=== PATIENT | male | born 1930 | race Caucasian/White ===

== ENCOUNTER 2016-11-29 08:59 | Inpatient (IN) | payer OTHER, MEDICARE ==
[2016-11-29] VITALS (7 sets, daily range): BP systolic 113–155; BP diastolic 66–84; PULSE 96–135; TEMP 36.4–36.6; O2SAT 95–97; Ht 172.7 cm; Wt 61.1 kg
[~2016-11-29] VITALS: Ht 172.7 cm; Wt 61.1 kg
[~2016-11-29 08:59] MED LIST: ASPI81TA28 PO; ATOR-54 PO; FLVHFA110 INH; IPRA1AER2 INH; IPRASOL4 INH; LEVO-459 PO; PRD20 PO; RANI300C PO
[2016-11-29] MEDS ORDERED: SODIUM CHLORIDE 0.9% 1000ML 1,000 ML IV STA (09:20)
[2016-11-29] MEDS ORDERED: ALBUTEROL 0.083% NEBU SOLN 3 ML VIAL INH STA ×2 (09:20→09:49)
[2016-11-29 09:25] LABS: BASO % 0.1 %; BASO ABS # 0.02 K/uL (0-0.2); COMPLETE YES; HEMATOCRIT 36.9 % (42-52); IG% 0.3 %; LYMPH % 9.2 %; LYMPH ABS # 1.33 K/uL (1.2-3.4); MEAN CELL VOLUME 97.6 fL (80-100); MEAN CORPUSCULAR HEMOGLOBIN 31.2 pg (25-34); MEAN PLATELET VOLUME 9.6 fL (7.4-10.4); MONO % 6.6 %; NEUT % 82.8 %; PLATELET COUNT 264 K/uL (130-400); RED BLOOD COUNT 3.78 M/uL (4.7-6.1); WHITE BLOOD COUNT 14.41 K/uL (4.8-10.8)
[2016-11-29 09:36] LABS: PROTHROMBIN TIME (PATIENT) 10.7 SECONDS (9.0-12.0)
[2016-11-29] MEDS ORDERED: PRED10TA PO (09:47)
--- NOTE | 2016-11-29 09:47 | DIAGNOSTIC IMAGING REPORT ---
CHEST ONE VIEW PORTABLE CLINICAL HISTORY: EVALUATE RESPIRATORY DISTRESS. DYSPNEA dyspnea COMPARISON STUDY: 05/25/2014 FINDINGS: Emphysematous change. Chronic interstitial and fibrotic change left base. No well-defined acute infiltrate. Slight chronic blunting left lateral costophrenic angle. IMPRESSION: Chronic interstitial change left base. Emphysematous change. No acute process. Electronically signed by: Juno Mariscal M.D. 11/29/2016 9:45 AM Dictated Date/Time: 11/29/2016 9:41 AM
[2016-11-29 09:58] LABS: ALB/GLOB RATIO 0.8 (0.9-2); CALCIUM 8.8 mg/dl (8.5-10.1); CREATININE 0.7 mg/dl (0.60-1.40); POTASSIUM 4.1 mmol/L (3.5-5.1)
[2016-11-29] MEDS ORDERED: METHYLPREDNISOLONE IV 125 MG in SYRINGE 0 ML IV SCH (10:00)
[2016-11-29] MEDS ORDERED: OPTIRAY 320 IV PRN (10:30)
[2016-11-29] MEDS ORDERED: METHYLPREDNISOLONE 125 MG VIAL IV ONE (10:30)
[2016-11-29] MEDS ORDERED: ASPIRIN 324 MG CHEW PO STA (10:53)
[2016-11-29] MEDS ORDERED: ASPIRIN 81 MG CHEW PO STA (10:58)
[2016-11-29] MEDS ORDERED: LEVAQUIN 500MG / 100ML D5W IV ONE (11:00)
[2016-11-29] MEDS ORDERED: ONDANSETRON INJ 2 MG/ML 2 ML VIAL IV PRN (11:30)
[2016-11-29] MEDS ORDERED: ACETAMINOPHEN 325 MG TAB PO PRN (11:30)
[2016-11-29] MEDS ORDERED: NITROGLYCERIN 0.4 MG SL PER TAB CHARGE SL PRN (11:30)
[2016-11-29] MEDS ORDERED: LORAZEPAM 0.5 MG TAB PO PRN (11:45)
[2016-11-29] MEDS ORDERED: AZITHROMYCIN 250 MG TAB PO ONE (11:45)
[2016-11-29 11:57] LABS: VEN BLD GAS O2 SATURATION 67.4 %; VEN BLOOD GAS BASE EXCESS 3.3 mmol/L
[2016-11-29] MEDS ORDERED: LEVOFLOXACIN / D5W 750 MG in PREMIXED IN D5W 150 ML IV ONE (12:00)
--- NOTE | 2016-11-29 12:06 | DIAGNOSTIC IMAGING REPORT ---
CT ANGIOGRAPHY OF THE CHEST, PULMONARY EMBOLUS PROTOCOL CLINICAL HISTORY: Cough, left-sided chest pain. COMPARISON STUDY: Chest CT January 29, 2009 TECHNIQUE: Following IV administration of 94 mL of Optiray-320, helical axial images of the chest were obtained utilizing the pulmonary embolus protocol. Maximal intensity projections and sagittal and coronal reformats were viewed on an independent 3D workstation. IV contrast was administered without complication. CT DOSE: 511.80 mGy.cm FINDINGS: No pulmonary emboli are identified. The size of the heart is normal. There is extensive coronary artery calcification. There is no pericardial effusion. No enlarged thoracic lymph nodes are present. There is a small left pleural effusion. There is no pneumothorax. Severe emphysema is noted. Extensive secretions within the trachea and mainstem bronchi are noted as well as secretions throughout numerous bilateral lower lobe segmental bronchi with bronchial wall thickening. Moderate left lower lobe consolidation to suggest pneumonia. There is mild right lower lobe consolidation. There are a few irregular subpleural opacities within the lingula which measure up to 1.4 cm. Bony thorax is unremarkable. An endovascular stent graft is partially imaged within the abdominal aorta. A right renal cyst is incidentally noted. IMPRESSION: 1. No pulmonary emboli identified. 2. Bilateral lower lobe consolidation, left greater than right. This is highly suggestive of pneumonia, potentially on the basis of aspiration. A few irregular subpleural lingular opacities are also likely infectious. A follow-up chest CT in 3 months to ensure resolution is recommended. 3. Stents of secretions throughout the airways. 4. Severe emphysema. 5. Small left pleural effusion. Electronically signed by: Leno Pat M.D. 11/29/2016 12:04 PM Dictated Date/Time: 11/29/2016 11:53 AM
--- NOTE | 2016-11-29 12:18 | DIAGNOSTIC IMAGING REPORT ---
BILATERAL LOWER EXTREMITY VENOUS DOPPLER CLINICAL HISTORY: Tachycardia and shortness of breath. COMPARISON STUDY: No previous studies for comparison. TECHNIQUE: Sonography of the deep venous system of the bilateral lower extremities was performed. Compression and augmentation were evaluated. FINDINGS: The bilateral common femoral, superficial femoral and popliteal veins were compressible. Augmentation was normal. Flow was shown within the deep calf vessels. IMPRESSION: No evidence of deep venous thrombus within the bilateral lower extremities. Electronically signed by: Leno Pat M.D. 11/29/2016 12:16 PM Dictated Date/Time: 11/29/2016 12:15 PM
--- NOTE | 2016-11-29 12:29 | History and Physical ---
History & Physical Date & Time of Service: Nov 29, 2016 at 11:41 Chief Complaint: Cough, Lf Sided Chest Pain Primary Care Physician: Juno Wiggins M.D. 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 Pt reports that 2 days ago he developed SOB that is aggravated with exertion. Sxs are assoc with wheezing, wet cough and a few hours of L sided pleuritic chest pain that has since resolved. He has been using his nebulizer and inhalers with mild temporary relief however last night he was up all night with worsening sxs which prompted him to seek further evaluation. Pt has a history of severe COPD on 10mg Prednisone daily and 3L continuous O2. Pt currently lives home alone with 5 children in the area. Pt denies fever/chills, diaphoresis, abd pain, N/V, bowel or bladder issues, LE edema, calf pain, lightheadedness/dizziness. In the ED, pt was is tachy and dyspneic. He is afebrile with leukocytosis>14k. CXR no acute change. CT chest + bibasilar consolidation. No evidence of PE. Initial troponin is negative and EKG shows sinus tachy with no acute ischemic change. Pt received Solu-Medrol and nebs in the ED. He will be admitted for further evaluation and treatment. Past Medical/Surgical History Medical Problems: (1) AAA (abdominal aortic aneurysm) Permanent Comment: s/p endovascular repair Status: Chronic (2) BPH (benign prostatic hypertrophy) Status: Chronic (3) Chronic obstructive pulmonary disease Permanent Comment: on chronic O2 and steroids Status: Chronic (4) Dyslipidemia Status: Chronic (5) GERD (gastroesophageal reflux disease) Status: Chronic Surgical Problems: (1) Status post aortic aneurysm repair Status: Chronic Family History No significant family history Social History Smoking Status: Former Smoker (45 pack years; quit 2001) Alcohol Use: none Drug Use: none Marital Status: Housing status: lives alone Occupational Status: unemployed Immunizations History of Influenza Vaccine: Yes Influenza Vaccine Date: Apr 29, 2014 History of Tetanus Vaccine?: Yes History of Pneumococcal: Yes Pneumococcal Date: Jun 03, 2004 History of Hepatitis B Vaccine: No Multi-Drug Resistant Organisms History of MDRO: No Allergies Coded Allergies: Sulfa Drugs (Verified Allergy, Intermediate, RASH, NAUSEA, VOMITING, ) Home Medications Scheduled Aspirin (Aspirin EC Low Dose), 81 MG PO DAILY Finasteride (Proscar), 5 MG PO HS Ipratropium-Albuterol (Combivent Respimat), 1 PUFFS INH QID Multivitamin (Multivitamin), 1 TAB PO DAILY Omeprazole (Prilosec), 20 MG PO DAILY Oxygen (Oxygen), 3 LITER NA CONTINOUS Prednisone Tab (Prednisone), 10 MG PO DAILY Roflumilast (Daliresp), 500 MCG PO DAILY Sertraline (Zoloft), 50 MG PO DAILY Scheduled PRN Dextromethorphan-Guaifenesin (Mucinex Dm), 1 TAB PO Q12 PRN for congestion Lorazepam (Lorazepam), 0.5 MG PO BID PRN for Anxiety Miscellaneous Medications Fluticasone Furoate-Vilanterol (Breo Ellipta) Review of Systems Constitutional: + fatigue, No chills, No fever, No sweats, No weakness Eyes: No worsening of vision ENT: No hearing loss Respiratory: + cough, + dyspnea at rest, + dyspnea on exertion, + shortness of breath, + wheezing, No hemoptysis, No sputum Cardiovascular: + chest pain (pleurtic chest pain: resolved), No claudication, No edema Abdomen: No constipation, No diarrhea, No nausea, No pain, No vomiting Musculoskeletal: No calf pain, No swelling Genitourinary - Male: No dysuria Neurologic: No weakness Psychiatric: No depression symptoms Endocrine: + fatigue Hematologic / Lymphatic: No abnormal bleeding/bruising Integumentary: No new/changing skin lesions Physical Exam Vital Signs Date Time Temp Pulse Resp B/P Pulse Ox O2 Delivery O2 Flow Rate FiO2 11/29/16 11:07 119 30 119/68 94 Nasal Cannula 3.0 11/29/16 10:19 127 25 115/65 94 Nasal Cannula 6.0 11/29/16 09:40 97 Nasal Cannula 6.0 11/29/16 09:33 124 27 117/44 97 Nebulizer 6.0 11/29/16 09:33 121 11/29/16 09:06 93 Nasal Cannula 4.0 11/29/16 09:05 36.8 129 33 127/78 91 Nasal Cannula 3.0 11/29/16 09:05 91 Nasal Cannula 3.0 General Appearance: WD/WN, no apparent distress, + pertinent finding (Pt is sitting up in bed with children at bedside ) Head: normocephalic, atraumatic Eyes: normal inspection ENT: hearing grossly normal Neck: supple Respiratory/Chest: chest non-tender, no respiratory distress, no accessory muscle use, + pertinent finding (decreased air movement bilat; no wheezing noted ) Cardiovascular: no edema, no murmur, + tachycardia Abdomen/GI: normal bowel sounds, non tender, soft Back: normal inspection Extremities/Musculoskelatal: normal inspection, no calf tenderness, no pedal edema Neurologic/Psych: alert, normal mood/affect, oriented x 3 Skin: normal color, warm/dry Diagnostics Laboratory Results Results Past 24 Hours Test 11/29/16 09:11 11/29/16 10:50 Range/Units White Blood Count 14.41 4.8-10.8 K/uL Red Blood Count 3.78 4.7-6.1 M/uL Hemoglobin 11.8 14.0-18.0 g/dL Hematocrit 36.9 42-52 % Mean Corpuscular Volume 97.6 80-100 fL Mean Corpuscular Hemoglobin 31.2 25-34 pg Mean Corpuscular Hemoglobin Concent 32.0 32-36 g/dl Platelet Count 264 130-400 K/uL Mean Platelet Volume 9.6 7.4-10.4 fL Neutrophils (%) (Auto) 82.8 % Lymphocytes (%) (Auto) 9.2 % Monocytes (%) (Auto) 6.6 % Eosinophils (%) (Auto) 1.0 % Basophils (%) (Auto) 0.1 % Neutrophils # (Auto) 11.91 1.4-6.5 K/uL Lymphocytes # (Auto) 1.33 1.2-3.4 K/uL Monocytes # (Auto) 0.95 0.11-0.59 K/uL Eosinophils # (Auto) 0.15 0-0.5 K/uL Basophils # (Auto) 0.02 0-0.2 K/uL RDW Standard Deviation 53.2 36.4-46.3 fL RDW Coefficient of Variation 14.9 11.5-14.5 % Immature Granulocyte % (Auto) 0.3 % Immature Granulocyte # (Auto) 0.05 0.00-0.02 K/uL Prothrombin Time 10.7 9.0-12.0 SECONDS Prothromb Time International Ratio 1.0 0.9-1.1 Activated Partial Thromboplast Time 26.0 21.0-31.0 SECONDS Partial Thromboplastin Ratio 1.0 Sodium Level 141 136-145 mmol/L Potassium Level 4.1 3.5-5.1 mmol/L Chloride Level 98 98-107 mmol/L Carbon Dioxide Level 39 21-32 mmol/L Anion Gap 4.0 3-11 mmol/L Blood Urea Nitrogen 13 7-18 mg/dl Creatinine 0.70 0.60-1.40 mg/dl Est Creatinine Clear Calc Drug Dose 70.8 ml/min Estimated GFR () 100.4 Estimated GFR (Non- 86.7 BUN/Creatinine Ratio 18.0 10-20 Random Glucose 113 70-99 mg/dl Calcium Level 8.8 8.5-10.1 mg/dl Total Bilirubin 0.5 0.2-1 mg/dl Aspartate Amino Transf (AST/SGOT) 22 15-37 U/L Alanine Aminotransferase (ALT/SGPT) 17 12-78 U/L Alkaline Phosphatase 74 45-117 U/L Troponin I 0.038 0-0.045 ng/ml Pro-B-Type Natriuretic Peptide 802 0-1800 pg/ml Total Protein 7.1 6.4-8.2 gm/dl Albumin 3.1 3.4-5.0 gm/dl Globulin 4.0 2.5-4.0 gm/dl Albumin/Globulin Ratio 0.8 0.9-2 Chemistry Specimen Hemolysis Diagnostic Radiology CXR IMPRESSION: Chronic interstitial change left base. Emphysematous change. No acute process. CT CHEST IMPRESSION: 1. No pulmonary emboli identified. 2. Bilateral lower lobe consolidation, left greater than right. This is highly suggestive of pneumonia, potentially on the basis of aspiration. A few irregular subpleural lingular opacities are also likely infectious. A follow-up chest CT in 3 months to ensure resolution is recommended. 3. Stents of secretions throughout the airways. 4. Severe emphysema. 5. Small left pleural effusion. EKG EKG: sinus tachy at 123 bpm with occ PACs and RBBB; when compared to EKG from PACs are new and RBBB replaced incomplete RBBB Impression Assessment and Plan ACUTE COPD EXACERBATION/PNEUMONIA R/O PE pt presented with worsening SOB assoc with wheezing, cough and pleuritic chest pain which has since resolved; h/o severe COPD on chronic prednisone and O2 -admit to telemetry -pt is tachycardic and tachypneic with leukocytosis>14K; ABG is pending -CT chest + bibasilar consolidation (L>R); no evidence of PE -Trop negative and EKG no ischemic changes -increase steroids -start Levaquin/Zosyn and Xopenex nebs -continue O2 supplementation -monitor AAA -s/p repair in 2008 BPH -cont Proscar GERD -cont PPI DYSLIPIDEMIA -diet-controlled DVT PROPHYLAXIS -subq Lovenox CODE STATUS -DNR per discussion with patient upon admission DISPO Pt seen in collaboration with Dr. Hutchinson. Please see his addendum for further details. Thanks! -of note: Pt will be followed by Dr. 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 Y/N: Yes Risk Level: Moderate Note ATTENDING ADDENDUM Record reviewed. Patient interviewed and examined. Care coordinated with Lucille Rodríguez PA-C. Please refer to her documentation for patient's history. Briefly, 85 YO male with steroid and O2-dependent COPD. Presented to ED with 2 days of worsening cough and dyspnea, associated with left pleuritic chest pain. EXAM: General- elderly gentleman, tachypneic VS- as noted HEENT- anicteric Neck- + JVD Lungs- diffuse wheezing, prolonged expiration, scattered rhonchi, using accessory muscles Heart- distant heart sounds, RRR, tachy Abdomen- + BS, soft, nontender Extremities- trace pretibial edema, no calf tenderness Neuro- alert DATA: WBC 14,410. UA- + leuk esterase, 10-30 WBC's, > 30 RBC's. Other lab studies as noted. CXR- emphysematous changes, apparent chronic changes left base. CT chest- neg for PE, + for bibasilar infiltrates L > R consistent with pneumonia Venous duplex legs neg. EKG performed at 09:[address] at 120 / minute, RBBB, left anterior fascicular block, [id number]'s. . ASSESSMENT AND PLAN: Pneumonia, outpatient acquired but at risk for Pseudomonas. Exacerbation of COPD. Check sputum gram stain, C&S. Treat pneumonia with IV levofloxacin and piperacillin / tazobactam. Treat bronchospasm with nebs and IV methylprednisolone with transition to prednisone when better. Possible UTI- check C&S. Hematuria- may be due to UTI; will not pursue aggressive workup given patient's advanced age and significant comorbidities. Please refer to CURTIS Rodríguez's documentation for discussion of other issues. Jose Alfredo Hutchinson MD .
--- NOTE | 2016-11-29 13:33 | EMERGENCY ROOM VISIT NOTE ---
History Report prepared by Anupama: Flaquita Rodriguez Under the Supervision of: Dr. Bimal Savage D.O. First contact with patient: 09:01 Chief Complaint: CARDIAC ASSESSMENT Stated Complaint: COUGH, LF SIDED CHEST PAIN History of Present Illness The patient is a 85 year old male who presents to the Emergency Room with complaints of persistent left sided chest pain starting last night. He was brought to the ED by EMS. Last night, he began to cough and have chest pain. He experienced these symptoms all throughout the night. The pain worsens when he breathes deeply. He wears 3 L of oxygen at home regularly. He denies any recent falls. He has a history of aneurysm, COPD and irregular heartbeat. He denies any history of blood clots. He is not on any blood thinners. He lives alone. He has received his pneumonia and flu shot. Patient denies any nausea vomiting diarrhea, no headaches or change in vision. Source of History: patient Onset: last night Position: chest (left) Timing: other (persistent) Modifying Factors (Worsening): breathing (deeply) Associated Symptoms: + cough Review of Systems See HPI for pertinent positives & negatives. A total of 10 systems reviewed and were otherwise negative. Past Medical & Surgical Medical Problems: (1) AAA (abdominal aortic aneurysm) (2) BPH (benign prostatic hypertrophy) (3) Chronic obstructive pulmonary disease (4) Dyslipidemia (5) GERD (gastroesophageal reflux disease) Surgical Problems: (1) Status post aortic aneurysm repair Family History No significant family history Non contributory secondary to age. Social History Smoking Status: Former Smoker Alcohol Use: none Drug Use: none Marital Status: Housing Status: lives alone Occupation Status: retired Current/Historical Medications Scheduled Aspirin (Aspirin EC Low Dose), 81 MG PO DAILY Finasteride (Proscar), 5 MG PO HS Ipratropium-Albuterol (Combivent Respimat), 1 PUFFS INH QID Multivitamin (Multivitamin), 1 TAB PO DAILY Omeprazole (Prilosec), 20 MG PO DAILY Oxygen (Oxygen), 3 LITER NA CONTINOUS Prednisone Tab (Prednisone), 10 MG PO DAILY Roflumilast (Daliresp), 500 MCG PO DAILY Sertraline (Zoloft), 50 MG PO DAILY Scheduled PRN Dextromethorphan-Guaifenesin (Mucinex Dm), 1 TAB PO Q12 PRN for congestion Lorazepam (Lorazepam), 0.5 MG PO BID PRN for Anxiety Miscellaneous Medications Fluticasone Furoate-Vilanterol (Breo Ellipta) Allergies Coded Allergies: Sulfa Drugs (Verified Allergy, Intermediate, RASH, NAUSEA, VOMITING, ) Physical Exam Vital Signs Date Time Temp Pulse Resp B/P Pulse Ox O2 Delivery O2 Flow Rate FiO2 11/29/16 12:47 110 28 115/64 90 Nasal Cannula 3.0 11/29/16 11:07 119 30 119/68 94 Nasal Cannula 3.0 11/29/16 10:19 127 25 115/65 94 Nasal Cannula 6.0 11/29/16 09:40 97 Nasal Cannula 6.0 11/29/16 09:33 124 27 117/44 97 Nebulizer 6.0 11/29/16 09:33 121 11/29/16 09:06 93 Nasal Cannula 4.0 11/29/16 09:05 36.8 129 33 127/78 91 Nasal Cannula 3.0 11/29/16 09:05 91 Nasal Cannula 3.0 Physical Exam GENERAL: Sitting up in bed, ill appearing, on nasal cannula, in moderate distress EYE EXAM: normal conjunctiva OROPHARYNX: no exudate, no erythema, lips, buccal mucosa, and tongue normal and mucous membranes are moist NECK: supple, no nuchal rigidity, no adenopathy, non-tender, no JVD LUNGS: Rhonchi bilaterally with referred upper airway noises. HEART: no murmurs, S1 normal and S2 normal ABDOMEN: abdomen soft, non-tender, normo-active bowel sounds, no masses, no rebound or guarding. BACK: Back is symmetrical on inspection and there is no deformity, no midline tenderness, no CVA tenderness. SKIN: no rashes and no bruising UPPER EXTREMITIES: upper extremities are grossly normal. LOWER EXTREMITIES: No pitting edema. Calves equal bilaterally. NEURO EXAM: Normal sensorium, cranial nerves II-XII grossly intact, normal speech, no gross weakness of arms, no gross weakness of legs. Medical Decision & Procedures ER Provider Diagnostic Interpretation: Xray results as stated below per the radiologist's and my interpretation. Radiology results as stated below per my review and the radiologist's interpretation: CHEST ONE VIEW PORTABLE CLINICAL HISTORY: EVALUATE RESPIRATORY DISTRESS. DYSPNEA dyspnea COMPARISON STUDY: 05/25/2014 FINDINGS: Emphysematous change. Chronic interstitial and fibrotic change left base. No well-defined acute infiltrate. Slight chronic blunting left lateral costophrenic angle. IMPRESSION: Chronic interstitial change left base. Emphysematous change. No acute process. Electronically signed by: Juno Mariscal M.D. 11/29/2016 9:45 AM Dictated Date/Time: 11/29/2016 9:[address] ANGIOGRAPHY OF THE CHEST, PULMONARY EMBOLUS PROTOCOL CLINICAL HISTORY: Cough, left-sided chest pain. COMPARISON STUDY: Chest CT January 29, 2009 TECHNIQUE: Following IV administration of 94 mL of Optiray-320, helical axial images of the chest were obtained utilizing the pulmonary embolus protocol. Maximal intensity projections and sagittal and coronal reformats were viewed on an independent 3D workstation. IV contrast was administered without complication. CT DOSE: 511.80 mGy.cm FINDINGS: No pulmonary emboli are identified. The size of the heart is normal. There is extensive coronary artery calcification. There is no pericardial effusion. No enlarged thoracic lymph nodes are present. There is a small left pleural effusion. There is no pneumothorax. Severe emphysema is noted. Extensive secretions within the trachea and mainstem bronchi are noted as well as secretions throughout numerous bilateral lower lobe segmental bronchi with bronchial wall thickening. Moderate left lower lobe consolidation to suggest pneumonia. There is mild right lower lobe consolidation. There are a few irregular subpleural opacities within the lingula which measure up to 1.4 cm. Bony thorax is unremarkable. An endovascular stent graft is partially imaged within the abdominal aorta. A right renal cyst is incidentally noted. IMPRESSION: 1. No pulmonary emboli identified. 2. Bilateral lower lobe consolidation, left greater than right. This is highly suggestive of pneumonia, potentially on the basis of aspiration. A few irregular subpleural lingular opacities are also likely infectious. A follow-up chest CT in 3 months to ensure resolution is recommended. 3. Stents of secretions throughout the airways. 4. Severe emphysema. 5. Small left pleural effusion. Electronically signed by: Leno Pat M.D. 11/29/2016 12:04 PM Dictated Date/Time: 11/29/2016 11:53 AM BILATERAL LOWER EXTREMITY VENOUS DOPPLER CLINICAL HISTORY: Tachycardia and shortness of breath. COMPARISON STUDY: No previous studies for comparison. TECHNIQUE: Sonography of the deep venous system of the bilateral lower extremities was performed. Compression and augmentation were evaluated. FINDINGS: The bilateral common femoral, superficial femoral and popliteal veins were compressible. Augmentation was normal. Flow was shown within the deep calf vessels. IMPRESSION: No evidence of deep venous thrombus within the bilateral lower extremities. Electronically signed by: Leno Pat M.D. 11/29/2016 12:16 PM Dictated Date/Time: 11/29/2016 12:15 PM Laboratory Results 11/29/16 09:11 Red Blood Count 3.78, Mean Corpuscular Volume 97.6, Mean Corpuscular Hemoglobin 31.2, Mean Corpuscular Hemoglobin Concent 32.0, Mean Platelet Volume 9.6, Neutrophils (%) (Auto) 82.8, Lymphocytes (%) (Auto) 9.2, Monocytes (%) (Auto) 6.6, Eosinophils (%) (Auto) 1.0, Basophils (%) (Auto) 0.1, Neutrophils # (Auto) 11.91, Lymphocytes # (Auto) 1.33, Monocytes # (Auto) 0.95, Eosinophils # (Auto) 0.15, Basophils # (Auto) 0.02 11/29/16 09:11 Test 11/29/16 09:11 11/29/16 11:45 White Blood Count 14.41 K/uL (4.8-10.8) Red Blood Count 3.78 M/uL (4.7-6.1) Hemoglobin 11.8 g/dL (14.0-18.0) Hematocrit 36.9 % (42-52) Mean Corpuscular Volume 97.6 fL (80-100) Mean Corpuscular Hemoglobin 31.2 pg (25-34) Mean Corpuscular Hemoglobin Concent 32.0 g/dl (32-36) Platelet Count 264 K/uL (130-400) Mean Platelet Volume 9.6 fL (7.4-10.4) Neutrophils (%) (Auto) 82.8 % Lymphocytes (%) (Auto) 9.2 % Monocytes (%) (Auto) 6.6 % Eosinophils (%) (Auto) 1.0 % Basophils (%) (Auto) 0.1 % Neutrophils # (Auto) 11.91 K/uL (1.4-6.5) Lymphocytes # (Auto) 1.33 K/uL (1.2-3.4) Monocytes # (Auto) 0.95 K/uL (0.11-0.59) Eosinophils # (Auto) 0.15 K/uL (0-0.5) Basophils # (Auto) 0.02 K/uL (0-0.2) RDW Standard Deviation 53.2 fL (36.4-46.3) RDW Coefficient of Variation 14.9 % (11.5-14.5) Immature Granulocyte % (Auto) 0.3 % Immature Granulocyte # (Auto) 0.05 K/uL (0.00-0.02) Prothrombin Time 10.7 SECONDS (9.0-12.0) Prothromb Time International Ratio 1.0 (0.9-1.1) Activated Partial Thromboplast Time 26.0 SECONDS (21.0-31.0) Partial Thromboplastin Ratio 1.0 Anion Gap 4.0 mmol/L (3-11) Est Creatinine Clear Calc Drug Dose 70.8 ml/min Estimated GFR () 100.4 Estimated GFR (Non- 86.7 BUN/Creatinine Ratio 18.0 (10-20) Calcium Level 8.8 mg/dl (8.5-10.1) Total Bilirubin 0.5 mg/dl (0.2-1) Aspartate Amino Transf (AST/SGOT) 22 U/L (15-37) Alanine Aminotransferase (ALT/SGPT) 17 U/L (12-78) Alkaline Phosphatase 74 U/L (45-117) Troponin I 0.038 ng/ml (0-0.045) Pro-B-Type Natriuretic Peptide 802 pg/ml (0-1800) Total Protein 7.1 gm/dl (6.4-8.2) Albumin 3.1 gm/dl (3.4-5.0) Globulin 4.0 gm/dl (2.5-4.0) Albumin/Globulin Ratio 0.8 (0.9-2) Chemistry Specimen Hemolysis Venous Blood pH 7.23 (7.36-7.41) Venous Blood Partial Pressure CO2 80 mmHg (38.0-50.0) Venous Blood Partial Pressure O2 39 mmHg Venous Blood HCO3 33 mmol/L Venous Blood Oxygen Saturation 67.4 % Venous Blood Base Excess 3.3 mmol/L Laboratory results per my review. Medications Administered Medications (Trade) Dose Ordered Sig/Shabbir Route Start Time Stop Time Status Last Admin Dose Admin Sodium Chloride (Nss 1000ml) 1,000 ml @ 999 mls/hr Q1H1M STAT IV 11/29/16 09:20 11/29/16 10:20 DC 11/29/16 09:30 999 MLS/HR Albuterol Sulfate (Ventolin 0.083% 2.5MG/3ML Neb) 2.5 mg NOW STAT INH 11/29/16 09:20 11/29/16 09:21 DC 11/29/16 09:29 2.5 MG Albuterol Sulfate (Ventolin 0.083% 2.5MG/3ML Neb) 5 mg NOW STAT INH 11/29/16 09:49 11/29/16 09:50 DC 11/29/16 10:19 5 MG Methylprednisolone Sodium Succinate (Solu-Medrol IV) 125 mg NOW ONCE IV 11/29/16 10:30 11/29/16 10:31 DC 11/29/16 11:03 125 MG Levofloxacin (Levaquin / D5W) 500 mg NOW ONCE IV 11/29/16 11:00 11/29/16 11:01 DC 11/29/16 11:03 500 MG Aspirin (Aspirin Chew) 324 mg NOW STAT PO 11/29/16 10:58 11/29/16 10:59 DC 11/29/16 11:10 324 MG ECG Indication: chest pain Rate (beats per minute): 123 Rhythm: sinus tachycardia Findings: RBBB, ST depression, left axis deviation Comparison ECG Date: 25-May-2014 Change: ST depression is new. ED Course ED COURSE: Vital signs were reviewed and showed tachycardia and hypoxia. The patients medical record was reviewed The above diagnostic studies were performed and reviewed. ED treatments and interventions as stated above. 0905: The patient was evaluated in room B7. A complete history and physical examination was performed. 0920: Albuterol Sulfate 2.5 mg INH, NSS 1000 ml @ 999 mls/hr IV. 0935: I reevaluated the patient. He is resting comfortably. 0949: Albuterol Sulfate 5 mg INH. 1005: I reevaluated the patient. He is sitting on the edge of the bed. He is doing well. 1030: Solu-Medrol IV 125 mg IV. 1035: The patient is going to [facility] now. 1049: I discussed the patients case with Lucille Rodríguez PA-C [facility]ist service. She will evaluate the patient for further management. 1053: Aspirin 324 mg PO. 1058: Aspirin 324 mg PO. 1100: Levofloxacin 500 mg IV. 1110: Upon reevaluation, the patient is resting comfortably.I discussed my findings with the patient and he understands and agrees with the treatment plan. Based on the patients age, coexisting illnesses, exam and lab findings the decision to treat as an inpatient was made. The patient remained stable while under my care. The patient will be evaluated for further management. Medical Decision Differential diagnoses includes but is not limited to acute coronary syndrome, myocardial infarction, pericarditis, pulmonary embolus, aortic dissection, pneumonia, pneumothorax, musculoskeletal, shingles, esophageal. Patient is an 85-year-old male who presents the ER for shortness of breath. On exam he is hypoxic, tachycardic and ill-appearing. He is placed on 5 L nasal cannula which is increased from his baseline of 3 L nasal cannula. Labs show a leukocytosis of 14,000. BMP along with LFTs, bilirubin and troponin were negative. BNP was negative. INR was unremarkable. VBG shows a pH is 7.23. CT was elevated. Chest x-ray was nondiagnostic. CT PE was initially ordered and patient was brought back to the room as he noted he has an allergy to contrast which is vomiting. He notes that if he gets prepped he has no difficulty. I ordered duplexes of the lower extremities. He was given steroids and albuterol for his shortness of breath. He is covered with Levaquin. He notes the symptoms occurred overnight and eventually patient was taken for CT PE following admission. Showed a bilateral pneumonia. Patient family were updated patient was admitted to the hospital with bilateral pneumonia. Consults Time Called: 1048 Consulting Physician: Lucille Rodríguez PA-C [facility]ist service Returned Call: [phone] I reviewed the patient's case with her. She will evaluate the patient for further management. Impression Primary Impression: Pneumonia Additional Impression: Hypoxia Scribe Attestation The scribe's documentation has been prepared under my direction and personally reviewed by me in its entirety. I confirm that the note above accurately reflects all work, treatment, procedures, and medical decision making performed by me. Departure Information Dispostion Being Evaluated By Hospitalist Referrals Juno Wiggins M.D. (PCP) Patient Instructions My [facility] Problem Qualifiers Primary Impression: Pneumonia Pneumonia type: due to unspecified organism Laterality: bilateral Lung location: lower lobe of lung Qualified Codes: J18.9 - Pneumonia, unspecified organism
[2016-11-29] MEDS ORDERED: LEVALBUTEROL/IPRATROPIUM NEB INH SCH (15:00)
[2016-11-29] MEDS ORDERED: PIPERACILL/TAZOBAC CONSULT ACTIVE PRN (15:15)
[2016-11-29] MEDS ORDERED: PIPERACILL/TAZOBAC IV 3.375 GM in DEXTROSE 5% 100ML 100 ML IV ONE (15:30)
[2016-11-29] MEDS: IPRATROPIUM BROMIDE NEB SOLN 0.02% 2.5 ML VIAL INH SCH (19:06)
[2016-11-29] MEDS: LEVALBUTEROL 1.25MG/0.5ML NEB INH SCH (19:06)
[2016-11-29] MEDS: ENOXAPARIN 40 MG/0.4 ML SYR SC SCH (20:25)
[2016-11-29] MEDS: FINASTERIDE 5 MG TAB PO SCH (20:25)
[2016-11-29] MEDS: METHYLPREDNISOLONE IV 20 MG in SYRINGE 0 ML IV SCH (20:25)
[2016-11-29 20:56] LABS: URINE APPEARANCE CLEAR (CLEAR); URINE BILIRUBIN NEG (NEG); URINE COLOR YELLOW; URINE EPITHELIAL CELL AUTO 0-5 /lpf (0-5); URINE NITRITE POS (NEG); URINE SPECIFIC GRAVITY 1.033 (1.000-1.030); UROBILINOGEN NEG (NEG)
[2016-11-29 20:59] LABS: MANUAL MICROSCOPIC REQUIRED? NO; REVIEW REQ? NO
[2016-11-29] MEDS: PIPERACILL/TAZOBAC IV 3.375 GM in DEXTROSE 5% 100ML IV SCH (21:49)
[2016-11-30] VITALS (10 sets, daily range): BP systolic 103–136; BP diastolic 57–75; PULSE 88–117; TEMP 36.3–36.9; O2SAT 92–98
[2016-11-30] MEDS: IPRATROPIUM BROMIDE NEB SOLN 0.02% 2.5 ML VIAL INH SCH ×2 (02:11→06:53)
[2016-11-30] MEDS: LEVALBUTEROL 1.25MG/0.5ML NEB INH SCH ×2 (02:11→06:53)
[2016-11-30] MEDS: PIPERACILL/TAZOBAC IV 3.375 GM in DEXTROSE 5% 100ML IV SCH ×2 (05:53→13:21)
--- NOTE | 2016-11-30 06:20 | Clinical Documentation Query ---
BRIGIDO Lombardo : CLINICAL DOCUMENTATION QUERY Patient is an 85 year old male admitted for COPD exacerbation in the setting of possible Pseudomonas pneumonia. H&P notes the utilization of 3 L/min of continuous supplemental oxygen via nasal cannula. As appropriate, consider documentation as suggested below as this allows for capture of this important clinical diagnosis and associated severity of illness and risk of mortality. Thank you. In your clinical opinion is this patient being managed for: ( ) Chronic hypoxic respiratory failure ( ) Other explanation of clinical findings (Please Explain) ( ) Unable to determine (Please Define) ( ) Need to Discuss ( ) Not Agree The medical record reflects the following clinical findings, treatment, and risk factors. Clinical Indicators: As above Treatment: Ongoing oxygen supplementation Risk Factors: COPD Please clarify and document your clinical opinion in the progress notes and discharge summary. Terms such as "probable", "suspected", "likely", "questionable", "possible", or "still to be ruled out" are acceptable. IF IN AGREEMENT, YOU MUST DOCUMENT ABOVE DIAGNOSTIC STATEMENT IN DAILY PROGRESS NOTES AND DISCHARGE SUMMARY. This document is not part of the patient's record. Thank You, Kiet Knight, RN [phone]
[2016-11-30 07:37] LABS: MEAN CELL VOLUME 97.3 fL (80-100); MEAN CORPUSCULAR HEMOGLOBIN 30.5 pg (25-34); MEAN CORPUSCULAR HGB CONC 31.4 g/dl (32-36); PLATELET COUNT 223 K/uL (130-400); WHITE BLOOD COUNT 12.94 K/uL (4.8-10.8)
[2016-11-30 08:08] LABS: BUN/CREATININE RATIO 19.4 (10-20); CALCIUM 8.5 mg/dl (8.5-10.1); CREATININE 0.77 mg/dl (0.60-1.40); POTASSIUM 4.3 mmol/L (3.5-5.1)
[2016-11-30] MEDS: PANTOprazole SOD 40 MG TAB PO SCH (08:13)
[2016-11-30] MEDS: ROFLUMILAST 500 MCG TAB PO SCH (08:13)
[2016-11-30] MEDS: MULTIVITAMIN TAB PO SCH (08:13)
[2016-11-30] MEDS: ASPIRIN 81 MG ECTAB PO SCH (08:13)
[2016-11-30] MEDS: SERTRALINE HCL 50 MG TAB PO SCH (08:14)
[2016-11-30] MEDS: METHYLPREDNISOLONE IV 20 MG in SYRINGE 0 ML IV SCH (08:14)
[2016-11-30] MEDS ORDERED: AZITHROMYCIN 250 MG TAB PO SCH (09:00)
[2016-11-30] MEDS: LEVOFLOXACIN / D5W 500 MG in PREMIXED IN D5W 100 ML IV SCH (12:01)
[2016-11-30] MEDS ORDERED: LEVALBUTEROL/IPRATROPIUM NEB INH PRN (13:45)
[2016-11-30] MEDS ORDERED: IPRATROPIUM BROMIDE/ALBUTEROL respimat INH INH PRN (13:45)
[2016-11-30] MEDS ORDERED: IPRATROPIUM BROMIDE NEB SOLN 0.02% 2.5 ML VIAL INH PRN (14:15)
[2016-11-30] MEDS ORDERED: LEVALBUTEROL 0.63MG/3 ML NEB INH PRN (14:15)
[2016-11-30] MEDS: METHYLPREDNISOLONE IV 40 MG in SYRINGE 0 ML IV SCH ×2 (14:47→21:12)
[2016-11-30] MEDS ORDERED: LEVALBUTEROL 0.63MG/3 ML NEB INH SCH (15:00)
--- NOTE | 2016-11-30 15:43 | Progress Note ---
Internal Med Progress Note Date of Service: Nov 30, 2016. Provider Documentation: SUBJECTIVE: says sob is same having cough with sputum afebrile has mild chest discomfort talking in full sentences OBJECTIVE: Vital Signs-as noted below Exam: General-alert and awake and oriented ENT-normal hearing Neck-no neck masses Lungs-b/l diminished breath sounds, no wheezing or crackles Heart-s1 and s2 heard regular rate and rhythm no murmurs Abdomen-soft bowel sounds present non tender no distension Extremities- no erythema Neuro-alert and awake moves extremities Lab data as noted below. ASSESSMENT & PLAN: ACUTE COPD EXACERBATION/PNEUMONIA R/O PE 85M with hx of copd presents with worsenig sob, cough with sputum and pleuritic chest pain CT chest NO PE but shows bilateral lower lobe consolidation favoring pneumonia. 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 -monitor AAA s/p repair in 2008 BPH On Proscar GERD On PPI DYSLIPIDEMIA diet-controlled DVT PROPHYLAXIS Lovenox CODE STATUS -DNR per hand P. Disposition 'To be determined Vital Signs: Date Time Temp Pulse Resp B/P Pulse Ox O2 Delivery O2 Flow Rate FiO2 11/30/16 14:35 103 16 92 Nasal Cannula 3.0 11/30/16 12:00 36.9 117 20 136/75 94 Nasal Cannula 4.0 11/30/16 12:00 Nasal Cannula 3.0 11/30/16 08:00 Nasal Cannula 3.0 11/30/16 07:15 36.4 99 20 113/66 95 Nasal Cannula 2.0 11/30/16 06:55 88 16 98 Nasal Cannula 3.0 11/30/16 04:00 Nasal Cannula 3.0 11/30/16 03:47 36.5 92 18 108/57 95 Nasal Cannula 3.0 11/30/16 02:11 98 16 97 Nasal Cannula 3.0 11/30/16 00:00 Nasal Cannula 3.0 11/29/16 23:55 36.6 96 20 113/67 95 Nasal Cannula 3.0 11/29/16 20:00 Nasal Cannula 3.0 11/29/16 19:53 36.4 100 20 115/69 96 Nasal Cannula 3.0 11/29/16 19:06 97 20 95 Nasal Cannula 3.0 11/29/16 16:04 97 Nasal Cannula 3.0 Lab Results: Results Past 24 Hours Test 11/30/16 07:20 Range/Units White Blood Count 12.94 4.8-10.8 K/uL Red Blood Count 3.70 4.7-6.1 M/uL Hemoglobin 11.3 14.0-18.0 g/dL Hematocrit 36.0 42-52 % Mean Corpuscular Volume 97.3 80-100 fL Mean Corpuscular Hemoglobin 30.5 25-34 pg Mean Corpuscular Hemoglobin Concent 31.4 32-36 g/dl RDW Standard Deviation 52.5 36.4-46.3 fL RDW Coefficient of Variation 14.8 11.5-14.5 % Platelet Count 223 130-400 K/uL Mean Platelet Volume 9.0 7.4-10.4 fL Sodium Level 140 136-145 mmol/L Potassium Level 4.3 3.5-5.1 mmol/L Chloride Level 99 98-107 mmol/L Carbon Dioxide Level 40 21-32 mmol/L Anion Gap 1.0 3-11 mmol/L Blood Urea Nitrogen 15 7-18 mg/dl Creatinine 0.77 0.60-1.40 mg/dl Est Creatinine Clear Calc Drug Dose 64.3 ml/min Estimated GFR () 96.6 Estimated GFR (Non- 83.3 BUN/Creatinine Ratio 19.4 10-20 Random Glucose 118 70-99 mg/dl Calcium Level 8.5 8.5-10.1 mg/dl Microbiology Results 11/30/16 Gram Stain - Final, Resulted 11/30/16 Sputum Culture, Resulted Pending 11/30/16 Urine Culture, Received Pending
[2016-11-30] MEDS ORDERED: CEFEPIME CONSULT ACTIVE PRN ×2 (16:00)
[2016-11-30] MEDS: CEFEPIME IV 2000 MG in DEXTROSE 5% 100ML IV SCH (16:46)
[2016-11-30] MEDS: FINASTERIDE 5 MG TAB PO SCH (21:12)
[2016-11-30] MEDS: ENOXAPARIN 40 MG/0.4 ML SYR SC SCH (21:12)
[2016-12-01 04:00] VITALS: BP 119/62; PULSE 98; TEMP 36.5; O2SAT 98
[2016-12-01] MEDS: CEFEPIME IV 2000 MG in DEXTROSE 5% 100ML IV SCH ×2 (06:04→18:02)
[2016-12-01 07:51] VITALS: BP 110/64; PULSE 95; TEMP 36.8; O2SAT 99
[2016-12-01 08:41] LABS: COMPLETE YES; EOS % 0.1 %; HEMATOCRIT 37.3 % (42-52); IG% 0.3 %; LYMPH % 6.6 %; LYMPH ABS # 0.84 K/uL (1.2-3.4); MEAN CELL VOLUME 98.2 fL (80-100); MEAN CORPUSCULAR HEMOGLOBIN 30.8 pg (25-34); MEAN CORPUSCULAR HGB CONC 31.4 g/dl (32-36); MEAN PLATELET VOLUME 9.2 fL (7.4-10.4); MONO % 5.3 %; NEUT % 87.7 %; PLATELET COUNT 275 K/uL (130-400); WHITE BLOOD COUNT 12.72 K/uL (4.8-10.8)
[2016-12-01] MEDS: METHYLPREDNISOLONE IV 40 MG in SYRINGE 0 ML IV SCH ×3 (09:09→20:43)
[2016-12-01] MEDS: MULTIVITAMIN TAB PO SCH (09:09)
[2016-12-01] MEDS: SERTRALINE HCL 50 MG TAB PO SCH (09:09)
[2016-12-01] MEDS: PANTOprazole SOD 40 MG TAB PO SCH (09:09)
[2016-12-01] MEDS: ROFLUMILAST 500 MCG TAB PO SCH (09:09)
[2016-12-01] MEDS: ASPIRIN 81 MG ECTAB PO SCH (09:09)
[2016-12-01 10:29] LABS: BUN/CREATININE RATIO 27.8 (10-20); CALCIUM 8.9 mg/dl (8.5-10.1); CREATININE 0.69 mg/dl (0.60-1.40); MAGNESIUM 2.3 mg/dl (1.8-2.4); POTASSIUM 4.4 mmol/L (3.5-5.1)
[2016-12-01 11:19] VITALS: BP 114/63; PULSE 114; TEMP 36.7; O2SAT 97
[2016-12-01] MEDS: LEVOFLOXACIN / D5W 500 MG in PREMIXED IN D5W 100 ML IV SCH (11:31)
[2016-12-01 16:10] VITALS: BP 109/66; PULSE 80; TEMP 36.5; O2SAT 94
--- NOTE | 2016-12-01 18:32 | Progress Note ---
Internal Med Progress Note Date of Service: Dec 01, 2016. Provider Documentation: SUBJECTIVE: says sob is still same still having cough with sputum afebrile denies chest discomfort talking in full sentences and seems comfortable OBJECTIVE: Vital Signs-as noted below Exam: General-alert and awake and oriented ENT-normal hearing Neck-no neck masses Lungs-b/l diminished breath sounds, no wheezing or crackles Heart-s1 and s2 heard regular rate and rhythm no murmurs Abdomen-soft bowel sounds present non tender no distension Extremities- no erythema Neuro-alert and awake moves extremities Lab data as noted below. ASSESSMENT & PLAN: ACUTE COPD EXACERBATION/PNEUMONIA R/O PE 85M with hx of copd presents with worsening sob, cough with sputum and pleuritic chest pain CT chest NO PE but shows bilateral lower lobe consolidation favoring pneumonia. 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 An episode of pause on tele mostly could be form cough spells? will monitor AAA s/p repair in 2008 BPH On Proscar GERD On PPI DYSLIPIDEMIA diet-controlled DVT PROPHYLAXIS Lovenox CODE STATUS -DNR per hand P. Disposition pt/ot 'To be determined Vital Signs: Date Time Temp Pulse Resp B/P Pulse Ox O2 Delivery O2 Flow Rate FiO2 12/01/16 16:10 36.5 80 16 109/66 94 Nasal Cannula 4.0 12/01/16 16:00 Nasal Cannula 4.0 12/01/16 12:00 Nasal Cannula 4.0 12/01/16 11:19 36.7 114 20 114/63 97 Nasal Cannula 5.0 12/01/16 07:51 36.8 95 18 110/64 99 Nasal Cannula 4.0 12/01/16 07:45 Nasal Cannula 4.0 12/01/16 04:00 36.5 98 20 119/62 98 5.0 12/01/16 04:00 Nasal Cannula 3.0 12/01/16 00:01 Nasal Cannula 3.0 11/30/16 23:22 36.3 107 18 111/68 95 Nasal Cannula 5.0 11/30/16 22:20 36.8 114 18 96 3.0 11/30/16 20:00 Nasal Cannula 3.0 11/30/16 19:46 36.8 114 18 103/62 96 Nasal Cannula 4.0 Lab Results: Results Past 24 Hours Test 12/01/16 08:15 Range/Units White Blood Count 12.72 4.8-10.8 K/uL Red Blood Count 3.80 4.7-6.1 M/uL Hemoglobin 11.7 14.0-18.0 g/dL Hematocrit 37.3 42-52 % Mean Corpuscular Volume 98.2 80-100 fL Mean Corpuscular Hemoglobin 30.8 25-34 pg Mean Corpuscular Hemoglobin Concent 31.4 32-36 g/dl Platelet Count 275 130-400 K/uL Mean Platelet Volume 9.2 7.4-10.4 fL Neutrophils (%) (Auto) 87.7 % Lymphocytes (%) (Auto) 6.6 % Monocytes (%) (Auto) 5.3 % Eosinophils (%) (Auto) 0.1 % Basophils (%) (Auto) 0.0 % Neutrophils # (Auto) 11.15 1.4-6.5 K/uL Lymphocytes # (Auto) 0.84 1.2-3.4 K/uL Monocytes # (Auto) 0.68 0.11-0.59 K/uL Eosinophils # (Auto) 0.01 0-0.5 K/uL Basophils # (Auto) 0.00 0-0.2 K/uL RDW Standard Deviation 53.7 36.4-46.3 fL RDW Coefficient of Variation 14.9 11.5-14.5 % Immature Granulocyte % (Auto) 0.3 % Immature Granulocyte # (Auto) 0.04 0.00-0.02 K/uL Sodium Level 143 136-145 mmol/L Potassium Level 4.4 3.5-5.1 mmol/L Chloride Level 100 98-107 mmol/L Carbon Dioxide Level 43 21-32 mmol/L Anion Gap 0.0 3-11 mmol/L Blood Urea Nitrogen 19 7-18 mg/dl Creatinine 0.69 0.60-1.40 mg/dl Est Creatinine Clear Calc Drug Dose 71.2 ml/min Estimated GFR () 101.0 Estimated GFR (Non- 87.2 BUN/Creatinine Ratio 27.8 10-20 Random Glucose 116 70-99 mg/dl Calcium Level 8.9 8.5-10.1 mg/dl Magnesium Level 2.3 1.8-2.4 mg/dl
[2016-12-01] MEDS: FINASTERIDE 5 MG TAB PO SCH (20:43)
[2016-12-01] MEDS: ENOXAPARIN 40 MG/0.4 ML SYR SC SCH (20:43)
[2016-12-01 20:48] VITALS: BP 121/68; PULSE 118; TEMP 36.6; O2SAT 96
[2016-12-01 23:48] VITALS: BP 134/71; PULSE 114; TEMP 36.5; O2SAT 96
[2016-12-02] VITALS (8 sets, daily range): BP systolic 100–130; BP diastolic 61–80; PULSE 94–120; TEMP 36.4–37.1; O2SAT 91–100
[2016-12-02] MEDS: CEFEPIME IV 2000 MG in DEXTROSE 5% 100ML IV SCH ×2 (05:59→17:31)
[2016-12-02 06:02] LABS: HEMATOCRIT 36.4 % (42-52); MEAN CELL VOLUME 98.1 fL (80-100); MEAN CORPUSCULAR HEMOGLOBIN 30.7 pg (25-34); MEAN CORPUSCULAR HGB CONC 31.3 g/dl (32-36); MEAN PLATELET VOLUME 9.3 fL (7.4-10.4); PLATELET COUNT 261 K/uL (130-400); RED BLOOD COUNT 3.71 M/uL (4.7-6.1)
[2016-12-02 06:36] LABS: CREATININE 0.73 mg/dl (0.60-1.40)
[2016-12-02] MEDS: SERTRALINE HCL 50 MG TAB PO SCH (07:36)
[2016-12-02] MEDS: MULTIVITAMIN TAB PO SCH (07:36)
[2016-12-02] MEDS: METHYLPREDNISOLONE IV 40 MG in SYRINGE 0 ML IV SCH ×3 (07:36→20:51)
[2016-12-02] MEDS: ASPIRIN 81 MG ECTAB PO SCH (07:36)
[2016-12-02] MEDS: ROFLUMILAST 500 MCG TAB PO SCH (07:36)
[2016-12-02] MEDS: PANTOprazole SOD 40 MG TAB PO SCH (07:36)
[2016-12-02] MEDS: LEVOFLOXACIN / D5W 500 MG in PREMIXED IN D5W 100 ML IV SCH (11:16)
--- NOTE | 2016-12-02 13:06 | Pharmacy Progress Note ---
Automatic IV to PO Conversion Date of Service: Dec 02, 2016. [facility] has identified patient as an appropriate candidate for automatic intravenous to oral conversion. Eligible medication: Levaquin 500 mg IV every 24 hours. Day # 4 of IV therapy. Subjective The patient is a 85 year old male admitted on Nov 29, 2016 at 11:26 for Copd Exacerbation/pneumonia. Objective Vital Signs: Vital Signs Past 12 Hours Date Time Temp Pulse Resp B/P Pulse Ox O2 Delivery O2 Flow Rate FiO2 12/02/16 11:56 36.5 115 16 100/61 93 2.0 12/02/16 09:21 99 Nasal Cannula 3.0 12/02/16 07:16 36.4 94 16 107/66 99 3.0 12/02/16 04:52 36.5 95 18 117/76 100 3.0 12/02/16 04:00 Nasal Cannula 3.0 White Blood Count: Test 12/02/16 05:25 White Blood Count 9.80 K/uL (4.8-10.8) Height (Feet): 5 Height (Inches): 8 Weight (Kilograms): 61.200 Type of Diet: Regular Assessment & Plan The Infectious Disease Society and the [place] [employer] recommend conversion to oral therapy once a patient is determined to be clinically stable and are able to tolerate oral medications. Patient identified as appropriate candidate for IV to PO conversion of Levaquin based on the following criteria: * Afebrile for greater than or equal to 12 hours * Receiving oral/enteral medications and/or tolerating oral/enteral diet for greater than 24 hours * Improvement in clinical condition evidenced by .. WBC count improved and now normal, resolution of signs/symptoms of illness * Hemodynamically stable Automatic conversion to: Levaquin 500 mg PO every 24 hours
--- NOTE | 2016-12-02 16:46 | Progress Note ---
Internal Med Progress Note Date of Service: Dec 02, 2016. Provider Documentation: SUBJECTIVE: sitting omn the chair comfortably says feeling much better ambulated fine cough and sob improving eating ok OBJECTIVE: Vital Signs-as noted below Exam: General-alert and awake and oriented ENT-normal hearing Neck-no neck masses Lungs-b/l diminished breath sounds, no wheezing or crackles Heart-s1 and s2 heard regular rate and rhythm no murmurs Abdomen-soft bowel sounds present non tender no distension Extremities- no erythema Neuro-alert and awake moves extremities Lab data as noted below. ASSESSMENT & PLAN: ACUTE COPD EXACERBATION/PNEUMONIA R/O PE 85M with hx of copd presents with worsening sob, cough with sputum and pleuritic chest pain CT chest NO PE but shows bilateral lower lobe consolidation favoring pneumonia. 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 will monitor AAA s/p repair in 2008 BPH On Proscar GERD On PPI DYSLIPIDEMIA diet-controlled DVT PROPHYLAXIS Lovenox CODE STATUS -DNR per hand P. Disposition pt/ot possible d/c in 1-2 days Vital Signs: Date Time Temp Pulse Resp B/P Pulse Ox O2 Delivery O2 Flow Rate FiO2 12/02/16 15:45 36.9 120 20 114/64 91 Nasal Cannula 3.5 12/02/16 12:00 99 Nasal Cannula 3.0 12/02/16 11:56 36.5 115 16 100/61 93 2.0 12/02/16 09:21 99 Nasal Cannula 3.0 12/02/16 07:16 36.4 94 16 107/66 99 3.0 12/02/16 04:52 36.5 95 18 117/76 100 3.0 12/02/16 04:00 Nasal Cannula 3.0 12/02/16 00:01 Nasal Cannula 3.0 12/01/16 23:48 36.5 114 18 134/71 96 Nasal Cannula 3.0 12/01/16 20:48 36.6 118 18 121/68 96 Room Air 12/01/16 20:30 Nasal Cannula 4.0 Lab Results: Results Past 24 Hours Test 12/02/16 05:25 Range/Units White Blood Count 9.80 4.8-10.8 K/uL Red Blood Count 3.71 4.7-6.1 M/uL Hemoglobin 11.4 14.0-18.0 g/dL Hematocrit 36.4 42-52 % Mean Corpuscular Volume 98.1 80-100 fL Mean Corpuscular Hemoglobin 30.7 25-34 pg Mean Corpuscular Hemoglobin Concent 31.3 32-36 g/dl RDW Standard Deviation 52.6 36.4-46.3 fL RDW Coefficient of Variation 14.7 11.5-14.5 % Platelet Count 261 130-400 K/uL Mean Platelet Volume 9.3 7.4-10.4 fL Creatinine 0.73 0.60-1.40 mg/dl Est Creatinine Clear Calc Drug Dose 65.2 ml/min Estimated GFR () 98.7 Estimated GFR (Non- 85.2
[2016-12-02] MEDS: ENOXAPARIN 40 MG/0.4 ML SYR SC SCH (20:51)
[2016-12-02] MEDS: FINASTERIDE 5 MG TAB PO SCH (20:51)
[2016-12-03 04:35] VITALS: BP 138/84; PULSE 91; TEMP 36.4; O2SAT 98
[2016-12-03] MEDS: CEFEPIME IV 2000 MG in DEXTROSE 5% 100ML IV SCH (05:25)
[2016-12-03 08:00] VITALS: O2SAT 98
[2016-12-03] MEDS: ASPIRIN 81 MG ECTAB PO SCH (08:08)
[2016-12-03] MEDS: METHYLPREDNISOLONE IV 40 MG in SYRINGE 0 ML IV SCH ×2 (08:08→15:24)
[2016-12-03] MEDS: MULTIVITAMIN TAB PO SCH (08:09)
[2016-12-03] MEDS: PANTOprazole SOD 40 MG TAB PO SCH (08:09)
[2016-12-03] MEDS: ROFLUMILAST 500 MCG TAB PO SCH (08:09)
[2016-12-03] MEDS: SERTRALINE HCL 50 MG TAB PO SCH (08:09)
[2016-12-03] MEDS ORDERED: LEVOFLOXACIN 500 MG TAB PO SCH (11:00)
[2016-12-03 12:00] VITALS: O2SAT 96
[2016-12-03 12:08] VITALS: BP 122/64; PULSE 108; TEMP 36.5; O2SAT 91
[2016-12-03] MEDS ORDERED: LEVOFLOXACIN 500 MG TAB PO STA (14:42)
[2016-12-03] MEDS ORDERED: LEVO-459 PO (14:42)
[2016-12-03] MEDS ORDERED: PRED10TA PO (14:42)
--- NOTE | 2016-12-03 14:45 | Discharge Instructions ---
Discharge Instructions Date of Service Dec 03, 2016. Admission Reason for Admission: Copd Exacerbation Discharge Discharge Diagnosis / Problem: COPD EX, PNEUMONIA Discharge Goals Goal(s): Decrease discomfort, Improve function Activity Recommendations Activity Limitations: resume your previous activity . Instructions / Follow-Up Instructions / Follow-Up FOLLOWUP WITH FAMILY DOCTOR Juno Carranza ON November AT 11AM.. NEW MEDICATION: TAPERING PREDNISONE TO HOME DOSE LEVAQUIN 500MG DAILY X 5DAYS PROBIOTIC LACTINEX WHILE ON LEVAQUIN Current Hospital Diet Patient's current hospital diet: Regular Diet Discharge Diet Recommended Diet: AHA Diet (Heart Healthy) Pending Studies Studies pending at discharge: no Medical Emergencies . Who to Call and When: Medical Emergencies: If at any time you feel your situation is an emergency, please call 911 immediately. . Non-Emergent Contact Non-Emergency issues call your: Primary Care Provider . . "Provider Documentation" section prepared by Solo Bergman. VTE Core Measure Inpt VTE Proph given/why not?: Enoxaparin (Lovenox)SQ
[2016-12-03] MEDS ORDERED: LCTX PO (14:46)
[2016-12-03 15:07] VITALS: BP 122/64; PULSE 108; TEMP 36.5; O2SAT 91
[2016-12-03 15:10] VITALS: BP 120/67; PULSE 99; TEMP 36.6; O2SAT 99
--- NOTE | 2016-12-03 17:12 | Progress Note ---
Internal Med Progress Note Date of Service: Dec 03, 2016. Provider Documentation: SUBJECTIVE: sitting on the chair comfortably sob and cough improved afebrile want to go home OBJECTIVE: Vital Signs-as noted below Exam: General-alert and awake and oriented ENT-normal hearing Neck-no neck masses Lungs-b/l diminished breath sounds, no wheezing or crackles Heart-s1 and s2 heard regular rate and rhythm no murmurs Abdomen-soft bowel sounds present non tender no distension Extremities- no erythema Neuro-alert and awake moves extremities Lab data as noted below. ASSESSMENT & PLAN: ACUTE COPD EXACERBATION/PNEUMONIA R/O PE 85M with hx of copd presents with worsening sob, cough with sputum and pleuritic chest pain CT chest NO PE but shows bilateral lower lobe consolidation favoring pneumonia. 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 will monitor AAA s/p repair in 2008 BPH On Proscar GERD On PPI DYSLIPIDEMIA diet-controlled Discharged home Vital Signs: Date Time Temp Pulse Resp B/P Pulse Ox O2 Delivery O2 Flow Rate FiO2 12/03/16 15:10 36.6 99 20 120/67 99 12/03/16 15:07 36.5 108 20 91 Nasal Cannula 12/03/16 12:08 36.5 108 20 122/64 91 2.0 12/03/16 12:00 96 Nasal Cannula 3.0 12/03/16 08:00 98 Nasal Cannula 3.0 12/03/16 04:35 36.4 91 20 138/84 98 Nasal Cannula 3.0 12/03/16 04:18 Nasal Cannula 3.0 12/03/16 00:45 Nasal Cannula 3.0 12/02/16 23:57 36.5 103 18 130/80 98 Nasal Cannula 3.0 12/02/16 20:20 Nasal Cannula 3.0 12/02/16 19:43 37.1 111 20 108/67 96 Nasal Cannula 3.0
--- NOTE | 2016-12-03 18:18 | Discharge Summary ---
Discharge Summary Date of Service Dec 03, 2016. Discharge Summary Admission Date: Nov 29, 2016 at 11:26 Discharge Date: Dec 03, 2016 Discharge Disposition: Home with services Principal Diagnosis: COPD EX PNEUMONIA Secondary Diagnoses/Problems: (1) AAA (abdominal aortic aneurysm) Permanent Comment: s/p endovascular repair Status: Chronic (2) BPH (benign prostatic hypertrophy) Status: Chronic (3) Chronic obstructive pulmonary disease Permanent Comment: on chronic O2 and steroids Status: Chronic (4) Dyslipidemia Status: Chronic (5) GERD (gastroesophageal reflux disease) Status: Chronic Procedures: CTA CHEST: 1. No pulmonary emboli identified. 2. Bilateral lower lobe consolidation, left greater than right. This is highly suggestive of pneumonia, potentially on the basis of aspiration. A few irregular subpleural lingular opacities are also likely infectious. A follow-up chest CT in 3 months to ensure resolution is recommended. 3. Stents of secretions throughout the airways. 4. Severe emphysema. 5. Small left pleural effusion. VENOUS DOPPLER: No evidence of deep venous thrombus within the bilateral lower extremities. Medication Reconciliation New Medications: Lactobacillus Acidophilus (Lactinex) Tab 2 TAB PO BID for 7 Days, TAB Levofloxacin (Levaquin) 500 Mg Tab 500 MG PO DAILY for 5 Days Prednisone Tab (Prednisone) 10 Mg Tab 10 MG PO UD, #30 TAB PREDNSIONE 40MG PO DAILY X 2 DAYS THEN PREDNSIONE 30MG PO DAILY X 2 DAYS THEN PREDNSIONE 20MG PO DAILY X 2 DAYS THEN PREDNSIONE 10MG PO DAILY HOME DOSE Continued Medications: Aspirin (Aspirin EC Low Dose) 81 Mg Ectab 81 MG PO DAILY Dextromethorphan-Guaifenesin (Mucinex Dm) 1 Tab Tab 1 TAB PO Q12 PRN for congestion for 10 Days, #20 TAB Finasteride (Proscar) 5 Mg Tab 5 MG PO HS Fluticasone Furoate-Vilanterol (Breo Ellipta) 1 Inh Inh Ipratropium-Albuterol (Combivent Respimat) 1 Aer Aer 1 PUFFS INH QID Lorazepam (Lorazepam) 0.5 Mg Tab 0.5 MG PO BID PRN for Anxiety Multivitamin (Multivitamin) Tab 1 TAB PO DAILY Omeprazole (Prilosec) 20 Mg Cap 20 MG PO DAILY Oxygen (Oxygen) Gas 3 LITER NA CONTINOUS Prednisone Tab (Prednisone) 10 Mg Tab 10 MG PO DAILY, TAB Roflumilast (Daliresp) 500 Mcg Tab 500 MCG PO DAILY Sertraline (Zoloft) 50 Mg Tab 50 MG PO DAILY, TAB Admission Information HPI (per Admitting provider): This is an 85 y/o male with PMHx of severe COPD on chronic O2 and steroids,AAA s /p repair, GERD and other problems as outlined below who presents to the ED c/o worsening SOB x 2 days. Pt reports that 2 days ago he developed SOB that is aggravated with exertion. Sxs are assoc with wheezing, wet cough and a few hours of L sided pleuritic chest pain that has since resolved. He has been using his nebulizer and inhalers with mild temporary relief however last night he was up all night with worsening sxs which prompted him to seek further evaluation. Pt has a history of severe COPD on 10mg Prednisone daily and 3L continuous O2. Pt currently lives home alone with 5 children in the area. Pt denies fever/chills, diaphoresis, abd pain, N/V, bowel or bladder issues, LE edema, calf pain, lightheadedness/dizziness. In the ED, pt was is tachy and dyspneic. He is afebrile with leukocytosis>14k. CXR no acute change. CT chest + bibasilar consolidation. No evidence of PE. Initial troponin is negative and EKG shows sinus tachy with no acute ischemic change. Pt received Solu-Medrol and nebs in the ED. He will be admitted for further evaluation and treatment. Physical Exam (per Admitting): General Appearance: WD/WN, no apparent distress, + pertinent finding (Pt is sitting up in bed with children at bedside ) Head: normocephalic, atraumatic Eyes: normal inspection ENT: hearing grossly normal Neck: supple Respiratory/Chest: chest non-tender, no respiratory distress, no accessory muscle use, + pertinent finding (decreased air movement bilat; no wheezing noted ) Cardiovascular: no edema, no murmur, + tachycardia Abdomen/GI: normal bowel sounds, non tender, soft Back: normal inspection Extremities/Musculoskelatal: normal inspection, no calf tenderness, no pedal edema Neurologic/Psych: alert, normal mood/affect, oriented x 3 Skin: normal color, warm/dry Hospital Course ACUTE COPD EXACERBATION/PNEUMONIA R/O PE 85M with hx of copd presents with worsening sob, cough with sputum and pleuritic chest pain CT chest NO PE but shows bilateral lower lobe consolidation favoring pneumonia. 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 will monitor AAA s/p repair in 2008 BPH On Proscar GERD On PPI DYSLIPIDEMIA diet-controlled Discharged home Total time spent on discharge = 35MINUTES This includes examination of the patient, discharge planning, medication reconciliation, and communication with other providers. Discharge Instructions Discharge Instructions Date of Service Dec 03, 2016. Admission Reason for Admission: Copd Exacerbation Discharge Discharge Diagnosis / Problem: COPD EX, PNEUMONIA Discharge Goals Goal(s): Decrease discomfort, Improve function Activity Recommendations Activity Limitations: resume your previous activity . Instructions / Follow-Up Instructions / Follow-Up FOLLOWUP WITH FAMILY DOCTOR Juno Carranza ON November AT 11AM.. NEW MEDICATION: TAPERING PREDNISONE TO HOME DOSE LEVAQUIN 500MG DAILY X 5DAYS PROBIOTIC LACTINEX WHILE ON LEVAQUIN Current Hospital Diet Patient's current hospital diet: Regular Diet Discharge Diet Recommended Diet: AHA Diet (Heart Healthy) Pending Studies Studies pending at discharge: no Medical Emergencies . Who to Call and When: Medical Emergencies: If at any time you feel your situation is an emergency, please call 911 immediately. . Non-Emergent Contact Non-Emergency issues call your: Primary Care Provider . . "Provider Documentation" section prepared by Solo Bergman. VTE Core Measure Inpt VTE Proph given/why not?: Enoxaparin (Lovenox)SQ
[2017-01-10] MEDS ORDERED: ATV5X PO (09:45)
[2017-01-10] MEDS ORDERED: OMEP20CA9 PO (09:47)
[2017-01-10] MEDS ORDERED: IPRA1AER2 INH (09:56)
[2017-01-10] MEDS ORDERED: SERT50TA PO (09:56)
[2017-01-10] MEDS ORDERED: FLUT1INH INH (09:56)
[2017-01-10] MEDS ORDERED: PRED10TA PO ×2 (11:39→15:44)
[2017-01-10] MEDS ORDERED: ASPEC81 PO (11:39)
[2017-01-10] MEDS ORDERED: DEXT30TA7 PO (11:39)
[2017-01-17] MEDS ORDERED: PRED10TA PO (13:08)
[2017-01-17] MEDS ORDERED: TPRSR25 PO (13:08)
[2017-01-17] MEDS ORDERED: LSN25 PO (13:08)
[2017-01-17] MEDS ORDERED: LNX125 PO (13:08)
[2017-01-17] MEDS ORDERED: LSX20 PO (13:17)
[2017-04-21] MEDS ORDERED: PLMIH INH (10:13)
[2017-04-21] MEDS ORDERED: TPRSR25 PO (10:13)
[2017-04-21] MEDS ORDERED: DXY100 PO (10:13)
[2017-04-21] MEDS ORDERED: FLVHFA220 INH (10:13)
[2017-04-21] MEDS ORDERED: ATV5X PO (10:13)
[2017-04-21] MEDS ORDERED: PRED10TA PO (10:13)
[2017-04-21] MEDS ORDERED: LSX20 PO (10:13)
[2017-04-21] MEDS ORDERED: SERT-234 PO (10:13)
== END 2016-12-03 16:02 | disposition home health service (06) | DRG 190 ==
LOC: ENRESERVTM → ENRESERVDT → EDBD 08:59 → C.EDB 09:00 → C.2T 11:26 → C.MED 11-30 22:40
PROVIDERS: ADMIT Hospitalist; ATTEND Internal Medicine
DX: J44.1 Chronic obstructive pulmonary disease with (acute) exacerbation (principal); J69.0 Pneumonitis due to inhalation of food and vomit; Z66 Do not resuscitate; J44.0 Chronic obstructive pulmonary disease with (acute) lower respiratory infection; Z79.52 Long term (current) use of systemic steroids; K21.9 Gastro-esophageal reflux disease without esophagitis; E78.5 Hyperlipidemia, unspecified; N40.0 Benign prostatic hyperplasia without lower urinary tract symptoms; R31.9 Hematuria, unspecified; Z88.2 Allergy status to sulfonamides; Z79.82 Long term (current) use of aspirin; Z99.81 Dependence on supplemental oxygen

== ENCOUNTER 2017-01-10 13:55 | Inpatient (IN) | payer OTHER, MEDICARE ==
[~2017-01-10] VITALS: Ht 172.7 cm; Wt 57.4 kg
[2017-01-10] VITALS (7 sets, daily range): BP systolic 101–135; BP diastolic 57–86; PULSE 116–133; TEMP 36.4–36.7; O2SAT 93–99; Ht 172.7 cm; Wt 57.4 kg
[~2017-01-10 13:55] MED LIST changes: +ASPEC81 PO; -ASPI81TA28 PO; -ATOR-54 PO; +ATV5X PO; +DEXT30TA7 PO; +FLUT1INH INH; -FLVHFA110 INH; -IPRASOL4 INH; +OMEP20CA9 PO; -PRD20 PO; +PRED10TA PO; -RANI300C PO; +SERT50TA PO
[2017-01-10] MEDS ORDERED: SODIUM CHLORIDE 0.9% 500ML 500 ML IV STA (14:02)
--- NOTE | 2017-01-10 14:13 | EMERGENCY ROOM VISIT NOTE ---
History Report prepared by Anupama: Charley Beard Under the Supervision of: Dr. Flynn Vazquez D.O. First contact with patient: 13:58 Stated Complaint: SHORTNESS OF BREATH History of Present Illness The patient is a 86 year old male who presents to the Emergency Room with complaints of worsening shortness of breath beginning earlier today. The patient states that he is having trouble breathing. He also has a cough and brings up sputum. He denies blood in the sputum. The patient notes swelling to the top of his left foot. He was given Duoneb and Solu-Medrol en route. Per the patient's daughter, the patient had pneumonia one month ago and finished the antibiotics yesterday. He was this short of breath at that time also. Patient was not put on a ventilator. He does not take blood thinners. The patient is on 3.5 L of oxygen at home. Source of History: patient Onset: earlier today Position: other (global) Quality: other (shortness of breath) Timing: worsening Associated Symptoms: + cough Note: The patient is experiencing trouble breathing and sputum. Review of Systems See HPI for pertinent positives & negatives. A total of 10 systems reviewed and were otherwise negative. Past Medical & Surgical Medical Problems: (1) AAA (abdominal aortic aneurysm) (2) BPH (benign prostatic hypertrophy) (3) Chronic obstructive pulmonary disease (4) Dyslipidemia (5) GERD (gastroesophageal reflux disease) Surgical Problems: (1) Status post aortic aneurysm repair Family History No significant family history Social History Smoking Status: Former Smoker Alcohol Use: none Drug Use: none Marital Status: Housing Status: lives alone Occupation Status: retired Current/Historical Medications Scheduled Aspirin (Aspirin EC Low Dose), 81 MG PO DAILY Finasteride (Proscar), 5 MG PO HS Fluticasone Furoate-Vilanterol (Breo Ellipta), 1 INHA INH DAILY Ipratropium-Albuterol (Combivent Respimat), 1 PUFF INH QID Lactobacillus Acidophilus (Lactinex), 1 TAB PO DAILY Multivitamin (Multivitamin), 1 TAB PO DAILY Omeprazole (Prilosec), 20 MG PO DAILY Oxygen (Oxygen), 3 LITER NA CONTINOUS Prednisone Tab (Prednisone), 10 MG PO DAILY Roflumilast (Daliresp), 500 MCG PO DAILY Sertraline (Zoloft), 50 MG PO DAILY Scheduled PRN Dextromethorphan-Guaifenesin (Mucinex Dm), 1 TAB PO Q12 PRN for congestion Doxycycline Hyclate (Doxycycline Hyclate), 100 MG PO BID PRN for COPD Rescue Kit Ipratropium [place] (Atrovent 0.02% Soln), 2.5 ML INH Q6-8HRS PRN for SOB/ Wheezing Ipratropium-Albuterol (Duoneb), 1 TREATMENT INH QID PRN for SOB/Wheezing Lorazepam (Lorazepam), 0.5 MG PO BID PRN for Anxiety Prednisone Tab (Prednisone), 10 MG PO UD PRN for COPD Rescue Kit Allergies Coded Allergies: Sulfa Drugs (Verified Allergy, Intermediate, RASH, NAUSEA, VOMITING, ) Physical Exam Vital Signs Date Time Temp Pulse Resp B/P Pulse Ox O2 Delivery O2 Flow Rate FiO2 01/10/17 17:30 128 22 99/56 95 Nasal Cannula 3.5 01/10/17 17:03 132 22 98/65 94 Nasal Cannula 3.5 01/10/17 16:55 Nasal Cannula 3.5 01/10/17 16:19 127 105/68 98 Nasal Cannula 3.5 01/10/17 15:49 128 22 106/69 100 BiPAP 01/10/17 15:07 112 120/75 100 BiPAP 01/10/17 14:56 121 99 40 01/10/17 14:22 120 01/10/17 14:17 119 20 98 Nasal Cannula 3.5 01/10/17 14:10 94 Nasal Cannula 3.0 01/10/17 14:06 94 Nasal Cannula 3.0 01/10/17 14:06 94 Nasal Cannula 3.0 01/10/17 14:03 36.6 133 36 105/86 94 Nasal Cannula 3.0 Physical Exam GENERAL: Patient is awake, alert, and in no acute distress. Patient is somewhat anxious. EYES: The conjunctivae are clear. The pupils are round and reactive. EARS, NOSE, MOUTH AND THROAT: The nose is without any evidence of any deformity. Mucous membranes are moist tongue is midline NECK: The neck is nontender and supple. RESPIRATORY: Diminished and near absent in majority of lung [place], significant tachypnea and conversational dyspnea. CARDIOVASCULAR: Tachycardic rate and irregular rhythm noted there no murmurs rubs or gallops normal S1 normal S2 GASTROINTESTINAL: The abdomen is soft. Bowel sounds are present in all quadrants. Abdomen is nontender MUSCULOSKELETAL/EXTREMITIES: There is no evidence of gross deformity full range of motion is noted in the hips and shoulders SKIN: There is no obvious evidence of any rash. There are no petechiae, pallor or cyanosis noted. NEUROLOGIC: Patient is awake alert and oriented x3 Medical Decision & Procedures ER Provider Diagnostic Interpretation: X-ray results as stated below per interpretation by me and the radiologist. CHEST ONE VIEW PORTABLE CLINICAL HISTORY: EVALUATE RESPIRATORY DISTRESS. DYSPNEA dyspnea COMPARISON STUDY: 11/29/2016 FINDINGS: Interval development of congestive failure superimposed upon emphysematous change. Small bilateral pleural effusions. Heart is moderately enlarged. Pulmonary vasculature is prominent. IMPRESSION: Congestive failure superimposed upon chronic emphysematous change. Electronically signed by: Juno Mariscal M.D. 01/10/2017 2:49 PM Dictated Date/Time: 01/10/2017 2:48 PM Laboratory Results 01/10/17 14:30 Red Blood Count 4.11, Mean Corpuscular Volume 98.8, Mean Corpuscular Hemoglobin 29.7, Mean Corpuscular Hemoglobin Concent 30.0, Mean Platelet Volume 9.5, Neutrophils (%) (Auto) 87.3, Lymphocytes (%) (Auto) 7.0, Monocytes (%) (Auto) 5.1, Eosinophils (%) (Auto) 0.3, Basophils (%) (Auto) 0.1, Neutrophils # (Auto) 7.62, Lymphocytes # (Auto) 0.61, Monocytes # (Auto) 0.45, Eosinophils # (Auto) 0.03, Basophils # (Auto) 0.01 01/10/17 14:30 Test 01/10/17 14:30 01/10/17 17:15 White Blood Count 8.74 K/uL (4.8-10.8) Red Blood Count 4.11 M/uL (4.7-6.1) Hemoglobin 12.2 g/dL (14.0-18.0) Hematocrit 40.6 % (42-52) Mean Corpuscular Volume 98.8 fL (80-100) Mean Corpuscular Hemoglobin 29.7 pg (25-34) Mean Corpuscular Hemoglobin Concent 30.0 g/dl (32-36) Platelet Count 248 K/uL (130-400) Mean Platelet Volume 9.5 fL (7.4-10.4) Neutrophils (%) (Auto) 87.3 % Lymphocytes (%) (Auto) 7.0 % Monocytes (%) (Auto) 5.1 % Eosinophils (%) (Auto) 0.3 % Basophils (%) (Auto) 0.1 % Neutrophils # (Auto) 7.62 K/uL (1.4-6.5) Lymphocytes # (Auto) 0.61 K/uL (1.2-3.4) Monocytes # (Auto) 0.45 K/uL (0.11-0.59) Eosinophils # (Auto) 0.03 K/uL (0-0.5) Basophils # (Auto) 0.01 K/uL (0-0.2) RDW Standard Deviation 53.5 fL (36.4-46.3) RDW Coefficient of Variation 14.9 % (11.5-14.5) Immature Granulocyte % (Auto) 0.2 % Immature Granulocyte # (Auto) 0.02 K/uL (0.00-0.02) Prothrombin Time 10.8 SECONDS (9.0-12.0) Prothromb Time International Ratio 1.0 (0.9-1.1) Activated Partial Thromboplast Time 33.2 SECONDS (21.0-31.0) Partial Thromboplastin Ratio 1.3 Venous Blood pH 7.34 (7.36-7.41) Venous Blood Partial Pressure CO2 72 mmHg (38.0-50.0) Venous Blood Partial Pressure O2 52 mmHg Venous Blood HCO3 37 mmol/L Venous Blood Oxygen Saturation 82.9 % Venous Blood Base Excess 9.2 mmol/L Anion Gap 2.0 mmol/L (3-11) Est Creatinine Clear Calc Drug Dose 64.5 ml/min Estimated GFR () 98.0 Estimated GFR (Non- 84.6 BUN/Creatinine Ratio 20.0 (10-20) Calcium Level 8.7 mg/dl (8.5-10.1) Total Bilirubin 0.3 mg/dl (0.2-1) Aspartate Amino Transf (AST/SGOT) 18 U/L (15-37) Alanine Aminotransferase (ALT/SGPT) 18 U/L (12-78) Alkaline Phosphatase 76 U/L (45-117) Troponin I 0.110 ng/ml (0-0.045) Pro-B-Type Natriuretic Peptide 5206 pg/ml (0-1800) Total Protein 6.7 gm/dl (6.4-8.2) Albumin 3.0 gm/dl (3.4-5.0) Globulin 3.7 gm/dl (2.5-4.0) Albumin/Globulin Ratio 0.8 (0.9-2) Laboratory results per my review. Medications Administered Medications (Trade) Dose Ordered Sig/Shabbir Route Start Time Stop Time Status Last Admin Dose Admin Albuterol/ Ipratropium 12 ml 12 ml ONE ONCE INH 01/10/17 14:15 01/10/17 14:16 DC 01/10/17 14:17 12 ML Sodium Chloride 500 ml @ 999 mls/hr Q31M STAT IV 01/10/17 14:02 01/10/17 14:32 DC 01/10/17 14:27 999 MLS/HR Sodium Chloride (Nss 1000ml) 1,000 ml @ 999 mls/hr Q1H1M STAT IV 01/10/17 14:45 01/10/17 15:33 DC 01/10/17 15:00 999 MLS/HR Levofloxacin (Levaquin / D5W) 750 mg NOW STAT IV 01/10/17 14:45 01/10/17 14:47 DC 01/10/17 15:21 750 MG Midazolam HCl (Versed Inj) 2 mg STK-MED ONCE .ROUTE 01/10/17 14:52 01/10/17 14:53 DC 01/10/17 14:59 2 MG ECG Indication: SOB/dyspnea Rate (beats per minute): 140 Rhythm: atrial fibrillation Findings: RBBB, ST depression (diffuse), other (LVH noted by voltage criteria) Comparison ECG Date: changes new from November 29, 2016 ED Course 1359: The patient was evaluated in room B12. A complete history and physical examination were performed. 1402: Sodium Chloride 500 ml @ 999 mls/hr IV. 1415: Duoneb 12 ml INH. 1445: Versed Inj 2 mg IV, Levaquin/ D5W 750 mg IV, Sodium Chloride 1,000 ml @ 999 mls/hr IV. 1447: I checked on the patient and he does not want any breathing treatments. 1532: The patient is doing much better. 1553: I discussed the patient's case with EMIR Hernandez. The patient will be evaluated for further management. 1600: Upon reevaluation, the patient is hemodynamically stable. I discussed results and treatment plan with him. He verbalizes agreement and understanding. I spoke with EMIR Hernandez. The patient will be evaluated for further management and care. Medical Decision Differential diagnosis: Etiologies such as infections, reactive airway disease, pneumonia, pneumothorax , COPD, CHF, cardiac ischemia, pulmonary embolism, musculoskeletal, gastrointestinal, as well as others were entertained. Nursing notes reviewed. Additional history is obtained from the patient's family member. The patient is an 86-year-old male who has a long history of COPD who presented to the emergency department for shortness of breath. The patient's history and physical exam appeared to be consistent with COPD. The patient was treated with initially IV fluids Solu-Medrol and bronchodilators. His condition slowly improved. He started to refuse to take the nebulizer treatment because he felt it made him anxious. The patient initial EKG appeared to be consistent with either rapid atrial fibrillation or MAT. When he started to improve a repeat EKG was obtained which revealed sinus tachycardia with diffuse ST segment abnormalities. The patient's chest x-ray and BMP could be consistent with CHF. For this reason further IV fluids were held. I discussed the patient's laboratory and radiographic studies with him and his family members. I also discussed his case with the on-call [facility] hospitalist group. They've agreed to evaluate the patient in emergency apartment for further management and disposition. The patient continued to improve while in the emergency department. He was placed on BiPAP and given Versed to facilitate the BiPAP. This modality appeared to help the patient significantly. Consults Time Called: 1550 Consulting Physician: EMIR Hernandez Returned Call: 1553 I discussed the patient's case with EMIR Hernandez. The patient will be evaluated for further management. Impression Primary Impression: Respiratory failure Additional Impressions: COPD exacerbation Bronchitis Elevated troponin Abnormal ECG Critical Care I have personally spent greater than 45 minutes of critical care time in the direct management of this patient. This includes bedside care, interpretation of diagnostic studies, and testing, discussion with consultants, patient, and family members, and other required patient management activities. This 45 minutes is in excess of all separately billable procedures. Scribe Attestation The scribe's documentation has been prepared under my direction and personally reviewed by me in its entirety. I confirm that the note above accurately reflects all work, treatment, procedures, and medical decision making performed by me. Departure Information Dispostion Being Evaluated By Hospitalist Referrals Juno Wiggins M.D. (PCP) Problem Qualifiers Primary Impression: Respiratory failure Chronicity: acute Respiratory failure complication: hypercapnia Qualified Codes: J96.02 - Acute respiratory failure with hypercapnia
[2017-01-10] MEDS ORDERED: ALBUT/IPRATROP 3MG/0.5MG NEB 3 ML VIAL INH ONE (14:15)
[2017-01-10 14:39] LABS: VEN BLD GAS O2 SATURATION 82.9 %; VEN BLOOD GAS BASE EXCESS 9.2 mmol/L
[2017-01-10 14:42] LABS: BASO % 0.1 %; BASO ABS # 0.01 K/uL (0-0.2); COMPLETE YES; EOS % 0.3 %; HEMATOCRIT 40.6 % (42-52); IG% 0.2 %; LYMPH ABS # 0.61 K/uL (1.2-3.4); MEAN CELL VOLUME 98.8 fL (80-100); MEAN CORPUSCULAR HEMOGLOBIN 29.7 pg (25-34); MEAN PLATELET VOLUME 9.5 fL (7.4-10.4); MONO % 5.1 %; NEUT % 87.3 %; PLATELET COUNT 248 K/uL (130-400); RED BLOOD COUNT 4.11 M/uL (4.7-6.1); WHITE BLOOD COUNT 8.74 K/uL (4.8-10.8)
[2017-01-10 14:45] LABS: PARTIAL THROMBOPLASTIN RATIO 1.3; PROTHROMBIN TIME (PATIENT) 10.8 SECONDS (9.0-12.0)
[2017-01-10] MEDS ORDERED: LEVAQUIN 750MG / 150ML D5W IV STA (14:45)
[2017-01-10] MEDS ORDERED: MIDAZOLAM HCL 5 MG/ML 1 ML VIAL IV STA (14:45)
[2017-01-10] MEDS ORDERED: SODIUM CHLORIDE 0.9% 1000ML 1,000 ML IV STA (14:45)
--- NOTE | 2017-01-10 14:51 | DIAGNOSTIC IMAGING REPORT ---
CHEST ONE VIEW PORTABLE CLINICAL HISTORY: EVALUATE RESPIRATORY DISTRESS. DYSPNEA dyspnea COMPARISON STUDY: 11/29/2016 FINDINGS: Interval development of congestive failure superimposed upon emphysematous change. Small bilateral pleural effusions. Heart is moderately enlarged. Pulmonary vasculature is prominent. IMPRESSION: Congestive failure superimposed upon chronic emphysematous change. Electronically signed by: Juno Mariscal M.D. 01/10/2017 2:49 PM Dictated Date/Time: 01/10/2017 2:48 PM
[2017-01-10] MEDS ORDERED: MIDAZOLAM HCL 1 MG/ML 2ML VIAL ONE (14:52)
[2017-01-10 14:53] LABS: CALCIUM 8.7 mg/dl (8.5-10.1); POTASSIUM 4.6 mmol/L (3.5-5.1)
[2017-01-10 15:13] LABS: ALB/GLOB RATIO 0.8 (0.9-2); CREATININE 0.73 mg/dl (0.60-1.40)
[2017-01-10] MEDS ORDERED: PRED10TA PO (15:44)
[2017-01-10] MEDS ORDERED: DOXY1TAB6 PO (15:44)
[2017-01-10] MEDS ORDERED: FLVHFA220 INH (15:44)
[2017-01-10] MEDS ORDERED: LCTX PO (15:44)
[2017-01-10] MEDS ORDERED: IPRASOL4 INH (15:49)
[2017-01-10] MEDS ORDERED: ATRINSX INH (15:49)
[2017-01-10] MEDS ORDERED: ENOXAPARIN 30 MG/0.3 ML SYR SC SCH (16:30)
[2017-01-10] MEDS ORDERED: LORAZEPAM 0.5 MG TAB PO PRN (17:00)
[2017-01-10] MEDS ORDERED: FUROSEMIDE INJ 20 MG in SYRINGE 0 ML IV ONE (17:00)
[2017-01-10] MEDS ORDERED: HEPARIN IV LOW DOSE NO BOLUS SCH (17:25)
[2017-01-10] MEDS ORDERED: LEVALBUTEROL 1.25MG/0.5ML NEB INH PRN (17:28)
[2017-01-10 17:36] LABS: ARTERIAL BLD GAS O2 SATURATION 94.9 % (90-95); ARTERIAL BLOOD GAS BASE EXCESS 5.2 mEq/L (-9-1.8); ARTERIAL BLOOD GAS HCO3 33 mmol/L (19-24); ARTERIAL BLOOD GAS PO2 85 mm/Hg (80-95); ARTERIAL BLOOD GAS pH 7.29 (7.35-7.45)
[2017-01-10 17:40] LABS: ALLEN TEST POS (POS); O2 ADMINISTRATION 4L
[2017-01-10] MEDS ORDERED: FUROSEMIDE 40 MG/4 ML VIAL ONE (17:56)
[2017-01-10] MEDS ORDERED: IPRATROPIUM BROMIDE HFA INHALER INH SCH (18:00)
[2017-01-10] MEDS ORDERED: FUROSEMIDE INJ 40 MG in SYRINGE 0 ML IV ONE (18:00)
[2017-01-10] MEDS ORDERED: FINA5TAB PO (18:02)
[2017-01-10] MEDS ORDERED: MULT-506 PO (18:02)
--- NOTE | 2017-01-10 18:30 | History and Physical ---
History & Physical Date & Time of Service: January 10, 2017 ~ 16:15 Chief Complaint: Shortness Of Breath Primary Care Physician: Juno Wiggins M.D. History of Present Illness 86 year old male who presents to the ER with shortness of breath. Patient was recently admitted to [facility] 11/29 - 12/03 for pneumonia and COPD exacerbation. Patient was discharged on Levaquin and steroid taper with instructions to resume his chronic Prednisone dosing. Patient reports he initial felt well after his discharge however started to feel not well about two weeks ago. He started his home COPD rescue kit of tapering prednisone and Doxycycline which he completed yesterday. He has continued to feel poorly. He reports a moist cough which is occasionally productive for clear sputum. He denies fever and chills. No chest pain or palpitations. He has noticed increased swelling around his ankles for the past 2 weeks. He denies abdominal pain, nausea, vomiting, or diarrhea. He denies lightheadedness, dizziness, diaphoresis, or syncopal events. He denies urinary symptoms. In the ER, patient's CXR is showing CHF, proBNP is elevated, he was tachycardic in the 130s-140s (afib vs MAT). He was placed on BiPap for respiratory distress, no hypoxia noted. Patient received neb and solumedrol en route to the ED. In the ER, he was given IVF, IV Levaquin , neb, and Versed. Past Medical/Surgical History Medical Problems: (1) AAA (abdominal aortic aneurysm) Permanent Comment: s/p endovascular repair; with persistent type II endoleak Status: Chronic (2) BPH (benign prostatic hypertrophy) Status: Chronic (3) Chronic obstructive pulmonary disease Permanent Comment: on chronic O2 and steroids Status: Chronic (4) Dyslipidemia Status: Chronic (5) GERD (gastroesophageal reflux disease) Status: Chronic Surgical Problems: (1) Status post aortic aneurysm repair Status: Chronic Family History non contributory due to patient's advanced age Social History Smoking Status: Former Smoker Alcohol Use: none Housing status: lives alone Immunizations History of Influenza Vaccine: Yes Influenza Vaccine Date: Jul 19, 2016 History of Tetanus Vaccine?: Yes Tetanus Immunization Date: Mar 16, 2015 History of Pneumococcal: Yes Pneumococcal Date: Jul 19, 2016 Multi-Drug Resistant Organisms History of MDRO: No Allergies Coded Allergies: Sulfa Drugs (Verified Allergy, Intermediate, RASH, NAUSEA, VOMITING, ) Home Medications Scheduled Aspirin (Aspirin EC Low Dose), 81 MG PO DAILY Finasteride (Proscar), 5 MG PO HS Fluticasone Furoate-Vilanterol (Breo Ellipta), 1 INHA INH DAILY Ipratropium-Albuterol (Combivent Respimat), 1 PUFF INH QID Lactobacillus Acidophilus (Lactinex), 1 TAB PO DAILY Multivitamin (Multivitamin), 1 TAB PO DAILY Omeprazole (Prilosec), 20 MG PO DAILY Oxygen (Oxygen), 3 LITER NA CONTINOUS Prednisone Tab (Prednisone), 10 MG PO DAILY Roflumilast (Daliresp), 500 MCG PO DAILY Sertraline (Zoloft), 50 MG PO DAILY Scheduled PRN Dextromethorphan-Guaifenesin (Mucinex Dm), 1 TAB PO Q12 PRN for congestion Doxycycline Hyclate (Doxycycline Hyclate), 100 MG PO BID PRN for COPD Rescue Kit Ipratropium [place] (Atrovent 0.02% Soln), 2.5 ML INH Q6-8HRS PRN for SOB/ Wheezing Ipratropium-Albuterol (Duoneb), 1 TREATMENT INH QID PRN for SOB/Wheezing Lorazepam (Lorazepam), 0.5 MG PO BID PRN for Anxiety Prednisone Tab (Prednisone), 10 MG PO UD PRN for COPD Rescue Kit Review of Systems ROS per HPI, all other systems reviewed and negative Physical Exam Vital Signs Date Time Temp Pulse Resp B/P Pulse Ox O2 Delivery O2 Flow Rate FiO2 01/10/17 16:19 127 105/68 98 Nasal Cannula 3.5 01/10/17 15:49 128 22 106/69 100 BiPAP 01/10/17 15:07 112 120/75 100 BiPAP 01/10/17 14:56 121 99 40 01/10/17 14:22 120 01/10/17 14:17 119 20 98 Nasal Cannula 3.5 01/10/17 14:10 94 Nasal Cannula 3.0 01/10/17 14:06 94 Nasal Cannula 3.0 01/10/17 14:06 94 Nasal Cannula 3.0 01/10/17 14:03 36.6 133 36 105/86 94 Nasal Cannula 3.0 General Appearance: + mild distress Head: normocephalic Eyes: normal inspection ENT: hearing grossly normal Neck: supple, no JVD Respiratory/Chest: + respiratory distress (tachypnea, mild conversational dyspnea), + decreased breath sounds (poor air entry noted throughout all lung [place]), + accessory muscle use, + wheezing (faint, end expiratory), + pertinent finding (saturating well on 3L via NC) Cardiovascular: + tachycardia (regular rhythm), + pertinent finding (+2 pitting ankle edema, L > R ) Abdomen/GI: normal bowel sounds, non tender, soft Extremities/Musculoskelatal: normal inspection, no calf tenderness Neurologic/Psych: no motor/sensory deficits, alert, normal mood/affect, oriented x 3 Skin: normal color, warm/dry Diagnostics Laboratory Results Results Past 24 Hours Test 01/10/17 14:30 01/10/17 16:33 Range/Units White Blood Count 8.74 4.8-10.8 K/uL Red Blood Count 4.11 4.7-6.1 M/uL Hemoglobin 12.2 14.0-18.0 g/dL Hematocrit 40.6 42-52 % Mean Corpuscular Volume 98.8 80-100 fL Mean Corpuscular Hemoglobin 29.7 25-34 pg Mean Corpuscular Hemoglobin Concent 30.0 32-36 g/dl Platelet Count 248 130-400 K/uL Mean Platelet Volume 9.5 7.4-10.4 fL Neutrophils (%) (Auto) 87.3 % Lymphocytes (%) (Auto) 7.0 % Monocytes (%) (Auto) 5.1 % Eosinophils (%) (Auto) 0.3 % Basophils (%) (Auto) 0.1 % Neutrophils # (Auto) 7.62 1.4-6.5 K/uL Lymphocytes # (Auto) 0.61 1.2-3.4 K/uL Monocytes # (Auto) 0.45 0.11-0.59 K/uL Eosinophils # (Auto) 0.03 0-0.5 K/uL Basophils # (Auto) 0.01 0-0.2 K/uL RDW Standard Deviation 53.5 36.4-46.3 fL RDW Coefficient of Variation 14.9 11.5-14.5 % Immature Granulocyte % (Auto) 0.2 % Immature Granulocyte # (Auto) 0.02 0.00-0.02 K/uL Prothrombin Time 10.8 9.0-12.0 SECONDS Prothromb Time International Ratio 1.0 0.9-1.1 Activated Partial Thromboplast Time 33.2 21.0-31.0 SECONDS Partial Thromboplastin Ratio 1.3 Venous Blood pH 7.34 7.36-7.41 Venous Blood Partial Pressure CO2 72 38.0-50.0 mmHg Venous Blood Partial Pressure O2 52 mmHg Venous Blood HCO3 37 mmol/L Venous Blood Oxygen Saturation 82.9 % Venous Blood Base Excess 9.2 mmol/L Sodium Level 142 136-145 mmol/L Potassium Level 4.6 3.5-5.1 mmol/L Chloride Level 101 98-107 mmol/L Carbon Dioxide Level 39 21-32 mmol/L Anion Gap 2.0 3-11 mmol/L Blood Urea Nitrogen 15 7-18 mg/dl Creatinine 0.73 0.60-1.40 mg/dl Est Creatinine Clear Calc Drug Dose 64.5 ml/min Estimated GFR () 98.0 Estimated GFR (Non- 84.6 BUN/Creatinine Ratio 20.0 10-20 Random Glucose 147 70-99 mg/dl Calcium Level 8.7 8.5-10.1 mg/dl Total Bilirubin 0.3 0.2-1 mg/dl Aspartate Amino Transf (AST/SGOT) 18 15-37 U/L Alanine Aminotransferase (ALT/SGPT) 18 12-78 U/L Alkaline Phosphatase 76 45-117 U/L Troponin I 0.110 0-0.045 ng/ml Pro-B-Type Natriuretic Peptide 5206 0-1800 pg/ml Total Protein 6.7 6.4-8.2 gm/dl Albumin 3.0 3.4-5.0 gm/dl Globulin 3.7 2.5-4.0 gm/dl Albumin/Globulin Ratio 0.8 0.9-2 Microbiology Results 01/10/17 Blood Culture, Received Pending 01/10/17 Blood Culture, Received Pending Diagnostic Radiology CXR IMPRESSION: Congestive failure superimposed upon chronic emphysematous change. Impression Assessment and Plan ACUTE ON CHRONIC HYPOXIC, HYPERCAPNIC RESPIRATORY FAILURE MULTIFACTORIAL DUE TO ACUTE ON CHRONIC DIASTOLIC CHF, COPD EXACERBATION - admit to tele - patient presenting with increasing shortness of breath and cough x 2 weeks despite use of COPD rescue kit (prednisone and doxycycline) - in the ER, required BiPap for respiratory distress, no hypoxia noted; patient was taken off of BiPap during my exam however ABG resulted that is showing pH 7.27, CO2 71, therefore will reapply BiPap and recheck ABG in 4 hours - CXR showing CHF; elevated proBNP and lower extremity edema noted; last echo 2008 - EF 65%, grade I diastolic dysfunction - Lasix 40mg IV x 1; reassess volume status and CXR in AM - update echo - also noted to have very tight lung sounds and wheezing on exam - chronically on 3L O2 and prednisone 10mg daily - no clear infiltrate on CXR, afebrile, no leukocytosis; s/p Levaquin in ER, will continue with empirically (monitor daily EKG due to mildly prolonged QTC) - IV steroids - noted patient declines nebulizers so will use Xopenex (due to tachycardia) and Atrovent inhalers - flutter valve to help mobilize secretion ATRIAL FIBRILLATION VS MAT - patient presenting with HRs in the 140s - EKG showing atrial fibrillation vs MAT - HR improving as breathing status improves and appears to be in sinus tachycardia on tele during my exam - continue to monitor HR and if tachycardia persists, will consider rate controlling meds - Heparin considered however history of AAA repair with persistent type 2 endoleak - cardio consulted ELEVATED TROPONIN - likely demand ischemia from tachycardia / CHF - no reports of chest pain - continue to cycle cardiac enzymes - resting echo PROLONGED QTC - borderline at 479 - monitor daily EKG GERD - continue PPI DVT PROPHYLAXIS - SCDs due to hx of AAA with persistent endoleak CODE STATUS - Patient is a DNR as per my discussion with him and his daughter who is at the bedside. DISPO - In my clinical judgment this beneficiary meets acute admission criteria, established by [facility], that includes being hospitalized through two midnights. VTE Prophylaxis VTE Risk Assessment Done? Y/N: Yes Risk Level: Moderate Note ATTENDING ADDENDUM Record reviewed. Patient interviewed and examined. Care coordinated with EMIR Hernandez. Please refer to her documentation for patient's history. Briefly, 86 YO male with steroid + O2 dep COPD. Presented to ED with worsening cough and dyspnea. Very tachypneic upon arrival, required BiPAP. No fever. No chest pain. EXAM: General- elderly male who appears to be acutely and chronically ill, tachypneic VS- as noted Neck- + JVD Lungs- diffuse wheezing, using accessory muscles Heart- distant heart sounds, rhythm irregular and tachycardic, no gallop appreciated Abdomen- + BS, soft, nontender Extremities- 1+ pedal edema; trace pretibial edema; no calf tenderness Neuro- alert DATA: Hgb 12.2 WBC 8740 BNP 5206 Trop 0.110 Other lab studies as noted. CXR- cardiomegaly, emphysema, pulmonary edema EKG performed at 14:00 reviewed and demonstrated irregular tachycardia (AF vs MAT) at 140 / minute, RBB, left anterior fascicular block, lateral ST depression and T-wave inversion. . ASSESSMENT AND PLAN: ACUTE ON CHRONIC HYPOXIC AND HYPERCAPNIC RESP FAILURE Severe O2 and steroid dependent COPD. Now with worsening dyspnea associated with respiratory distress & tachypnea. Suspect CHF or, less likely, pneumonia. Titrate supplemental O2. BiPAP as necessary for ventilatory support. CHF BNP elevated. Chest x-ray shows pulmonary edema. IV furosemide x 1 today, then reassess status in a.m. Check echo. POSSIBLE PNEUMONIA Chest x-ray shows basilar infiltrates- pulmonary edema vs pneumonia. Afebrile. No leukocytosis. Uncertain whether or not pt has infectious process, but will Rx with antibiotics in light of his severe COPD. TACHYARRHYTHMIA AF vs MAT. Treat underlying pulmonary concerns. Consider beta norah or calcium channel norah if hemodynamics allow. Consult Cardiology. Please refer to SHERRI Manning's documentation for discussion of other issues. Jose Alfredo Hutchinson MD .
[2017-01-10] MEDS ORDERED: LORAZEPAM 2 MG/ML 1 ML VIAL ONE (18:38)
[2017-01-10] MEDS ORDERED: LORAZEPAM INJ 0.5 MG in SYRINGE 0.75 ML IV PRN (20:15)
[2017-01-10 20:16] LABS: URINE APPEARANCE CLEAR (CLEAR); URINE BILIRUBIN NEG (NEG); URINE COLOR YELLOW; URINE EPITHELIAL CELL AUTO 0-5 /lpf (0-5); URINE NITRITE NEG (NEG); URINE PH 5.5 (4.5-7.5); URINE SPECIFIC GRAVITY 1.009 (1.000-1.030); UROBILINOGEN NEG (NEG)
[2017-01-10 20:20] LABS: MANUAL MICROSCOPIC REQUIRED? NO; REVIEW REQ? NO
[2017-01-10] MEDS: LEValbuterol HFA 15GM INHALER INH SCH (21:13)
[2017-01-10] MEDS: FINASTERIDE 5 MG TAB PO SCH (21:15)
[2017-01-10] MEDS: GUAIFENESIN 600 MG TABCR PO SCH (21:15)
[2017-01-10] MEDS ORDERED: OXGN (21:28)
[2017-01-10] MEDS: METHYLPREDNISOLONE IV 20 MG in SYRINGE 0 ML IV SCH (21:56)
[2017-01-10] MEDS ORDERED: ROFL1TAB5 PO (23:50)
[2017-01-11] VITALS (11 sets, daily range): BP systolic 97–113; BP diastolic 59–70; PULSE 114–132; TEMP 36.2–36.6; O2SAT 90–98
[2017-01-11] MEDS: METHYLPREDNISOLONE IV 20 MG in SYRINGE 0 ML IV SCH ×3 (04:31→20:03)
[2017-01-11] MEDS: LEValbuterol HFA 15GM INHALER INH SCH ×5 (05:11→23:25)
[2017-01-11] MEDS: IPRATROPIUM BROMIDE HFA INHALER INH SCH ×5 (05:11→23:24)
[2017-01-11] MEDS: LORAZEPAM 2 MG/ML 1 ML VIAL IV PRN ×2 (06:07→16:22)
[2017-01-11] MEDS ORDERED: FUROSEMIDE INJ 40 MG in SYRINGE 0 ML IV SCH (07:30)
[2017-01-11 07:38] LABS: HEMATOCRIT 38.8 % (42-52); MEAN CELL VOLUME 97.7 fL (80-100); MEAN CORPUSCULAR HGB CONC 30.7 g/dl (32-36); MEAN PLATELET VOLUME 9.3 fL (7.4-10.4); PLATELET COUNT 254 K/uL (130-400); RED BLOOD COUNT 3.97 M/uL (4.7-6.1); WHITE BLOOD COUNT 11.99 K/uL (4.8-10.8)
[2017-01-11 07:48] LABS: ARTERIAL BLD GAS O2 SATURATION 92.7 % (90-95); ARTERIAL BLOOD GAS BASE EXCESS 9.9 mEq/L (-9-1.8); ARTERIAL BLOOD GAS HCO3 36 mmol/L (19-24); ARTERIAL BLOOD GAS PO2 88 mm/Hg (80-95); ARTERIAL BLOOD GAS pH 7.43 (7.35-7.45)
[2017-01-11 07:49] LABS: ALLEN TEST POS (POS); O2 ADMINISTRATION 4L
--- NOTE | 2017-01-11 07:50 | DIAGNOSTIC IMAGING REPORT ---
CHEST ONE VIEW PORTABLE CLINICAL HISTORY: CHF dyspnea COMPARISON STUDY: 01/10/2017 FINDINGS: Slight improvement in aeration left base. Findings of congestive heart failure is stable to slightly improved. Unchanging trace amount pleural fluid both lung bases. IMPRESSION: Stable to slightly improved components of congestive failure Electronically signed by: Juno Mariscal M.D. 01/11/2017 7:49 AM Dictated Date/Time: 01/11/2017 7:48 AM
[2017-01-11] MEDS: GUAIFENESIN 600 MG TABCR PO SCH ×2 (08:00→19:34)
[2017-01-11] MEDS: MULTIVITAMIN TAB PO SCH (08:00)
[2017-01-11] MEDS: PANTOprazole SOD 40 MG TAB PO SCH (08:00)
[2017-01-11] MEDS: SERTRALINE HCL 50 MG TAB PO SCH (08:00)
[2017-01-11] MEDS: LACTOBACILLUS ACIDOPHILUS (FLORANEX) TAB PO SCH (08:00)
[2017-01-11] MEDS: ROFLUMILAST 500 MCG TAB PO SCH (08:01)
[2017-01-11] MEDS: ASPIRIN 81 MG ECTAB PO SCH (08:01)
[2017-01-11 08:11] LABS: BUN/CREATININE RATIO 19.1 (10-20); CREATININE 0.77 mg/dl (0.60-1.40); POTASSIUM 4.3 mmol/L (3.5-5.1)
--- NOTE | 2017-01-11 08:43 | Progress Note ---
Subjective Date of Service: January 11, 2017. Subjective Pt evaluation today including: conversation w/ patient, physical exam, lab review, review of studies, review of inpatient medication list Saw/examined the patient in room 240-2 tells me his shortness of breath began worsening about a week ago; he tried to use prednisone rescue kit and doxycycline, but this did not help, so he came in to the ER He is laying in bed, in mild to moderate respiratory distress Has to stop and cannot speak in full sentences Using accessory muscles to breath - likely at baseline; currently on 4L of O2 via NC; tells me he cannot tolerate bipap Problem List Medical Problems: (1) Hypoxia Status: Acute (2) Pneumonia Status: Acute Review of Systems Constitutional: + weakness, No chills, No fever Respiratory: + cough, + dyspnea at rest, + dyspnea on exertion, + shortness of breath, + sputum, + wheezing, No hemoptysis Cardiac: No chest pain, No edema, No orthopnea, No palpitations Abdomen: No diarrhea, No nausea, No pain, No vomiting Medications Current Inpatient Medications Medications (Trade) Dose Ordered Sig/Shabbir Route Start Time Stop Time Status Last Admin Dose Admin Acetaminophen (Tylenol Tab) 650 mg Q4H PRN PO 01/10/17 16:30 02/09/17 16:29 Levalbuterol (Xopenex 1.25MG/ 0.5ML Neb) 1.25 mg Q6R PRN INH 01/10/17 17:28 02/09/17 17:27 Levalbuterol (Xopenex Hfa Inhaler) 2 puffs Q6 INH 01/10/17 18:00 02/09/17 17:59 01/11/17 05:11 2 PUFFS Aspirin (Ecotrin Tab) 81 mg DAILY PO 01/11/17 09:00 02/10/17 08:59 Finasteride (Proscar Tab) 5 mg HS PO 01/10/17 21:00 02/09/17 20:59 01/10/17 21:15 5 MG Lactobacillus Acidophilus (Floranex Tab) 1 tab DAILY PO 01/11/17 09:00 02/10/17 08:59 Multivitamins (Multivitamin Tab) 1 tab DAILY PO 01/11/17 09:00 02/10/17 08:59 Roflumilast (Daliresp Tab) 500 mcg DAILY PO 01/11/17 09:00 02/10/17 08:59 Sertraline HCl (Zoloft Tab) 50 mg DAILY PO 01/11/17 09:00 02/10/17 08:59 Miscellaneous Information (Order Awaiting Action) 1 ea QS N/A 01/11/17 00:00 02/10/17 00:00 Pantoprazole Sodium (Protonix Tab) 40 mg DAILY PO 01/11/17 09:00 02/10/17 08:59 Guaifenesin 600 mg 600 mg Q12 PO 01/10/17 21:00 02/09/17 20:59 01/10/17 21:15 600 MG Levofloxacin 500 mg/Prmx 100 ml @ 100 mls/hr Q24H IV 01/11/17 15:00 01/16/17 15:59 Methylprednisolone Sodium Succinate/ Syringe (Solu-Medrol IV/ Syringe) 0.32 ml @ 1.5 mls/min Q8H IV 01/10/17 20:30 02/09/17 20:29 01/11/17 04:31 1.5 MLS/MIN Lorazepam 0.5 mg 0.5 mg Q8H PRN IV 01/10/17 18:00 02/09/17 17:59 01/11/17 06:07 0.5 MG Lorazepam/Syringe (Ativan Inj/ Syringe) 1 ml @ 1 mls/min Q8H PRN IV 01/10/17 20:15 02/09/17 20:14 Ipratropium [place] 2 puffs 2 puffs Q6 INH 01/11/17 00:00 02/10/17 00:00 01/11/17 05:11 2 PUFFS Furosemide/Syringe (Lasix Inj/ Syringe) 4 ml @ 4 mls/min 0730 IV 01/11/17 07:30 01/11/17 08:00 Objective Vital Signs Date Time Temp Pulse Resp B/P Pulse Ox O2 Delivery O2 Flow Rate FiO2 01/11/17 04:04 36.4 114 25 97/63 92 Nasal Cannula 4.0 01/11/17 04:00 93 Nasal Cannula 4.0 01/10/17 23:59 93 Nasal Cannula 4.0 01/10/17 23:28 36.7 116 23 101/57 95 Nasal Cannula 4.0 01/10/17 20:00 93 Nasal Cannula 4.0 01/10/17 19:15 36.4 133 18 108/68 93 Nasal Cannula 4.0 01/10/17 17:30 128 22 99/56 95 Nasal Cannula 3.5 01/10/17 17:03 132 22 98/65 94 Nasal Cannula 3.5 01/10/17 16:55 36.5 132 26 135/86 Nasal Cannula 3.5 01/10/17 16:19 127 105/68 98 Nasal Cannula 3.5 01/10/17 15:49 128 22 106/69 100 BiPAP 01/10/17 15:07 112 120/75 100 BiPAP 01/10/17 14:56 121 99 40 01/10/17 14:22 120 01/10/17 14:17 119 20 98 Nasal Cannula 3.5 01/10/17 14:10 94 Nasal Cannula 3.0 01/10/17 14:06 94 Nasal Cannula 3.0 01/10/17 14:06 94 Nasal Cannula 3.0 01/10/17 14:03 36.6 133 36 105/86 94 Nasal Cannula 3.0 Physical Exam General Appearance: + moderate distress (moderate respiratory distress; incomplete sentences; accessory muscle use, laying in bed with 4L of O2 via NC) , + cachetic, + thin Respiratory/Chest: + respiratory distress, + decreased breath sounds, + accessory muscle use Cardiovascular: + tachycardia Extremities: normal inspection, no pedal edema Neurologic/Psychiatric: alert, normal mood/affect Laboratory Results Last 24 Hours Test 01/10/17 14:30 01/10/17 17:15 01/10/17 20:00 01/10/17 20:10 White Blood Count 8.74 K/uL Red Blood Count 4.11 M/uL Hemoglobin 12.2 g/dL Hematocrit 40.6 % Mean Corpuscular Volume 98.8 fL Mean Corpuscular Hemoglobin 29.7 pg Mean Corpuscular Hemoglobin Concent 30.0 g/dl Platelet Count 248 K/uL Mean Platelet Volume 9.5 fL Neutrophils (%) (Auto) 87.3 % Lymphocytes (%) (Auto) 7.0 % Monocytes (%) (Auto) 5.1 % Eosinophils (%) (Auto) 0.3 % Basophils (%) (Auto) 0.1 % Neutrophils # (Auto) 7.62 K/uL Lymphocytes # (Auto) 0.61 K/uL Monocytes # (Auto) 0.45 K/uL Eosinophils # (Auto) 0.03 K/uL Basophils # (Auto) 0.01 K/uL RDW Standard Deviation 53.5 fL RDW Coefficient of Variation 14.9 % Immature Granulocyte % (Auto) 0.2 % Immature Granulocyte # (Auto) 0.02 K/uL Prothrombin Time 10.8 SECONDS Prothromb Time International Ratio 1.0 Activated Partial Thromboplast Time 33.2 SECONDS Partial Thromboplastin Ratio 1.3 Venous Blood pH 7.34 Venous Blood Partial Pressure CO2 72 mmHg Venous Blood Partial Pressure O2 52 mmHg Venous Blood HCO3 37 mmol/L Venous Blood Oxygen Saturation 82.9 % Venous Blood Base Excess 9.2 mmol/L Sodium Level 142 mmol/L Potassium Level 4.6 mmol/L Chloride Level 101 mmol/L Carbon Dioxide Level 39 mmol/L Anion Gap 2.0 mmol/L Blood Urea Nitrogen 15 mg/dl Creatinine 0.73 mg/dl Est Creatinine Clear Calc Drug Dose 64.5 ml/min Estimated GFR () 98.0 Estimated GFR (Non- 84.6 BUN/Creatinine Ratio 20.0 Random Glucose 147 mg/dl Calcium Level 8.7 mg/dl Total Bilirubin 0.3 mg/dl Aspartate Amino Transf (AST/SGOT) 18 U/L Alanine Aminotransferase (ALT/SGPT) 18 U/L Alkaline Phosphatase 76 U/L Troponin I 0.110 ng/ml 0.124 ng/ml Pro-B-Type Natriuretic Peptide 5206 pg/ml Total Protein 6.7 gm/dl Albumin 3.0 gm/dl Globulin 3.7 gm/dl Albumin/Globulin Ratio 0.8 Procalcitonin < 0.05 ng/ml Arterial Blood pH 7.29 Arterial Blood Partial Pressure CO2 71 mmHg Arterial Blood Partial Pressure O2 85 mm/Hg Arterial Blood HCO3 33 mmol/L Arterial Blood Oxygen Saturation 94.9 % Arterial Blood Base Excess 5.2 mEq/L Arterial Blood Gas Delivery 4L [place] Test POS Urine Color YELLOW Urine Appearance CLEAR Urine pH 5.5 Urine Specific [place] 1.009 Urine Protein NEG Urine Glucose (UA) NEG Urine Ketones NEG Urine Occult Blood NEG Urine Nitrite NEG Urine Bilirubin NEG Urine Urobilinogen NEG Urine Leukocyte Esterase TRACE Urine WBC (Auto) 0 /hpf Urine RBC (Auto) 0-4 /hpf Urine Hyaline Casts (Auto) 1-5 /lpf Urine Epithelial Cells (Auto) 0-5 /lpf Urine Bacteria (Auto) NEG Creatine Kinase MB Ratio Creatine Kinase MB 6.1 ng/ml Test 01/11/17 01:39 01/11/17 07:03 01/11/17 07:40 Creatine Kinase MB 8.0 ng/ml Creatine Kinase MB Ratio Troponin I 0.159 ng/ml White Blood Count 11.99 K/uL Red Blood Count 3.97 M/uL Hemoglobin 11.9 g/dL Hematocrit 38.8 % Mean Corpuscular Volume 97.7 fL Mean Corpuscular Hemoglobin 30.0 pg Mean Corpuscular Hemoglobin Concent 30.7 g/dl RDW Standard Deviation 53.3 fL RDW Coefficient of Variation 15.0 % Platelet Count 254 K/uL Mean Platelet Volume 9.3 fL Arterial Blood pH 7.43 Arterial Blood Partial Pressure CO2 55 mmHg Arterial Blood Partial Pressure O2 88 mm/Hg Arterial Blood HCO3 36 mmol/L Arterial Blood Oxygen Saturation 92.7 % Arterial Blood Base Excess 9.9 mEq/L Arterial Blood Gas Delivery 4L [place] Test POS Assessment and Plan This is an 86 year old male with severe COPD and chronic respiratory failure on 3.5L, AAA s/p repair, PVD presents with worsening shortness of breath Acute on Chronic Hypercapnic, Hypoxic Respiratory Failure secondary to Acute COPD Exacerbation vs. CHF exacerbation CXR - Congestive failure superimposed upon chronic emphysematous change ABGs suggest respiratory acidosis, hypercapnia - likely a chronic change due to severe COPD Currently on solu-medrol 20mg q8 - uses 10mg prednisone chronically started on Levaquin, which we can continue for now for five total days, though pro-calcitonin is low not tolerating bipap; so he is off of that, back to 4L of O2 via NC - uses 3.5L at home chronically continue breathing treatments/nebulizers cont. Lcp can go back to his usual inhalers on discharge given extra doses of Lasix this morning - repeat CXR suggests improvement in failure repeat ABG pending echo pending Atrial Arrhythmia; possibly A. Fib initial EKG on presentation - HRs in the 140s, irregularly irregular, possibly A. Fib vs. MAT no anticoagulation due to bleed risk from previous AAA surgical repair HRs this morning down to the 120s Ativan TID for anxiety; low dose solu-medrol, will convert to PO as soon as possible to prevent steroid-induced tachycardia Xopenex to prevent b-agonist induced tachycardia will try to avoid b-blockade due to severe COPD; cardiology consulted for further input Elevated Troponin likely secondary to demand ischemia related to tachycardia no chest pain three sets of enzymes obtained; ~ 0.11-->0.12-->0.159 TTE pending Prolonged QTc some improvement with improved HRs GERD continue Protonix DVT ppx SCDs DNR
[2017-01-11 08:46] LABS: CALCIUM 8.5 mg/dl (8.5-10.1)
[2017-01-11] MEDS ORDERED: DIGOXIN IV 250 MCG in SYRINGE 9 ML IV ONE (09:30)
--- NOTE | 2017-01-11 09:31 | CARDIOLOGY CONSULTATION ---
DATE OF CONSULTATION: 01/11/2017 DATE OF CONSULTATION: 01/11/2017. CONSULTATION FOR: Elda francisco. REASON FOR CONSULTATION: Congestive heart failure. HISTORY OF PRESENT ILLNESS: This is an 86-year-old male patient with severe COPD, most likely due to previous tobacco use. The patient was admitted approximately a month ago with an exacerbation of COPD and pneumonia. He was treated with antibiotics, bronchodilators and steroid taper. He was eventually discharged home but represented with symptoms of shortness of breath. In the Emergency Department, he was tachycardic with heart rates of 130 beats per minute. This may have been atrial flutter or MAT. The patient's chest x-ray suggest increased vascular markings consistent with congestive heart failure. His pro-natriuretic peptide was 5000. He has been given IV diuretics overnight. He is still complaining of shortness of breath. His heart rates remained 120 beats per minute. This could be a sinus tachycardia versus a slower atrial flutter. He has no recurrent chest pain. He has no prior history of heart disease and denies myocardial infarction, congestive heart failure or cardiac arrhythmias. He does have a history of abdominal aortic aneurysm which was repaired with an endovascular sheath several years ago. ALLERGIES: SULFA MEDICATIONS. 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 As outlined above, he had abdominal aortic aneurysm repair with an endovascular sheath. He has been treated for dyslipidemia, GERD and benign prostatic hypertrophy. He has no prior history of kidney disease or strokes. No prior history of diabetes. SOCIAL HISTORY: He is a former smoker. He lives alone. FAMILY MEDICAL HISTORY: Noncontributory. REVIEW OF SYSTEMS: A 10-point review of systems is negative except for the history of chief complaint. PHYSICAL EXAMINATION: GENERAL: He is alert and oriented, no acute distress. HEAD, EYES, EARS, NOSE, AND THROAT: He is normocephalic. Pupils are equal and reactive to light. Extraocular muscles are intact bilaterally. NECK: The neck veins are not distended. Carotids have good upstrokes bilaterally without bruits. Thyroid is nonpalpable. VITAL SIGNS: Blood pressure is 100/60, respirations are 20-25, pulse is 120 beats per minute. RESPIRATORY: Breath sounds are equal bilaterally, but diminished. CARDIOVASCULAR: Heart has a regular rhythm. There are no cardiac rubs or murmurs. GASTROINTESTINAL: Abdomen is soft, nontender without organomegaly. EXTREMITIES: Free of edema, digit clubbing, or cyanosis. NEUROLOGIC: Grossly intact. SKIN: Warm to touch. LYMPH NODES: Negative to palpation. LABORATORY DATA: As per the history of chief complaint. IMPRESSIONS: 1. Acute exacerbation of chronic obstructive pulmonary disease. 2. Recent hospital admission for acute exacerbation of chronic obstructive pulmonary disease and pneumonia. 3. Tachycardia, which is most likely multifactorial and could be sinus versus multifocal atrial tachycardia versus atrial flutter. RECOMMENDATIONS: I will review the patient's echocardiogram when it is available. We will need to see how significant his pulmonary hypertension is and see if he has right heart failure as well as evaluation of his left ventricular ejection fraction. Diuretics have been held and I think that that is appropriate. He does not have a lot of blood pressure so controlling his heart rate may be difficult. I started him on digoxin today and hopefully that will be enough to keep his heart rate under control. I will have further recommendations following the above.
[2017-01-11] MEDS: BOOST VANILLA PO SCH ×4 (11:07→16:23)
[2017-01-11] MEDS: LEVOFLOXACIN / D5W 500 MG in PREMIXED IN D5W 100 ML IV SCH (14:36)
[2017-01-11] MEDS: DIGOXIN IV 250 MCG in SYRINGE 9 ML IV SCH (15:31)
[2017-01-11] MEDS: FINASTERIDE 5 MG TAB PO SCH (19:35)
[2017-01-12] VITALS (10 sets, daily range): BP systolic 82–111; BP diastolic 50–70; PULSE 62–121; TEMP 36.2–36.6; O2SAT 92–100
[2017-01-12] MEDS: METHYLPREDNISOLONE IV 20 MG in SYRINGE 0 ML IV SCH ×3 (04:44→20:20)
[2017-01-12] MEDS: IPRATROPIUM BROMIDE HFA INHALER INH SCH ×3 (05:56→18:28)
[2017-01-12] MEDS: LEValbuterol HFA 15GM INHALER INH SCH ×3 (05:56→18:29)
[2017-01-12] MEDS: BOOST VANILLA PO SCH ×6 (07:30→16:45)
[2017-01-12] MEDS: LORAZEPAM 2 MG/ML 1 ML VIAL IV PRN (08:12)
[2017-01-12] MEDS: SERTRALINE HCL 50 MG TAB PO SCH (08:12)
[2017-01-12] MEDS: LACTOBACILLUS ACIDOPHILUS (FLORANEX) TAB PO SCH (08:12)
[2017-01-12] MEDS: PANTOprazole SOD 40 MG TAB PO SCH (08:12)
[2017-01-12] MEDS: GUAIFENESIN 600 MG TABCR PO SCH ×2 (08:12→20:22)
[2017-01-12] MEDS: ASPIRIN 81 MG ECTAB PO SCH (08:12)
[2017-01-12] MEDS: MULTIVITAMIN TAB PO SCH (08:13)
[2017-01-12] MEDS: ROFLUMILAST 500 MCG TAB PO SCH (08:13)
--- NOTE | 2017-01-12 08:26 | ECHOCARDIOGRAM REPORT ---
*NOTICE TO RECEIVING LIBERTARIAN AGENCY This information is strictly Confidential and protected under [place] law. [place] law prohibits you from making any further disclosure of this information unless further disclosure is expressly permitted by the written consent of the person to whom it pertains or is authorized by law. A general authorization for the release of medical or other information is not sufficient for this purpose. Hospital accepts no responsibility if the information is made available to any other person, INCLUDING THE PATIENT. Interpretation Summary * Name: SHAHBAZ AUGUSTINE Study Date: 01/12/2017 07:00 AM BP: 97/63 mmHg * Patient Location: [facility] HR: 114 * : 1930 (M/d/yyyy) Gender: Male Height: 68 in * Age: 86 yrs Ethnicity: [place] Weight: 135 lb * Ordering Physician: Sarah Manning * Referring Physician: Self, Referred * Performed By: Marian Mcneil RDCS * * Reason For Study: CHF * BSA: 1.7 m2 * -- Conclusions -- * The left ventricle is moderately dilated. * Left ventricular systolic function is severely reduced. * Ejection Fraction = 20-25%. * The right ventricular cavity size is enlarged (proximal parasternal long axis right ventricular outflow tract dimension >3.3 cm). * The right ventricular systolic function is moderate to severely reduced. * The left atrial size is normal. * Right atrial size is normal. * There is mild to moderate mitral regurgitation. * There is trace tricuspid regurgitation. Procedure Details * A complete two-dimensional transthoracic echocardiogram was performed (2D, M-mode, Doppler and color flow Doppler). Left Ventricle * The left ventricle is moderately dilated. * There is no thrombus. * There is global thinning of the left ventricular [place]. * Ejection Fraction = 20-25%. * Left ventricular systolic function is severely reduced. Right Ventricle * The right ventricular cavity size is enlarged (proximal parasternal long axis right ventricular outflow tract dimension >3.3 cm). * The right ventricular systolic function is moderate to severely reduced. Atria * The left atrial size is normal. * Right atrial size is normal. * The interatrial septum is intact with no evidence for an atrial septal defect. Mitral Valve * The mitral valve is grossly normal. * There is mild to moderate mitral regurgitation. Tricuspid Valve * The tricuspid valve anatomy is normal. * There is trace tricuspid regurgitation. Aortic Valve * Aortic valve sclerosis moderate, without significant aortic valvular stenosis. * There is no significant aortic regurgitation. Pulmonic Valve * The pulmonic valve is not well visualized. Great Vessels * The aortic root and proximal ascending aorta are normal sized. Pericardium/Pleural * There is no pericardial effusion. MMode 2D Measurements and Calculations IVSd 0.80 cm LVIDd 5.3 cm LVIDs 4.8 cm LVPWd 0.81 cm IVS/LVPW 0.98 FS 10.9 % EDV(Teich) 138.1 ml ESV(Teich) 105.6 ml EF(Teich) 23.5 % EDV(cubed) 152.8 ml ESV(cubed) 108.1 ml EF(cubed) 29.3 % LV mass(C)d 153.7 grams LV mass(C)dI 88.9 grams/m\S\2 CO(Teich) 3.7 l/min CI(Teich) 2.2 l/min/m\S\2 SV(Teich) 32.5 ml SI(Teich) 18.8 ml/m\S\2 CO(cubed) 5.1 l/min CI(cubed) 3.0 l/min/m\S\2 SV(cubed) 44.8 ml SI(cubed) 25.9 ml/m\S\2 Ao root diam 3.1 cm Ao root area 7.7 cm\S\2 LA dimension 3.0 cm asc Aorta Diam 3.5 cm LA/Ao 0.97 LVOT diam 2.0 cm LVOT area 3.3 cm\S\2 LVAd ap4 36.0 cm\S\2 LVLd ap4 8.7 cm EDV(MOD-sp4) 121.0 ml LVAs ap4 30.6 cm\S\2 LVLs ap4 8.4 cm ESV(MOD-sp4) 90.0 ml EF(MOD-sp4) 25.6 % LVAd ap2 37.6 cm\S\2 LVLd ap2 9.5 cm EDV(MOD-sp2) 124.0 ml LVAs ap2 33.0 cm\S\2 LVLs ap2 9.1 cm ESV(MOD-sp2) 97.0 ml EF(MOD-sp2) 21.8 % CO(MOD-sp4) 3.6 l/min CI(MOD-sp4) 2.1 l/min/m\S\2 SV(MOD-sp4) 31.0 ml SI(MOD-sp4) 17.9 ml/m\S\2 CO(MOD-sp2) 3.1 l/min CI(MOD-sp2) 1.8 l/min/m\S\2 SV(MOD-sp2) 27.0 ml SI(MOD-sp2) 15.6 ml/m\S\2 Doppler Measurements and Calculations MV E max beny 149.9 cm/sec MV A max beny 56.1 cm/sec MV E/A 2.7 MV dec time 0.09 sec Ao V2 max 198.2 cm/sec Ao max PG 15.7 mmHg Ao max PG (full) 13.7 mmHg Ao V2 mean 146.5 cm/sec Ao mean PG 9.4 mmHg Ao V2 VTI 30.2 cm OLGA LIDIA(V,A) 1.2 cm\S\2 OLGA LIDIA(V,D) 1.2 cm\S\2 LV V1 max PG 2.0 mmHg LV V1 max 71.6 cm/sec MR max beny 502.2 cm/sec MR max PG 100.9 mmHg MR mean beny 359.4 cm/sec MR mean PG 60.3 mmHg MR VTI 150.9 cm SV(Ao) 231.2 ml SI(Ao) 133.7 ml/m\S\2 PA V2 max 64.5 cm/sec PA max PG 1.7 mmHg PA acc slope 262.8 cm/sec\S\2 PA acc time 0.12 sec TR max beny 269.3 cm/sec PA pr(Accel) 23.5 mmHg
--- NOTE | 2017-01-12 09:00 | CARDIOLOGY PROGRESS NOTE ---
DATE: 01/12/2017 DATE: 01/12/2017. FOLLOW-UP VISIT SUBJECTIVE: The patient is an 86-year-old male who a month ago was admitted with acute exacerbation of COPD and pneumonia. He went home and never really felt well. He remained short of breath and eventually returned to the hospital where he was admitted with heart failure. His echocardiogram would indicate a severe dilated cardiomyopathy with an estimated left ventricular ejection fraction of 20%. His main complaint today is continued shortness of breath. He has had no fever or chills. He denies chest pain. On the telemetry, he remains in a sinus tachycardia. OBJECTIVE: VITAL SIGNS: Blood pressure 110/70. Pulse is regular at 120 beats per minute. He is in a sinus tachycardia on the telemetry. He is afebrile. GENERAL: He is alert and oriented. HEAD, EYES, EARS, NOSE, AND THROAT: Normocephalic. Pupils are equal and reactive to light. Extraocular muscles are intact bilaterally. NECK: The neck veins are distended. Carotids have good upstrokes bilaterally without bruits. Thyroid is nonpalpable. RESPIRATORY: Breath sounds equal bilaterally and clear to auscultation. CARDIOVASCULAR: Heart has a regular rhythm. Normal S1, S2. No S3, S4. No cardiac rubs or murmurs. GASTROINTESTINAL: Abdomen is soft, nontender without organomegaly. EXTREMITIES: Free of edema, digit clubbing, or cyanosis. NEUROLOGIC: Grossly intact. SKIN: Warm to touch. LYMPH NODES: Negative to palpation. IMPRESSION: 1. [place] [employer] stage III-IV heart failure. 2. 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 3. Sinus tachycardia. 4. Chronic obstructive pulmonary disease. RECOMMENDATIONS: The patient will require the usual cocktail of heart failure medications including an YEMI/ARB, diuretic and eventually a heart failure proved beta norah. At this time, I am concerned about starting the patient on the beta norah because I think he needs his heart rate to maintain cardiac output. I will start with an YEMI inhibitor. He should also be continued on diuretics. Once we titrate the YEMI inhibitor, then we should try starting him on a low dose of metoprolol and at the same time we might want to consider discontinuing the digoxin.
[2017-01-12] MEDS: LISINOPRIL 5 MG TAB PO SCH (09:52)
[2017-01-12] MEDS: FUROSEMIDE 20 MG TAB PO SCH ×2 (09:52→17:00)
--- NOTE | 2017-01-12 10:04 | Progress Note ---
Subjective Date of Service: January 12, 2017. Subjective Pt evaluation today including: conversation w/ patient, physical exam, lab review, review of studies, review of inpatient medication list Saw/examined the patient in room 240-2 Continues to have shortness of breath; he is not eating because of his breathing issues Currently on 5L of O2 - he is not working hard to breath, but states he just feels more short of breath today Problem List Medical Problems: (1) Hypoxia Status: Acute (2) Pneumonia Status: Acute Review of Systems Constitutional: No chills, No fever Respiratory: + cough, + dyspnea at rest, + dyspnea on exertion, + shortness of breath, No sputum, No wheezing Cardiac: No chest pain, No edema, No palpitations Abdomen: No diarrhea, No nausea, No pain, No vomiting Heme: No abnormal bleeding/bruising Medications Current Inpatient Medications Medications (Trade) Dose Ordered Sig/Shabbir Route Start Time Stop Time Status Last Admin Dose Admin Acetaminophen (Tylenol Tab) 650 mg Q4H PRN PO 01/10/17 16:30 02/09/17 16:29 Levalbuterol (Xopenex 1.25MG/ 0.5ML Neb) 1.25 mg Q6R PRN INH 01/10/17 17:28 02/09/17 17:27 Levalbuterol (Xopenex Hfa Inhaler) 2 puffs Q6 INH 01/10/17 18:00 02/09/17 17:59 01/12/17 05:56 2 PUFFS Aspirin (Ecotrin Tab) 81 mg DAILY PO 01/11/17 09:00 02/10/17 08:59 01/12/17 08:12 81 MG Finasteride (Proscar Tab) 5 mg HS PO 01/10/17 21:00 02/09/17 20:59 01/11/17 19:35 5 MG Lactobacillus Acidophilus (Floranex Tab) 1 tab DAILY PO 01/11/17 09:00 02/10/17 08:59 01/12/17 08:12 1 TAB Multivitamins (Multivitamin Tab) 1 tab DAILY PO 01/11/17 09:00 02/10/17 08:59 01/12/17 08:13 1 TAB Roflumilast (Daliresp Tab) 500 mcg DAILY PO 01/11/17 09:00 02/10/17 08:59 01/12/17 08:13 500 MCG Sertraline HCl (Zoloft Tab) 50 mg DAILY PO 01/11/17 09:00 02/10/17 08:59 01/12/17 08:12 50 MG Miscellaneous Information (Order Awaiting Action) 1 ea QS N/A 01/11/17 00:00 02/10/17 00:00 Pantoprazole Sodium (Protonix Tab) 40 mg DAILY PO 01/11/17 09:00 02/10/17 08:59 01/12/17 08:12 40 MG Guaifenesin 600 mg 600 mg Q12 PO 01/10/17 21:00 02/09/17 20:59 01/12/17 08:12 600 MG Levofloxacin 500 mg/Prmx 100 ml @ 100 mls/hr Q24H IV 01/11/17 15:00 01/16/17 15:59 01/11/17 14:36 100 MLS/HR Methylprednisolone Sodium Succinate/ Syringe (Solu-Medrol IV/ Syringe) 0.32 ml @ 1.5 mls/min Q8H IV 01/10/17 20:30 02/09/17 20:29 01/12/17 04:44 1.5 MLS/MIN Lorazepam 0.5 mg 0.5 mg Q8H PRN IV 01/10/17 18:00 02/09/17 17:59 01/12/17 08:12 0.5 MG Lorazepam/Syringe (Ativan Inj/ Syringe) 1 ml @ 1 mls/min Q8H PRN IV 01/10/17 20:15 02/09/17 20:14 Ipratropium [place] (Atrovent Hfa Inhaler) 2 puffs Q6 INH 01/11/17 00:00 02/10/17 00:00 01/12/17 05:56 2 PUFFS Enteral Nutritional Formula 1 can 1 can TIDM PO 01/11/17 11:30 02/10/17 11:29 Digoxin/Syringe (Digoxin IV/ Syringe) 10 ml @ 2 mls/min DAILY@16 IV 01/11/17 16:00 02/10/17 15:59 01/11/17 15:31 2 MLS/MIN Lisinopril (Zestril Tab) 5 mg QAM PO 01/12/17 10:00 02/11/17 09:59 01/12/17 09:52 5 MG Furosemide (Lasix Tab) 20 mg BID17 PO 01/12/17 10:00 02/11/17 09:59 01/12/17 09:52 20 MG Objective Vital Signs Date Time Temp Pulse Resp B/P Pulse Ox O2 Delivery O2 Flow Rate FiO2 01/12/17 08:02 36.5 120 20 111/68 92 Nasal Cannula 5.0 01/12/17 08:00 94 Nasal Cannula 5.0 01/12/17 04:00 93 Nasal Cannula 5.0 40 01/12/17 03:19 36.6 121 22 110/70 92 Nasal Cannula 5.0 01/12/17 00:00 96 Nasal Cannula 5.0 40 01/11/17 23:07 36.6 117 20 107/59 96 Nasal Cannula 5.0 01/11/17 20:00 96 Nasal Cannula 5.0 40 01/11/17 19:20 36.4 120 22 106/70 96 Nasal Cannula 5.0 01/11/17 15:53 93 Nasal Cannula 4.0 01/11/17 15:37 36.4 132 26 113/69 93 Nasal Cannula 5.0 01/11/17 15:31 124 01/11/17 11:54 36.2 123 22 110/66 90 Nasal Cannula 3.0 01/11/17 11:51 93 Nasal Cannula 4.0 Physical Exam General Appearance: + mild distress (respiratory), + cachetic, + thin Respiratory/Chest: chest non-tender, lungs clear, normal breath sounds, no accessory muscle use, + respiratory distress (mild respiratory distress) Cardiovascular: no edema, no murmur, + tachycardia Abdomen: normal bowel sounds, non tender, soft Extremities: normal inspection, no pedal edema Neurologic/Psychiatric: no motor/sensory deficits, alert, normal mood/affect Assessment and Plan This is an 86 year old male with severe COPD and chronic respiratory failure on 3.5L, AAA s/p repair, PVD presents with worsening shortness of breath Acute on Chronic Hypercapnic, Hypoxic Respiratory Failure secondary to Acute COPD Exacerbation vs. CHF exacerbation 01/12 appreciate cardiology input echo performed and showing an LVEF of 20-25% with moderate-severe RV dysfunction as well started on Lisinopril and Lasix 20mg BID will likely need a b-norah added for now, will continue IV solu-medrol, switch to PO prednisone in AM continue Levaquin to total 5 days 01/11 CXR - Congestive failure superimposed upon chronic emphysematous change ABGs suggest respiratory acidosis, hypercapnia - likely a chronic change due to severe COPD Currently on solu-medrol 20mg q8 - uses 10mg prednisone chronically started on Levaquin, which we can continue for now for five total days, though pro-calcitonin is low not tolerating bipap; so he is off of that, back to 4L of O2 via NC - uses 3.5L at home chronically continue breathing treatments/nebulizers cont. Zelda can go back to his usual inhalers on discharge given extra doses of Lasix this morning - repeat CXR suggests improvement in failure repeat ABG pending echo pending Atrial Arrhythmia; possibly A. Fib 01/12 HRs are still in the 120s plan is to optimize his breathing status, COPD/CHF likely will need to start b-norah not a candidate for anticoagulation due to bleed risk 01/11 initial EKG on presentation - HRs in the 140s, irregularly irregular, possibly A. Fib vs. MAT no anticoagulation due to bleed risk from previous AAA surgical repair HRs this morning down to the 120s Ativan TID for anxiety; low dose solu-medrol, will convert to PO as soon as possible to prevent steroid-induced tachycardia Xopenex to prevent b-agonist induced tachycardia will try to avoid b-blockade due to severe COPD; cardiology consulted for further input Elevated Troponin likely secondary to demand ischemia related to tachycardia no chest pain three sets of enzymes obtained; ~ 0.11-->0.12-->0.159 Prolonged QTc some improvement with improved HRs GERD continue Protonix DVT ppx SCDs DNR
[2017-01-12] MEDS: LEVOFLOXACIN / D5W 500 MG in PREMIXED IN D5W 100 ML IV SCH (16:01)
[2017-01-12] MEDS: DIGOXIN IV 250 MCG in SYRINGE 9 ML IV SCH (16:01)
[2017-01-12] MEDS ORDERED: SODIUM CHLORIDE 0.9% 250ML 250 ML IV SCH (20:15)
[2017-01-12] MEDS: FINASTERIDE 5 MG TAB PO SCH (20:22)
[2017-01-12 21:25] LABS: BUN/CREATININE RATIO 31.5 (10-20); CREATININE 0.84 mg/dl (0.60-1.40); POTASSIUM 4.5 mmol/L (3.5-5.1)
[2017-01-12 21:54] LABS: CALCIUM 8.2 mg/dl (8.5-10.1)
[2017-01-13] VITALS (9 sets, daily range): BP systolic 77–123; BP diastolic 45–84; PULSE 86–131; TEMP 36.4–36.7; O2SAT 91–100
[2017-01-13] MEDS: LEValbuterol HFA 15GM INHALER INH SCH ×5 (00:30→22:56)
[2017-01-13] MEDS: IPRATROPIUM BROMIDE HFA INHALER INH SCH ×5 (00:30→22:55)
[2017-01-13] MEDS: METHYLPREDNISOLONE IV 20 MG in SYRINGE 0 ML IV SCH (04:30)
[2017-01-13 07:48] LABS: HEMATOCRIT 42.3 % (42-52); MEAN CELL VOLUME 98.6 fL (80-100); MEAN CORPUSCULAR HEMOGLOBIN 30.3 pg (25-34); MEAN CORPUSCULAR HGB CONC 30.7 g/dl (32-36); MEAN PLATELET VOLUME 9.7 fL (7.4-10.4); PLATELET COUNT 233 K/uL (130-400); RED BLOOD COUNT 4.29 M/uL (4.7-6.1); WHITE BLOOD COUNT 10.22 K/uL (4.8-10.8)
[2017-01-13] MEDS: PANTOprazole SOD 40 MG TAB PO SCH (08:13)
[2017-01-13] MEDS: FUROSEMIDE 20 MG TAB PO SCH ×2 (08:13→17:59)
[2017-01-13] MEDS: ROFLUMILAST 500 MCG TAB PO SCH (08:13)
[2017-01-13] MEDS: MULTIVITAMIN TAB PO SCH (08:13)
[2017-01-13] MEDS: LISINOPRIL 5 MG TAB PO SCH (08:13)
[2017-01-13] MEDS: SERTRALINE HCL 50 MG TAB PO SCH (08:14)
[2017-01-13] MEDS: LACTOBACILLUS ACIDOPHILUS (FLORANEX) TAB PO SCH (08:14)
[2017-01-13] MEDS: ASPIRIN 81 MG ECTAB PO SCH (08:14)
[2017-01-13] MEDS: GUAIFENESIN 600 MG TABCR PO SCH ×2 (08:14→20:28)
[2017-01-13] MEDS: FLUTICASONE FUROATE-VILANTEROL 30 PUFFS/INHALER INH INH SCH (08:14)
[2017-01-13] MEDS: BOOST VANILLA PO SCH ×6 (08:15→16:38)
[2017-01-13] MEDS ORDERED: NURSING VERBAL MED ORDER ONE ×2 (08:15→08:30)
[2017-01-13 08:22] LABS: BUN/CREATININE RATIO 38.8 (10-20); CREATININE 0.66 mg/dl (0.60-1.40); POTASSIUM 4.4 mmol/L (3.5-5.1)
--- NOTE | 2017-01-13 08:55 | PROGRESS NOTE ---
DATE: 01/13/2017 FOLLOWUP VISIT SUBJECTIVE: The patient is an 86-year-old who was admitted with acute exacerbation of COPD and pneumonia approximately a month ago. He then represented with shortness of breath and heart failure. His estimated left ventricular ejection fraction by echocardiography is 20%. He remains short of breath, but is doing clinically better. His heart rates are down. He was in a sinus tachycardia with heart rate of 120 beats per minute and now, he is in the 90s to low 100s. The problem has been low blood pressure, which limits the medications we can get him for heart failure. OBJECTIVE: GENERAL: He is alert and oriented, in no acute distress. VITAL SIGNS: Blood pressure is 95/60. Pulse is regular at 100 beats per minute. He is in a sinus mechanism. He is afebrile. HEENT: He is normocephalic. Pupils are equal and reactive to light. Extraocular muscles are intact bilaterally. NECK: The neck veins are not distended. Carotids have good upstrokes bilaterally. Thyroid is nonpalpable. RESPIRATORY: Breath sounds equal bilaterally and clear to auscultation. CARDIOVASCULAR: Heart has a regular rhythm. Normal S1 and S2. No S3 or S4. No cardiac rubs or murmurs. GASTROINTESTINAL: Abdomen is soft and nontender without organomegaly. EXTREMITIES: Free of edema, digit clubbing, or cyanosis. NEUROLOGIC: Grossly intact. SKIN: Warm to touch. LYMPH NODES: Negative to palpation. IMPRESSION: 1. [place] [employer] class 3 heart failure. 2. 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 3. Chronic obstructive lung disease. RECOMMENDATIONS: As outlined above, the patient tends to run a low blood pressure. So, it is difficult to add any additional medications. Yesterday, I added lisinopril. I believe he had clinical improvement as his heart rate has started to slow down. He continues to diurese and actually his creatinine has come down. At this point, I will not add a beta norah to his medical regimen as it could drop his blood pressure too far. I had a discussion with his son and grandson today. I indicated to them that he may not be able to return home to live independently without a lot of help. They are going to talk to other family members.
[2017-01-13 08:57] LABS: CALCIUM 8.5 mg/dl (8.5-10.1)
--- NOTE | 2017-01-13 09:33 | Progress Note ---
Subjective Date of Service: January 13, 2017. Subjective Pt evaluation today including: conversation w/ patient, conversation w/ family (son), physical exam, lab review, review of studies, conversation w/ strategy planning consultant , review of inpatient medication list Saw/examined the patient in room 240 He is short of breath this morning; states he's only eating a portion of his meals due to shortness of breath Refusing nebulizers - wants to go back to his Combivent inhaler Denies chest pain Currently seated in a chair with mild respiratory distress Problem List Medical Problems: (1) Hypoxia Status: Acute (2) Pneumonia Status: Acute Review of Systems Constitutional: No chills, No fever Respiratory: + dyspnea at rest, + dyspnea on exertion, + shortness of breath, No cough, No sputum Cardiac: No chest pain, No edema, No palpitations Abdomen: + constipation, No diarrhea, No nausea, No pain, No vomiting Medications Current Inpatient Medications Medications (Trade) Dose Ordered Sig/Shabbir Route Start Time Stop Time Status Last Admin Dose Admin Acetaminophen (Tylenol Tab) 650 mg Q4H PRN PO 01/10/17 16:30 02/09/17 16:29 Levalbuterol (Xopenex Hfa Inhaler) 2 puffs Q6 INH 01/10/17 18:00 02/09/17 17:59 01/13/17 06:08 2 PUFFS Aspirin (Ecotrin Tab) 81 mg DAILY PO 01/11/17 09:00 02/10/17 08:59 01/13/17 08:14 81 MG Finasteride (Proscar Tab) 5 mg HS PO 01/10/17 21:00 02/09/17 20:59 01/12/17 20:22 5 MG Lactobacillus Acidophilus (Floranex Tab) 1 tab DAILY PO 01/11/17 09:00 02/10/17 08:59 01/13/17 08:14 1 TAB Multivitamins (Multivitamin Tab) 1 tab DAILY PO 01/11/17 09:00 02/10/17 08:59 01/13/17 08:13 1 TAB Roflumilast (Daliresp Tab) 500 mcg DAILY PO 01/11/17 09:00 02/10/17 08:59 01/13/17 08:13 500 MCG Sertraline HCl (Zoloft Tab) 50 mg DAILY PO 01/11/17 09:00 02/10/17 08:59 01/13/17 08:14 50 MG Pantoprazole Sodium (Protonix Tab) 40 mg DAILY PO 01/11/17 09:00 02/10/17 08:59 01/13/17 08:13 40 MG Guaifenesin 600 mg 600 mg Q12 PO 01/10/17 21:00 02/09/17 20:59 01/13/17 08:14 600 MG Levofloxacin 500 mg/Prmx 100 ml @ 100 mls/hr Q24H IV 01/11/17 15:00 01/16/17 15:59 01/12/17 16:01 100 MLS/HR Methylprednisolone Sodium Succinate/ Syringe (Solu-Medrol IV/ Syringe) 0.32 ml @ 1.5 mls/min Q8H IV 01/10/17 20:30 02/09/17 20:29 01/13/17 04:30 1.5 MLS/MIN Lorazepam 0.5 mg 0.5 mg Q8H PRN IV 01/10/17 18:00 02/09/17 17:59 01/12/17 08:12 0.5 MG Lorazepam/Syringe (Ativan Inj/ Syringe) 1 ml @ 1 mls/min Q8H PRN IV 01/10/17 20:15 02/09/17 20:14 Ipratropium [place] (Atrovent Hfa Inhaler) 2 puffs Q6 INH 01/11/17 00:00 02/10/17 00:00 01/13/17 06:08 2 PUFFS Enteral Nutritional Formula 1 can 1 can TIDM PO 01/11/17 11:30 02/10/17 11:29 Digoxin/Syringe (Digoxin IV/ Syringe) 10 ml @ 2 mls/min DAILY@16 IV 01/11/17 16:00 02/10/17 15:59 01/12/17 16:01 2 MLS/MIN Lisinopril (Zestril Tab) 5 mg QAM PO 01/12/17 10:00 02/11/17 09:59 01/13/17 08:13 5 MG Furosemide (Lasix Tab) 20 mg BID17 PO 01/12/17 10:00 02/11/17 09:59 01/13/17 08:13 20 MG Fluticasone/ Vilanterol (Breo Ellipta 100-25 Mcg/Inh) 1 puffs DAILY INH 01/13/17 09:00 02/12/17 08:59 01/13/17 08:14 1 PUFFS Albuterol/ Ipratropium (Combivent Respimat Inh) 1 puffs QID INH 01/13/17 09:00 02/12/17 08:59 Levalbuterol (Xopenex 1.25MG/ 0.5ML Neb) 1.25 mg Q2H PRN INH 01/13/17 08:30 02/12/17 08:29 Objective Vital Signs Date Time Temp Pulse Resp B/P Pulse Ox O2 Delivery O2 Flow Rate FiO2 01/13/17 08:10 110 18 96 Nasal Cannula 3.5 01/13/17 07:38 36.7 86 18 93/57 94 01/13/17 04:12 36.4 103 18 108/69 100 Nasal Cannula 5.0 01/13/17 04:00 Nasal Cannula 5.0 01/12/17 23:59 Nasal Cannula 5.0 01/12/17 23:43 36.4 62 22 95/58 100 Nasal Cannula 5.0 01/12/17 21:35 36.4 107 18 99/65 100 Nasal Cannula 5.0 107 94/57 01/12/17 20:00 Nasal Cannula 5.0 01/12/17 19:26 36.3 113 20 87/56 97 Nasal Cannula 5.0 112 82/51 01/12/17 16:05 Nasal Cannula 5.0 01/12/17 16:01 109 01/12/17 15:26 36.4 116 26 90/50 97 Nasal Cannula 5.0 01/12/17 12:00 Nasal Cannula 5.0 01/12/17 11:40 36.2 117 20 99/64 92 Nasal Cannula 5.0 Physical Exam General Appearance: + mild distress Respiratory/Chest: + respiratory distress (mild respiratory distress), + decreased breath sounds (distant, decreased aeration), + accessory muscle use Cardiovascular: no murmur, + tachycardia, + irregularly irregular Extremities: normal inspection, no pedal edema Neurologic/Psychiatric: no motor/sensory deficits, alert, normal mood/affect Laboratory Results Last 24 Hours Test 01/12/17 20:59 01/13/17 07:00 Sodium Level 141 mmol/L 140 mmol/L Potassium Level 4.5 mmol/L 4.4 mmol/L Chloride Level 100 mmol/L 100 mmol/L Carbon Dioxide Level 38 mmol/L 37 mmol/L Anion Gap 3.0 mmol/L 3.0 mmol/L Blood Urea Nitrogen 27 mg/dl 26 mg/dl Creatinine 0.84 mg/dl 0.66 mg/dl Est Creatinine Clear Calc Drug Dose 55.5 ml/min 69.0 ml/min Estimated GFR () 92.5 102.2 Estimated GFR (Non- 79.8 88.2 BUN/Creatinine Ratio 31.5 38.8 Random Glucose 105 mg/dl 103 mg/dl Calcium Level 8.2 mg/dl 8.5 mg/dl White Blood Count 10.22 K/uL Red Blood Count 4.29 M/uL Hemoglobin 13.0 g/dL Hematocrit 42.3 % Mean Corpuscular Volume 98.6 fL Mean Corpuscular Hemoglobin 30.3 pg Mean Corpuscular Hemoglobin Concent 30.7 g/dl RDW Standard Deviation 56.4 fL RDW Coefficient of Variation 15.6 % Platelet Count 233 K/uL Mean Platelet Volume 9.7 fL Assessment and Plan This is an 86 year old male with severe COPD and chronic respiratory failure on 3.5L, AAA s/p repair, PVD presents with worsening shortness of breath Acute on Chronic Hypercapnic, Hypoxic Respiratory Failure secondary to Acute COPD Exacerbation vs. CHF exacerbation 01/13 significantly reduced LVEF ~ 20-25% will continue Lasix 20mg BID - allow SBP in the 90s continue Lisinopril 5mg no b-norah due to low BP - appreciate cardiology input For the COPD, will switch Solu-medrol to prednisone start back Combivent inhaler as he does not tolerate nebulizers or masks Would keep his supplemental O2 around 3.5-4L, which is his baseline consult discharge planning and palliative care consultations for discharge planning - not safe to return home without assistance 01/12 appreciate cardiology input echo performed and showing an LVEF of 20-25% with moderate-severe RV dysfunction as well started on Lisinopril and Lasix 20mg BID will likely need a b-norah added for now, will continue IV solu-medrol, switch to PO prednisone in AM continue Levaquin to total 5 days 01/11 CXR - Congestive failure superimposed upon chronic emphysematous change ABGs suggest respiratory acidosis, hypercapnia - likely a chronic change due to severe COPD Currently on solu-medrol 20mg q8 - uses 10mg prednisone chronically started on Levaquin, which we can continue for now for five total days, though pro-calcitonin is low not tolerating bipap; so he is off of that, back to 4L of O2 via NC - uses 3.5L at home chronically continue breathing treatments/nebulizers contJose Martin Ndiaye can go back to his usual inhalers on discharge given extra doses of Lasix this morning - repeat CXR suggests improvement in failure repeat ABG pending echo pending Atrial Arrhythmia; possibly A. Fib 01/13 HRs improving; unfortunately, will not tolerate b-norah no anticoagulation due to bleed risk optimize CHF and monitor 01/12 HRs are still in the 120s plan is to optimize his breathing status, COPD/CHF likely will need to start b-norah not a candidate for anticoagulation due to bleed risk 01/11 initial EKG on presentation - HRs in the 140s, irregularly irregular, possibly A. Fib vs. MAT no anticoagulation due to bleed risk from previous AAA surgical repair HRs this morning down to the 120s Ativan TID for anxiety; low dose solu-medrol, will convert to PO as soon as possible to prevent steroid-induced tachycardia Xopenex to prevent b-agonist induced tachycardia will try to avoid b-blockade due to severe COPD; cardiology consulted for further input Elevated Troponin likely secondary to demand ischemia related to tachycardia no chest pain three sets of enzymes obtained; ~ 0.11-->0.12-->0.159 Prolonged QTc some improvement with improved HRs GERD continue Protonix DVT ppx SCDs DNR
[2017-01-13] MEDS: IPRATROPIUM BROMIDE/ALBUTEROL respimat INH INH SCH ×4 (09:38→20:26)
[2017-01-13] MEDS: LEVOFLOXACIN 500 MG TAB PO SCH (15:17)
--- NOTE | 2017-01-13 16:27 | Palliative Care Consultation ---
Consultation Date of Consultation: January 13, 2017. Requesting Physician: Dr. Antunez Attending Physician: Dr. Antunez Reason for Consultation: Goals of care History of Present Illness This 86 year old male patient presented to the ED three days ago with c/o SOB. Recently in the hospital from 11/29-12/03 with pneumonia and COPD exacerbation, with a history of COPD and chronic steroid/oxygen, AAA, BPH, Dyslipidemia, and GERD. He was discharged to home with prednisone taper and levofloxacin. 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 Has a home COPD rescue kid of doxycycline and tapering prednisone, had no improvement and eventually came to hospital. He noted increased ankle edema. In ED, CXR showing CHF, was tachycardic with elevated proBNP. Was initially on bipap, is now back on nasal cannula. Receiving IV digoxin, prednisone PO, and remains on telemetry. Has been feeling better but still very SOB with any activity. He normally lives at home alone, but everyone is now concerned that patient may not be able to live alone. Palliative care consulted to discuss goals of care, possible home hospice. Had a long discussion with patient's daughter, Karlie, on the phone. She states that she, her four brothers, and the patient all know that the patient going home alone is not the best option at this point. She doesn't believe they can afford 24/7 care in the home. Goal is definitely for patient's comfort. She's concerned because the patient has not been getting OOB much and she doesn't know what patient's baseline is at this point. Therapy has not been seeing him here. See recommendations below. I attempted to see the patient several times this afternoon but was busy with other care each time. Will speak with him on Monday. Past Medical/Surgical History Medical History: as above Social History Smoking Status: Former Smoker History of Alcohol Use: No Housing Status: lives alone Allergies Coded Allergies: Sulfa Antibiotics (Verified Allergy, Unknown, RASH,NAUSEA,VOMITING, ) Medications Current Inpatient Medications Medications (Trade) Dose Ordered Sig/Shabbir Route Start Time Stop Time Status Last Admin Dose Admin Acetaminophen (Tylenol Tab) 650 mg Q4H PRN PO 01/10/17 16:30 02/09/17 16:29 Levalbuterol (Xopenex Hfa Inhaler) 2 puffs Q6 INH 01/10/17 18:00 02/09/17 17:59 01/13/17 12:34 2 PUFFS Aspirin (Ecotrin Tab) 81 mg DAILY PO 01/11/17 09:00 02/10/17 08:59 01/13/17 08:14 81 MG Finasteride (Proscar Tab) 5 mg HS PO 01/10/17 21:00 02/09/17 20:59 01/12/17 20:22 5 MG Lactobacillus Acidophilus (Floranex Tab) 1 tab DAILY PO 01/11/17 09:00 02/10/17 08:59 01/13/17 08:14 1 TAB Multivitamins (Multivitamin Tab) 1 tab DAILY PO 01/11/17 09:00 02/10/17 08:59 01/13/17 08:13 1 TAB Roflumilast (Daliresp Tab) 500 mcg DAILY PO 01/11/17 09:00 02/10/17 08:59 01/13/17 08:13 500 MCG Sertraline HCl (Zoloft Tab) 50 mg DAILY PO 01/11/17 09:00 02/10/17 08:59 01/13/17 08:14 50 MG Pantoprazole Sodium (Protonix Tab) 40 mg DAILY PO 01/11/17 09:00 02/10/17 08:59 01/13/17 08:13 40 MG Guaifenesin (Mucinex Contr Rel Tab) 600 mg Q12 PO 01/10/17 21:00 02/09/17 20:59 01/13/17 08:14 600 MG Lorazepam 0.5 mg 0.5 mg Q8H PRN IV 01/10/17 18:00 02/09/17 17:59 01/12/17 08:12 0.5 MG Lorazepam/Syringe (Ativan Inj/ Syringe) 1 ml @ 1 mls/min Q8H PRN IV 01/10/17 20:15 02/09/17 20:14 Ipratropium [place] (Atrovent Hfa Inhaler) 2 puffs Q6 INH 01/11/17 00:00 02/10/17 00:00 01/13/17 12:34 2 PUFFS Enteral Nutritional Formula 1 can 1 can TIDM PO 01/11/17 11:30 02/10/17 11:29 Digoxin/Syringe (Digoxin IV/ Syringe) 10 ml @ 2 mls/min DAILY@16 IV 01/11/17 16:00 02/10/17 15:59 01/12/17 16:01 2 MLS/MIN Lisinopril (Zestril Tab) 5 mg QAM PO 01/12/17 10:00 02/11/17 09:59 01/13/17 08:13 5 MG Furosemide (Lasix Tab) 20 mg BID17 PO 01/12/17 10:00 02/11/17 09:59 01/13/17 08:13 20 MG Fluticasone/ Vilanterol (Breo Ellipta 100-25 Mcg/Inh) 1 puffs DAILY INH 01/13/17 09:00 02/12/17 08:59 01/13/17 08:14 1 PUFFS Albuterol/ Ipratropium (Combivent Respimat Inh) 1 puffs QID INH 01/13/17 09:00 02/12/17 08:59 01/13/17 12:36 1 PUFFS Levalbuterol (Xopenex 1.25MG/ 0.5ML Neb) 1.25 mg Q2H PRN INH 01/13/17 08:30 02/12/17 08:29 Prednisone (PredniSONE TAB) 40 mg DAILY PO 01/14/17 09:00 02/13/17 08:59 Levofloxacin (Levaquin Tab) 500 mg DAILY@11 PO 01/13/17 14:00 01/14/17 23:59 Physical Exam Date Time Temp Pulse Resp B/P Pulse Ox O2 Delivery O2 Flow Rate FiO2 01/13/17 11:45 36.6 114 20 90/53 96 01/13/17 08:10 110 18 96 Nasal Cannula 3.5 01/13/17 07:38 36.7 86 18 93/57 94 01/13/17 04:12 36.4 103 18 108/69 100 Nasal Cannula 5.0 01/13/17 04:00 Nasal Cannula 5.0 01/12/17 23:59 Nasal Cannula 5.0 01/12/17 23:43 36.4 62 22 95/58 100 Nasal Cannula 5.0 01/12/17 21:35 36.4 107 18 99/65 100 Nasal Cannula 5.0 107 94/57 01/12/17 20:00 Nasal Cannula 5.0 01/12/17 19:26 36.3 113 20 87/56 97 Nasal Cannula 5.0 112 82/51 01/12/17 16:05 Nasal Cannula 5.0 01/12/17 16:01 109 01/12/17 15:26 36.4 116 26 90/50 97 Nasal Cannula 5.0 Laboratory Results Last 24 Hours Test 01/12/17 20:59 01/13/17 07:00 Sodium Level 141 mmol/L 140 mmol/L Potassium Level 4.5 mmol/L 4.4 mmol/L Chloride Level 100 mmol/L 100 mmol/L Carbon Dioxide Level 38 mmol/L 37 mmol/L Anion Gap 3.0 mmol/L 3.0 mmol/L Blood Urea Nitrogen 27 mg/dl 26 mg/dl Creatinine 0.84 mg/dl 0.66 mg/dl Est Creatinine Clear Calc Drug Dose 55.5 ml/min 69.0 ml/min Estimated GFR () 92.5 102.2 Estimated GFR (Non- 79.8 88.2 BUN/Creatinine Ratio 31.5 38.8 Random Glucose 105 mg/dl 103 mg/dl Calcium Level 8.2 mg/dl 8.5 mg/dl White Blood Count 10.22 K/uL Red Blood Count 4.29 M/uL Hemoglobin 13.0 g/dL Hematocrit 42.3 % Mean Corpuscular Volume 98.6 fL Mean Corpuscular Hemoglobin 30.3 pg Mean Corpuscular Hemoglobin Concent 30.7 g/dl RDW Standard Deviation 56.4 fL RDW Coefficient of Variation 15.6 % Platelet Count 233 K/uL Mean Platelet Volume 9.7 fL Assessment & Plan Problem list: SOB/BURROUGHS Respiratory failure CHF vs. COPD exacerbation Afib Goals of care (Z51.5) Palliative care recommendations: -DNR/DNI per previous discussion. -Goal is for patient to be at home and stay out of the hospital. Uncertain if this is possible without 24/7 care or his activity tolerance. Would order PT/OT for recommendations. -If 24/7 care is not possible at home, may need SNF placement. -May need Roxanol 5mg PO Q3h PRN pain or SOB for symptom management and would encourage him to take this with episodes of SOB. -If patient is here on Monday, I will meet with whole family. Thank you kindly for this consult. I will follow.
[2017-01-13] MEDS: DIGOXIN IV 250 MCG in SYRINGE 9 ML IV SCH (16:48)
[2017-01-13] MEDS: ACETAMINOPHEN 325 MG TAB PO PRN (20:25)
[2017-01-13] MEDS: FINASTERIDE 5 MG TAB PO SCH (20:30)
[2017-01-13] MEDS: LEVALBUTEROL 1.25MG/0.5ML NEB INH PRN (22:05)
[2017-01-13] MEDS: LORAZEPAM 2 MG/ML 1 ML VIAL IV PRN (23:02)
[2017-01-14] VITALS (8 sets, daily range): BP systolic 66–94; BP diastolic 35–60; PULSE 90–116; TEMP 36.5–37.1; O2SAT 89–97
[2017-01-14] MEDS: IPRATROPIUM BROMIDE HFA INHALER INH SCH ×4 (05:43→23:16)
[2017-01-14] MEDS: LEValbuterol HFA 15GM INHALER INH SCH ×4 (05:44→23:17)
[2017-01-14 06:10] LABS: HEMATOCRIT 38.5 % (42-52); MEAN CELL VOLUME 97.5 fL (80-100); MEAN CORPUSCULAR HEMOGLOBIN 29.9 pg (25-34); MEAN CORPUSCULAR HGB CONC 30.6 g/dl (32-36); MEAN PLATELET VOLUME 9.3 fL (7.4-10.4); PLATELET COUNT 199 K/uL (130-400); RED BLOOD COUNT 3.95 M/uL (4.7-6.1); WHITE BLOOD COUNT 9.44 K/uL (4.8-10.8)
[2017-01-14 06:45] LABS: BUN/CREATININE RATIO 40.2 (10-20); CALCIUM 8.1 mg/dl (8.5-10.1); CREATININE 0.82 mg/dl (0.60-1.40); MAGNESIUM 2.2 mg/dl (1.8-2.4)
[2017-01-14 06:57] LABS: THYROID STIMULATING HORMONE 0.145 uIu/ml (0.300-4.500)
[2017-01-14] MEDS: BOOST VANILLA PO SCH ×6 (07:30→16:45)
[2017-01-14] MEDS: PANTOprazole SOD 40 MG TAB PO SCH (07:54)
[2017-01-14] MEDS: FUROSEMIDE 20 MG TAB PO SCH ×2 (07:54→17:00)
[2017-01-14] MEDS: ROFLUMILAST 500 MCG TAB PO SCH (07:55)
[2017-01-14] MEDS: ASPIRIN 81 MG ECTAB PO SCH (07:55)
[2017-01-14] MEDS: MULTIVITAMIN TAB PO SCH (07:55)
[2017-01-14] MEDS: LISINOPRIL 5 MG TAB PO SCH (07:55)
[2017-01-14] MEDS: IPRATROPIUM BROMIDE/ALBUTEROL respimat INH INH SCH ×4 (07:56→19:57)
[2017-01-14] MEDS: LACTOBACILLUS ACIDOPHILUS (FLORANEX) TAB PO SCH (07:56)
[2017-01-14] MEDS: SERTRALINE HCL 50 MG TAB PO SCH (07:56)
[2017-01-14] MEDS: GUAIFENESIN 600 MG TABCR PO SCH ×2 (07:56→19:57)
[2017-01-14] MEDS: FLUTICASONE FUROATE-VILANTEROL 30 PUFFS/INHALER INH INH SCH (07:58)
--- NOTE | 2017-01-14 11:14 | Progress Note ---
Subjective Date of Service: January 14, 2017. Subjective Pt evaluation today including: conversation w/ patient, physical exam, lab review, review of studies, review of inpatient medication list Saw/examined the patient in room 240-2 He has depressed mood due to his breathing status not improving currently on 4L O2 via NC and he seems to be in only mild respiratory distress - improved from yesterday Son states he ate well this morning, though patient tells me that he can't eat due to his shortness of breath Problem List Medical Problems: (1) Hypoxia Status: Acute (2) Pneumonia Status: Acute Review of Systems Constitutional: No chills, No fever Respiratory: + cough, + dyspnea at rest, + dyspnea on exertion, + shortness of breath, No hemoptysis, No sputum, No wheezing Cardiac: No chest pain, No edema, No palpitations Abdomen: No GI bleeding, No constipation, No diarrhea, No nausea, No pain, No vomiting Medications Current Inpatient Medications Medications (Trade) Dose Ordered Sig/Shabbir Route Start Time Stop Time Status Last Admin Dose Admin Acetaminophen (Tylenol Tab) 650 mg Q4H PRN PO 01/10/17 16:30 02/09/17 16:29 01/13/17 20:25 650 MG Levalbuterol (Xopenex Hfa Inhaler) 2 puffs Q6 INH 01/10/17 18:00 02/09/17 17:59 01/14/17 05:44 2 PUFFS Aspirin (Ecotrin Tab) 81 mg DAILY PO 01/11/17 09:00 02/10/17 08:59 01/14/17 07:55 81 MG Finasteride (Proscar Tab) 5 mg HS PO 01/10/17 21:00 02/09/17 20:59 01/13/17 20:30 5 MG Lactobacillus Acidophilus (Floranex Tab) 1 tab DAILY PO 01/11/17 09:00 02/10/17 08:59 01/14/17 07:56 1 TAB Multivitamins (Multivitamin Tab) 1 tab DAILY PO 01/11/17 09:00 02/10/17 08:59 01/14/17 07:55 1 TAB Roflumilast (Daliresp Tab) 500 mcg DAILY PO 01/11/17 09:00 02/10/17 08:59 01/14/17 07:55 500 MCG Sertraline HCl (Zoloft Tab) 50 mg DAILY PO 01/11/17 09:00 02/10/17 08:59 01/14/17 07:56 50 MG Pantoprazole Sodium (Protonix Tab) 40 mg DAILY PO 01/11/17 09:00 02/10/17 08:59 01/14/17 07:54 40 MG Guaifenesin (Mucinex Contr Rel Tab) 600 mg Q12 PO 01/10/17 21:00 02/09/17 20:59 01/14/17 07:56 600 MG Lorazepam 0.5 mg 0.5 mg Q8H PRN IV 01/10/17 18:00 02/09/17 17:59 01/13/17 23:02 0.5 MG Lorazepam/Syringe (Ativan Inj/ Syringe) 1 ml @ 1 mls/min Q8H PRN IV 01/10/17 20:15 02/09/17 20:14 Ipratropium [place] (Atrovent Hfa Inhaler) 2 puffs Q6 INH 01/11/17 00:00 02/10/17 00:00 01/14/17 05:43 2 PUFFS Enteral Nutritional Formula 1 can 1 can TIDM PO 01/11/17 11:30 02/10/17 11:29 Digoxin/Syringe (Digoxin IV/ Syringe) 10 ml @ 2 mls/min DAILY@16 IV 01/11/17 16:00 02/10/17 15:59 01/13/17 16:48 2 MLS/MIN Lisinopril (Zestril Tab) 5 mg QAM PO 01/12/17 10:00 02/11/17 09:59 01/14/17 07:55 5 MG Furosemide (Lasix Tab) 20 mg BID17 PO 01/12/17 10:00 02/11/17 09:59 01/14/17 07:54 20 MG Fluticasone/ Vilanterol (Breo Ellipta 100-25 Mcg/Inh) 1 puffs DAILY INH 01/13/17 09:00 02/12/17 08:59 01/14/17 07:58 1 PUFFS Albuterol/ Ipratropium (Combivent Respimat Inh) 1 puffs QID INH 01/13/17 09:00 02/12/17 08:59 01/14/17 07:56 1 PUFFS Levalbuterol (Xopenex 1.25MG/ 0.5ML Neb) 1.25 mg Q2H PRN INH 01/13/17 08:30 02/12/17 08:29 01/13/17 22:05 1.25 MG Prednisone (PredniSONE TAB) 40 mg DAILY PO 01/14/17 09:00 02/13/17 08:59 01/14/17 07:54 40 MG Levofloxacin (Levaquin Tab) 500 mg DAILY@11 PO 01/13/17 14:00 01/14/17 23:59 01/13/17 15:17 500 MG Objective Vital Signs Date Time Temp Pulse Resp B/P Pulse Ox O2 Delivery O2 Flow Rate FiO2 01/14/17 07:50 Nasal Cannula 4.0 01/14/17 07:38 36.6 116 20 94/60 94 Nasal Cannula 4.0 01/14/17 04:35 36.5 114 18 91/54 91 Nasal Cannula 01/14/17 04:00 Nasal Cannula 3.5 01/13/17 23:59 Nasal Cannula 3.5 01/13/17 23:44 36.7 131 20 86/50 91 Nasal Cannula 3.5 01/13/17 22:05 117 20 95 Nasal Cannula 4.0 01/13/17 20:00 Nasal Cannula 3.5 01/13/17 19:41 36.6 117 20 93/52 94 Nasal Cannula 3.5 01/13/17 16:48 111 01/13/17 16:47 123/84 01/13/17 16:00 Nasal Cannula 3.5 01/13/17 15:44 36.5 111 22 83/46 93 Nasal Cannula 3.5 77/45 01/13/17 12:00 Nasal Cannula 3.5 01/13/17 11:45 36.6 114 20 90/53 96 Physical Exam General Appearance: no apparent distress Respiratory/Chest: no respiratory distress, no accessory muscle use, + decreased breath sounds Cardiovascular: no edema, no murmur, + tachycardia, + irregularly irregular Extremities: normal inspection, no pedal edema Neurologic/Psychiatric: no motor/sensory deficits, alert, oriented x 3, + depressed affect Laboratory Results Last 24 Hours Test 01/14/17 05:30 01/14/17 10:59 White Blood Count 9.44 K/uL Red Blood Count 3.95 M/uL Hemoglobin 11.8 g/dL Hematocrit 38.5 % Mean Corpuscular Volume 97.5 fL Mean Corpuscular Hemoglobin 29.9 pg Mean Corpuscular Hemoglobin Concent 30.6 g/dl RDW Standard Deviation 55.6 fL RDW Coefficient of Variation 15.3 % Platelet Count 199 K/uL Mean Platelet Volume 9.3 fL Sodium Level 141 mmol/L Potassium Level 4.0 mmol/L Chloride Level 100 mmol/L Carbon Dioxide Level 39 mmol/L Anion Gap 2.0 mmol/L Blood Urea Nitrogen 33 mg/dl Creatinine 0.82 mg/dl Est Creatinine Clear Calc Drug Dose 56.5 ml/min Estimated GFR () 93.5 Estimated GFR (Non- 80.6 BUN/Creatinine Ratio 40.2 Random Glucose 98 mg/dl Calcium Level 8.1 mg/dl Magnesium Level 2.2 mg/dl Thyroid Stimulating Hormone (TSH) 0.145 uIu/ml Assessment and Plan This is an 86 year old male with severe COPD and chronic respiratory failure on 3.5L, AAA s/p repair, PVD presents with worsening shortness of breath Acute on Chronic Hypercapnic, Hypoxic Respiratory Failure secondary to Acute COPD Exacerbation vs. CHF exacerbation 01/14 patient continues to feel short of breath, dyspnea with rest his LVEF is 20-25% his blood pressure is on the lower side and we had to hold Lasix in the evening on 01/13 will give one low dose this morning 20mg palliative care consult appreciated - they will see patient and family on Monday - possible SNF then home hospice 01/13 significantly reduced LVEF ~ 20-25% will continue Lasix 20mg BID - allow SBP in the 90s continue Lisinopril 5mg no b-norah due to low BP - appreciate cardiology input For the COPD, will switch Solu-medrol to prednisone start back Combivent inhaler as he does not tolerate nebulizers or masks Would keep his supplemental O2 around 3.5-4L, which is his baseline consult discharge planning and palliative care consultations for discharge planning - not safe to return home without assistance 01/12 appreciate cardiology input echo performed and showing an LVEF of 20-25% with moderate-severe RV dysfunction as well started on Lisinopril and Lasix 20mg BID will likely need a b-norah added for now, will continue IV solu-medrol, switch to PO prednisone in AM continue Levaquin to total 5 days 01/11 CXR - Congestive failure superimposed upon chronic emphysematous change ABGs suggest respiratory acidosis, hypercapnia - likely a chronic change due to severe COPD Currently on solu-medrol 20mg q8 - uses 10mg prednisone chronically started on Levaquin, which we can continue for now for five total days, though pro-calcitonin is low not tolerating bipap; so he is off of that, back to 4L of O2 via NC - uses 3.5L at home chronically continue breathing treatments/nebulizers cont. Zelda can go back to his usual inhalers on discharge given extra doses of Lasix this morning - repeat CXR suggests improvement in failure repeat ABG pending echo pending Atrial Arrhythmia; possibly A. Fib 01/14 unfortunately, will not tolerate b-norah TSH is low, will check Free T4, and possibly had methimazole 01/13 HRs improving; unfortunately, will not tolerate b-norah no anticoagulation due to bleed risk optimize CHF and monitor 01/12 HRs are still in the 120s plan is to optimize his breathing status, COPD/CHF likely will need to start b-norah not a candidate for anticoagulation due to bleed risk 01/11 initial EKG on presentation - HRs in the 140s, irregularly irregular, possibly A. Fib vs. MAT no anticoagulation due to bleed risk from previous AAA surgical repair HRs this morning down to the 120s Ativan TID for anxiety; low dose solu-medrol, will convert to PO as soon as possible to prevent steroid-induced tachycardia Xopenex to prevent b-agonist induced tachycardia will try to avoid b-blockade due to severe COPD; cardiology consulted for further input Elevated Troponin likely secondary to demand ischemia related to tachycardia no chest pain three sets of enzymes obtained; ~ 0.11-->0.12-->0.159 Prolonged QTc some improvement with improved HRs GERD continue Protonix DVT ppx SCDs DNR
[2017-01-14] MEDS: LEVOFLOXACIN 500 MG TAB PO SCH (11:26)
--- NOTE | 2017-01-14 11:55 | PROGRESS NOTE ---
DATE: 01/14/2017 The patient seen and examined. Chart, medications, telemetry reviewed. SUBJECTIVE: The patient "still feels breathless with minimal exertion." Notes no productive cough. Notes no tachypalpitations that he is aware of. OBJECTIVE: VITAL SIGNS: Heart rate is 100-116 in sinus tachycardia with rare atrial ectopy. Blood pressure is 94/60. NECK: Thin. There is minimal jugular venous distention at 30 degrees. LUNGS: Reveal coarse rales bibasilar. CARDIOVASCULAR: Regular but tachycardic. There is no S3 gallop. ABDOMEN: Soft. EXTREMITIES: Reveal no edema. IMPRESSION: An 86-year-old male with mixed respiratory failure in the setting of newly diagnosed cardiomyopathy. Telemetry reveals sinus tachycardia. The patient has had marginal improvement with no signs currently of overt heart failure manifesting as edema though chest feels diffuse rales. RECOMMENDATIONS: Continue current medications as prescribed. We will reduce lisinopril to 2.5 mg per day and trial institution of low-dose beta-norah in a.m. Will discontinue IV digoxin and switch to oral. Will continue to follow closely. Overall, prognosis is limited.
[2017-01-14] MEDS: DIGOXIN 0.125 MG TAB PO SCH (16:18)
[2017-01-14] MEDS: LEVALBUTEROL 1.25MG/0.5ML NEB INH PRN (16:29)
[2017-01-14] MEDS: ACETAMINOPHEN 325 MG TAB PO PRN (19:55)
[2017-01-14] MEDS: FINASTERIDE 5 MG TAB PO SCH (19:58)
[2017-01-15] VITALS (9 sets, daily range): BP systolic 80–94; BP diastolic 44–58; PULSE 97–114; TEMP 36.4–37; O2SAT 94–99
[2017-01-15] MEDS: IPRATROPIUM BROMIDE HFA INHALER INH SCH ×3 (05:33→17:37)
[2017-01-15] MEDS: LEValbuterol HFA 15GM INHALER INH SCH ×3 (05:34→17:38)
[2017-01-15 06:53] LABS: HEMATOCRIT 38.2 % (42-52); MEAN CELL VOLUME 97.7 fL (80-100); MEAN CORPUSCULAR HEMOGLOBIN 30.7 pg (25-34); MEAN CORPUSCULAR HGB CONC 31.4 g/dl (32-36); MEAN PLATELET VOLUME 9.3 fL (7.4-10.4); PLATELET COUNT 175 K/uL (130-400); RED BLOOD COUNT 3.91 M/uL (4.7-6.1); WHITE BLOOD COUNT 7.33 K/uL (4.8-10.8)
[2017-01-15 07:49] LABS: CALCIUM 8.3 mg/dl (8.5-10.1); CREATININE 0.88 mg/dl (0.60-1.40); MAGNESIUM 2.3 mg/dl (1.8-2.4); POTASSIUM 3.9 mmol/L (3.5-5.1)
[2017-01-15] MEDS: BOOST VANILLA PO SCH ×6 (07:55→16:45)
[2017-01-15] MEDS: ROFLUMILAST 500 MCG TAB PO SCH (07:57)
[2017-01-15] MEDS: MULTIVITAMIN TAB PO SCH (07:57)
[2017-01-15] MEDS: GUAIFENESIN 600 MG TABCR PO SCH ×2 (07:57→20:54)
[2017-01-15] MEDS: ASPIRIN 81 MG ECTAB PO SCH (07:57)
[2017-01-15] MEDS: LACTOBACILLUS ACIDOPHILUS (FLORANEX) TAB PO SCH (07:57)
[2017-01-15] MEDS: SERTRALINE HCL 50 MG TAB PO SCH (07:57)
[2017-01-15] MEDS: FUROSEMIDE 20 MG TAB PO SCH (07:58)
[2017-01-15] MEDS: PANTOprazole SOD 40 MG TAB PO SCH (07:58)
[2017-01-15] MEDS: LISINOPRIL 2.5 MG TAB PO SCH (07:58)
[2017-01-15] MEDS: FLUTICASONE FUROATE-VILANTEROL 30 PUFFS/INHALER INH INH SCH (08:00)
[2017-01-15] MEDS: IPRATROPIUM BROMIDE/ALBUTEROL respimat INH INH SCH ×4 (08:01→20:54)
[2017-01-15] MEDS ORDERED: METOPROLOL SUCC 25MG EXT REL TAB PO ONE (10:13)
[2017-01-15] MEDS ORDERED: POTASSIUM CHLORIDE 10 MEQ TABCR PO ONE (11:00)
--- NOTE | 2017-01-15 12:35 | PROGRESS NOTE ---
DATE: 01/15/2017 The patient seen and examined. Chart, medications, telemetry reviewed. SUBJECTIVE: The patient continues to have a sinus tachycardia, elevated heart rates 99-120. Respiratory status has been clinically stable per patient. He still has a loose productive cough. OBJECTIVE: VITAL SIGNS: Heart rate is 100, blood pressure is 94/57. NECK: Thin. There is no distinct jugular venous distention. LUNGS: Reveal coarse rhonchorous sounds on forced cough. CARDIOVASCULAR: Regular. There is no S3 gallop. ABDOMEN: Soft. EXTREMITIES: Free of edema. LABORATORY DATA: White cell count 7.3, hemoglobin is 12.0. Sodium is 142, potassium is 3.9, chloride is 99, bicarbonate is 42, BUN is 32, creatinine 0.88. IMPRESSION: The patient is an 86-year-old male admitted with mixed respiratory failure, component of congestive heart failure, systolic, acute with newly diagnosed cardiomyopathy superimposed on severe obstructive lung disease with pulmonary exacerbation. RECOMMENDATIONS: 1. Bath low dose beta norah at 12.5 mg Toprol daily, first dose this morning. 2. Examination reveals no overt heart failure currently and the lab work are suggesting a contraction alkalosis will reduce furosemide to 20 mg daily. Add oral potassium supplement today. May consider removing of Lopez catheter. MTDD
--- NOTE | 2017-01-15 12:50 | Progress Note ---
Subjective Date of Service: January 15, 2017. Subjective Pt evaluation today including: conversation w/ patient, physical exam, lab review, review of studies, review of inpatient medication list Saw/examined the patient in room 240-2 He states his breathing is slightly improved No chest pain, no edema, no palpitations HRs this AM in the 90s-100s No other issues to note Problem List Medical Problems: (1) Hypoxia Status: Acute (2) Pneumonia Status: Acute Review of Systems Constitutional: No weakness Respiratory: + cough, + dyspnea at rest, + dyspnea on exertion, + shortness of breath (improving), + wheezing Cardiac: No chest pain, No edema, No palpitations Abdomen: No diarrhea, No nausea, No pain, No vomiting Medications Current Inpatient Medications Medications (Trade) Dose Ordered Sig/Shabbir Route Start Time Stop Time Status Last Admin Dose Admin Acetaminophen (Tylenol Tab) 650 mg Q4H PRN PO 01/10/17 16:30 02/09/17 16:29 01/14/17 19:55 650 MG Levalbuterol (Xopenex Hfa Inhaler) 2 puffs Q6 INH 01/10/17 18:00 02/09/17 17:59 01/15/17 12:32 2 PUFFS Aspirin (Ecotrin Tab) 81 mg DAILY PO 01/11/17 09:00 02/10/17 08:59 01/15/17 07:57 81 MG Finasteride (Proscar Tab) 5 mg HS PO 01/10/17 21:00 02/09/17 20:59 01/14/17 19:58 5 MG Lactobacillus Acidophilus (Floranex Tab) 1 tab DAILY PO 01/11/17 09:00 02/10/17 08:59 01/15/17 07:57 1 TAB Multivitamins (Multivitamin Tab) 1 tab DAILY PO 01/11/17 09:00 02/10/17 08:59 01/15/17 07:57 1 TAB Roflumilast (Daliresp Tab) 500 mcg DAILY PO 01/11/17 09:00 02/10/17 08:59 01/15/17 07:57 500 MCG Sertraline HCl (Zoloft Tab) 50 mg DAILY PO 01/11/17 09:00 02/10/17 08:59 01/15/17 07:57 50 MG Pantoprazole Sodium (Protonix Tab) 40 mg DAILY PO 01/11/17 09:00 02/10/17 08:59 01/15/17 07:58 40 MG Guaifenesin (Mucinex Contr Rel Tab) 600 mg Q12 PO 01/10/17 21:00 02/09/17 20:59 01/15/17 07:57 600 MG Lorazepam 0.5 mg 0.5 mg Q8H PRN IV 01/10/17 18:00 02/09/17 17:59 01/13/17 23:02 0.5 MG Lorazepam/Syringe (Ativan Inj/ Syringe) 1 ml @ 1 mls/min Q8H PRN IV 01/10/17 20:15 02/09/17 20:14 Ipratropium [place] (Atrovent Hfa Inhaler) 2 puffs Q6 INH 01/11/17 00:00 02/10/17 00:00 01/15/17 12:31 2 PUFFS Enteral Nutritional Formula (Boost) 1 can TIDM PO 01/11/17 11:30 02/10/17 11:29 01/15/17 10:58 1 CAN Fluticasone/ Vilanterol (Breo Ellipta 100-25 Mcg/Inh) 1 puffs DAILY INH 01/13/17 09:00 02/12/17 08:59 01/15/17 08:00 1 PUFFS Albuterol/ Ipratropium (Combivent Respimat Inh) 1 puffs QID INH 01/13/17 09:00 02/12/17 08:59 01/15/17 12:32 1 PUFFS Levalbuterol (Xopenex 1.25MG/ 0.5ML Neb) 1.25 mg Q2H PRN INH 01/13/17 08:30 02/12/17 08:29 01/14/17 16:29 1.25 MG Prednisone (PredniSONE TAB) 40 mg DAILY PO 01/14/17 09:00 02/13/17 08:59 01/15/17 07:59 40 MG Lisinopril (Zestril Tab) 2.5 mg QAM PO 01/15/17 09:00 02/14/17 08:59 01/15/17 07:58 2.5 MG Digoxin (Lanoxin Tab) 0.125 mg DAILY@16 PO 01/14/17 16:00 02/13/17 15:59 01/14/17 16:18 0.125 MG Metoprolol Succinate (Toprol Xl Tab) 12.5 mg QAM PO 01/16/17 09:00 02/15/17 08:59 Furosemide (Lasix Tab) 20 mg DAILY PO 01/16/17 09:00 02/15/17 08:59 Objective Vital Signs Date Time Temp Pulse Resp B/P Pulse Ox O2 Delivery O2 Flow Rate FiO2 01/15/17 11:34 36.6 114 20 93/50 94 4.0 01/15/17 11:32 96 01/15/17 08:00 Nasal Cannula 4.0 01/15/17 07:52 36.8 99 20 94/57 99 4.0 01/15/17 04:00 36.4 99 18 80/52 98 Nasal Cannula 4.0 01/15/17 04:00 Nasal Cannula 4.0 01/14/17 23:59 Nasal Cannula 4.0 01/14/17 23:51 36.6 106 16 89/49 97 Nasal Cannula 4.0 01/14/17 20:00 Nasal Cannula 4.0 01/14/17 19:50 116 85/41 01/14/17 19:41 37.1 114 20 66/35 96 Nasal Cannula 3.5 01/14/17 16:29 90 20 89 Nasal Cannula 4.0 01/14/17 16:18 117 01/14/17 16:00 Nasal Cannula 4.0 01/14/17 15:43 36.9 115 22 87/53 92 Nasal Cannula 3.5 Physical Exam General Appearance: no apparent distress Respiratory/Chest: no respiratory distress, no accessory muscle use, + decreased breath sounds Cardiovascular: no edema, no murmur, + tachycardia, + irregularly irregular Abdomen: normal bowel sounds, non tender, soft Extremities: normal inspection, no pedal edema Neurologic/Psychiatric: no motor/sensory deficits, alert, normal mood/affect Laboratory Results Last 24 Hours Test 01/15/17 06:31 White Blood Count 7.33 K/uL Red Blood Count 3.91 M/uL Hemoglobin 12.0 g/dL Hematocrit 38.2 % Mean Corpuscular Volume 97.7 fL Mean Corpuscular Hemoglobin 30.7 pg Mean Corpuscular Hemoglobin Concent 31.4 g/dl RDW Standard Deviation 55.2 fL RDW Coefficient of Variation 15.4 % Platelet Count 175 K/uL Mean Platelet Volume 9.3 fL Sodium Level 142 mmol/L Potassium Level 3.9 mmol/L Chloride Level 99 mmol/L Carbon Dioxide Level 42 mmol/L Anion Gap 1.0 mmol/L Blood Urea Nitrogen 32 mg/dl Creatinine 0.88 mg/dl Est Creatinine Clear Calc Drug Dose 50.5 ml/min Estimated GFR () 90.8 Estimated GFR (Non- 78.3 BUN/Creatinine Ratio 36.0 Random Glucose 118 mg/dl Calcium Level 8.3 mg/dl Magnesium Level 2.3 mg/dl Assessment and Plan This is an 86 year old male with severe COPD and chronic respiratory failure on 3.5L, AAA s/p repair, PVD presents with worsening shortness of breath Acute on Chronic Hypercapnic, Hypoxic Respiratory Failure secondary to Acute COPD Exacerbation vs. CHF exacerbation 01/15 appreciate cardiology input b-norah initiated; will see how his blood pressure holds low dose PO Lasix, digoxin YEMI-I lowered 01/14 patient continues to feel short of breath, dyspnea with rest his LVEF is 20-25% his blood pressure is on the lower side and we had to hold Lasix in the evening on 01/13 will give one low dose this morning 20mg palliative care consult appreciated - they will see patient and family on Monday - possible SNF then home hospice 01/13 significantly reduced LVEF ~ 20-25% will continue Lasix 20mg BID - allow SBP in the 90s continue Lisinopril 5mg no b-norah due to low BP - appreciate cardiology input For the COPD, will switch Solu-medrol to prednisone start back Combivent inhaler as he does not tolerate nebulizers or masks Would keep his supplemental O2 around 3.5-4L, which is his baseline consult discharge planning and palliative care consultations for discharge planning - not safe to return home without assistance 01/12 appreciate cardiology input echo performed and showing an LVEF of 20-25% with moderate-severe RV dysfunction as well started on Lisinopril and Lasix 20mg BID will likely need a b-norah added for now, will continue IV solu-medrol, switch to PO prednisone in AM continue Levaquin to total 5 days 01/11 CXR - Congestive failure superimposed upon chronic emphysematous change ABGs suggest respiratory acidosis, hypercapnia - likely a chronic change due to severe COPD Currently on solu-medrol 20mg q8 - uses 10mg prednisone chronically started on Levaquin, which we can continue for now for five total days, though pro-calcitonin is low not tolerating bipap; so he is off of that, back to 4L of O2 via NC - uses 3.5L at home chronically continue breathing treatments/nebulizers cont. Keoiresliborio can go back to his usual inhalers on discharge given extra doses of Lasix this morning - repeat CXR suggests improvement in failure repeat ABG pending echo pending Atrial Arrhythmia; possibly A. Fib 01/15 TSH low, normal free T4 cont. dig, b-norah added, HRs improved 01/14 unfortunately, will not tolerate b-norah TSH is low, will check Free T4, and possibly add methimazole 01/13 HRs improving; unfortunately, will not tolerate b-norah no anticoagulation due to bleed risk optimize CHF and monitor 01/12 HRs are still in the 120s plan is to optimize his breathing status, COPD/CHF likely will need to start b-norah not a candidate for anticoagulation due to bleed risk 01/11 initial EKG on presentation - HRs in the 140s, irregularly irregular, possibly A. Fib vs. MAT no anticoagulation due to bleed risk from previous AAA surgical repair HRs this morning down to the 120s Ativan TID for anxiety; low dose solu-medrol, will convert to PO as soon as possible to prevent steroid-induced tachycardia Xopenex to prevent b-agonist induced tachycardia will try to avoid b-blockade due to severe COPD; cardiology consulted for further input Elevated Troponin likely secondary to demand ischemia related to tachycardia no chest pain three sets of enzymes obtained; ~ 0.11-->0.12-->0.159 Prolonged QTc some improvement with improved HRs GERD continue Protonix DVT ppx SCDs DNR
[2017-01-15] MEDS: DIGOXIN 0.125 MG TAB PO SCH (15:36)
[2017-01-15] MEDS: FINASTERIDE 5 MG TAB PO SCH (20:54)
[2017-01-16] VITALS (8 sets, daily range): BP systolic 60–96; BP diastolic 35–63; PULSE 92–111; TEMP 36.5–36.9; O2SAT 91–99
[2017-01-16] MEDS: IPRATROPIUM BROMIDE HFA INHALER INH SCH ×5 (00:07→23:31)
[2017-01-16] MEDS: LEValbuterol HFA 15GM INHALER INH SCH ×5 (00:09→23:31)
[2017-01-16 07:26] LABS: HEMATOCRIT 37.5 % (42-52); MEAN CELL VOLUME 97.4 fL (80-100); MEAN CORPUSCULAR HEMOGLOBIN 30.1 pg (25-34); MEAN CORPUSCULAR HGB CONC 30.9 g/dl (32-36); MEAN PLATELET VOLUME 9.1 fL (7.4-10.4); PLATELET COUNT 173 K/uL (130-400); RED BLOOD COUNT 3.85 M/uL (4.7-6.1); WHITE BLOOD COUNT 7.44 K/uL (4.8-10.8)
[2017-01-16 08:16] LABS: CREATININE 0.72 mg/dl (0.60-1.40)
[2017-01-16 08:32] LABS: CALCIUM 8.7 mg/dl (8.5-10.1)
[2017-01-16] MEDS: FLUTICASONE FUROATE-VILANTEROL 30 PUFFS/INHALER INH INH SCH (08:39)
[2017-01-16] MEDS: IPRATROPIUM BROMIDE/ALBUTEROL respimat INH INH SCH ×4 (08:39→21:17)
[2017-01-16] MEDS: LACTOBACILLUS ACIDOPHILUS (FLORANEX) TAB PO SCH (08:41)
[2017-01-16] MEDS: GUAIFENESIN 600 MG TABCR PO SCH ×2 (08:42→21:16)
[2017-01-16] MEDS: PANTOprazole SOD 40 MG TAB PO SCH (08:42)
[2017-01-16] MEDS: FUROSEMIDE 20 MG TAB PO SCH (08:43)
[2017-01-16] MEDS: METOPROLOL SUCC 25MG EXT REL TAB PO SCH (08:43)
[2017-01-16] MEDS: LISINOPRIL 2.5 MG TAB PO SCH (08:43)
[2017-01-16] MEDS: SERTRALINE HCL 50 MG TAB PO SCH (08:43)
[2017-01-16] MEDS: ROFLUMILAST 500 MCG TAB PO SCH (08:44)
[2017-01-16] MEDS: BOOST VANILLA PO SCH ×6 (08:45→16:09)
[2017-01-16] MEDS: ASPIRIN 81 MG ECTAB PO SCH (08:45)
[2017-01-16] MEDS: MULTIVITAMIN TAB PO SCH (08:45)
--- NOTE | 2017-01-16 08:45 | Progress Note ---
Subjective Date of Service: January 16, 2017. Subjective Pt evaluation today including: conversation w/ patient, physical exam, lab review, review of studies, review of inpatient medication list Saw/examined the patient in room 240-2 He feels well, breathing status back to baseline no chest pain/palpitations/edema Problem List Medical Problems: (1) Hypoxia Status: Acute (2) Pneumonia Status: Acute Review of Systems Constitutional: + weakness Respiratory: + cough, + shortness of breath (baseline), + wheezing, No dyspnea at rest, No dyspnea on exertion Cardiac: No chest pain, No edema, No palpitations Abdomen: No diarrhea, No nausea, No pain, No vomiting Medications Current Inpatient Medications Medications (Trade) Dose Ordered Sig/Shabbir Route Start Time Stop Time Status Last Admin Dose Admin Acetaminophen (Tylenol Tab) 650 mg Q4H PRN PO 01/10/17 16:30 02/09/17 16:29 01/14/17 19:55 650 MG Levalbuterol (Xopenex Hfa Inhaler) 2 puffs Q6 INH 01/10/17 18:00 02/09/17 17:59 01/16/17 05:51 2 PUFFS Aspirin (Ecotrin Tab) 81 mg DAILY PO 01/11/17 09:00 02/10/17 08:59 01/15/17 07:57 81 MG Finasteride (Proscar Tab) 5 mg HS PO 01/10/17 21:00 02/09/17 20:59 01/15/17 20:54 5 MG Lactobacillus Acidophilus (Floranex Tab) 1 tab DAILY PO 01/11/17 09:00 02/10/17 08:59 01/15/17 07:57 1 TAB Multivitamins (Multivitamin Tab) 1 tab DAILY PO 01/11/17 09:00 02/10/17 08:59 01/15/17 07:57 1 TAB Roflumilast (Daliresp Tab) 500 mcg DAILY PO 01/11/17 09:00 02/10/17 08:59 01/15/17 07:57 500 MCG Sertraline HCl (Zoloft Tab) 50 mg DAILY PO 01/11/17 09:00 02/10/17 08:59 01/15/17 07:57 50 MG Pantoprazole Sodium (Protonix Tab) 40 mg DAILY PO 01/11/17 09:00 02/10/17 08:59 01/15/17 07:58 40 MG Guaifenesin (Mucinex Contr Rel Tab) 600 mg Q12 PO 01/10/17 21:00 02/09/17 20:59 01/15/17 20:54 600 MG Lorazepam 0.5 mg 0.5 mg Q8H PRN IV 01/10/17 18:00 02/09/17 17:59 01/13/17 23:02 0.5 MG Lorazepam/Syringe (Ativan Inj/ Syringe) 1 ml @ 1 mls/min Q8H PRN IV 01/10/17 20:15 02/09/17 20:14 Ipratropium [place] (Atrovent Hfa Inhaler) 2 puffs Q6 INH 01/11/17 00:00 02/10/17 00:00 01/16/17 05:51 2 PUFFS Enteral Nutritional Formula (Boost) 1 can TIDM PO 01/11/17 11:30 02/10/17 11:29 01/15/17 10:58 1 CAN Fluticasone/ Vilanterol (Breo Ellipta 100-25 Mcg/Inh) 1 puffs DAILY INH 01/13/17 09:00 02/12/17 08:59 01/15/17 08:00 1 PUFFS Albuterol/ Ipratropium (Combivent Respimat Inh) 1 puffs QID INH 01/13/17 09:00 02/12/17 08:59 01/15/17 20:54 1 PUFFS Levalbuterol (Xopenex 1.25MG/ 0.5ML Neb) 1.25 mg Q2H PRN INH 01/13/17 08:30 02/12/17 08:29 01/14/17 16:29 1.25 MG Prednisone (PredniSONE TAB) 40 mg DAILY PO 01/14/17 09:00 02/13/17 08:59 01/15/17 07:59 40 MG Lisinopril (Zestril Tab) 2.5 mg QAM PO 01/15/17 09:00 02/14/17 08:59 01/15/17 07:58 2.5 MG Digoxin (Lanoxin Tab) 0.125 mg DAILY@16 PO 01/14/17 16:00 02/13/17 15:59 01/15/17 15:36 0.125 MG Metoprolol Succinate (Toprol Xl Tab) 12.5 mg QAM PO 01/16/17 09:00 02/15/17 08:59 Furosemide (Lasix Tab) 20 mg DAILY PO 01/16/17 09:00 02/15/17 08:59 Objective Vital Signs Date Time Temp Pulse Resp B/P Pulse Ox O2 Delivery O2 Flow Rate FiO2 01/16/17 08:09 36.6 97 19 94/57 97 Nasal Cannula 4.0 01/16/17 04:00 97 Nasal Cannula 4.0 01/16/17 03:58 36.9 92 19 96/61 99 Nasal Cannula 4.0 01/15/17 23:59 97 Nasal Cannula 4.0 01/15/17 23:57 36.7 97 18 94/58 97 Nasal Cannula 4.0 01/15/17 20:00 94 Nasal Cannula 4.0 01/15/17 19:52 37.0 104 20 89/44 95 Nasal Cannula 4.0 01/15/17 15:36 108 01/15/17 15:35 36.7 107 18 93/53 94 Nasal Cannula 4.0 01/15/17 15:30 Nasal Cannula 4.0 01/15/17 12:00 Nasal Cannula 4.0 01/15/17 11:34 36.6 114 20 93/50 94 4.0 01/15/17 11:32 96 Physical Exam General Appearance: no apparent distress Respiratory/Chest: no respiratory distress, no accessory muscle use, + decreased breath sounds Cardiovascular: no edema, no murmur, + tachycardia Abdomen: normal bowel sounds, non tender, soft Extremities: normal inspection, no pedal edema Laboratory Results Last 24 Hours Test 01/16/17 07:20 White Blood Count 7.44 K/uL Red Blood Count 3.85 M/uL Hemoglobin 11.6 g/dL Hematocrit 37.5 % Mean Corpuscular Volume 97.4 fL Mean Corpuscular Hemoglobin 30.1 pg Mean Corpuscular Hemoglobin Concent 30.9 g/dl RDW Standard Deviation 54.2 fL RDW Coefficient of Variation 15.2 % Platelet Count 173 K/uL Mean Platelet Volume 9.1 fL Sodium Level 140 mmol/L Potassium Level 4.0 mmol/L Chloride Level 98 mmol/L Carbon Dioxide Level 39 mmol/L Anion Gap 3.0 mmol/L Blood Urea Nitrogen 33 mg/dl Creatinine 0.72 mg/dl Est Creatinine Clear Calc Drug Dose 60.9 ml/min Estimated GFR () 98.6 Estimated GFR (Non- 85.1 BUN/Creatinine Ratio 46.0 Random Glucose 116 mg/dl Calcium Level 8.7 mg/dl Magnesium Level 2.0 mg/dl Assessment and Plan This is an 86 year old male with severe COPD and chronic respiratory failure on 3.5L, AAA s/p repair, PVD presents with worsening shortness of breath Acute on Chronic Hypercapnic, Hypoxic Respiratory Failure secondary to Acute COPD Exacerbation vs. CHF exacerbation 01/16 appreciate cardiology input; continue Toprol and low dose YEMI-I - blood pressure holding up continue prednisone and taper in AM will need SNF continue PT/OT discharge planning for 01/17 palliative care meeting with family on 01/17 01/15 appreciate cardiology input b-norah initiated; will see how his blood pressure holds low dose PO Lasix, digoxin YEMI-I lowered 01/14 patient continues to feel short of breath, dyspnea with rest his LVEF is 20-25% his blood pressure is on the lower side and we had to hold Lasix in the evening on 01/13 will give one low dose this morning 20mg palliative care consult appreciated - they will see patient and family on Monday - possible SNF then home hospice 01/13 significantly reduced LVEF ~ 20-25% will continue Lasix 20mg BID - allow SBP in the 90s continue Lisinopril 5mg no b-norah due to low BP - appreciate cardiology input For the COPD, will switch Solu-medrol to prednisone start back Combivent inhaler as he does not tolerate nebulizers or masks Would keep his supplemental O2 around 3.5-4L, which is his baseline consult discharge planning and palliative care consultations for discharge planning - not safe to return home without assistance 01/12 appreciate cardiology input echo performed and showing an LVEF of 20-25% with moderate-severe RV dysfunction as well started on Lisinopril and Lasix 20mg BID will likely need a b-norah added for now, will continue IV solu-medrol, switch to PO prednisone in AM continue Levaquin to total 5 days 01/11 CXR - Congestive failure superimposed upon chronic emphysematous change ABGs suggest respiratory acidosis, hypercapnia - likely a chronic change due to severe COPD Currently on solu-medrol 20mg q8 - uses 10mg prednisone chronically started on Levaquin, which we can continue for now for five total days, though pro-calcitonin is low not tolerating bipap; so he is off of that, back to 4L of O2 via [place] - uses 3.5L at home chronically continue breathing treatments/nebulizers cont. Keoiresp can go back to his usual inhalers on discharge given extra doses of Lasix this morning - repeat CXR suggests improvement in failure repeat ABG pending echo pending Atrial Arrhythmia; possibly A. Fib 01/15 TSH low, normal free T4 cont. dig, b-norah added, HRs improved 01/14 unfortunately, will not tolerate b-norah TSH is low, will check Free T4, and possibly add methimazole 01/13 HRs improving; unfortunately, will not tolerate b-norah no anticoagulation due to bleed risk optimize CHF and monitor 01/12 HRs are still in the 120s plan is to optimize his breathing status, COPD/CHF likely will need to start b-norah not a candidate for anticoagulation due to bleed risk 01/11 initial EKG on presentation - HRs in the 140s, irregularly irregular, possibly A. Fib vs. MAT no anticoagulation due to bleed risk from previous AAA surgical repair HRs this morning down to the 120s Ativan TID for anxiety; low dose solu-medrol, will convert to PO as soon as possible to prevent steroid-induced tachycardia Xopenex to prevent b-agonist induced tachycardia will try to avoid b-blockade due to severe COPD; cardiology consulted for further input Elevated Troponin likely secondary to demand ischemia related to tachycardia no chest pain three sets of enzymes obtained; ~ 0.11-->0.12-->0.159 Prolonged QTc some improvement with improved HRs GERD continue Protonix DVT ppx SCDs DNR
[2017-01-16] MEDS: LORAZEPAM 2 MG/ML 1 ML VIAL IV PRN (09:24)
--- NOTE | 2017-01-16 09:25 | PROGRESS NOTE ---
DATE: 01/16/2017 The patient seen and examined. Chart, medications, telemetry reviewed. SUBJECTIVE: The patient feels clinically better this morning, notes he is kind of able to clear some secretions. Notes less shortness of breath. Denies any chest pains, dizziness, lightheadedness, syncope or near syncope. OBJECTIVE: VITAL SIGNS: Heart rate is 92, blood pressure is 94/57. Telemetry reveals sinus tachycardia. NECK: There is no jugular venous distention at 30 degrees. LUNGS: Reveal coarse rhonchorous sounds at the bases but better air movement. CARDIOVASCULAR: Regular. There is no S3 gallop. ABDOMEN: Soft. EXTREMITIES: Free of edema. LABORATORY DATA: White cell count 7.4, hemoglobin is 11.6. Sodium is 140, potassium is 4.0, chloride is 98, bicarbonate is 39, BUN is 33, creatinine is 0.72. IMPRESSION: An 86-year-old male with mixed respiratory failure secondary to chronic obstructive lung disease and overriding congestive heart failure, newly diagnosed diffuse cardiomyopathy. The patient is now making clinical improvement. He is on appropriate therapies with low-dose beta norah, digoxin, low-dose lisinopril and diuretics. Exam does not suggest acute volume overload currently. Would continue current therapies and treat underlying pulmonary issues.
[2017-01-16] MEDS: LEVALBUTEROL 1.25MG/0.5ML NEB INH PRN ×2 (09:51→15:45)
[2017-01-16] MEDS: DIGOXIN 0.125 MG TAB PO SCH (16:08)
[2017-01-16] MEDS: FINASTERIDE 5 MG TAB PO SCH (21:16)
[2017-01-17 00:12] VITALS: BP 81/54; PULSE 98; TEMP 36.5; O2SAT 92
[2017-01-17 04:16] VITALS: BP 94/56; PULSE 94; TEMP 36.7; O2SAT 96
[2017-01-17] MEDS: IPRATROPIUM BROMIDE HFA INHALER INH SCH ×2 (06:10→11:29)
[2017-01-17] MEDS: LEValbuterol HFA 15GM INHALER INH SCH ×2 (06:11→11:29)
[2017-01-17 06:56] LABS: HEMATOCRIT 36.6 % (42-52); MEAN CELL VOLUME 97.6 fL (80-100); MEAN CORPUSCULAR HEMOGLOBIN 30.7 pg (25-34); MEAN CORPUSCULAR HGB CONC 31.4 g/dl (32-36); MEAN PLATELET VOLUME 9.2 fL (7.4-10.4); PLATELET COUNT 166 K/uL (130-400); RED BLOOD COUNT 3.75 M/uL (4.7-6.1); WHITE BLOOD COUNT 8.12 K/uL (4.8-10.8)
[2017-01-17] MEDS: BOOST VANILLA PO SCH ×4 (07:30→11:15)
[2017-01-17 07:41] LABS: CALCIUM 8.5 mg/dl (8.5-10.1); CREATININE 0.92 mg/dl (0.60-1.40); POTASSIUM 4.1 mmol/L (3.5-5.1)
[2017-01-17] MEDS: IPRATROPIUM BROMIDE/ALBUTEROL respimat INH INH SCH ×2 (08:08→11:28)
[2017-01-17] MEDS: SERTRALINE HCL 50 MG TAB PO SCH (08:16)
[2017-01-17] MEDS: METOPROLOL SUCC 25MG EXT REL TAB PO SCH (08:16)
[2017-01-17] MEDS: ASPIRIN 81 MG ECTAB PO SCH (08:17)
[2017-01-17] MEDS: LISINOPRIL 2.5 MG TAB PO SCH (08:17)
[2017-01-17] MEDS: MULTIVITAMIN TAB PO SCH (08:17)
[2017-01-17] MEDS: GUAIFENESIN 600 MG TABCR PO SCH (08:17)
[2017-01-17] MEDS: LACTOBACILLUS ACIDOPHILUS (FLORANEX) TAB PO SCH (08:17)
[2017-01-17] MEDS: ROFLUMILAST 500 MCG TAB PO SCH (08:17)
[2017-01-17] MEDS: FUROSEMIDE 20 MG TAB PO SCH (08:18)
[2017-01-17] MEDS: PANTOprazole SOD 40 MG TAB PO SCH (08:18)
[2017-01-17] MEDS: FLUTICASONE FUROATE-VILANTEROL 30 PUFFS/INHALER INH INH SCH (08:27)
--- NOTE | 2017-01-17 09:48 | Cardiology Follow-Up ---
Subjective General Date of Service: January 17, 2017. Chief Complaint: Newly diagnosed cardiomyopathy Pt evaluation today including: conversation w/ patient, physical exam, chart review, lab review, review of studies, review of inpatient medication list History of Present Illness Patient seen and examined. Feels better. "able to breath better." Denies chest pain. No palpitations. No lightheadedness, dizziness, near syncope, or syncope. Platelets trending downward, 248K-->166K Metoprolol held on 01/16 and 01/17 due to parameters; lisinopril administered Telemetry: Sinus tachycardia at 110 bpm. PVC's in singles. No sustained ventricular arrhythmias, bradyarrhythmias, or pauses. January 12, 2017 TTE Interpretation Summary ([facility], Dr. Burch): The left ventricle is moderately dilated. Left ventricular systolic function is severely reduced. Ejection Fraction = 20-25%. The right ventricular cavity size is enlarged ( proximal parasternal long axis right ventricular outflow tract dimension >3.3 cm ). The right ventricular systolic function is moderate to severely reduced. The left atrial size is normal. Right atrial size is normal. There is mild to moderate mitral regurgitation. There is trace tricuspid regurgitation. Allergies Coded Allergies: Sulfa Antibiotics (Verified Allergy, Unknown, RASH,NAUSEA,VOMITING, ) Social History Smoking Status: Former Smoker Hx Tobacco Use In Past Year?: No (quit smoking in 1999) Hx Alcohol Use - Type And Amou: No Hx Substance Use - Type And Am: No Problem List Medical Problems: (1) Hypoxia Status: Acute (2) Pneumonia Status: Acute Physical Exam Vital Signs Last Vital Signs Documentation Date Time Temp Pulse Resp B/P Pulse Ox O2 Delivery O2 Flow Rate FiO2 01/17/17 08:00 Nasal Cannula 5.0 01/17/17 04:16 36.7 94 16 94/56 96 01/12/17 04:00 40 Physical Exam Constitutional: Level of Distress: NAD Psychiatric: Mental Status: active & alert Orientation: to time, to place, to person Memory: recent memory normal, remote memory normal Head: normocephalic, atraumatic Neck: pertinent finding (Neck veins are flat) Lungs: Respiratory effort: dyspneic Auscultation: no rhonchi, deminished air movement, decreased breath sounds, rales/crackles on the left Cardiovascular: Heart Auscultation: tachycardia, pertinent finding (Soft apical systolic murmur) Peripheral Pulses: Dorsalis Pedis Pulse: decreased on the left, decreased on the right Extremities: no cyanosis, no edema, no clubbing Neurologic: Cranial Nerves: grossly intact Assessment and Plan Assessment and Plan 86-year-old male admitted with mixed respiratory failure secondary to chronic obstructive lung disease and new onset congestive heart failure, newly diagnosed diffuse cardiomyopathy with NYHA Class III CHF, LVEF 20-25%, right bundle branch block pattern. RECOMMENDATIONS/PLAN: Decrease Lisinopril dosing and change to PM, attempting to add/administer evidenced based beta-norah therapy, Toprol XL, as BP permits. Reduce furosemide dosing to every OTHER day Continue low dose digoxin CARDIOLOGY ATTENDING ADDENDUM: The patient was seen and personally examined. Agree with Juno Odell PA-C's findings and plans as documented above. Looking better since last week. Laboratory Results Last 24 Hours Test 01/17/17 06:35 White Blood Count 8.12 K/uL Red Blood Count 3.75 M/uL Hemoglobin 11.5 g/dL Hematocrit 36.6 % Mean Corpuscular Volume 97.6 fL Mean Corpuscular Hemoglobin 30.7 pg Mean Corpuscular Hemoglobin Concent 31.4 g/dl RDW Standard Deviation 54.1 fL RDW Coefficient of Variation 15.1 % Platelet Count 166 K/uL Mean Platelet Volume 9.2 fL Sodium Level 139 mmol/L Potassium Level 4.1 mmol/L Chloride Level 96 mmol/L Carbon Dioxide Level 42 mmol/L Anion Gap 1.0 mmol/L Blood Urea Nitrogen 39 mg/dl Creatinine 0.92 mg/dl Est Creatinine Clear Calc Drug Dose 47.7 ml/min Estimated GFR () 87.6 Estimated GFR (Non- 75.6 BUN/Creatinine Ratio 42.0 Random Glucose 94 mg/dl Calcium Level 8.5 mg/dl
[2017-01-17 12:09] VITALS: BP 128/69; PULSE 79; TEMP 37; O2SAT 96
[2017-01-17] MEDS ORDERED: TPRSR25 PO (13:08)
[2017-01-17] MEDS ORDERED: PRED10TA PO (13:08)
[2017-01-17] MEDS ORDERED: LNX125 PO (13:08)
[2017-01-17] MEDS ORDERED: LSN25 PO (13:08)
--- NOTE | 2017-01-17 13:11 | Progress Note ---
Subjective Date of Service: January 17, 2017. Subjective Pt evaluation today including: conversation w/ patient, physical exam, lab review, review of studies, review of inpatient medication list Saw/examined the patient in room 240 Doing well, seated in a chair, breathing status seems to be at baseline as per patient no chest pain or palpitations Problem List Medical Problems: (1) Hypoxia Status: Acute (2) Pneumonia Status: Acute Review of Systems Constitutional: No chills, No fever Respiratory: + dyspnea on exertion, + shortness of breath (baseline) Cardiac: No chest pain, No edema, No palpitations Abdomen: No diarrhea, No nausea, No pain, No vomiting Medications Current Inpatient Medications Medications (Trade) Dose Ordered Sig/Shabbir Route Start Time Stop Time Status Last Admin Dose Admin Acetaminophen (Tylenol Tab) 650 mg Q4H PRN PO 01/10/17 16:30 02/09/17 16:29 01/14/17 19:55 650 MG Levalbuterol (Xopenex Hfa Inhaler) 2 puffs Q6 INH 01/10/17 18:00 02/09/17 17:59 01/17/17 11:29 2 PUFFS Aspirin (Ecotrin Tab) 81 mg DAILY PO 01/11/17 09:00 02/10/17 08:59 01/17/17 08:17 81 MG Finasteride (Proscar Tab) 5 mg HS PO 01/10/17 21:00 02/09/17 20:59 01/16/17 21:16 5 MG Lactobacillus Acidophilus (Floranex Tab) 1 tab DAILY PO 01/11/17 09:00 02/10/17 08:59 01/17/17 08:17 1 TAB Multivitamins (Multivitamin Tab) 1 tab DAILY PO 01/11/17 09:00 02/10/17 08:59 01/17/17 08:17 1 TAB Roflumilast (Daliresp Tab) 500 mcg DAILY PO 01/11/17 09:00 02/10/17 08:59 01/17/17 08:17 500 MCG Sertraline HCl (Zoloft Tab) 50 mg DAILY PO 01/11/17 09:00 02/10/17 08:59 01/17/17 08:16 50 MG Pantoprazole Sodium (Protonix Tab) 40 mg DAILY PO 01/11/17 09:00 02/10/17 08:59 01/17/17 08:18 40 MG Guaifenesin (Mucinex Contr Rel Tab) 600 mg Q12 PO 01/10/17 21:00 02/09/17 20:59 01/17/17 08:17 600 MG Lorazepam 0.5 mg 0.5 mg Q8H PRN IV 01/10/17 18:00 02/09/17 17:59 01/16/17 09:24 0.5 MG Lorazepam/Syringe (Ativan Inj/ Syringe) 1 ml @ 1 mls/min Q8H PRN IV 01/10/17 20:15 02/09/17 20:14 Ipratropium [place] (Atrovent Hfa Inhaler) 2 puffs Q6 INH 01/11/17 00:00 02/10/17 00:00 01/17/17 11:29 2 PUFFS Enteral Nutritional Formula (Boost) 1 can TIDM PO 01/11/17 11:30 02/10/17 11:29 01/15/17 10:58 1 CAN Fluticasone/ Vilanterol (Breo Ellipta 100-25 Mcg/Inh) 1 puffs DAILY INH 01/13/17 09:00 02/12/17 08:59 01/17/17 08:27 1 PUFFS Albuterol/ Ipratropium (Combivent Respimat Inh) 1 puffs QID INH 01/13/17 09:00 02/12/17 08:59 01/17/17 11:28 1 PUFFS Levalbuterol (Xopenex 1.25MG/ 0.5ML Neb) 1.25 mg Q2H PRN INH 01/13/17 08:30 02/12/17 08:29 01/16/17 15:45 1.25 MG Prednisone (PredniSONE TAB) 40 mg DAILY PO 01/14/17 09:00 02/13/17 08:59 01/17/17 08:17 40 MG Digoxin (Lanoxin Tab) 0.125 mg DAILY@16 PO 01/14/17 16:00 02/13/17 15:59 01/16/17 16:08 0.125 MG Metoprolol Succinate (Toprol Xl Tab) 12.5 mg QAM PO 01/16/17 09:00 02/15/17 08:59 Lisinopril (Zestril Tab) 1.25 mg QPM PO 01/18/17 21:00 02/17/17 20:59 Furosemide (Lasix Tab) 20 mg Q2D PO 01/19/17 09:00 02/18/17 08:59 Objective Vital Signs Date Time Temp Pulse Resp B/P Pulse Ox O2 Delivery O2 Flow Rate FiO2 01/17/17 12:09 37.0 79 18 128/69 96 01/17/17 12:00 Nasal Cannula 5.0 01/17/17 08:00 Nasal Cannula 5.0 01/17/17 04:16 36.7 94 16 94/56 96 Nasal Cannula 4.0 01/17/17 04:00 Nasal Cannula 4.0 01/17/17 00:12 36.5 98 19 81/54 92 Nasal Cannula 4.0 01/16/17 23:59 Nasal Cannula 4.0 01/16/17 20:00 Nasal Cannula 4.0 01/16/17 19:16 36.5 106 22 60/35 98 Nasal Cannula 5.0 01/16/17 16:08 107 01/16/17 16:00 Nasal Cannula 4.0 01/16/17 15:45 96 12 95 Nasal Cannula 4.0 01/16/17 15:24 36.5 111 22 80/36 91 Nasal Cannula 5.0 Physical Exam General Appearance: no apparent distress Respiratory/Chest: no respiratory distress, no accessory muscle use, + decreased breath sounds Cardiovascular: no edema, no murmur, + tachycardia, + irregularly irregular Abdomen: normal bowel sounds, non tender, soft Extremities: non-tender, normal inspection, no pedal edema Neurologic/Psychiatric: no motor/sensory deficits, alert, normal mood/affect Laboratory Results Last 24 Hours Test 01/17/17 06:35 01/17/17 11:16 White Blood Count 8.12 K/uL Red Blood Count 3.75 M/uL Hemoglobin 11.5 g/dL Hematocrit 36.6 % Mean Corpuscular Volume 97.6 fL Mean Corpuscular Hemoglobin 30.7 pg Mean Corpuscular Hemoglobin Concent 31.4 g/dl RDW Standard Deviation 54.1 fL RDW Coefficient of Variation 15.1 % Platelet Count 166 K/uL Mean Platelet Volume 9.2 fL Sodium Level 139 mmol/L Potassium Level 4.1 mmol/L Chloride Level 96 mmol/L Carbon Dioxide Level 42 mmol/L Anion Gap 1.0 mmol/L Blood Urea Nitrogen 39 mg/dl Creatinine 0.92 mg/dl Est Creatinine Clear Calc Drug Dose 47.7 ml/min Estimated GFR () 87.6 Estimated GFR (Non- 75.6 BUN/Creatinine Ratio 42.0 Random Glucose 94 mg/dl Calcium Level 8.5 mg/dl Bedside Glucose 128 mg/dl Assessment and Plan This is an 86 year old male with severe COPD and chronic respiratory failure on 3.5L, AAA s/p repair, PVD presents with worsening shortness of breath Acute on Chronic Hypercapnic, Hypoxic Respiratory Failure secondary to Acute COPD Exacerbation vs. CHF exacerbation 01/17 tapering prednisone today appreciate cardiology input - low dose YEMI-I in the PM, low dose Toprol in the AM, cont. Digoxin Lasix every other day plan is for d/c to SNF and then transition to home hospice - as per palliative care 01/16 appreciate cardiology input; continue Toprol and low dose YEMI-I - blood pressure holding up continue prednisone and taper in AM will need SNF continue PT/OT discharge planning for 01/17 palliative care meeting with family on 01/17 01/15 appreciate cardiology input b-norah initiated; will see how his blood pressure holds low dose PO Lasix, digoxin YEMI-I lowered 01/14 patient continues to feel short of breath, dyspnea with rest his LVEF is 20-25% his blood pressure is on the lower side and we had to hold Lasix in the evening on 01/13 will give one low dose this morning 20mg palliative care consult appreciated - they will see patient and family on Monday - possible SNF then home hospice 01/13 significantly reduced LVEF ~ 20-25% will continue Lasix 20mg BID - allow SBP in the 90s continue Lisinopril 5mg no b-norah due to low BP - appreciate cardiology input For the COPD, will switch Solu-medrol to prednisone start back Combivent inhaler as he does not tolerate nebulizers or masks Would keep his supplemental O2 around 3.5-4L, which is his baseline consult discharge planning and palliative care consultations for discharge planning - not safe to return home without assistance 01/12 appreciate cardiology input echo performed and showing an LVEF of 20-25% with moderate-severe RV dysfunction as well started on Lisinopril and Lasix 20mg BID will likely need a b-norah added for now, will continue IV solu-medrol, switch to PO prednisone in AM continue Levaquin to total 5 days 01/11 CXR - Congestive failure superimposed upon chronic emphysematous change ABGs suggest respiratory acidosis, hypercapnia - likely a chronic change due to severe COPD Currently on solu-medrol 20mg q8 - uses 10mg prednisone chronically started on Levaquin, which we can continue for now for five total days, though pro-calcitonin is low not tolerating bipap; so he is off of that, back to 4L of O2 via NC - uses 3.5L at home chronically continue breathing treatments/nebulizers cont. Keoiresp can go back to his usual inhalers on discharge given extra doses of Lasix this morning - repeat CXR suggests improvement in failure repeat ABG pending echo pending Atrial Arrhythmia; possibly A. Fib 01/15 TSH low, normal free T4 cont. dig, b-norah added, HRs improved 01/14 unfortunately, will not tolerate b-norah TSH is low, will check Free T4, and possibly add methimazole 01/13 HRs improving; unfortunately, will not tolerate b-norah no anticoagulation due to bleed risk optimize CHF and monitor 01/12 HRs are still in the 120s plan is to optimize his breathing status, COPD/CHF likely will need to start b-norah not a candidate for anticoagulation due to bleed risk 01/11 initial EKG on presentation - HRs in the 140s, irregularly irregular, possibly A. Fib vs. MAT no anticoagulation due to bleed risk from previous AAA surgical repair HRs this morning down to the 120s Ativan TID for anxiety; low dose solu-medrol, will convert to PO as soon as possible to prevent steroid-induced tachycardia Xopenex to prevent b-agonist induced tachycardia will try to avoid b-blockade due to severe COPD; cardiology consulted for further input Elevated Troponin likely secondary to demand ischemia related to tachycardia no chest pain three sets of enzymes obtained; ~ 0.11-->0.12-->0.159 Prolonged QTc some improvement with improved HRs GERD continue Protonix DVT ppx SCDs DNR
[2017-01-17] MEDS ORDERED: LSX20 PO (13:17)
--- NOTE | 2017-01-17 13:21 | Discharge Instructions ---
Discharge Instructions Date of Service January 17, 2017. Admission Reason for Admission: Shortness Of Breath Discharge Discharge Diagnosis / Problem: Acute Respiratory Failure; COPD/CHF; A. fib with RVR Discharge Goals Goal(s): Decrease discomfort, Improve function, Diagnostic testing, Therapeutic intervention Activity Recommendations Activity Limitations: resume your previous activity . Instructions / Follow-Up Instructions / Follow-Up To follow-up with cardiology as an outpatient Medications adjusted including low dose Lisinopril in the PM; Toprol XL in the morning; digoxin added Lasix should be given every other day Prednisone taper, 30mg x 3 days, 20mg x 3 days, then 10mg daily Current Hospital Diet Patient's current hospital diet: AHA Diet (Heart Healthy), Low Sodium Diet (2gm Na) Discharge Diet Recommended Diet: AHA Diet (Heart Healthy), Low Sodium Diet (2gm Na) Pending Studies Studies pending at discharge: no Medical Emergencies . Who to Call and When: Medical Emergencies: If at any time you feel your situation is an emergency, please call 911 immediately. . Non-Emergent Contact Non-Emergency issues call your: Primary Care Provider, [employer] . . "Provider Documentation" section prepared by Meli Antunez. . VTE Core Measure Inpt VTE Proph given/why not?: SCD's
--- NOTE | 2017-01-17 13:26 | Discharge Summary ---
Discharge Summary Date of Service January 17, 2017. Discharge Summary Admission Date: January 10, 2017 at 16:33 Discharge Date: January 17, 2017 Discharge Disposition: detention facility Principal Diagnosis: Acute Respiratory Failure Acute COPD Exacerbation Acute on Chronic Systolic CHF; significantly reduced LVEF Medication Reconciliation New Medications: Prednisone Tab (Prednisone) 10 Mg Tab 10 MG PO DAILY for 20 Days, #20 TAB Digoxin (Digoxin) 0.125 Mg Tab 0.125 MG PO DAILY@16 for 30 Days, #30 TAB Furosemide (Furosemide) 20 Mg Tab 20 MG PO Q2D for 30 Days, #15 TAB Lisinopril (Lisinopril) 2.5 Mg Tab 1.25 MG PO QPM for 30 Days, #15 TAB Metoprolol Succinate (Metoprolol Succinate ER) 25 Mg Tabcr 12.5 MG PO QAM for 30 Days, #15 TABS Continued Medications: Aspirin (Aspirin EC Low Dose) 81 Mg Ectab 81 MG PO DAILY Dextromethorphan-Guaifenesin (Mucinex Dm) 1 Tab Tab 1 TAB PO Q12 PRN for congestion, TAB TAKE THIS MEDICATION WITH PLENTY OF WATER Doxycycline Hyclate (Doxycycline Hyclate) 100 Mg Tab 100 MG PO BID PRN for COPD Rescue Kit for 7 Days, #14 TAB TAKE MD DIRECTS Finasteride (Proscar) 5 Mg Tab 5 MG PO HS Fluticasone Furoate-Vilanterol (Breo Ellipta) 1 Inh Inh 1 INHA INH DAILY Ipratropium [place] (Atrovent 0.02% Soln) 2.5 Ml Nebu 2.5 ML INH Q6-8HRS PRN for SOB/Wheezing MAY MIX WITH ALBUTEROL Ipratropium-Albuterol (Combivent Respimat) 1 Aer Aer 1 PUFF INH QID Ipratropium-Albuterol (Duoneb) 3 Ml Nebu 1 TREATMENT INH QID PRN for SOB/Wheezing, INHA Lactobacillus Acidophilus (Lactinex) Tab 1 TAB PO DAILY Lorazepam (Lorazepam) 0.5 Mg Tab 0.5 MG PO BID PRN for Anxiety Multivitamin (Multivitamin) Tab 1 TAB PO DAILY Omeprazole (Prilosec) 20 Mg Cap 20 MG PO DAILY TAKE THIS MEDICATION ONCE DAILY ONE HOUR BEFORE FIRST MEAL OF THE DAY Oxygen (Oxygen) Gas 3 LITER NA CONTINOUS Prednisone Tab (Prednisone) 10 Mg Tab 10 MG PO DAILY, TAB Prednisone Tab (Prednisone) 10 Mg Tab 10 MG PO UD PRN for COPD Rescue Kit COPD RESCUE KIT-TAPER DOWN DOSING FOLLOWS: TAKE 5 TABLETS (50 MG) DAILY FOR 2 DAYS THEN, TAKE 4 TABLETS (40 MG) DAILY FOR 2 DAYS THEN, TAKE 3 TABLETS (30 MG) DAILY FOR 2 DAYS THEN, TAKE 2 TABLETS (20 MG) DAILY FOR 2 DAYS THEN, TAKE 1 TABLET (10 MG) DAILY FOR 2 DAYS. Roflumilast (Daliresp) 500 Mcg Tab 500 MCG PO DAILY Sertraline (Zoloft) 50 Mg Tab 50 MG PO DAILY, TAB Admission Information HPI (per Admitting provider): 86 year old male who presents to the ER with shortness of breath. Patient was recently admitted to [facility] 11/29 - 12/03 for pneumonia and COPD exacerbation. Patient was discharged on Levaquin and steroid taper with instructions to resume his chronic Prednisone dosing. Patient reports he initial felt well after his discharge however started to feel not well about two weeks ago. He started his home COPD rescue kit of tapering prednisone and Doxycycline which he completed yesterday. He has continued to feel poorly. He reports a moist cough which is occasionally productive for clear sputum. He denies fever and chills. No chest pain or palpitations. He has noticed increased swelling around his ankles for the past 2 weeks. He denies abdominal pain, nausea, vomiting, or diarrhea. He denies lightheadedness, dizziness, diaphoresis, or syncopal events. He denies urinary symptoms. In the ER, patient's CXR is showing CHF, proBNP is elevated, he was tachycardic in the 130s-140s (afib vs MAT). He was placed on BiPap for respiratory distress, no hypoxia noted. Patient received neb and solumedrol en route to the ED. In the ER, he was given IVF, IV Levaquin , neb, and Versed. Physical Exam (per Admitting): General Appearance: + mild distress Head: normocephalic Eyes: normal inspection ENT: hearing grossly normal Neck: supple, no JVD Respiratory/Chest: + respiratory distress (tachypnea, mild conversational dyspnea), + decreased breath sounds (poor air entry noted throughout all lung [place]), + accessory muscle use, + wheezing (faint, end expiratory), + pertinent finding (saturating well on 3L via NC) Cardiovascular: + tachycardia (regular rhythm), + pertinent finding (+2 pitting ankle edema, L > R ) Abdomen/GI: normal bowel sounds, non tender, soft Extremities/Musculoskelatal: normal inspection, no calf tenderness Neurologic/Psych: no motor/sensory deficits, alert, normal mood/affect, oriented x 3 Skin: normal color, warm/dry Hospital Course This is an 86 year old male with severe COPD and chronic respiratory failure on 3.5L, AAA s/p repair, PVD presents with worsening shortness of breath Acute on Chronic Hypercapnic, Hypoxic Respiratory Failure secondary to Acute COPD Exacerbation vs. CHF exacerbation 01/17 tapering prednisone today appreciate cardiology input - low dose YEMI-I in the PM, low dose Toprol in the AM, cont. Digoxin Lasix every other day plan is for d/c to SNF and then transition to home hospice - as per palliative care 01/16 appreciate cardiology input; continue Toprol and low dose YEMI-I - blood pressure holding up continue prednisone and taper in AM will need SNF continue PT/OT discharge planning for 01/17 palliative care meeting with family on 01/17 01/15 appreciate cardiology input b-norah initiated; will see how his blood pressure holds low dose PO Lasix, digoxin YEMI-I lowered 01/14 patient continues to feel short of breath, dyspnea with rest his LVEF is 20-25% his blood pressure is on the lower side and we had to hold Lasix in the evening on 01/13 will give one low dose this morning 20mg palliative care consult appreciated - they will see patient and family on Monday - possible SNF then home hospice 01/13 significantly reduced LVEF ~ 20-25% will continue Lasix 20mg BID - allow SBP in the 90s continue Lisinopril 5mg no b-norah due to low BP - appreciate cardiology input For the COPD, will switch Solu-medrol to prednisone start back Combivent inhaler as he does not tolerate nebulizers or masks Would keep his supplemental O2 around 3.5-4L, which is his baseline consult discharge planning and palliative care consultations for discharge planning - not safe to return home without assistance 01/12 appreciate cardiology input echo performed and showing an LVEF of 20-25% with moderate-severe RV dysfunction as well started on Lisinopril and Lasix 20mg BID will likely need a b-norah added for now, will continue IV solu-medrol, switch to PO prednisone in AM continue Levaquin to total 5 days 01/11 CXR - Congestive failure superimposed upon chronic emphysematous change ABGs suggest respiratory acidosis, hypercapnia - likely a chronic change due to severe COPD Currently on solu-medrol 20mg q8 - uses 10mg prednisone chronically started on Levaquin, which we can continue for now for five total days, though pro-calcitonin is low not tolerating bipap; so he is off of that, back to 4L of O2 via NC - uses 3.5L at home chronically continue breathing treatments/nebulizers cont. Keoiresliborio can go back to his usual inhalers on discharge given extra doses of Lasix this morning - repeat CXR suggests improvement in failure repeat ABG pending echo pending Atrial Arrhythmia; possibly A. Fib 01/15 TSH low, normal free T4 cont. dig, b-norah added, HRs improved 01/14 unfortunately, will not tolerate b-norah TSH is low, will check Free T4, and possibly add methimazole 01/13 HRs improving; unfortunately, will not tolerate b-norah no anticoagulation due to bleed risk optimize CHF and monitor 01/12 HRs are still in the 120s plan is to optimize his breathing status, COPD/CHF likely will need to start b-norah not a candidate for anticoagulation due to bleed risk 01/11 initial EKG on presentation - HRs in the 140s, irregularly irregular, possibly A. Fib vs. MAT no anticoagulation due to bleed risk from previous AAA surgical repair HRs this morning down to the 120s Ativan TID for anxiety; low dose solu-medrol, will convert to PO as soon as possible to prevent steroid-induced tachycardia Xopenex to prevent b-agonist induced tachycardia will try to avoid b-blockade due to severe COPD; cardiology consulted for further input Elevated Troponin likely secondary to demand ischemia related to tachycardia no chest pain three sets of enzymes obtained; ~ 0.11-->0.12-->0.159 Prolonged QTc some improvement with improved HRs GERD continue Protonix DVT ppx SCDs DNR Total time spent on discharge = 50 minutes This includes examination of the patient, discharge planning, medication reconciliation, and communication with other providers. Discharge Instructions To follow-up with cardiology as an outpatient Medications adjusted including low dose Lisinopril in the PM; Toprol XL in the morning; digoxin added Lasix should be given every other day Prednisone taper, 30mg x 3 days, 20mg x 3 days, then 10mg daily
--- NOTE | 2017-01-17 13:43 | Palliative Care Progress Note ---
Palliative Care Progress Note Date of Service January 17, 2017. Subjective Pt evaluation today including: conversation w/ patient, conversation w/ family , physical exam, chart review, conversation w/ jd edwards consultant, review of inpatient medication list Pain: 0/10 PO Intake: tolerating small amounts of food Voiding: siddiqi catheter in place -Patient is not SOB at rest, but still has profound dyspnea on exertion. Denies any pain. -All meds are now PO -Met with family and patient separately today to discuss goals of care. Patient was very realistic about his condition and stated he does not think he can go home to his apartment. His three children: Nirav, Ricardo, and Karlie, all essentially said the same thing. They believe the patient's condition is worsening and his disease is progressing. See plan below. Review of Systems Constitutional: + weakness ENT: No trouble swallowing Respiratory: + dyspnea on exertion, + shortness of breath, No cough Cardiac: + edema (improved), No chest pain Abdomen: No nausea, No pain, No vomiting Male : + problem reported (wants siddiqi catheter out) Psychiatric: No depression symptoms Objective Vital Signs Date Time Temp Pulse Resp B/P Pulse Ox O2 Delivery O2 Flow Rate FiO2 01/17/17 08:00 Nasal Cannula 5.0 01/17/17 04:16 36.7 94 16 94/56 96 Nasal Cannula 4.0 01/17/17 04:00 Nasal Cannula 4.0 01/17/17 00:12 36.5 98 19 81/54 92 Nasal Cannula 4.0 01/16/17 23:59 Nasal Cannula 4.0 01/16/17 20:00 Nasal Cannula 4.0 01/16/17 19:16 36.5 106 22 60/35 98 Nasal Cannula 5.0 01/16/17 16:08 107 01/16/17 16:00 Nasal Cannula 4.0 01/16/17 15:45 96 12 95 Nasal Cannula 4.0 01/16/17 15:24 36.5 111 22 80/36 91 Nasal Cannula 5.0 01/16/17 12:10 Nasal Cannula 4.0 01/16/17 12:02 36.7 110 19 95/63 97 Nasal Cannula 4.0 Physical Exam General Appearance: no apparent distress, + thin ENT: hearing grossly normal Neck: supple, no JVD Respiratory/Chest: no respiratory distress, no accessory muscle use, + decreased breath sounds, + rhonchi (coarse upper airways), + pertinent finding ( speaks in short sentences. mildly SOB) Cardiovascular: no edema, + irregularly irregular, + normal peripheral pulses Abdomen: normal bowel sounds, non tender, soft Neurologic/Psychiatric: alert, normal mood/affect, oriented x 3 Laboratory Results Last 24 Hours Test 01/17/17 06:35 White Blood Count 8.12 K/uL Red Blood Count 3.75 M/uL Hemoglobin 11.5 g/dL Hematocrit 36.6 % Mean Corpuscular Volume 97.6 fL Mean Corpuscular Hemoglobin 30.7 pg Mean Corpuscular Hemoglobin Concent 31.4 g/dl RDW Standard Deviation 54.1 fL RDW Coefficient of Variation 15.1 % Platelet Count 166 K/uL Mean Platelet Volume 9.2 fL Sodium Level 139 mmol/L Potassium Level 4.1 mmol/L Chloride Level 96 mmol/L Carbon Dioxide Level 42 mmol/L Anion Gap 1.0 mmol/L Blood Urea Nitrogen 39 mg/dl Creatinine 0.92 mg/dl Est Creatinine Clear Calc Drug Dose 47.7 ml/min Estimated GFR () 87.6 Estimated GFR (Non- 75.6 BUN/Creatinine Ratio 42.0 Random Glucose 94 mg/dl Calcium Level 8.5 mg/dl Assessment and Plan Problem list: SOB/BURROUGHS Respiratory failure CHF vs. COPD exacerbation. EF 20-25% Afib Goals of care (Z51.5) Palliative care recommendations: -DNR/DNI -Has living will and POLST form- neither of which were seen by myself, but did discuss them with patient and family. Patient does not want invasive or aggressive measures such as CPR, intubation, or a feeding tube. However, he is still okay with coming back to the hospital if indicated. -Patient's goal is to get back to his apartment, but also stated "I don't know if that's possible any more." Family is also aware that patient will likely not be able to live alone again. -Plan is for rehab at [facility], then determine whether or not he will need long-term placement. Likely will eventually transition to hospice, but they are not ready for that at this time. -Patient denies pain at this time. -Continue lasix for fluid management. Would discontinue Siddiqi catheter at this time. Thank you again for allowing me to participate in the care of this patient.
[2017-01-17 13:56] VITALS: BP 128/69; PULSE 79; TEMP 37; O2SAT 96
[2017-01-18] MEDS ORDERED: LISINOPRIL 2.5 MG TAB PO SCH (21:00)
[2017-01-19] MEDS ORDERED: FUROSEMIDE 20 MG TAB PO SCH (09:00)
== END 2017-01-17 16:13 | DRG 291 ==
LOC: ENRESERVDT → ENRESERVTM → EDBD 13:55 → C.EDB 13:56 → C.2T 16:33
PROVIDERS: ADMIT Hospitalist; ATTEND Family Medicine
DX: I50.33 Acute on chronic diastolic (congestive) heart failure (principal); J96.21 Acute and chronic respiratory failure with hypoxia; J96.22 Acute and chronic respiratory failure with hypercapnia; J44.1 Chronic obstructive pulmonary disease with (acute) exacerbation; I24.8 Other forms of acute ischemic heart disease; Z66 Do not resuscitate; Z51.5 Encounter for palliative care; K21.9 Gastro-esophageal reflux disease without esophagitis; I45.81 Long QT syndrome; Z87.891 Personal history of nicotine dependence; Z79.82 Long term (current) use of aspirin; I48.91 Unspecified atrial fibrillation; Z79.52 Long term (current) use of systemic steroids

== ENCOUNTER → 2017-01-25 | Outpatient (CLI) | payer OTHER, MEDICARE ==
[~2017-01-25] MED LIST changes: +ACET-1311 PO; +ATRINSX INH; +DOXY1TAB6 PO; +DXY100 PO; +FINA5TAB PO; +FLVHFA110 INH; +FLVHFA220 INH; +FURO20TA PO; +IPRASOL4 INH; +LCTX PO; -LEVO-459 PO; +LNX125 PO; +LORA-741 PO; +LSN25 PO; +LSX20 PO; +METO25TA56 PO; +MOMLX PO; +MORP20SO PO; +MULT-506 PO; +NEOM-25 TOP; +OXGN; +PLMIH INH; +ROFL1TAB5 PO; +SERT-234 PO; +TPRSR25 PO
[2017-01-25 12:50] LABS: BLOOD UREA NITROGEN 11 mg/dl (7-18); BUN/CREATININE RATIO 18.3 (10-20); CALCIUM 8.5 mg/dl (8.5-10.1); CARBON DIOXIDE 39 mmol/L (21-32); CHLORIDE 99 mmol/L (98-107); GLUCOSE 75 mg/dl (70-99); POTASSIUM 4.1 mmol/L (3.5-5.1); SODIUM 141 mmol/L (136-145)
== END ==
LOC: EDSTATUS 10:45 → C.LABCC 12:56
PROVIDERS: ATTEND Internal Medicine
DX: I50.9 Heart failure, unspecified (principal)

== ENCOUNTER 2017-04-11 18:38 | Inpatient (IN) | payer OTHER, MEDICARE ==
[~2017-04-11] VITALS: Ht 172.7 cm; Wt 56.3 kg
[~2017-04-11 18:38] MED LIST changes: -ACET-1311 PO; -DXY100 PO; -FLVHFA110 INH; -FLVHFA220 INH; -FURO20TA PO; -LORA-741 PO; -METO25TA56 PO; -MOMLX PO; -MORP20SO PO; -NEOM-25 TOP; -PLMIH INH; -SERT-234 PO
[2017-04-11] MEDS ORDERED: ALBUT/IPRATROP 3MG/0.5MG NEB 3 ML VIAL INH STA (19:10)
--- NOTE | 2017-04-11 19:12 | EMERGENCY ROOM VISIT NOTE ---
History Report prepared by Anupama: Zuleima Fowler Under the Supervision of: Gerson SalazarO. First contact with patient: 18:57 Chief Complaint: SHORTNESS OF BREATH Stated Complaint: CANT BREATHE Nursing Triage Summary: Pt states he may have pneumonia. Tightness in chest, denies cough, states "too tight" Hx COPD and CHF Bilateral feet swelling. O2 3.5L at all times History of Present Illness The patient is a 86 year old male who presents to the Emergency Room with complaints of worsening shortness of breath beginning 6 days ago. He states that he was placed on prednisone and Doxycycline 6 days again for his symptoms, but did not have a chest X-Ray done. The patient always has a rescue pack and uses it as needed. The patient reports that he has been using his breathing treatments at home more often and that he is on 4 L of oxygen. He complains that his chest is tight, but he is unable to cough up anything. The patient reports having swelling in his legs and feet. He also reports having a fever and runny nose. The patient has a history of pneumonia 5 times and congestive heart failure. Pt denies headache, change in vision, nausea, vomiting, diarrhea , pain with urination, and melena. Family states this is similar to prior episodes of pneumonia. They state he had a recent CT chest which showed a mass which the family and pt have decided not to have further evaluated. On review of EMR, pt previously evaluated by palliative care, on last admission was a dnr. Source of History: patient Onset: 6 days ago Position: other (global) Quality: other (shortness of breath ) Timing: worsening Associated Symptoms: + fevers, + chest pain (chest tightness), No nausea, No vomiting, No melena, No diarrhea, No urinary symptoms Review of Systems See HPI for pertinent positives & negatives. A total of 10 systems reviewed and were otherwise negative. Past Medical & Surgical Medical Problems: (1) AAA (abdominal aortic aneurysm) (2) BPH (benign prostatic hypertrophy) (3) CHF (congestive heart failure) (4) Chronic obstructive pulmonary disease (5) Dyslipidemia (6) GERD (gastroesophageal reflux disease) (7) Pneumonia (8) PVD (peripheral vascular disease) (9) SOB (shortness of breath) Surgical Problems: (1) Status post aortic aneurysm repair Family History No significant family history Social History Smoking Status: Former Smoker Alcohol Use: none Housing Status: lives alone Current/Historical Medications Scheduled Aspirin (Aspirin EC Low Dose), 81 MG PO DAILY Digoxin (Digoxin), 0.125 MG PO DAILY@16 Finasteride (Proscar), 5 MG PO HS Fluticasone Furoate-Vilanterol (Breo Ellipta), 1 INHA INH DAILY Furosemide (Furosemide), 20 MG PO Q2D Home O2 Therapy (Oxygen), 3.5 LITER NA CONTINOUS Ipratropium-Albuterol (Combivent Respimat), 1 PUFF INH QID Lisinopril (Lisinopril), 1.25 MG PO QPM Metoprolol Succinate (Metoprolol Succinate ER), 12.5 MG PO QAM Multivitamin (Multivitamin), 1 TAB PO DAILY Omeprazole (Prilosec), 20 MG PO DAILY Prednisone Tab (Prednisone), 10 MG PO DAILY Roflumilast (Daliresp), 500 MCG PO DAILY Sertraline (Zoloft), 50 MG PO DAILY Scheduled PRN Dextromethorphan-Guaifenesin (Mucinex Dm), 1 TAB PO Q12 PRN for congestion Doxycycline Hyclate (Doxycycline Hyclate), 100 MG PO BID PRN for COPD Rescue Kit Ipratropium Wister (Atrovent 0.02% Soln), 2.5 ML INH Q6-8HRS PRN for SOB/ Wheezing Ipratropium-Albuterol (Duoneb), 1 TREATMENT INH QID PRN for SOB/Wheezing Lorazepam (Lorazepam), 0.5 MG PO BID PRN for Anxiety Prednisone Tab (Prednisone), 10 MG PO UD PRN for COPD Rescue Kit Allergies Coded Allergies: Sulfa Antibiotics (Verified Allergy, Unknown, RASH,NAUSEA,VOMITING, ) Physical Exam Vital Signs Date Time Temp Pulse Resp B/P (MAP) Pulse Ox O2 Delivery O2 Flow Rate FiO2 04/11/17 20:35 123 32 104/67 97 Nasal Cannula 3.5 04/11/17 19:09 108 04/11/17 18:44 92 Nasal Cannula 3.5 04/11/17 18:44 36.7 110 22 85/51 92 Room Air Physical Exam GENERAL: alert, cachetic, ill-appearing, non-toxic EYE EXAM: normal conjunctiva, PERRL and EOM's grossly intact OROPHARYNX: no exudate, no erythema, lips, buccal mucosa, and tongue normal and mucous membranes are moist NECK: supple, no nuchal rigidity, no adenopathy, non-tender, on obvious JVD LUNGS: Increased breath sounds. No wheezes, rhonchi, or rales. Normal chest wall mechanics HEART: fast but regular, no murmurs, S1 normal and S2 normal ABDOMEN: abdomen soft, non-tender, normo-active bowel sounds, no masses, no rebound or guarding. BACK: Back is symmetrical on inspection and there is no deformity, no midline tenderness, no CVA tenderness. SKIN: no rashes and no bruising UPPER EXTREMITIES: upper extremities are grossly normal. LOWER EXTREMITIES: No pitting edema. Good pulses. NEURO EXAM: Normal sensorium, cranial nerves II-XII grossly intact, normal speech, no gross weakness of arms, no gross weakness of legs. Medical Decision & Procedures ER Provider Diagnostic Interpretation: Radiology results have been interpreted by the radiologist and reviewed by me. CHEST ONE VIEW PORTABLE CLINICAL HISTORY: Shortness of breath. COMPARISON STUDY: Chest radiograph January 11, 2017. FINDINGS: There is no pneumothorax. Small bilateral pleural effusions are noted. Moderate enlargement of the cardiac silhouette is present. There is severe emphysema. Lower lung prominent interstitial thickening is noted with mild airspace opacity. IMPRESSION: 1. Small bilateral pleural effusions. 2. Lower lung interstitial thickening with mild airspace opacity. The findings could reflect pulmonary edema or pneumonia. Radiographic follow-up is recommended. 3. Severe emphysema. Electronically signed by: Leno Pat M.D. 04/11/2017 8:43 PM Dictated Date/Time: 04/11/2017 8:[address] ANGIOGRAPHY OF THE CHEST, PULMONARY EMBOLUS PROTOCOL CLINICAL HISTORY: Shortness of breath. History of lung mass. COMPARISON STUDY: Chest CT November 29, 2016 and chest radiograph performed earlier today. TECHNIQUE: Following IV administration of 95 mL of Optiray-320, helical axial images of the chest were obtained utilizing the pulmonary embolus protocol. Maximal intensity projections and sagittal and coronal reformats were viewed on an independent 3D workstation. IV contrast was administered without complication. A dose lowering technique was utilized adhering to the principles of ALARA. CT DOSE: 437.23 mGy.cm FINDINGS: No pulmonary emboli are identified. Apparent filling defect within the nondependent aspect of the right lower lobe pulmonary artery suggests mixing artifact. Lower lobe segmental vessels are suboptimally assessed due to respiratory motion and suboptimal opacification. The heart is moderately enlarged. There is no pericardial effusion. Extensive coronary artery calcification is present. There is no evidence for thoracic aortic dissection on this examination. No enlarged lymph nodes are present. Small right and trace left pleural effusions are present. Severe emphysema is noted. Multifocal irregular right middle lobe and lingular airspace opacity has developed since exam of November 29, 2016. Note is made of a 2 cm irregular lingular opacity on image 161 of 371. There is mild bilateral lower lobe opacity which is improved since prior CT. There is no cavitation. Multifocal secretions are noted throughout the airways. Bony thorax is unremarkable. Endovascular stent graft within the abdominal aorta is partially imaged. There is no pneumothorax. IMPRESSION: 1. No pulmonary emboli identified although evaluation of the lower lower lobe segmental and subsegmental vessels is suboptimal due to mixing artifact and suboptimal opacification. 2. Severe emphysema. 3. Increase in right middle lobe and lingular irregular opacities which favor an infectious process such as multifocal pneumonia. However, a follow-up chest CT in 3 months to ensure resolution is recommended to exclude the possibility of a neoplasm. 4. Interval improvement of bilateral lower lobe opacities since prior CT. 5. Small right and trace left pleural effusions. Electronically signed by: Leno Pat M.D. 04/11/2017 9:51 PM Dictated Date/Time: 04/11/2017 9:38 PM Laboratory Results Test 04/11/17 19:45 Immature Granulocyte % (Auto) 0.3 % White Blood Count 7.60 K/uL (4.8-10.8) Red Blood Count 3.67 M/uL (4.7-6.1) Hemoglobin 11.5 g/dL (14.0-18.0) Hematocrit 35.8 % (42-52) Mean Corpuscular Volume 97.5 fL (80-100) Mean Corpuscular Hemoglobin 31.3 pg (25-34) Mean Corpuscular Hemoglobin Concent 32.1 g/dl (32-36) Platelet Count 229 K/uL (130-400) Mean Platelet Volume 8.9 fL (7.4-10.4) Neutrophils (%) (Auto) 75.0 % Lymphocytes (%) (Auto) 14.7 % Monocytes (%) (Auto) 8.6 % Eosinophils (%) (Auto) 1.3 % Basophils (%) (Auto) 0.1 % Neutrophils # (Auto) 5.70 K/uL (1.4-6.5) Lymphocytes # (Auto) 1.12 K/uL (1.2-3.4) Monocytes # (Auto) 0.65 K/uL (0.11-0.59) Eosinophils # (Auto) 0.10 K/uL (0-0.5) Basophils # (Auto) 0.01 K/uL (0-0.2) Immature Granulocyte # (Auto) 0.02 K/uL (0.00-0.02) Prothrombin Time 11.0 SECONDS (9.0-12.0) Prothromb Time International Ratio 1.0 (0.9-1.1) Lactic Acid Level 1.7 mmol/L (0.4-2.0) Pro-B-Type Natriuretic Peptide 7518 pg/ml (0-1800) Laboratory results per my review. Medications Administered Medications (Trade) Dose Ordered Sig/Shabbir Route Start Time Stop Time Status Last Admin Dose Admin Albuterol/ Ipratropium (Duoneb) 3 ml NOW STAT INH 04/11/17 19:10 04/11/17 19:12 DC 04/11/17 19:47 3 ML Lorazepam (Ativan Inj) 0.5 mg NOW STAT IV 04/11/17 20:11 04/11/17 20:14 DC 04/11/17 20:28 0.5 MG Magnesium Sulfate (Magnesium Sulfate) 1 gm NOW STAT IV 04/11/17 20:11 04/11/17 20:14 DC 04/11/17 20:29 1 GM Methylprednisolone Sodium Succinate (Solu-Medrol IV) 125 mg NOW STAT IV 04/11/17 20:11 04/11/17 20:14 DC 04/11/17 20:29 125 MG Furosemide (Lasix Inj) 20 mg NOW STAT IV 04/11/17 20:52 04/11/17 20:53 DC 04/11/17 21:51 20 MG ECG Indication: SOB/dyspnea Rate (beats per minute): 170 Rhythm: sinus tachycardia Findings: RBBB, no acute ischemic change, no ectopy ED Course 1905: The patient was evaluated in room A10. A complete history and physical exam was performed. 1909: Ordered Albuterol/Ipratropium 3 ml INH. 1938: Ordered Albuterol/Ipratropium 3 ml INH. 2004: Signed out to Dr. Solares due to change of shift. 2010: Ordered Methylprednisolone Sodium Succinate `15 mg IV, Magnesium Sulfate 1 gm IV, Lorazepam 0.5 mg IV. 2024: The rn case manager is able to get results from a CT done on March 13, 2017. Pertinent findings are a mass on the left upper lobe and prior resolution of pneumonia. 2051: Ordered Lasix Inj 20 mg IV. 2056: Upon reevaluation, the patient is resting . I discussed the findings and the treatment plan with the patient. He expresses agreement and understanding. I spoke with Dr. Coronel of the [facility]. He will be evaluated for further management. Medical Decision Differential diagnosis: Etiologies such as infections, reactive airway disease, pneumonia, pneumothorax , COPD, CHF, cardiac ischemia, pulmonary embolism, musculoskeletal, gastrointestinal, as well as others were entertained. Pt ill appearing here, offered bipap and he refused. Given neb without improvement. Steroids added. No leukocytosis or fever here, however pt failing outpt therapy. Ct pending given recent discovery of lung mass, unclear etiology, given hx would have to assume high probability of malignancy and thus increased risk of PE. Elevated trop, pt with risk factors for ACS, previously elevated troponins during episodes of COPD exacerbations and pneumonias, also possibly elevated from component of CHF - doubt ACS acutely. No acute EKG changes. Prior hx of elevated BNP, but not to this extent. Prior hx of poor EF and CHF. Concern mostly for infectious etiology, given complicated hx will defer choice of antibiotics to hospitalist. Cultures added. Medication Reconcilliation Current Medication List: was personally reviewed by me Blood Pressure Screening Patient's blood pressure: Normal blood pressure Consults Time Called: 1999 Consulting Physician: Dr. Coronel-[facility] [place] Returned Call: [phone] I reviewed the patient's case with Dr. Rodriguez. He will evaluate the patient for further management. CT chest pending. Impression Primary Impression: Chronic obstructive pulmonary disease Additional Impressions: Congestive heart failure Elevated troponin Lung mass Dyspnea Failure of outpatient treatment Scribe Attestation The scribe's documentation has been prepared under my direction and personally reviewed by me in its entirety. I confirm that the note above accurately reflects all work, treatment, procedures, and medical decision making performed by me. Departure Information Dispostion Being Evaluated By Hospitalist Referrals No Doctor, Assigned (PCP) Patient Instructions My [facility] Problem Qualifiers Primary Impression: Chronic obstructive pulmonary disease COPD type: COPD with acute exacerbation Qualified Codes: J44.1 - Chronic obstructive pulmonary disease with (acute) exacerbation Additional Impressions: Congestive heart failure Congestive heart failure type: combined Congestive heart failure chronicity: acute on chronic Qualified Codes: I50.43 - Acute on chronic combined systolic (congestive) and diastolic (congestive) heart failure Dyspnea Dyspnea type: shortness of breath Qualified Codes: R06.02 - Shortness of breath
[2017-04-11] MEDS ORDERED: ALBUT/IPRATROP 3MG/0.5MG NEB 3 ML VIAL ONE (19:39)
[2017-04-11 20:01] LABS: BASO % 0.1 %; BASO ABS # 0.01 K/uL (0-0.2); COMPLETE YES; EOS % 1.3 %; HEMATOCRIT 35.8 % (42-52); IG% 0.3 %; LYMPH % 14.7 %; LYMPH ABS # 1.12 K/uL (1.2-3.4); MEAN CELL VOLUME 97.5 fL (80-100); MEAN CORPUSCULAR HEMOGLOBIN 31.3 pg (25-34); MEAN CORPUSCULAR HGB CONC 32.1 g/dl (32-36); MEAN PLATELET VOLUME 8.9 fL (7.4-10.4); MONO % 8.6 %; PLATELET COUNT 229 K/uL (130-400); RED BLOOD COUNT 3.67 M/uL (4.7-6.1)
[2017-04-11] MEDS ORDERED: METHYLPREDNISOLONE 125 MG VIAL IV STA (20:11)
[2017-04-11] MEDS ORDERED: LORAZEPAM 2 MG/ML 1 ML VIAL IV STA (20:11)
[2017-04-11] MEDS ORDERED: MAGNESIUM SULFATE 1GM / D5W 1 GM BAG IV STA (20:11)
[2017-04-11 20:23] LABS: BUN/CREATININE RATIO 23.2 (10-20); CALCIUM 8.7 mg/dl (8.5-10.1); CREATININE 0.86 mg/dl (0.60-1.40); MAGNESIUM 2.1 mg/dl (1.8-2.4); POTASSIUM 4.2 mmol/L (3.5-5.1)
[2017-04-11 20:34] LABS: ALB/GLOB RATIO 0.9 (0.9-2)
--- NOTE | 2017-04-11 20:45 | DIAGNOSTIC IMAGING REPORT ---
CHEST ONE VIEW PORTABLE CLINICAL HISTORY: Shortness of breath. COMPARISON STUDY: Chest radiograph January 11, 2017. FINDINGS: There is no pneumothorax. Small bilateral pleural effusions are noted. Moderate enlargement of the cardiac silhouette is present. There is severe emphysema. Lower lung prominent interstitial thickening is noted with mild airspace opacity. IMPRESSION: 1. Small bilateral pleural effusions. 2. Lower lung interstitial thickening with mild airspace opacity. The findings could reflect pulmonary edema or pneumonia. Radiographic follow-up is recommended. 3. Severe emphysema. Electronically signed by: Leno Pat M.D. 04/11/2017 8:43 PM Dictated Date/Time: 04/11/2017 8:41 PM
[2017-04-11] MEDS ORDERED: FUROSEMIDE 40 MG/4 ML VIAL IV STA (20:52)
[2017-04-11] MEDS ORDERED: OPTIRAY 320 IV PRN (21:00)
[2017-04-11] MEDS ORDERED: ENOXAPARIN 60 MG/0.6 ML SYR SQ STA (21:24)
[2017-04-11] MEDS ORDERED: DEXTROSE 50% 50 ML SYR IV PRN (21:30)
[2017-04-11] MEDS ORDERED: GLUCOSE 10 TABS/TUBE PO PRN (21:30)
[2017-04-11] MEDS ORDERED: ONDANSETRON INJ 2 MG/ML 2 ML VIAL IV PRN (21:30)
[2017-04-11] MEDS ORDERED: GLUCOSE 40% GEL 15 GM TUBE PO PRN (21:30)
[2017-04-11] MEDS ORDERED: NITROGLYCERIN 0.4 MG SL PER TAB CHARGE SL PRN (21:30)
[2017-04-11] MEDS ORDERED: GLUCAGON FOR INJ 1 MG VIAL SQ PRN (21:30)
--- NOTE | 2017-04-11 21:40 | History and Physical ---
History & Physical Date & Time of Service: Apr 11, 2017 at 21:32 Chief Complaint: Cant Breathe Primary Care Physician: Juno Wiggins M.D. History of Present Illness Source: patient, family This is an 86 year old M with multiple hospital admissions for respiratory distress from COPD exacerbations vs pneumonia vs CHF. Patient lives at home by himself and is on oxygen. Has been on prednisone and doxycycline for respiratory symptoms for COPD. Presents to the ED for shortness of breath. Denies wheezing or chest pain. Does not report of having a a febrile temperature at home. Patient's vital signs in the ED significant for tachycardia to 120 as he has been receiving nebulizer treatments. Blood pressure measurements have recorded low blood pressure below 90/60. Patient denies lightheadedness. Has been breathing on nasal cannula and speaking in full sentences. He had declined BIPAP when offered in the the emergency room. As per patient and family, his code status is DNR. DNR was also active on last hospital admission in December 2016 Past Medical/Surgical History Medical Problems: (1) AAA (abdominal aortic aneurysm) Permanent Comment: s/p endovascular repair; with persistent type II endoleak Status: Chronic (2) BPH (benign prostatic hypertrophy) Status: Chronic (3) CHF (congestive heart failure) Permanent Comment: systolic Status: Chronic (4) Chronic obstructive pulmonary disease Permanent Comment: on chronic O2 and steroids Status: Chronic (5) Dyslipidemia Status: Chronic (6) GERD (gastroesophageal reflux disease) Status: Chronic (7) Pneumonia Status: Resolved (8) PVD (peripheral vascular disease) Status: Chronic Surgical Problems: (1) Status post aortic aneurysm repair Status: Chronic Family History FH: COPD (chronic obstructive pulmonary disease) FATHER Social History Smoking Status: Former Smoker Housing status: lives alone Immunizations History of Influenza Vaccine: Yes Influenza Vaccine Date: Jul 19, 2016 History of Tetanus Vaccine?: Yes Tetanus Immunization Date: Mar 16, 2015 History of Pneumococcal: Yes Pneumococcal Date: Jul 19, 2016 Multi-Drug Resistant Organisms History of MDRO: No Allergies Coded Allergies: Sulfa Antibiotics (Verified Allergy, Unknown, RASH,NAUSEA,VOMITING, ) Home Medications Scheduled Aspirin (Aspirin EC Low Dose), 81 MG PO DAILY Digoxin (Digoxin), 0.125 MG PO DAILY@16 Finasteride (Proscar), 5 MG PO HS Fluticasone Furoate-Vilanterol (Breo Ellipta), 1 INHA INH DAILY Furosemide (Furosemide), 20 MG PO Q2D Home O2 Therapy (Oxygen), 3.5 LITER NA CONTINOUS Ipratropium-Albuterol (Combivent Respimat), 1 PUFF INH QID Lisinopril (Lisinopril), 1.25 MG PO QPM Metoprolol Succinate (Metoprolol Succinate ER), 12.5 MG PO QAM Multivitamin (Multivitamin), 1 TAB PO DAILY Omeprazole (Prilosec), 20 MG PO DAILY Prednisone Tab (Prednisone), 10 MG PO DAILY Roflumilast (Daliresp), 500 MCG PO DAILY Sertraline (Zoloft), 50 MG PO DAILY Scheduled PRN Dextromethorphan-Guaifenesin (Mucinex Dm), 1 TAB PO Q12 PRN for congestion Doxycycline Hyclate (Doxycycline Hyclate), 100 MG PO BID PRN for COPD Rescue Kit Ipratropium [place] (Atrovent 0.02% Soln), 2.5 ML INH Q6-8HRS PRN for SOB/ Wheezing Ipratropium-Albuterol (Duoneb), 1 TREATMENT INH QID PRN for SOB/Wheezing Lorazepam (Lorazepam), 0.5 MG PO BID PRN for Anxiety Prednisone Tab (Prednisone), 10 MG PO UD PRN for COPD Rescue Kit Physical Exam Vital Signs Date Time Temp Pulse Resp B/P (MAP) Pulse Ox O2 Delivery O2 Flow Rate FiO2 04/11/17 20:35 123 32 104/67 97 Nasal Cannula 3.5 04/11/17 19:09 108 04/11/17 18:44 92 Nasal Cannula 3.5 04/11/17 18:44 36.7 110 22 85/51 92 Room Air General Appearance: no apparent distress Head: normocephalic, atraumatic Eyes: normal inspection, EOMI ENT: hearing grossly normal, pharynx normal Neck: no JVD Respiratory/Chest: normal breath sounds, no accessory muscle use Cardiovascular: no edema, no JVD, + tachycardia Abdomen/GI: non tender, soft Neurologic/Psych: alert, oriented x 3 Skin: normal color Diagnostics Laboratory Results Results Past 24 Hours Test 04/11/17 19:45 Range/Units White Blood Count 7.60 4.8-10.8 K/uL Red Blood Count 3.67 4.7-6.1 M/uL Hemoglobin 11.5 14.0-18.0 g/dL Hematocrit 35.8 42-52 % Mean Corpuscular Volume 97.5 80-100 fL Mean Corpuscular Hemoglobin 31.3 25-34 pg Mean Corpuscular Hemoglobin Concent 32.1 32-36 g/dl Platelet Count 229 130-400 K/uL Mean Platelet Volume 8.9 7.4-10.4 fL Neutrophils (%) (Auto) 75.0 % Lymphocytes (%) (Auto) 14.7 % Monocytes (%) (Auto) 8.6 % Eosinophils (%) (Auto) 1.3 % Basophils (%) (Auto) 0.1 % Neutrophils # (Auto) 5.70 1.4-6.5 K/uL Lymphocytes # (Auto) 1.12 1.2-3.4 K/uL Monocytes # (Auto) 0.65 0.11-0.59 K/uL Eosinophils # (Auto) 0.10 0-0.5 K/uL Basophils # (Auto) 0.01 0-0.2 K/uL RDW Standard Deviation 55.5 36.4-46.3 fL RDW Coefficient of Variation 15.6 11.5-14.5 % Immature Granulocyte % (Auto) 0.3 % Immature Granulocyte # (Auto) 0.02 0.00-0.02 K/uL Prothrombin Time 11.0 9.0-12.0 SECONDS Prothromb Time International Ratio 1.0 0.9-1.1 Sodium Level 140 136-145 mmol/L Potassium Level 4.2 3.5-5.1 mmol/L Chloride Level 101 98-107 mmol/L Carbon Dioxide Level 37 21-32 mmol/L Anion Gap 2.0 3-11 mmol/L Blood Urea Nitrogen 20 7-18 mg/dl Creatinine 0.86 0.60-1.40 mg/dl Est Creatinine Clear Calc Drug Dose 52.9 ml/min Estimated GFR () 91.6 Estimated GFR (Non- 79.1 BUN/Creatinine Ratio 23.2 10-20 Random Glucose 121 70-99 mg/dl Lactic Acid Level 1.7 0.4-2.0 mmol/L Calcium Level 8.7 8.5-10.1 mg/dl Magnesium Level 2.1 1.8-2.4 mg/dl Total Bilirubin 0.2 0.2-1 mg/dl Aspartate Amino Transf (AST/SGOT) 17 15-37 U/L Alanine Aminotransferase (ALT/SGPT) 19 12-78 U/L Alkaline Phosphatase 77 45-117 U/L Troponin I 0.209 0-0.045 ng/ml Pro-B-Type Natriuretic Peptide 7518 0-1800 pg/ml Total Protein 6.4 6.4-8.2 gm/dl Albumin 3.0 3.4-5.0 gm/dl Globulin 3.4 2.5-4.0 gm/dl Albumin/Globulin Ratio 0.9 0.9-2 Microbiology Results 04/11/17 Blood Culture, Ordered Pending 04/11/17 Blood Culture, Ordered Pending Diagnostic Radiology CHEST ONE VIEW PORTABLE CLINICAL HISTORY: Shortness of breath. COMPARISON STUDY: Chest radiograph January 11, 2017. FINDINGS: There is no pneumothorax. Small bilateral pleural effusions are noted. Moderate enlargement of the cardiac silhouette is present. There is severe emphysema. Lower lung prominent interstitial thickening is noted with mild airspace opacity. IMPRESSION: 1. Small bilateral pleural effusions. 2. Lower lung interstitial thickening with mild airspace opacity. The findings could reflect pulmonary edema or pneumonia. Radiographic follow-up is recommended. 3. Severe emphysema. EKG EKG sinus tachycardia 107 bpm Impression Assessment and Plan This is an 86 year old M with multiple hospital admissions for respiratory distress from COPD exacerbations vs pneumonia vs CHF. Presents for respiratory distress then with progressively increased heart rate and low blood pressure while receiving nebulizer treatments. Labs concerning for elevated troponins. ED physician has ordered CTA of the chest for rule out pulmonary embolism. Results pending. In the context of tachypnea, tachycardia and elevated troponins will order full dose anticoagulation with Lovenox to treat empirically for pulmonary embolism NSTEMI. Patient to be observed on telemetry monitoring. Patient also to be treated for COPD exacerbation with nebulizers and solumedrol and home dose medications of roflumilast. Blood cultures to be sent. Azithromycin to be started empirically if COPD exacerbation triggered by pneumonia. Continue home medications of Lasix for CHF. Will request BIPAP at bedside however patient has declined BIPAP in the ED Fingerstick glucose with insulin coverage while receiving solumedrol As per patient and family, his code status is DNR. Level of Care Telemetry Resuscitation Status DO NOT RESUSCITATE VTE Prophylaxis VTE Risk Assessment Done? Y/N: Yes Risk Level: Moderate Given or contraindicated: Enoxaparin (Lovenox)SQ, Other Anticoagulation
--- NOTE | 2017-04-11 21:52 | DIAGNOSTIC IMAGING REPORT ---
CT ANGIOGRAPHY OF THE CHEST, PULMONARY EMBOLUS PROTOCOL CLINICAL HISTORY: Shortness of breath. History of lung mass. COMPARISON STUDY: Chest CT November 29, 2016 and chest radiograph performed earlier today. TECHNIQUE: Following IV administration of 95 mL of Optiray-320, helical axial images of the chest were obtained utilizing the pulmonary embolus protocol. Maximal intensity projections and sagittal and coronal reformats were viewed on an independent 3D workstation. IV contrast was administered without complication. A dose lowering technique was utilized adhering to the principles of ALARA. CT DOSE: 437.23 mGy.cm FINDINGS: No pulmonary emboli are identified. Apparent filling defect within the nondependent aspect of the right lower lobe pulmonary artery suggests mixing artifact. Lower lobe segmental vessels are suboptimally assessed due to respiratory motion and suboptimal opacification. The heart is moderately enlarged. There is no pericardial effusion. Extensive coronary artery calcification is present. There is no evidence for thoracic aortic dissection on this examination. No enlarged lymph nodes are present. Small right and trace left pleural effusions are present. Severe emphysema is noted. Multifocal irregular right middle lobe and lingular airspace opacity has developed since exam of November 29, 2016. Note is made of a 2 cm irregular lingular opacity on image 161 of 371. There is mild bilateral lower lobe opacity which is improved since prior CT. There is no cavitation. Multifocal secretions are noted throughout the airways. Bony thorax is unremarkable. Endovascular stent graft within the abdominal aorta is partially imaged. There is no pneumothorax. IMPRESSION: 1. No pulmonary emboli identified although evaluation of the lower lower lobe segmental and subsegmental vessels is suboptimal due to mixing artifact and suboptimal opacification. 2. Severe emphysema. 3. Increase in right middle lobe and lingular irregular opacities which favor an infectious process such as multifocal pneumonia. However, a follow-up chest CT in 3 months to ensure resolution is recommended to exclude the possibility of a neoplasm. 4. Interval improvement of bilateral lower lobe opacities since prior CT. 5. Small right and trace left pleural effusions. Electronically signed by: Leno Pat M.D. 04/11/2017 9:51 PM Dictated Date/Time: 04/11/2017 9:38 PM
[2017-04-11 22:06] VITALS: BP 98/64; PULSE 116; TEMP 36.7; O2SAT 94; Ht 172.7 cm; Wt 56.3 kg
[2017-04-11] MEDS ORDERED: ASPIRIN 81 MG CHEW PO STA (22:11)
[2017-04-11] MEDS ORDERED: ATORVASTATIN 40 MG TAB PO STA (22:11)
[2017-04-11] MEDS ORDERED: AZITHROMYCIN IV 500 MG in DEXTROSE 5% 250ML 250 ML IV ONE (22:30)
[2017-04-11 22:31] VITALS: BP 113/70; PULSE 58; TEMP 36.7; O2SAT 94
[2017-04-12] VITALS (10 sets, daily range): BP systolic 67–115; BP diastolic 39–68; PULSE 63–111; TEMP 36.3–36.9; O2SAT 94–99
[2017-04-12] MEDS ORDERED: IV FLUIDS COMPLETED PRN (00:15)
[2017-04-12] MEDS: ALBUT/IPRATROP 3MG/0.5MG NEB 3 ML VIAL INH SCH ×3 (01:38→14:09)
[2017-04-12] MEDS ORDERED: IPRATROPIUM BROMIDE/ALBUTEROL respimat INH INH STA (02:09)
[2017-04-12 02:14] LABS: CKMB/CK RATIO 6.6 (0-3.0)
[2017-04-12] MEDS: METHYLPREDNISOLONE IV 125 MG in SYRINGE 0 ML IV SCH ×2 (03:58→12:25)
[2017-04-12] MEDS ORDERED: INSULIN ASPART 100 UNITS/ML 3 ML PEN SC SCH (06:30)
[2017-04-12 06:59] LABS: HEMATOCRIT 37.2 % (42-52); MEAN CELL VOLUME 97.9 fL (80-100); MEAN CORPUSCULAR HEMOGLOBIN 30.8 pg (25-34); MEAN CORPUSCULAR HGB CONC 31.5 g/dl (32-36); MEAN PLATELET VOLUME 9.3 fL (7.4-10.4); PLATELET COUNT 281 K/uL (130-400); WHITE BLOOD COUNT 8.45 K/uL (4.8-10.8)
[2017-04-12 07:29] LABS: BUN/CREATININE RATIO 23.1 (10-20); CALCIUM 8.8 mg/dl (8.5-10.1); CREATININE 0.87 mg/dl (0.60-1.40); MAGNESIUM 2.1 mg/dl (1.8-2.4); POTASSIUM 4.6 mmol/L (3.5-5.1)
[2017-04-12 07:39] LABS: ALB/GLOB RATIO 0.9 (0.9-2)
[2017-04-12] MEDS: PANTOprazole SOD 40 MG TAB PO SCH (08:12)
[2017-04-12] MEDS: SERTRALINE HCL 50 MG TAB PO SCH (08:12)
[2017-04-12] MEDS: ROFLUMILAST 500 MCG TAB PO SCH (08:12)
[2017-04-12] MEDS: METOPROLOL SUCC 25MG EXT REL TAB PO SCH (08:13)
[2017-04-12] MEDS: ASPIRIN 81 MG ECTAB PO SCH (08:13)
[2017-04-12] MEDS ORDERED: FUROSEMIDE 20 MG TAB PO SCH (09:00)
[2017-04-12] MEDS: AZITHROMYCIN IV 500 MG in DEXTROSE 5% 250ML 250 ML IV SCH (09:12)
[2017-04-12] MEDS: IPRATROPIUM BROMIDE/ALBUTEROL respimat INH INH SCH ×3 (13:14→21:34)
--- NOTE | 2017-04-12 14:47 | Pulmonary Consultation ---
History General Date of Service: Apr 12, 2017. Stated Complaint: SOB HPI The patient is a 86 year old male who presents to [facility] with complaints of SOB. The patient's primary care provider is Juno Wiggins M.D.. 86-year-old gentleman admitted for acute on chronic respiratory insufficiency: He's been experiencing increasing shortness of breath with decreasing mucus/ sputum production the last 2-3 days prior to admission. He notes a chronic cough which is clear but thick in nature which is notably changed to days prior to his admission. He denied: Fever, chills, hemoptysis, pleurisy or classic cardiac chest pain. He did note a history of weight loss but was unable to define the overall time this was occurring. EKG: Sinus tachycardia, RBBB, WBC: 8K PLT: 281K INR: 1.0 Troponin I: [id number] Pro-BNP: 7518 ALB: 3.0 (L) BUN: 20--20 Cr: 0.860.87 CO2: 3737 CXR: Hilar fullness, cephalization, parabronchial cuffing, bilateral costophrenic blunting left > right CT angiogram of the chest 04/11/2017 compared to 11/29/2016 No pulmonary emboli Severe emphysema Bilateral loculated pleural effusions Bilateral lower lobe bronchiectasis with interstitial changes left greater than right Inferior lateral lingual vini-leural nodule increased in size from 13mm to 25mm Increase infiltrative bronchiectatic changes in the lingula and right middle lobe Primary function studies -2016 Spirometry: Severe obstructive ventilatory disease Bronchodilator: No significant response Alarms: Signs of hyperinflation DLCO: Reduced Echocardiogram 01/09/2017 LV: EF=20-25% RV: Moderate to severely reduced Microbiology Bronchial washing 08/23/2007: Haemophilus influenza, Fungal species Urine 11/25/2010: Pseudomonas (pansensitive) Urine for trial 2017: Corynebacterium Expectorated sputum 01/14/2017: Within normal limits Medications #1 Prednisone 40 mg daily #2 Combivent one puff 4 times a day #3 Daliresp 500 g daily #4 Azithromycin 500 mg daily #5 DuoNeb 6 hours Historian: patient, EMS Review of Systems Constitutional: reports: weakness Eyes: reports: no symptoms ENT: reports: no symptoms Cardiovascular: reports: as stated in HPI Respiratory: reports: as stated in HPI Gastrointestinal: reports: no symptoms Genitourinary - Male: reports: no symptoms Integumentary: reports: no symptoms Neurologic: reports: no symptoms Psychiatric: reports: no symptoms Endocrine: no symptoms Hematologic / Lymphatic: no symptoms Allergic / Immunologic: no symptoms Past Medical History Past Medical History: #1 macular degeneration #2 COPD-oxygen and steroid-dependent #3 allergic rhinitis #4 history of tobacco abuse #5 GERD #6 Abdominal aortic aneurysm #7 benign prostatic hypertrophy #8 dyslipidemia Past Surgical History: #1 photocoagulation #2 bronchoscopy #3 aortic aneurysm repair Family History FH: COPD (chronic obstructive pulmonary disease) FATHER Alzheimers COPD Social History 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 Children: 5 Tobacco: 87-62-rnox-year history quit 2001 Hx Tobacco Use In Past Year?: No (quit smoking in approx 1999) Smoking Status: Former Smoker Housing status: lives alone Immunizations History of Influenza Vaccine: Yes Influenza Vaccine Date: Jul 19, 2016 History of Tetanus Vaccine?: Yes Tetanus Immunization Date: Mar 16, 2015 History of Pneumococcal: Yes Pneumococcal Date: Jul 19, 2016 History of MDRO History of MDRO: No Allergies Coded Allergies: Sulfa Antibiotics (Verified Allergy, Unknown, RASH,NAUSEA,VOMITING, ) Current Medications Reported Home Medications Medications Dose Route/Sig Max Daily Dose Days Date Category Dose Instructions Furosemide 20 Mg Tab 20 Mg PO Q2D 30 01/17/17 Rx Metoprolol Succinate ER (Metoprolol Succinate) 25 Mg Tabcr 12.5 Mg PO QAM 30 01/17/17 Rx Lisinopril 2.5 Mg Tab 1.25 Mg PO QPM 30 01/17/17 Rx Digoxin 0.125 Mg Tab 0.125 Mg PO DAILY@16 30 01/17/17 Rx Duoneb (Ipratropium-Albuterol) 3 Ml Nebu 1 Treatment INH QID PRN 01/10/17 Reported Atrovent 0.02% Soln (Ipratropium [place]) 2.5 Ml Nebu 2.5 Ml INH Q6-8HRS PRN 01/10/17 Reported MAY MIX WITH ALBUTEROL Doxycycline Hyclate 100 Mg Tab 100 Mg PO BID PRN 7 01/10/17 Reported TAKE MD HUGH Prednisone 10 Mg Tab 10 Mg PO UD PRN 01/10/17 Reported COPD RESCUE KIT-TAPER DOWN DOSING FOLLOWS: TAKE 5 TABLETS (50 MG) DAILY FOR 2 DAYS THEN, TAKE 4 TABLETS (40 MG) DAILY FOR 2 DAYS THEN, TAKE 3 TABLETS (30 MG) DAILY FOR 2 DAYS THEN, TAKE 2 TABLETS (20 MG) DAILY FOR 2 DAYS THEN, TAKE 1 TABLET (10 MG) DAILY FOR 2 DAYS. Mucinex Dm (Dextromethorphan-Guaifenesin) 1 Tab Tab 1 Tab PO Q12 PRN 11/29/16 Reported TAKE THIS MEDICATION WITH PLENTY OF WATER Aspirin EC Low Dose (Aspirin) 81 Mg Ectab 81 Mg PO DAILY 11/29/16 Reported Prednisone 10 Mg Tab 10 Mg PO DAILY 11/29/16 Reported Zoloft (Sertraline HCl) 50 Mg Tab 50 Mg PO DAILY 11/29/16 Reported Breo Ellipta (Fluticasone Furoate-Vilanterol) 1 Inh Inh 1 Inha INH DAILY 11/29/16 Reported Combivent Respimat (Ipratropium-Albuterol) 1 Aer Aer 1 Puff INH QID 11/29/16 Reported Prilosec (Omeprazole) 20 Mg Cap 20 Mg PO DAILY 11/29/16 Reported TAKE THIS MEDICATION ONCE DAILY ONE HOUR BEFORE FIRST MEAL OF THE DAY Lorazepam 0.5 Mg Tab 0.5 Mg PO BID PRN 11/29/16 Reported Oxygen Gas 3.5 Liter NA CONTINOUS 05/25/14 Reported Daliresp (Roflumilast) 500 Mcg Tab 500 Mcg PO DAILY 02/26/14 Reported Proscar (Finasteride) 5 Mg Tab 5 Mg PO HS 02/05/11 Reported Multivitamin (Multivitamins) Tab 1 Tab PO DAILY 02/05/11 Reported Physical Physical Exam Vital Signs: Date Time Temp Pulse Resp B/P (MAP) Pulse Ox O2 Delivery O2 Flow Rate FiO2 04/12/17 11:13 90/52 (65) 70/52 (58) 04/12/17 11:11 36.4 95 20 67/39 (48) 98 4.0 91/50 (64) 04/12/17 08:00 98 Nasal Cannula 4.0 04/12/17 07:19 36.4 102 18 103/64 (77) 97 04/12/17 04:07 36.9 63 18 115/54 (74) 97 Room Air 04/12/17 04:00 Nasal Cannula 3.5 04/12/17 00:00 98 Nasal Cannula 3.5 04/11/17 22:31 36.7 58 26 113/70 (84) 94 Nasal Cannula 3.5 04/11/17 22:06 36.7 116 24 98/64 94 Nasal Cannula 3.5 04/11/17 21:51 116 24 98/64 95 Nasal Cannula 3.5 04/11/17 20:35 123 32 104/67 97 Nasal Cannula 3.5 04/11/17 19:09 108 04/11/17 18:44 92 Nasal Cannula 3.5 04/11/17 18:44 36.7 110 22 85/51 92 Room Air General Appearance: WELL-APPEARING, NO APPARENT DISTRESS Head: NORMOCEPHALIC, ATRAUMATIC Eyes: PERRLA, NO DISCHARGE, EOMI ENT: NORMAL EAR EXAM, NORMAL NASAL EXAM, NORMAL MOUTH EXAM, other Neck: other (less than 1+ JVD noted on the right unable to appreciate on left) Respiratory: other (decreased breath sounds globally with minimal expiratory phase unable to appreciate rhonchi or wheezes) Cardiovasular: REGULAR RATE/RHYTHM, NORMAL S1S2, other (distant heart sounds unable to auscultate for murmurs rubs or gallops) Abdomen: NON TENDER, NORMAL BOWEL SOUNDS, NO REBOUND, NO MASSES, NO GUARDING Genitourinary - Male: EXTERNAL GENITALIA NORMAL Back: NORMAL INSPECTION, NO MIDLINE TENDERNESS, other (small sebaceous cysts appreciated over the mid thoracic region along the vertebral bodies) Upper Extremities: NO EDEMA, NO DEFORMITY, NORMAL ROM Lower Extremities: NO EDEMA, NO DEFORMITY, other (lower extremities/feet notably cold with decreased pulses) Pulses: carotid (R) (1+), carotid (L) (1+), posterior tibial (R), posterior tibial (L) (0) Neuro: ALERT, ORIENTED x 3 Reflexes: biceps (R) (1+), bicpes (L) (1+), patellar (R) (1+), patellar (L) (1+ ) Babinski Testing: right (downgoing), left (downgoing) Psychiatric: NORMAL AFFECT, NO SUICIDAL IDEATION Diagnostics Labs Results Past 24 Hours Test 04/11/17 19:45 04/11/17 22:45 04/12/17 01:33 04/12/17 06:20 Range/Units White Blood Count 7.60 8.45 4.8-10.8 K/uL Red Blood Count 3.67 3.80 4.7-6.1 M/uL Hemoglobin 11.5 11.7 14.0-18.0 g/dL Hematocrit 35.8 37.2 42-52 % Mean Corpuscular Volume 97.5 97.9 80-100 fL Mean Corpuscular Hemoglobin 31.3 30.8 25-34 pg Mean Corpuscular Hemoglobin Concent 32.1 31.5 32-36 g/dl Platelet Count 229 281 130-400 K/uL Mean Platelet Volume 8.9 9.3 7.4-10.4 fL Neutrophils (%) (Auto) 75.0 % Lymphocytes (%) (Auto) 14.7 % Monocytes (%) (Auto) 8.6 % Eosinophils (%) (Auto) 1.3 % Basophils (%) (Auto) 0.1 % Neutrophils # (Auto) 5.70 1.4-6.5 K/uL Lymphocytes # (Auto) 1.12 1.2-3.4 K/uL Monocytes # (Auto) 0.65 0.11-0.59 K/uL Eosinophils # (Auto) 0.10 0-0.5 K/uL Basophils # (Auto) 0.01 0-0.2 K/uL RDW Standard Deviation 55.5 56.3 36.4-46.3 fL RDW Coefficient of Variation 15.6 15.7 11.5-14.5 % Immature Granulocyte % (Auto) 0.3 % Immature Granulocyte # (Auto) 0.02 0.00-0.02 K/uL Prothrombin Time 11.0 9.0-12.0 SECONDS Prothromb Time International Ratio 1.0 0.9-1.1 Sodium Level 140 137 136-145 mmol/L Potassium Level 4.2 4.6 3.5-5.1 mmol/L Chloride Level 101 96 98-107 mmol/L Carbon Dioxide Level 37 37 21-32 mmol/L Anion Gap 2.0 4.0 3-11 mmol/L Blood Urea Nitrogen 20 20 7-18 mg/dl Creatinine 0.86 0.87 0.60-1.40 mg/dl Est Creatinine Clear Calc Drug Dose 52.9 52.9 ml/min Estimated GFR () 91.6 91.2 Estimated GFR (Non- 79.1 78.7 BUN/Creatinine Ratio 23.2 23.1 10-20 Random Glucose 121 172 70-99 mg/dl Lactic Acid Level 1.7 0.4-2.0 mmol/L Calcium Level 8.7 8.8 8.5-10.1 mg/dl Magnesium Level 2.1 2.1 1.8-2.4 mg/dl Total Bilirubin 0.2 0.4 0.2-1 mg/dl Aspartate Amino Transf (AST/SGOT) 17 20 15-37 U/L Alanine Aminotransferase (ALT/SGPT) 19 22 12-78 U/L Alkaline Phosphatase 77 68 45-117 U/L Troponin I 0.209 0.272 0.366 0-0.045 ng/ml Pro-B-Type Natriuretic Peptide 7518 0-1800 pg/ml Total Protein 6.4 6.6 6.4-8.2 gm/dl Albumin 3.0 3.1 3.4-5.0 gm/dl Globulin 3.4 3.5 2.5-4.0 gm/dl Albumin/Globulin Ratio 0.9 0.9 0.9-2 Digoxin Level 0.6 0.8-2.0 ng/ml Total Creatine Kinase 56 64 39-308 U/L Creatine Kinase MB 3.7 4.5 0.5-3.6 ng/ml Creatine Kinase MB Ratio 6.6 7.0 0-3.0 Test 04/12/17 07:35 04/12/17 11:30 Range/Units Bedside Glucose 152 131 70-99 mg/dl Microbiology Results 04/11/17 Blood Culture, Received Pending 04/11/17 Blood Culture, Received Pending Diagnostic Radiology CXR: Hilar fullness, cephalization, parabronchial cuffing, bilateral costophrenic blunting left > right CT angiogram of the chest 04/11/2017 compared to 11/29/2016 No pulmonary emboli Severe emphysema Bilateral loculated pleural effusions Bilateral lower lobe bronchiectasis with interstitial changes left greater than right Inferior lateral lingual vini-leural nodule increased in size from 13mm to 25mm Increase infiltrative bronchiectatic changes in the lingula and right middle lobe EKG Sinus tachycardia, RBBB Impression Assessment and Plan 86-year-old gentleman admitted for acute on chronic respiratory insufficiency: #1 Respiratory: His respiratory insufficiency is most likely a combination of his chronic heart failure with recent elevated BNP and troponins as well as chronic and progressive obstructive ventilatory disease. It also looks/appears on CAT scan that the patient is having progressive bronchiectatic changes with left lower lobe, lingular and right middle lobe destruction. The signs to suggest a chronic infection such as ROSARIO adding to his dysfunction. Agree with the patient's current antibiotic and steroid dosing as well as Combivent and continuation of his Daliresp. Also continuation of his current oxygen support trying to maintain his SaO2 between 88 and 92%. I would like Pulmozyme as well as chest physiotherapy to his current regimen to increase his mucous clearance per, interventions ordered. #2 abnormal CAT scan: Patient is abnormal CAT scan with emphysematous changes as well as chronic bronchiectasis, bilateral pleural effusions appear loculated nature and increasing lung distraction in the right middle lobe, lingula and left lower lobe predominantly. These changes are consistent with her chronic infection such as ROSARIO. At this time if the patient has increasing sputum production will order sputum/microbiology. #3 pleural effusion's: Patient does have bilateral pleural effusions which is increased from his previous CAT scan in 2017. These do appear loculated in nature it would not suggest any further workup at this time. There most likely associated with her chronic cardiac dysfunction and underlying lung disease.
[2017-04-12] MEDS ORDERED: NURSING VERBAL MED ORDER ONE (15:15)
[2017-04-12] MEDS: DIGOXIN 0.125 MG TAB PO SCH (16:03)
--- NOTE | 2017-04-12 18:04 | Progress Note ---
Subjective Date of Service: Apr 12, 2017. Subjective Pt evaluation today including: conversation w/ patient, physical exam, lab review, review of studies, conversation w/ managed services consultant, review of inpatient medication list Saw/examined the patient in room 276 States his breathing improved from admission, but still short of breath Seated in a chair No chest pain No palpitations, no edema Problem List Medical Problems: (1) Chronic obstructive pulmonary disease Permanent Comment: on chronic O2 and steroids Status: Chronic (2) Congestive heart failure Status: Acute (3) Elevated troponin Status: Acute (4) Hypoxia Status: Acute (5) Lung mass Status: Acute (6) Pneumonia Status: Acute Review of Systems Constitutional: No fever, No chills Respiratory: + cough, + sputum, + wheezing, + shortness of breath, + dyspnea on exertion, + dyspnea at rest, No hemoptysis Cardiac: No chest pain, No edema, No palpitations Medications Current Inpatient Medications Medications (Trade) Dose Ordered Sig/Shabbir Route Start Time Stop Time Status Last Admin Dose Admin Ioversol (Optiray 320) 111 ml UD PRN IV 04/11/17 21:00 04/15/17 20:59 Acetaminophen (Tylenol Tab) 650 mg Q4H PRN PO 04/11/17 21:30 05/11/17 21:29 04/12/17 19:19 650 MG Ondansetron HCl (Zofran Inj) 4 mg Q6H PRN IV 04/11/17 21:30 05/11/17 21:29 Nitroglycerin (Nitrostat Tab) 0.4 mg UD PRN SL 04/11/17 21:30 05/11/17 21:29 Aspirin (Ecotrin Tab) 81 mg DAILY PO 04/12/17 09:00 05/12/17 08:59 04/13/17 08:29 81 MG Digoxin (Lanoxin Tab) 0.125 mg DAILY@16 PO 04/12/17 16:00 05/12/17 15:59 04/12/17 16:03 0.125 MG Finasteride (Proscar Tab) 5 mg HS PO 04/12/17 21:00 05/12/17 20:59 04/12/17 21:34 5 MG Furosemide (Lasix Tab) 20 mg Q2D@0900 PO 04/12/17 09:00 05/12/17 08:59 Future Hold 04/12/17 08:13 20 MG Lisinopril (Zestril Tab) 1.25 mg QPM PO 04/12/17 21:00 05/12/17 20:59 Future Hold Lorazepam (Ativan Tab) 0.5 mg BID PRN PO 04/11/17 21:30 05/11/17 21:29 04/13/17 11:15 0.5 MG Metoprolol Succinate (Toprol Xl Tab) 12.5 mg QAM PO 04/12/17 09:00 05/12/17 08:59 Future Hold 04/12/17 08:13 12.5 MG Roflumilast (Daliresp Tab) 500 mcg DAILY PO 04/12/17 09:00 05/12/17 08:59 04/13/17 08:30 500 MCG Sertraline HCl (Zoloft Tab) 50 mg DAILY PO 04/12/17 09:00 05/12/17 08:59 04/13/17 08:30 50 MG Miscellaneous Information (Order Awaiting Action) 1 ea QS N/A 04/12/17 00:00 05/12/17 00:00 Miscellaneous Information (Order Awaiting Action) 1 ea QS N/A 04/12/17 00:00 05/12/17 00:00 Pantoprazole Sodium (Protonix Tab) 40 mg DAILY PO 04/12/17 09:00 05/12/17 08:59 04/13/17 08:30 40 MG Azithromycin 500 mg/Dextrose 255 ml @ 125 mls/hr DAILY IV 04/12/17 09:00 04/19/17 08:59 04/13/17 08:38 125 MLS/HR Miscellaneous (Iv Fluids Completed) 1 ea PRN PRN N/A 04/12/17 00:15 04/12/18 00:14 Albuterol/ Ipratropium (Combivent Respimat Inh) 1 puffs QID INH 04/12/17 13:00 05/12/17 12:59 04/13/17 08:29 1 PUFFS Dornase Thiago (Pulmozyme Inhalation Soln 2.5ml Amp) 2.5 ml BIDR INH 04/12/17 20:00 05/12/17 19:59 04/13/17 10:22 2.5 ML Albuterol/ Ipratropium (Duoneb) 3 ml Q2H PRN INH 04/12/17 15:30 05/12/17 15:29 Heparin Sodium (Porcine) (Heparin Sq 5000 Unit/0.5ml) 5,000 unit Q12 SQ 04/12/17 21:00 05/12/17 20:59 04/12/17 21:33 5,000 UNIT Methylprednisolone Sodium Succinate 40 mg/Syringe 0.64 ml @ 1.5 mls/min TODAY@1145 IV 04/13/17 11:45 04/13/17 14:00 Methylprednisolone Sodium Succinate 60 mg/Syringe 0.96 ml @ 1.5 mls/min Q8H IV 04/13/17 16:00 05/13/17 15:59 Fluticasone Propionate (Flovent Hfa 220MCG Inhaler) 2 puffs BID INH 04/13/17 21:00 05/13/17 20:59 Ceftriaxone Sodium 1 gm/ Dextrose 50 ml @ 100 mls/hr Q24H IV 04/13/17 12:00 04/20/17 11:59 Lorazepam (Ativan Tab) 0.5 mg TODAY@1145 PO 04/13/17 11:45 04/13/17 14:00 Objective Vital Signs Date Time Temp Pulse Resp B/P (MAP) Pulse Ox O2 Delivery O2 Flow Rate FiO2 04/12/17 16:03 106 04/12/17 16:00 Nasal Cannula 3.5 04/12/17 15:16 36.7 111 20 89/46 (60) 94 Nasal Cannula 3.5 04/12/17 12:00 98 Nasal Cannula 4.0 04/12/17 11:13 90/52 (65) 70/52 (58) 04/12/17 11:11 36.4 95 20 67/39 (48) 98 4.0 91/50 (64) 04/12/17 08:00 98 Nasal Cannula 4.0 04/12/17 07:19 36.4 102 18 103/64 (77) 97 04/12/17 04:07 36.9 63 18 115/54 (74) 97 Room Air 04/12/17 04:00 Nasal Cannula 3.5 04/12/17 00:00 98 Nasal Cannula 3.5 04/11/17 22:31 36.7 58 26 113/70 (84) 94 Nasal Cannula 3.5 04/11/17 22:06 36.7 116 24 98/64 94 Nasal Cannula 3.5 04/11/17 21:51 116 24 98/64 95 Nasal Cannula 3.5 04/11/17 20:35 123 32 104/67 97 Nasal Cannula 3.5 04/11/17 19:09 108 04/11/17 18:44 92 Nasal Cannula 3.5 04/11/17 18:44 36.7 110 22 85/51 92 Room Air Physical Exam General Appearance: no apparent distress Respiratory/Chest: + decreased breath sounds, + wheezing Neurologic/Psychiatric: no motor/sensory deficits, alert, normal mood/affect Laboratory Results Last 24 Hours Test 04/11/17 19:45 04/11/17 22:45 04/12/17 01:33 04/12/17 06:20 White Blood Count 7.60 K/uL 8.45 K/uL Red Blood Count 3.67 M/uL 3.80 M/uL Hemoglobin 11.5 g/dL 11.7 g/dL Hematocrit 35.8 % 37.2 % Mean Corpuscular Volume 97.5 fL 97.9 fL Mean Corpuscular Hemoglobin 31.3 pg 30.8 pg Mean Corpuscular Hemoglobin Concent 32.1 g/dl 31.5 g/dl Platelet Count 229 K/uL 281 K/uL Mean Platelet Volume 8.9 fL 9.3 fL Neutrophils (%) (Auto) 75.0 % Lymphocytes (%) (Auto) 14.7 % Monocytes (%) (Auto) 8.6 % Eosinophils (%) (Auto) 1.3 % Basophils (%) (Auto) 0.1 % Neutrophils # (Auto) 5.70 K/uL Lymphocytes # (Auto) 1.12 K/uL Monocytes # (Auto) 0.65 K/uL Eosinophils # (Auto) 0.10 K/uL Basophils # (Auto) 0.01 K/uL RDW Standard Deviation 55.5 fL 56.3 fL RDW Coefficient of Variation 15.6 % 15.7 % Immature Granulocyte % (Auto) 0.3 % Immature Granulocyte # (Auto) 0.02 K/uL Prothrombin Time 11.0 SECONDS Prothromb Time International Ratio 1.0 Sodium Level 140 mmol/L 137 mmol/L Potassium Level 4.2 mmol/L 4.6 mmol/L Chloride Level 101 mmol/L 96 mmol/L Carbon Dioxide Level 37 mmol/L 37 mmol/L Anion Gap 2.0 mmol/L 4.0 mmol/L Blood Urea Nitrogen 20 mg/dl 20 mg/dl Creatinine 0.86 mg/dl 0.87 mg/dl Est Creatinine Clear Calc Drug Dose 52.9 ml/min 52.9 ml/min Estimated GFR () 91.6 91.2 Estimated GFR (Non- 79.1 78.7 BUN/Creatinine Ratio 23.2 23.1 Random Glucose 121 mg/dl 172 mg/dl Lactic Acid Level 1.7 mmol/L Calcium Level 8.7 mg/dl 8.8 mg/dl Magnesium Level 2.1 mg/dl 2.1 mg/dl Total Bilirubin 0.2 mg/dl 0.4 mg/dl Aspartate Amino Transf (AST/SGOT) 17 U/L 20 U/L Alanine Aminotransferase (ALT/SGPT) 19 U/L 22 U/L Alkaline Phosphatase 77 U/L 68 U/L Troponin I 0.209 ng/ml 0.272 ng/ml 0.366 ng/ml Pro-B-Type Natriuretic Peptide 7518 pg/ml Total Protein 6.4 gm/dl 6.6 gm/dl Albumin 3.0 gm/dl 3.1 gm/dl Globulin 3.4 gm/dl 3.5 gm/dl Albumin/Globulin Ratio 0.9 0.9 Digoxin Level 0.6 ng/ml Total Creatine Kinase 56 U/L 64 U/L Creatine Kinase MB 3.7 ng/ml 4.5 ng/ml Creatine Kinase MB Ratio 6.6 7.0 Test 04/12/17 07:35 04/12/17 11:30 Bedside Glucose 152 mg/dl 131 mg/dl Assessment and Plan This is an 86 year old male with severe COPD and chronic respiratory failure on 3.5L, AAA s/p repair, PVD presents with worsening shortness of breath Acute on Chronic Respiratory Failure Acute COPD Exacerbation patient presents with worsening SOB appreciate pulm input I switched solu-medrol to prednisone 40mg daily continue doxycycline pulmozyme was added as well as chest PT as per pulm continue Combivent speech evaluation to rule out aspiration DVT ppx subq heparin DNR
[2017-04-12] MEDS: ACETAMINOPHEN 325 MG TAB PO PRN (19:19)
[2017-04-12] MEDS: DORNASE ALFA (2500U) 2.5MG/2.5ML INH SCH (19:39)
[2017-04-12] MEDS: LORAZEPAM 0.5 MG TAB PO PRN (19:53)
[2017-04-12] MEDS ORDERED: LISINOPRIL 2.5 MG TAB PO SCH (21:00)
[2017-04-12] MEDS: HEPARIN SOD 5000 UNIT/0.5 ML CARP SQ SCH (21:33)
[2017-04-12] MEDS: FINASTERIDE 5 MG TAB PO SCH (21:34)
[2017-04-13] VITALS (11 sets, daily range): BP systolic 90–106; BP diastolic 50–73; PULSE 99–132; TEMP 36.2–36.7; O2SAT 92–99
[2017-04-13] MEDS: LORAZEPAM 0.5 MG TAB PO PRN ×3 (05:36→11:15)
--- NOTE | 2017-04-13 08:24 | Clinical Documentation Query ---
CLINICAL DOCUMENTATION QUERY QUERY 1 OF 2 86 year old male who presened to the Emergency Room with complaints of worsening shortness of breath. In your clinical opinion is this patient being managed for: ( ) Possible gram-negative pneumonia ( X ) Possible simple pneumonia - unlikely gram negative/aspiration pneumonia ( ) Other explanation of clinical findings (Please Explain) () Unable to determine (Please Define) ( ) Need to Discuss ( ) Not Agree The medical record reflects the following clinical findings, treatment, and risk factors. Clinical Indicators:Acute on chronic respiratory failure, COPD with exacerbation, CT = Increase in right middle lobe and lingular irregular opacities which favor an infectious process such as multifocal pneumonia. Treatment:O2, Zithromax, Telemetry Risk Factors:Age, immuno-suppressive therapy (Prednisone), home O2, history of frequent bouts of PNX QUERY 2 OF 2 In your clinical opinion is this patient being managed for: ( ) Demand ischemia in the setting of tachycardia and acute respiratory failure ( X ) Other explanation of clinical findings (Please Explain) - not likely ischemia, elevated troponin secondary to tachycardia, hypoxia secondary to COPD ( ) Unable to determine (Please Define) ( ) Need to Discuss ( ) Not Agree The medical record reflects the following clinical findings, treatment, and risk factors. Clinical Indicators: COPD with exacerbation, elevated Troponins (0.209, 0.272, 0.366), Treatment: Telemetry, O2, nebulizer therapy, monitor Troponins Risk Factors: Age, COPD with exacerbation, Hx CHF and PNX Please clarify and document your clinical opinion in the progress notes and discharge summary. Terms such as "probable", "suspected", "likely", "questionable", "possible", or "still to be ruled out" are acceptable. IF IN AGREEMENT, YOU MUST DOCUMENT ABOVE DIAGNOSTIC STATEMENT IN DAILY PROGRESS NOTES AND DISCHARGE SUMMARY. This document is not part of the patient's record. Thank You, Dionne Kilpatrick RN [phone]
[2017-04-13] MEDS: ASPIRIN 81 MG ECTAB PO SCH (08:29)
[2017-04-13] MEDS: IPRATROPIUM BROMIDE/ALBUTEROL respimat INH INH SCH ×4 (08:29→22:09)
[2017-04-13] MEDS: SERTRALINE HCL 50 MG TAB PO SCH (08:30)
[2017-04-13] MEDS: PANTOprazole SOD 40 MG TAB PO SCH (08:30)
[2017-04-13] MEDS: ROFLUMILAST 500 MCG TAB PO SCH (08:30)
[2017-04-13] MEDS: AZITHROMYCIN IV 500 MG in DEXTROSE 5% 250ML 250 ML IV SCH (08:38)
[2017-04-13] MEDS: DORNASE ALFA (2500U) 2.5MG/2.5ML INH SCH ×2 (10:22→19:14)
[2017-04-13] MEDS ORDERED: LORAZEPAM 0.5 MG TAB PO STA (10:40)
--- NOTE | 2017-04-13 11:06 | DIAGNOSTIC IMAGING REPORT ---
CHEST ONE VIEW PORTABLE HISTORY: 86 years-old Male COPD exacerbation, SOB COMPARISON: Portable chest radiograph 04/11/2017, chest CT 04/11/2017 TECHNIQUE: Portable upright AP view of the chest FINDINGS: Cardiac silhouette is again mildly enlarged. Small bilateral pleural effusions persist. Mildly worsened alveolar opacities are present within the left lung base with scattered alveolar opacities present within the right lung base which appear unchanged. No pneumothorax. There is background emphysema with hyperinflation. Bones are grossly intact. IMPRESSION: 1. Mildly progressed alveolar opacities of the left lung base with persistent alveolar opacities of the right lung base suggest persistent multifocal pneumonia. 2. Unchanged small bilateral pleural effusions. 3. Emphysema. The above report was generated using voice recognition software. It may contain grammatical, syntax or spelling errors. Electronically signed by: Gómez Doe M.D. 04/13/2017 11:05 AM Dictated Date/Time: 04/13/2017 11:03 AM
[2017-04-13] MEDS ORDERED: NURSING VERBAL MED ORDER ONE (11:30)
[2017-04-13] MEDS ORDERED: LORAZEPAM 0.5 MG TAB PO SCH (11:45)
[2017-04-13] MEDS ORDERED: METHYLPREDNISOLONE IV 40 MG in SYRINGE 0 ML IV SCH (11:45)
--- NOTE | 2017-04-13 11:48 | Progress Note ---
Subjective Date of Service: Apr 13, 2017. Subjective Pt evaluation today including: conversation w/ patient, physical exam, lab review, review of studies, review of inpatient medication list Saw/examined the patient in room 276 This morning he was doing well; later in the morning, he became more agitated, anxious, short of breath Was given Ativan and meds adjusted, he is now stable, denies chest pain Problem List Medical Problems: (1) Chronic obstructive pulmonary disease Permanent Comment: on chronic O2 and steroids Status: Chronic (2) Congestive heart failure Status: Acute (3) Elevated troponin Status: Acute (4) Hypoxia Status: Acute (5) Lung mass Status: Acute (6) Pneumonia Status: Acute Review of Systems Constitutional: No fever, No chills Respiratory: + cough, + sputum, + wheezing, + shortness of breath, + dyspnea on exertion, + dyspnea at rest, No hemoptysis Cardiac: No chest pain, No edema, No palpitations Abdomen: No pain, No nausea, No vomiting, No diarrhea Medications Current Inpatient Medications Medications (Trade) Dose Ordered Sig/Shabbir Route Start Time Stop Time Status Last Admin Dose Admin Ioversol (Optiray 320) 111 ml UD PRN IV 04/11/17 21:00 04/15/17 20:59 Acetaminophen (Tylenol Tab) 650 mg Q4H PRN PO 04/11/17 21:30 05/11/17 21:29 04/12/17 19:19 650 MG Ondansetron HCl (Zofran Inj) 4 mg Q6H PRN IV 04/11/17 21:30 05/11/17 21:29 Nitroglycerin (Nitrostat Tab) 0.4 mg UD PRN SL 04/11/17 21:30 05/11/17 21:29 Aspirin (Ecotrin Tab) 81 mg DAILY PO 04/12/17 09:00 05/12/17 08:59 04/13/17 08:29 81 MG Digoxin (Lanoxin Tab) 0.125 mg DAILY@16 PO 04/12/17 16:00 05/12/17 15:59 04/12/17 16:03 0.125 MG Finasteride (Proscar Tab) 5 mg HS PO 04/12/17 21:00 05/12/17 20:59 04/12/17 21:34 5 MG Furosemide (Lasix Tab) 20 mg Q2D@0900 PO 04/12/17 09:00 05/12/17 08:59 Future Hold 04/12/17 08:13 20 MG Lisinopril (Zestril Tab) 1.25 mg QPM PO 04/12/17 21:00 05/12/17 20:59 Future Hold Lorazepam (Ativan Tab) 0.5 mg BID PRN PO 04/11/17 21:30 05/11/17 21:29 04/13/17 11:15 0.5 MG Metoprolol Succinate (Toprol Xl Tab) 12.5 mg QAM PO 04/12/17 09:00 05/12/17 08:59 Future Hold 04/12/17 08:13 12.5 MG Roflumilast (Daliresp Tab) 500 mcg DAILY PO 04/12/17 09:00 05/12/17 08:59 04/13/17 08:30 500 MCG Sertraline HCl (Zoloft Tab) 50 mg DAILY PO 04/12/17 09:00 05/12/17 08:59 04/13/17 08:30 50 MG Miscellaneous Information (Order Awaiting Action) 1 ea QS N/A 04/12/17 00:00 05/12/17 00:00 Miscellaneous Information (Order Awaiting Action) 1 ea QS N/A 04/12/17 00:00 05/12/17 00:00 Pantoprazole Sodium (Protonix Tab) 40 mg DAILY PO 04/12/17 09:00 05/12/17 08:59 04/13/17 08:30 40 MG Azithromycin 500 mg/Dextrose 255 ml @ 125 mls/hr DAILY IV 04/12/17 09:00 04/19/17 08:59 04/13/17 08:38 125 MLS/HR Miscellaneous (Iv Fluids Completed) 1 ea PRN PRN N/A 04/12/17 00:15 04/12/18 00:14 Albuterol/ Ipratropium (Combivent Respimat Inh) 1 puffs QID INH 04/12/17 13:00 05/12/17 12:59 04/13/17 08:29 1 PUFFS Dornase Thiago (Pulmozyme Inhalation Soln 2.5ml Amp) 2.5 ml BIDR INH 04/12/17 20:00 05/12/17 19:59 04/13/17 10:22 2.5 ML Albuterol/ Ipratropium (Duoneb) 3 ml Q2H PRN INH 04/12/17 15:30 05/12/17 15:29 Heparin Sodium (Porcine) (Heparin Sq 5000 Unit/0.5ml) 5,000 unit Q12 SQ 04/12/17 21:00 05/12/17 20:59 04/12/17 21:33 5,000 UNIT Methylprednisolone Sodium Succinate 40 mg/Syringe 0.64 ml @ 1.5 mls/min TODAY@1145 IV 04/13/17 11:45 04/13/17 14:00 Methylprednisolone Sodium Succinate 60 mg/Syringe 0.96 ml @ 1.5 mls/min Q8H IV 04/13/17 16:00 05/13/17 15:59 Fluticasone Propionate (Flovent Hfa 220MCG Inhaler) 2 puffs BID INH 04/13/17 21:00 05/13/17 20:59 Ceftriaxone Sodium 1 gm/ Dextrose 50 ml @ 100 mls/hr Q24H IV 04/13/17 12:00 04/20/17 11:59 Lorazepam (Ativan Tab) 0.5 mg TODAY@1145 PO 04/13/17 11:45 04/13/17 14:00 Objective Vital Signs Date Time Temp Pulse Resp B/P (MAP) Pulse Ox O2 Delivery O2 Flow Rate FiO2 04/13/17 11:02 36.3 132 20 99/60 (73) 99 Nasal Cannula 3.5 04/13/17 10:31 99 20 97 Nasal Cannula 3.0 04/13/17 09:22 105 99/65 (76) 109 96/60 (72) 04/13/17 08:00 99 Nasal Cannula 3.5 04/13/17 07:18 36.7 105 18 91/56 (68) 99 Nasal Cannula 3.5 04/13/17 04:00 98 Nasal Cannula 3.5 04/13/17 04:00 36.3 107 20 101/69 (80) 98 Nasal Cannula 3.5 04/13/17 00:00 98 Nasal Cannula 3.5 04/12/17 23:37 36.3 99 20 96/60 (72) 99 Nasal Cannula 2.0 04/12/17 20:00 Nasal Cannula 3.5 04/12/17 18:54 36.4 108 18 99/68 (78) 96 Nasal Cannula 3.5 04/12/17 16:03 106 04/12/17 16:00 Nasal Cannula 3.5 04/12/17 15:16 36.7 111 20 89/46 (60) 94 Nasal Cannula 3.5 04/12/17 12:00 98 Nasal Cannula 4.0 Physical Exam General Appearance: + mild distress (respiratory distress; anxiety) Respiratory/Chest: + respiratory distress, + decreased breath sounds, + accessory muscle use Cardiovascular: regular rate, rhythm Extremities: normal inspection, no pedal edema Neurologic/Psychiatric: no motor/sensory deficits, alert, normal mood/affect Assessment and Plan This is an 86 year old male with severe COPD and chronic respiratory failure on 3.5L, AAA s/p repair, PVD presents with worsening shortness of breath Acute on Chronic Respiratory Failure Acute COPD Exacerbation 04/13 appreciate pulmonary input repeat CXR in AM added Rocephin to abx regimen, continue Azithro Combivent QID prednisone changed to Solu-medrol in the short term given Ativan x1 for now Flovent as per pulm 04/12 patient presents with worsening SOB appreciate pulm input I switched solu-medrol to prednisone 40mg daily continue doxycycline pulmozyme was added as well as chest PT as per pulm continue Combivent speech evaluation to rule out aspiration DVT ppx subq heparin DNR
[2017-04-13] MEDS: CEFTRIAXONE SOD INJ 1 GM in DEXTROSE 5% ADD-VANTAGE 50ML 50 ML IV SCH (12:03)
[2017-04-13] MEDS: HEPARIN SOD 5000 UNIT/0.5 ML CARP SQ SCH ×2 (12:11→22:10)
--- NOTE | 2017-04-13 13:38 | PROGRESS NOTE ---
DATE: 04/13/2017 PROBLEM LIST: Includes acute on chronic respiratory insufficiency, oxygen and steroid dependent COPD, history of tobacco abuse, pleural effusion. SUBJECTIVE: When I went in, the patient was in the process of starting to get his nebulizer treatment. The patient was very agitated, did not want his nebulizer treatment because he felt like cough is there because he uses oxygen to do the neb treatment. The patient had managed to have the nebulizer treatment done and states that he has some trouble with his breathing. He feels like he has to work to get his breath. He states he really did not have any cough today. No significant mucus production. He denied any real pain or pressure in his chest, he feels like he cannot catch his air. Respiratory therapy reports that the patient has not used his vibration vest. They report that he has been using the flutter valve. Nursing reports that he did better yesterday after he received a dose of Solu- Medrol and that he felt pretty well last night. There is concern because he does get tachycardic. The patient reports that he uses his Combivent, which he feels is helpful for him. He states that he also has Breo at home. He is not sure if it is helpful or not. He states that they are not giving that to him here and this has him agitated as well. He also reports that prior to being on Breo, he was on Flovent and he states that that worked about as well as Breo. He states that he did see pulmonary up at [facility] and when asked it, I believe he was seen by Fatuma Barnett through [employer]. He states he has not been seen by her for a while, has not really seen anybody in pulmonary for a while. I did ask him if he felt it would be okay if we started him on Flovent to see if that would help his breathing. He was agreeable to this. OBJECTIVE: GENERAL: The patient is an 86-year-old thin, almost cachectic appearing male, sitting at bedside, does get slightly breathless at times with talking. Does appear slightly agitated. HEENT: Normocephalic, atraumatic. Pupils equal, round and reactive to light and accommodation. Extraocular movements are intact. Nonicteric. Mouth pink, little bit dry gingival and buccal mucosa. No erythema or edema noted. NECK: No mass, no adenopathy, no bruit noted. CHEST: Decreased breath sounds bilaterally, cannot really hear any wheeze, rale or rhonchi, although breath sounds are diminished. CARDIOVASCULAR: Regular rate and rhythm. No murmurs, gallops or rubs appreciated. ABDOMEN: Bowel sounds are present. Abdomen soft, nontender. No guarding, rigidity or organomegaly. EXTREMITIES: No erythema, no edema, no deformity. No cyanosis or clubbing noted. NEUROLOGIC: Cranial nerves II-XII are grossly intact. No focal deficit noted. No new imaging. IMPRESSION: The patient is an 86-year-old male who presents with severe chronic obstructive pulmonary disease, which is oxygen and steroid dependent, having acute on chronic respiratory insufficiency. Acute respiratory insufficiency is multifactorial. It looks like the patient may be having some chronic changes consistent with chronic infection as well as possible acute. At this point we will order a repeat chest x-ray. When I was looking and reviewing the patient's chart, nursing came back and said the patient was getting very agitated and was getting very tachycardic. Because of this a stat chest x-ray was ordered, 0.5 mg of Ativan was also ordered. Chest x-ray came back showing slight progression. I did talk with Dr. Antunez and patient will be started on Rocephin. Dr. Antunez was understandably hesitant to start on quinolone due to patient's cardiac status. At this point patient will have Rocephin started by hospitalist service. I did switch him back to Solu-Medrol to see if this would help his breathing somewhat in the form of 60 mg q. 8 hours, also with a one-time 40 mg dose. He will be started on Flovent to see if this has any effect on his breathing. I did discuss with nursing about the possibility of allowing him to keep his nasal cannula in place while he has a nebulizer treatment. I feel like some of the issue with the nebulizer is patient feels like he is not getting his oxygen and makes him very anxious. At this point, we will continue to follow through hospitalization. Patient and planned reviewed and agreed upon. ASHELY
[2017-04-13] MEDS: METHYLPREDNISOLONE IV 60 MG in SYRINGE 0 ML IV SCH (17:06)
[2017-04-13] MEDS: DIGOXIN 0.125 MG TAB PO SCH (17:07)
[2017-04-13] MEDS: FINASTERIDE 5 MG TAB PO SCH (22:09)
[2017-04-13] MEDS: FLUTICASONE HFA 220 MCG INHALER INH SCH (23:23)
[2017-04-14] VITALS (8 sets, daily range): BP systolic 98–114; BP diastolic 62–75; PULSE 100–119; TEMP 36.3–36.5; O2SAT 97–100
[2017-04-14] MEDS: METHYLPREDNISOLONE IV 60 MG in SYRINGE 0 ML IV SCH ×2 (00:11→08:07)
[2017-04-14] MEDS: LORAZEPAM 0.5 MG TAB PO PRN ×2 (05:08→14:45)
[2017-04-14] MEDS: DORNASE ALFA (2500U) 2.5MG/2.5ML INH SCH ×2 (07:02→19:37)
[2017-04-14] MEDS: ASPIRIN 81 MG ECTAB PO SCH (08:06)
[2017-04-14] MEDS: PANTOprazole SOD 40 MG TAB PO SCH (08:06)
[2017-04-14] MEDS: SERTRALINE HCL 50 MG TAB PO SCH (08:06)
[2017-04-14] MEDS: IPRATROPIUM BROMIDE/ALBUTEROL respimat INH INH SCH ×4 (08:07→21:36)
[2017-04-14] MEDS: ROFLUMILAST 500 MCG TAB PO SCH (08:07)
[2017-04-14] MEDS: FLUTICASONE HFA 220 MCG INHALER INH SCH ×2 (08:08→21:36)
[2017-04-14] MEDS: HEPARIN SOD 5000 UNIT/0.5 ML CARP SQ SCH ×2 (08:11→21:38)
[2017-04-14 08:49] LABS: HEMATOCRIT 38.5 % (42-52); MEAN CELL VOLUME 99.5 fL (80-100); MEAN CORPUSCULAR HGB CONC 31.2 g/dl (32-36); PLATELET COUNT 299 K/uL (130-400); RED BLOOD COUNT 3.87 M/uL (4.7-6.1); WHITE BLOOD COUNT 11.12 K/uL (4.8-10.8)
[2017-04-14] MEDS: AZITHROMYCIN IV 500 MG in DEXTROSE 5% 250ML 250 ML IV SCH (09:10)
[2017-04-14 09:21] LABS: BUN/CREATININE RATIO 34.9 (10-20); CALCIUM 8.8 mg/dl (8.5-10.1); CREATININE 0.81 mg/dl (0.60-1.40); POTASSIUM 4.8 mmol/L (3.5-5.1)
--- NOTE | 2017-04-14 11:48 | PROGRESS NOTE ---
DATE: 04/14/2017 DATE: 04/14/2017 PROBLEM LIST: Includes: 1. Acute on chronic respiratory insufficiency. 2. Oxygen and steroid dependent chronic obstructive pulmonary disease. 3. History of tobacco use. 4. Pleural effusion. SUBJECTIVE: The patient is doing much better today. When I went in and saw him me was sitting up at bedside, appeared comfortable. He reports that he is feeling much better. He states that he feels more relaxed. He feels his breathing is doing better. He states he is not coughing as much. He states he is getting more air in. He states that he did use the flutter valve overnight and he states that he got a fair amount of mucus up. He He states that he feels that the Flovent is helping him as well. He feels completely different and much better than yesterday. No other concerns or problems. No chest pain. No chest pressure. No abdominal pain, no nausea or vomiting, no indigestion or heartburn. Only other concern that he voided today is that he has weakness. He did bring up about physical therapy and he states that he is not sure that that would be helpful. OBJECTIVE: GENERAL: The patient is an 86-year-old male, very thin, almost cachectic appearing. He is alert, oriented today. No respiratory distress with conversation, interactive and cooperative. VITAL SIGNS: Temp 36.5, pulse 119, respirations 22, blood pressure 114/67, pulse ox 97% on 3.5 liters. HEAD, EYES, EARS, NOSE, AND THROAT: Normocephalic, atraumatic. Pupils equal, round, reactive. Extraocular movements are intact, nonicteric. [place] moist gingival and buccal mucosa. NECK: Thin, no mass, adenopathy or bruit. CHEST: Improved breath sounds compared to yesterday. No appreciated wheeze, rales or rhonchi at this time. CARDIOVASCULAR: Regular rate and rhythm. No murmurs, gallops or rubs appreciated. ABDOMEN: Soft, nontender. No guarding, rigidity or organomegaly. EXTREMITIES: No erythema or edema. NEUROLOGIC: Cranial nerves II through XII are intact. No focal deficit noted. LABORATORY DATA: Shows white count 11,000, H&H 12.0 and 38.5. BUN 28, creatinine 0.8. No new imaging data. IMPRESSION: This is an 86-year-old white male with oxygen and steroid dependent chronic obstructive pulmonary disease who presented with exacerbation. At this time, patient is showing improvement. The patient did have addition of Rocephin yesterday. We also implemented IV Solu-Medrol. The patient has shown significant change overnight for the better at this time. Will decrease his Solu-Medrol from 60 q. 8 to 40 q. 8 and do a slow transition over to oral prednisone. He is to continue antibiotics for full course. He is to continue aggressive pulmonary toilet or as much as he will allow. I think he may benefit from physical therapy; however, he was hesitant for this. I will leave this up to the hospitalist team to make this order. Otherwise, continue rest of regimen as it is. Will continue to follow through hospitalization. The patient and plan reviewed and agreed upon. ASHELY
[2017-04-14] MEDS: CEFTRIAXONE SOD INJ 1 GM in DEXTROSE 5% ADD-VANTAGE 50ML 50 ML IV SCH (12:04)
--- NOTE | 2017-04-14 13:00 | Progress Note ---
Subjective Date of Service: Apr 14, 2017. Subjective Pt evaluation today including: conversation w/ patient, physical exam, lab review, review of studies, review of inpatient medication list Saw/examined the patient in room 276 He is c/o weight loss, but refusing ensure or boost He states he is coughing more than yesterday He seems to be in no distress while he is seated Problem List Medical Problems: (1) Chronic obstructive pulmonary disease Permanent Comment: on chronic O2 and steroids Status: Chronic (2) Congestive heart failure Status: Acute (3) Elevated troponin Status: Acute (4) Hypoxia Status: Acute (5) Lung mass Status: Acute (6) Pneumonia Status: Acute Review of Systems Constitutional: + weight loss, + weakness, No fever, No chills Respiratory: + shortness of breath, No cough, No sputum Cardiac: No chest pain Abdomen: No pain, No nausea, No vomiting, No diarrhea Heme: No abnormal bleeding/bruising Medications Current Inpatient Medications Medications (Trade) Dose Ordered Sig/Shabbir Route Start Time Stop Time Status Last Admin Dose Admin Ioversol (Optiray 320) 111 ml UD PRN IV 04/11/17 21:00 04/15/17 20:59 Acetaminophen (Tylenol Tab) 650 mg Q4H PRN PO 04/11/17 21:30 05/11/17 21:29 04/12/17 19:19 650 MG Ondansetron HCl (Zofran Inj) 4 mg Q6H PRN IV 04/11/17 21:30 05/11/17 21:29 Nitroglycerin (Nitrostat Tab) 0.4 mg UD PRN SL 04/11/17 21:30 05/11/17 21:29 Aspirin (Ecotrin Tab) 81 mg DAILY PO 04/12/17 09:00 05/12/17 08:59 04/14/17 08:06 81 MG Digoxin (Lanoxin Tab) 0.125 mg DAILY@16 PO 04/12/17 16:00 05/12/17 15:59 04/13/17 17:07 0.125 MG Finasteride (Proscar Tab) 5 mg HS PO 04/12/17 21:00 05/12/17 20:59 04/13/17 22:09 5 MG Furosemide (Lasix Tab) 20 mg Q2D@0900 PO 04/12/17 09:00 05/12/17 08:59 Future Hold 04/12/17 08:13 20 MG Lisinopril (Zestril Tab) 1.25 mg QPM PO 04/12/17 21:00 05/12/17 20:59 Future Hold Lorazepam (Ativan Tab) 0.5 mg BID PRN PO 04/11/17 21:30 05/11/17 21:29 04/14/17 05:08 0.5 MG Metoprolol Succinate (Toprol Xl Tab) 12.5 mg QAM PO 04/12/17 09:00 05/12/17 08:59 Future Hold 04/12/17 08:13 12.5 MG Roflumilast (Daliresp Tab) 500 mcg DAILY PO 04/12/17 09:00 05/12/17 08:59 04/14/17 08:07 500 MCG Sertraline HCl (Zoloft Tab) 50 mg DAILY PO 04/12/17 09:00 05/12/17 08:59 04/14/17 08:06 50 MG Miscellaneous Information (Order Awaiting Action) 1 ea QS N/A 04/12/17 00:00 05/12/17 00:00 Miscellaneous Information (Order Awaiting Action) 1 ea QS N/A 04/12/17 00:00 05/12/17 00:00 Pantoprazole Sodium (Protonix Tab) 40 mg DAILY PO 04/12/17 09:00 05/12/17 08:59 04/14/17 08:06 40 MG Azithromycin 500 mg/Dextrose 255 ml @ 125 mls/hr DAILY IV 04/12/17 09:00 04/19/17 08:59 04/14/17 09:10 125 MLS/HR Miscellaneous (Iv Fluids Completed) 1 ea PRN PRN N/A 04/12/17 00:15 04/12/18 00:14 Albuterol/ Ipratropium (Combivent Respimat Inh) 1 puffs QID INH 04/12/17 13:00 05/12/17 12:59 04/14/17 12:04 1 PUFFS Dornase Thiago (Pulmozyme Inhalation Soln 2.5ml Amp) 2.5 ml BIDR INH 04/12/17 20:00 05/12/17 19:59 04/13/17 10:22 2.5 ML Albuterol/ Ipratropium (Duoneb) 3 ml Q2H PRN INH 04/12/17 15:30 05/12/17 15:29 Heparin Sodium (Porcine) (Heparin Sq 5000 Unit/0.5ml) 5,000 unit Q12 SQ 04/12/17 21:00 05/12/17 20:59 04/14/17 08:11 5,000 UNIT Fluticasone Propionate (Flovent Hfa 220MCG Inhaler) 2 puffs BID INH 04/13/17 21:00 05/13/17 20:59 04/14/17 08:08 2 PUFFS Ceftriaxone Sodium 1 gm/ Dextrose 50 ml @ 100 mls/hr Q24H IV 04/13/17 12:00 04/20/17 11:59 04/14/17 12:04 100 MLS/HR Methylprednisolone Sodium Succinate 40 mg/Syringe 0.64 ml @ 1.5 mls/min Q8H IV 04/14/17 16:00 05/13/17 15:59 UNV Objective Vital Signs Date Time Temp Pulse Resp B/P (MAP) Pulse Ox O2 Delivery O2 Flow Rate FiO2 04/14/17 12:00 Nasal Cannula 3.5 04/14/17 11:30 36.4 116 20 98/64 (75) 97 3.0 04/14/17 08:01 36.5 119 22 114/67 (83) 97 Nasal Cannula 3.5 04/14/17 08:00 Nasal Cannula 3.5 04/14/17 04:41 36.4 100 16 99/65 (76) 100 3.5 04/14/17 04:00 Nasal Cannula 3.5 04/14/17 00:01 110/75 (87) 04/14/17 00:01 Nasal Cannula 3.5 04/13/17 23:51 36.4 105 16 90/50 (63) 94 3.5 105 04/13/17 20:00 Nasal Cannula 3.5 04/13/17 19:47 36.4 111 18 101/63 (76) 92 3.5 04/13/17 17:07 117 04/13/17 16:00 Nasal Cannula 3.5 04/13/17 14:48 36.2 111 18 106/73 (84) 97 Nasal Cannula 3.5 Physical Exam General Appearance: no apparent distress, + cachetic, + thin Respiratory/Chest: no respiratory distress, no accessory muscle use, + decreased breath sounds Cardiovascular: regular rate, rhythm, no edema, no murmur Abdomen: normal bowel sounds, non tender, soft Laboratory Results Last 24 Hours Test 04/14/17 08:03 White Blood Count 11.12 K/uL Red Blood Count 3.87 M/uL Hemoglobin 12.0 g/dL Hematocrit 38.5 % Mean Corpuscular Volume 99.5 fL Mean Corpuscular Hemoglobin 31.0 pg Mean Corpuscular Hemoglobin Concent 31.2 g/dl RDW Standard Deviation 57.9 fL RDW Coefficient of Variation 16.0 % Platelet Count 299 K/uL Mean Platelet Volume 9.0 fL Sodium Level 140 mmol/L Potassium Level 4.8 mmol/L Chloride Level 98 mmol/L Carbon Dioxide Level 40 mmol/L Anion Gap 2.0 mmol/L Blood Urea Nitrogen 28 mg/dl Creatinine 0.81 mg/dl Est Creatinine Clear Calc Drug Dose 55.8 ml/min Estimated GFR () 93.9 Estimated GFR (Non- 81.0 BUN/Creatinine Ratio 34.9 Random Glucose 130 mg/dl Calcium Level 8.8 mg/dl Assessment and Plan This is an 86 year old male with severe COPD and chronic respiratory failure on 3.5L, AAA s/p repair, PVD presents with worsening shortness of breath Acute on Chronic Respiratory Failure Acute COPD Exacerbation 04/14 appreciate pulmonary input continue solu-medrol at lower dose slow taper will be needed Rocephin + Azithro refuses nebulizers would like Combivent QID 04/13 appreciate pulmonary input repeat CXR in AM added Rocephin to abx regimen, continue Azithro Combivent QID prednisone changed to Solu-medrol in the short term given Ativan x1 for now Flovent as per pulm 04/12 patient presents with worsening SOB appreciate pulm input I switched solu-medrol to prednisone 40mg daily continue doxycycline pulmozyme was added as well as chest PT as per pulm continue Combivent speech evaluation to rule out aspiration Multifocal Pneumonia initially started on Azithro will also add Rocephin DVT ppx subq heparin DNR
[2017-04-14] MEDS: ACETAMINOPHEN 325 MG TAB PO PRN (14:28)
[2017-04-14] MEDS: METHYLPREDNISOLONE IV 40 MG in SYRINGE 0 ML IV SCH (16:13)
[2017-04-14] MEDS: DIGOXIN 0.125 MG TAB PO SCH (16:14)
[2017-04-14] MEDS: FINASTERIDE 5 MG TAB PO SCH (21:37)
[2017-04-15] VITALS (9 sets, daily range): BP systolic 101–127; BP diastolic 60–81; PULSE 109–130; TEMP 35.9–36.9; O2SAT 94–100
[2017-04-15] MEDS: METHYLPREDNISOLONE IV 40 MG in SYRINGE 0 ML IV SCH ×4 (01:14→23:30)
[2017-04-15] MEDS: LORAZEPAM 0.5 MG TAB PO PRN ×2 (02:12→12:19)
[2017-04-15] MEDS: ALBUT/IPRATROP 3MG/0.5MG NEB 3 ML VIAL INH PRN (05:49)
[2017-04-15 07:13] LABS: HEMATOCRIT 37.1 % (42-52); MEAN CELL VOLUME 97.6 fL (80-100); MEAN CORPUSCULAR HEMOGLOBIN 31.1 pg (25-34); MEAN CORPUSCULAR HGB CONC 31.8 g/dl (32-36); MEAN PLATELET VOLUME 9.1 fL (7.4-10.4); PLATELET COUNT 266 K/uL (130-400); WHITE BLOOD COUNT 10.48 K/uL (4.8-10.8)
[2017-04-15] MEDS: DORNASE ALFA (2500U) 2.5MG/2.5ML INH SCH ×2 (07:26→20:04)
[2017-04-15 07:58] LABS: BUN/CREATININE RATIO 37.5 (10-20); CALCIUM 8.7 mg/dl (8.5-10.1); CREATININE 0.87 mg/dl (0.60-1.40); POTASSIUM 4.4 mmol/L (3.5-5.1)
[2017-04-15] MEDS: IPRATROPIUM BROMIDE/ALBUTEROL respimat INH INH SCH ×4 (08:27→21:13)
[2017-04-15] MEDS: PANTOprazole SOD 40 MG TAB PO SCH (08:28)
[2017-04-15] MEDS: FLUTICASONE HFA 220 MCG INHALER INH SCH ×2 (08:28→21:13)
[2017-04-15] MEDS: SERTRALINE HCL 50 MG TAB PO SCH (08:28)
[2017-04-15] MEDS: ROFLUMILAST 500 MCG TAB PO SCH (08:28)
[2017-04-15] MEDS: ASPIRIN 81 MG ECTAB PO SCH (08:29)
[2017-04-15] MEDS: HEPARIN SOD 5000 UNIT/0.5 ML CARP SQ SCH ×2 (08:49→21:16)
[2017-04-15] MEDS: AZITHROMYCIN IV 500 MG in DEXTROSE 5% 250ML 250 ML IV SCH (08:50)
[2017-04-15] MEDS: ACETAMINOPHEN 325 MG TAB PO PRN (09:58)
[2017-04-15] MEDS: CEFTRIAXONE SOD INJ 1 GM in DEXTROSE 5% ADD-VANTAGE 50ML 50 ML IV SCH (12:18)
--- NOTE | 2017-04-15 16:09 | Progress Note ---
Medicine Progress Note Date & Time of Visit: Apr 15, 2017 at 12:44. Subjective tolerating PO states he feels he is improved but reports still somewhat short of breath feels weak states the Ativan helps him with anxiety and he typically takes it twice daily when he gets up and goes to sleep at night declines rehab denies fevers, chills +productive cough Objective Last 8 Hrs Date Time Temp Pulse Resp B/P (MAP) Pulse Ox O2 Delivery O2 Flow Rate FiO2 04/15/17 12:00 Nasal Cannula 3.5 04/15/17 11:19 36.5 121 20 102/64 (77) 97 Nasal Cannula 4.0 04/15/17 08:00 Nasal Cannula 3.5 04/15/17 07:26 109 20 98 Nasal Cannula 3.0 04/15/17 07:07 36.5 112 20 101/60 (74) 98 Nasal Cannula 3.0 04/15/17 05:49 116 26 98 Nasal Cannula 3.0 Physical Exam: GEN: thin,elderly, in no acute distress, alert and appropriate, appears generally weak HEENT: NC/AT, normal sclerae, MMM CARDIO: reg rate, S1/2 heard without m/g/r LUNGS: CTA bilaterally, no crackles, rales or wheezes, good diaphragmatic excursion, poor airflow in posterior [place], better heard in anterior [place]. ABD: soft, non-tender, non-distended, no rebound or guarding EXTREMITY: RP and DP palpable 2+ bilat, no LE swelling or edema, extremities are warm and well-perfused NEURO: CN 2-12 grossly intact MUSC: 5/5 strength throughout, no gross focal deficits but generally is weak with moving around the bed SKIN: warm and dry Laboratory Results: 04/15/17 06:55 04/15/17 06:55 Test 04/11/17 19:45 04/11/17 22:45 04/12/17 06:20 04/12/17 11:30 Immature Granulocyte % (Auto) 0.3 % White Blood Count 7.60 K/uL (4.8-10.8) Red Blood Count 3.67 M/uL (4.7-6.1) Hemoglobin 11.5 g/dL (14.0-18.0) Hematocrit 35.8 % (42-52) Mean Corpuscular Volume 97.5 fL (80-100) Mean Corpuscular Hemoglobin 31.3 pg (25-34) Mean Corpuscular Hemoglobin Concent 32.1 g/dl (32-36) Platelet Count 229 K/uL (130-400) Mean Platelet Volume 8.9 fL (7.4-10.4) Neutrophils (%) (Auto) 75.0 % Lymphocytes (%) (Auto) 14.7 % Monocytes (%) (Auto) 8.6 % Eosinophils (%) (Auto) 1.3 % Basophils (%) (Auto) 0.1 % Neutrophils # (Auto) 5.70 K/uL (1.4-6.5) Lymphocytes # (Auto) 1.12 K/uL (1.2-3.4) Monocytes # (Auto) 0.65 K/uL (0.11-0.59) Eosinophils # (Auto) 0.10 K/uL (0-0.5) Basophils # (Auto) 0.01 K/uL (0-0.2) Immature Granulocyte # (Auto) 0.02 K/uL (0.00-0.02) Prothrombin Time 11.0 SECONDS (9.0-12.0) Prothromb Time International Ratio 1.0 (0.9-1.1) Lactic Acid Level 1.7 mmol/L (0.4-2.0) Pro-B-Type Natriuretic Peptide 7518 pg/ml (0-1800) Digoxin Level 0.6 ng/ml (0.8-2.0) Magnesium Level 2.1 mg/dl (1.8-2.4) Total Bilirubin 0.4 mg/dl (0.2-1) Aspartate Amino Transf (AST/SGOT) 20 U/L (15-37) Alanine Aminotransferase (ALT/SGPT) 22 U/L (12-78) Alkaline Phosphatase 68 U/L (45-117) Total Creatine Kinase 64 U/L (39-308) Creatine Kinase MB 4.5 ng/ml (0.5-3.6) Creatine Kinase MB Ratio 7.0 (0-3.0) Troponin I 0.366 ng/ml (0-0.045) Total Protein 6.6 gm/dl (6.4-8.2) Albumin 3.1 gm/dl (3.4-5.0) Globulin 3.5 gm/dl (2.5-4.0) Albumin/Globulin Ratio 0.9 (0.9-2) Bedside Glucose 131 mg/dl (70-99) Test 04/15/17 06:55 Red Blood Count 3.80 M/uL (4.7-6.1) Mean Corpuscular Volume 97.6 fL (80-100) Mean Corpuscular Hemoglobin 31.1 pg (25-34) Mean Corpuscular Hemoglobin Concent 31.8 g/dl (32-36) RDW Standard Deviation 56.0 fL (36.4-46.3) RDW Coefficient of Variation 15.7 % (11.5-14.5) Mean Platelet Volume 9.1 fL (7.4-10.4) Anion Gap 5.0 mmol/L (3-11) Est Creatinine Clear Calc Drug Dose 52.1 ml/min Estimated GFR () 91.2 Estimated GFR (Non- 78.7 BUN/Creatinine Ratio 37.5 (10-20) Calcium Level 8.7 mg/dl (8.5-10.1) Date/Time Source Procedure Growth Status 04/11/17 22:53 Blood Blood Culture - Preliminary NO GROWTH TO DATE. Resulted 04/12/17 15:30 Sputum Expectorated Sputum Gram Stain - Final Complete 04/12/17 15:30 Sputum Expectorated Sputum Sputum Culture - Final HEAVY NORMAL ARI Complete Last 24 Hours Test 04/15/17 06:55 White Blood Count 10.48 K/uL Red Blood Count 3.80 M/uL Hemoglobin 11.8 g/dL Hematocrit 37.1 % Mean Corpuscular Volume 97.6 fL Mean Corpuscular Hemoglobin 31.1 pg Mean Corpuscular Hemoglobin Concent 31.8 g/dl RDW Standard Deviation 56.0 fL RDW Coefficient of Variation 15.7 % Platelet Count 266 K/uL Mean Platelet Volume 9.1 fL Sodium Level 138 mmol/L Potassium Level 4.4 mmol/L Chloride Level 97 mmol/L Carbon Dioxide Level 36 mmol/L Anion Gap 5.0 mmol/L Blood Urea Nitrogen 33 mg/dl Creatinine 0.87 mg/dl Est Creatinine Clear Calc Drug Dose 52.1 ml/min Estimated GFR () 91.2 Estimated GFR (Non- 78.7 BUN/Creatinine Ratio 37.5 Random Glucose 142 mg/dl Calcium Level 8.7 mg/dl Assessment & Plan 86 yoM with severe COPD and chronic respiratory failure on 3.5L oxygen presents with acute exacerbation of COPD 2/2 PNA 1. Acute on chronic respiratory failure 2/2 acute COPD exacerbation 2/2 multilobar pneumonia-he reports that his breathing is improved today although he is not quite back to baseline. Nurse who has had him the past couple of days reports that he appeared clinically worse when he was de-escalated to the prednisone PO, and better after being put back on the Solumedrol yesterday. Cont Combivent and Flovent inhalers. Cont Rocephin/Azithro. Cont pulmozyme and flutter valve with chest PT. Will require long taper and continue chronic steroids. Apprec additional pulm recs for future management strategies. 2. Tachycardia-likely multifactorial in setting of steroid use, Combivent ( declines neb treatments), mutlilobar pneumonia, anxiety and significant deconditioning. Has been around low 100s. Doing well with Ativan and decided together with patient and his nurse to schedule this for 48 hours to see how he does. Also, he is on Toprol XL in setting of systolic CHF which was on hold for hypotension. Will restart this now. 3. systolic CHF-chronic, compensated. Cont with medical management to include ASA 81, digoxin, Toprol XL. Cont to hold Lasix/lisinopril and will add each back slowly. Daily weights. Low salt diet. 4. Elevated troponin-likely 2/2 demand ischemia in setting of significant infection, chronic conduction abnormalities and chronic systolic heart failure. This appears chronic since last admission. TTE performed at that time revealing LVEF 20%, reduced systolic function, mild to moderate mitral regurgitation. He has denied any chest pain this admission and no further cardiac workup was thought necessary to date with continued, albeit slow, clinical improvement. 5. Generalized weakness-secondary to all issues above including polypharmacy and medication side effects in setting of significant lung pathology and poor perfusion with chronic systolic right and left sided heart failure in setting of PVD. Cont PT/OT and pt not agreeable to rehab facility (see below) 6. Anxiety-pt is on sertraline. Added scheduled Ativan as above. He may benefit from a increase in sertraline this admission. Will monitor closely. 7. BPH-cont proscar DVT ppx subq heparin DNR Dispo-pt is not agreeable to go to rehab at this time. He has a couple more days here prior to discharge, so will see if his weakness improves and cont to reassess. As he lives alone this may be problematic, but can see if we can work it out to where kids can stay with him for a few days. He is agreeable to [facility] for PT/OT and home nursing-will work with CM on that. DC no earlier than Mond but more likely to be closer to 3-4 days. DO Elda Beauchamp Hospitalist Consultants: [facility] Current Inpatient Medications: Current Inpatient Medications Medications (Trade) Dose Ordered Sig/Shabbir Route Start Time Stop Time Status Last Admin Dose Admin Ioversol (Optiray 320) 111 ml UD PRN IV 04/11/17 21:00 04/15/17 20:59 Acetaminophen (Tylenol Tab) 650 mg Q4H PRN PO 04/11/17 21:30 05/11/17 21:29 04/15/17 09:58 650 MG Ondansetron HCl (Zofran Inj) 4 mg Q6H PRN IV 04/11/17 21:30 05/11/17 21:29 Nitroglycerin (Nitrostat Tab) 0.4 mg UD PRN SL 04/11/17 21:30 05/11/17 21:29 Aspirin (Ecotrin Tab) 81 mg DAILY PO 04/12/17 09:00 05/12/17 08:59 04/15/17 08:29 81 MG Digoxin (Lanoxin Tab) 0.125 mg DAILY@16 PO 04/12/17 16:00 05/12/17 15:59 04/14/17 16:14 0.125 MG Finasteride (Proscar Tab) 5 mg HS PO 04/12/17 21:00 05/12/17 20:59 04/14/17 21:37 5 MG Furosemide (Lasix Tab) 20 mg Q2D@0900 PO 04/12/17 09:00 05/12/17 08:59 Future Hold 04/12/17 08:13 20 MG Lisinopril (Zestril Tab) 1.25 mg QPM PO 04/12/17 21:00 05/12/17 20:59 Future Hold Lorazepam (Ativan Tab) 0.5 mg BID PRN PO 04/11/17 21:30 05/11/17 21:29 04/15/17 12:19 0.5 MG Metoprolol Succinate (Toprol Xl Tab) 12.5 mg QAM PO 04/12/17 09:00 05/12/17 08:59 Future Hold 04/12/17 08:13 12.5 MG Roflumilast (Daliresp Tab) 500 mcg DAILY PO 04/12/17 09:00 05/12/17 08:59 04/15/17 08:28 500 MCG Sertraline HCl (Zoloft Tab) 50 mg DAILY PO 04/12/17 09:00 05/12/17 08:59 04/15/17 08:28 50 MG Miscellaneous Information (Order Awaiting Action) 1 ea QS N/A 04/12/17 00:00 05/12/17 00:00 Miscellaneous Information (Order Awaiting Action) 1 ea QS N/A 04/12/17 00:00 05/12/17 00:00 Pantoprazole Sodium (Protonix Tab) 40 mg DAILY PO 04/12/17 09:00 05/12/17 08:59 04/15/17 08:28 40 MG Azithromycin 500 mg/Dextrose 255 ml @ 125 mls/hr DAILY IV 04/12/17 09:00 04/19/17 08:59 04/15/17 08:50 125 MLS/HR Miscellaneous (Iv Fluids Completed) 1 ea PRN PRN N/A 04/12/17 00:15 04/12/18 00:14 Albuterol/ Ipratropium (Combivent Respimat Inh) 1 puffs QID INH 04/12/17 13:00 05/12/17 12:59 04/15/17 12:19 1 PUFFS Dornase Thiago (Pulmozyme Inhalation Soln 2.5ml Amp) 2.5 ml BIDR INH 04/12/17 20:00 05/12/17 19:59 04/15/17 07:26 2.5 ML Albuterol/ Ipratropium (Duoneb) 3 ml Q2H PRN INH 04/12/17 15:30 05/12/17 15:29 04/15/17 05:49 3 ML Heparin Sodium (Porcine) (Heparin Sq 5000 Unit/0.5ml) 5,000 unit Q12 SQ 04/12/17 21:00 05/12/17 20:59 04/15/17 08:49 5,000 UNIT Fluticasone Propionate (Flovent Hfa 220MCG Inhaler) 2 puffs BID INH 04/13/17 21:00 05/13/17 20:59 04/15/17 08:28 2 PUFFS Ceftriaxone Sodium 1 gm/ Dextrose 50 ml @ 100 mls/hr Q24H IV 04/13/17 12:00 04/20/17 11:59 04/15/17 12:18 100 MLS/HR Methylprednisolone Sodium Succinate 40 mg/Syringe 0.64 ml @ 1.5 mls/min Q8H IV 04/14/17 16:00 05/13/17 15:59 04/15/17 08:27 1.5 MLS/MIN
[2017-04-15] MEDS: DIGOXIN 0.125 MG TAB PO SCH (16:50)
--- NOTE | 2017-04-15 17:27 | Pulmonology Progress Note ---
Pulmonary Progress Note Date of Service Apr 15, 2017. Attending Dr. Tyler Subjective Patient still notes intermittent dyspnea rest and notable dyspnea with exertion. Objective Patient is able set up in bed with his use accessory muscles becomes mildly tachypnea quit conversation. Vital signs: SaO2 stable on 4 L nasal cannula Respiratory: Decreased breath sounds with rhonchi bilaterally Cardiac: S1 and S2 distant heart sounds Extremities: No edema but decreased capillary refill the upper and lower extremities Assessment & Plan 86-year-old gentleman admitted for acute on chronic respiratory insufficiency: #1 Respiratory: Once again the patient's progressive respiratory insufficiency is most likely combination of: Chronic heart failure, progressive obstructive ventilatory disease and progressive bronchiectatic changes possible chronic atypical infection. At this time the patient does not want to entertain any new ideas about his overall pulmonary care. He has once again refused the vest as well as dornase another interventions. I do suggest we try to maintain this patient's SaO2 between 88 and 92% to optimize his overall ventilation/perfusion. #2 Abnormal CAT scan: Patient is abnormal CAT scan with emphysematous changes as well as chronic bronchiectasis, bilateral pleural effusions appear loculated nature and increasing lung distraction in the right middle lobe, lingula and left lower lobe predominantly. Expectorated sputum showed normal pulmonary bacteria. I did have a long conversation with this patient's granddaughter and the patient himself and we reviewed previous CAT scan images as well as most current. I discussed the increasing bronchiectatic changes as well as pulmonary nodules and went over the possible differential diagnoses ranging from chronic infection such as ROSARIO or even possible underlying malignancies. At this time neither the patient or the daughter feels it in the patient's best interest to proceed further with these workups. I also believe this is the most appropriate choice at this time. #3 pleural effusion's: Patient does have bilateral pleural effusions which is increased from his previous CAT scan in 2017. These do appear loculated in nature it would not suggest any further workup at this time. There most likely associated with her chronic cardiac dysfunction and underlying lung disease. #4 signoff: At this time I do not believe pulmonary can be of any more benefit and will sign off. Please contact the team again if necessary. Data Medications: Current Inpatient Medications Medications (Trade) Dose Ordered Sig/Shabbir Route Start Time Stop Time Status Last Admin Dose Admin Ioversol (Optiray 320) 111 ml UD PRN IV 8/22/17 21:00 04/15/17 20:59 Acetaminophen (Tylenol Tab) 650 mg Q4H PRN PO 04/11/17 21:30 05/11/17 21:29 04/15/17 09:58 650 MG Ondansetron HCl (Zofran Inj) 4 mg Q6H PRN IV 04/11/17 21:30 05/11/17 21:29 Nitroglycerin (Nitrostat Tab) 0.4 mg UD PRN SL 04/11/17 21:30 05/11/17 21:29 Aspirin (Ecotrin Tab) 81 mg DAILY PO 04/12/17 09:00 05/12/17 08:59 04/15/17 08:29 81 MG Digoxin (Lanoxin Tab) 0.125 mg DAILY@16 PO 04/12/17 16:00 05/12/17 15:59 04/15/17 16:50 0.125 MG Finasteride (Proscar Tab) 5 mg HS PO 04/12/17 21:00 05/12/17 20:59 04/14/17 21:37 5 MG Furosemide (Lasix Tab) 20 mg Q2D@0900 PO 04/12/17 09:00 05/12/17 08:59 Future Hold 04/12/17 08:13 20 MG Lisinopril (Zestril Tab) 1.25 mg QPM PO 04/12/17 21:00 05/12/17 20:59 Future Hold Metoprolol Succinate (Toprol Xl Tab) 12.5 mg QAM PO 04/12/17 09:00 05/12/17 08:59 Future hold 04/12/17 08:13 12.5 MG Roflumilast (Daliresp Tab) 500 mcg DAILY PO 04/12/17 09:00 05/12/17 08:59 04/15/17 08:28 500 MCG Sertraline HCl (Zoloft Tab) 50 mg DAILY PO 04/12/17 09:00 05/12/17 08:59 04/15/17 08:28 50 MG Miscellaneous Information (Order Awaiting Action) 1 ea QS N/A 04/12/17 00:00 05/12/17 00:00 Miscellaneous Information (Order Awaiting Action) 1 ea QS N/A 04/12/17 00:00 05/12/17 00:00 Pantoprazole Sodium (Protonix Tab) 40 mg DAILY PO 04/12/17 09:00 05/12/17 08:59 04/15/17 08:28 40 MG Azithromycin 500 mg/Dextrose 255 ml @ 125 mls/hr DAILY IV 04/12/17 09:00 04/19/17 08:59 04/15/17 08:50 125 MLS/HR Miscellaneous (Iv Fluids Completed) 1 ea PRN PRN N/A 04/12/17 00:15 04/12/18 00:14 Albuterol/ Ipratropium (Combivent Respimat Inh) 1 puffs QID INH 04/12/17 13:00 05/12/17 12:59 04/15/17 16:50 1 PUFFS Dornase Thiago (Pulmozyme Inhalation Soln 2.5ml Amp) 2.5 ml BIDR INH 04/12/17 20:00 05/12/17 19:59 04/15/17 07:26 2.5 ML Albuterol/ Ipratropium (Duoneb) 3 ml Q2H PRN INH 04/12/17 15:30 05/12/17 15:29 04/15/17 05:49 3 ML Heparin Sodium (Porcine) (Heparin Sq 5000 Unit/0.5ml) 5,000 unit Q12 SQ 04/12/17 21:00 05/12/17 20:59 04/15/17 08:49 5,000 UNIT Fluticasone Propionate (Flovent Hfa 220MCG Inhaler) 2 puffs BID INH 04/13/17 21:00 05/13/17 20:59 04/15/17 08:28 2 PUFFS Ceftriaxone Sodium 1 gm/ Dextrose 50 ml @ 100 mls/hr Q24H IV 04/13/17 12:00 04/20/17 11:59 04/15/17 12:18 100 MLS/HR Methylprednisolone Sodium Succinate 40 mg/Syringe 0.64 ml @ 1.5 mls/min Q8H IV 04/14/17 16:00 05/13/17 15:59 04/15/17 16:49 1.5 MLS/MIN Lorazepam (Ativan Tab) 0.5 mg TID PO 04/15/17 21:00 04/17/17 20:59 I & O: 24-Hour Column 04/16/17 08:00 Intake Total 200 ml Output Total 800 ml Balance -600 ml Vital Signs: Date Time Temp Pulse Resp B/P (MAP) Pulse Ox O2 Delivery O2 Flow Rate FiO2 04/15/17 16:50 119 04/15/17 15:14 36.9 124 20 127/77 (94) 94 Nasal Cannula 4.0 04/15/17 12:00 Nasal Cannula 3.5 04/15/17 11:19 36.5 121 20 102/64 (77) 97 Nasal Cannula 4.0 04/15/17 08:00 Nasal Cannula 3.5 04/15/17 07:26 109 20 98 Nasal Cannula 3.0 04/15/17 07:07 36.5 112 20 101/60 (74) 98 Nasal Cannula 3.0 04/15/17 05:49 116 26 98 Nasal Cannula 3.0 04/15/17 04:37 36.0 109 18 106/72 (83) 100 Nasal Cannula 3.0 04/15/17 04:00 Nasal Cannula 3.5 04/15/17 00:00 Nasal Cannula 3.5 04/14/17 23:26 36.3 114 18 114/69 (84) 97 Nasal Cannula 3.0 04/14/17 20:00 Nasal Cannula 3.5 04/14/17 19:35 116 20 98 Nasal Cannula 3.0 04/14/17 19:21 36.3 110 18 112/70 (84) 99 Nasal Cannula 3.0 Laboratory Results: Last 24 Hours Test 04/15/17 06:55 White Blood Count 10.48 K/uL Red Blood Count 3.80 M/uL Hemoglobin 11.8 g/dL Hematocrit 37.1 % Mean Corpuscular Volume 97.6 fL Mean Corpuscular Hemoglobin 31.1 pg Mean Corpuscular Hemoglobin Concent 31.8 g/dl RDW Standard Deviation 56.0 fL RDW Coefficient of Variation 15.7 % Platelet Count 266 K/uL Mean Platelet Volume 9.1 fL Sodium Level 138 mmol/L Potassium Level 4.4 mmol/L Chloride Level 97 mmol/L Carbon Dioxide Level 36 mmol/L Anion Gap 5.0 mmol/L Blood Urea Nitrogen 33 mg/dl Creatinine 0.87 mg/dl Est Creatinine Clear Calc Drug Dose 52.1 ml/min Estimated GFR () 91.2 Estimated GFR (Non- 78.7 BUN/Creatinine Ratio 37.5 Random Glucose 142 mg/dl Calcium Level 8.7 mg/dl
[2017-04-15] MEDS: LORAZEPAM 0.5 MG TAB PO SCH (21:13)
[2017-04-15] MEDS: FINASTERIDE 5 MG TAB PO SCH (21:13)
[2017-04-16] VITALS (10 sets, daily range): BP systolic 97–150; BP diastolic 66–77; PULSE 76–126; TEMP 36.4–36.7; O2SAT 96–99
[2017-04-16] MEDS ORDERED: NURSING VERBAL MED ORDER ONE (04:30)
[2017-04-16] MEDS ORDERED: LORAZEPAM 0.5 MG TAB PO PRN (04:30)
[2017-04-16] MEDS: DORNASE ALFA (2500U) 2.5MG/2.5ML INH SCH ×2 (07:10→20:05)
[2017-04-16] MEDS: IPRATROPIUM BROMIDE/ALBUTEROL respimat INH INH SCH ×4 (08:16→21:11)
[2017-04-16] MEDS: METHYLPREDNISOLONE IV 40 MG in SYRINGE 0 ML IV SCH ×2 (08:16→16:35)
[2017-04-16] MEDS: FLUTICASONE HFA 220 MCG INHALER INH SCH ×2 (08:16→21:11)
[2017-04-16] MEDS: AZITHROMYCIN IV 500 MG in DEXTROSE 5% 250ML 250 ML IV SCH (08:16)
[2017-04-16] MEDS: SERTRALINE HCL 50 MG TAB PO SCH (08:17)
[2017-04-16] MEDS: ASPIRIN 81 MG ECTAB PO SCH (08:18)
[2017-04-16] MEDS: ROFLUMILAST 500 MCG TAB PO SCH (08:18)
[2017-04-16] MEDS: PANTOprazole SOD 40 MG TAB PO SCH (08:18)
[2017-04-16] MEDS: HEPARIN SOD 5000 UNIT/0.5 ML CARP SQ SCH ×2 (08:22→21:20)
[2017-04-16] MEDS: LORAZEPAM 0.5 MG TAB PO SCH ×3 (08:23→21:11)
[2017-04-16] MEDS: METOPROLOL SUCC 25MG EXT REL TAB PO SCH (10:00)
[2017-04-16] MEDS: CEFTRIAXONE SOD INJ 1 GM in DEXTROSE 5% ADD-VANTAGE 50ML 50 ML IV SCH (13:04)
[2017-04-16] MEDS: ACETAMINOPHEN 325 MG TAB PO PRN (14:28)
[2017-04-16] MEDS: DIGOXIN 0.125 MG TAB PO SCH (16:35)
[2017-04-16] MEDS: FINASTERIDE 5 MG TAB PO SCH (21:11)
--- NOTE | 2017-04-16 21:41 | Progress Note ---
Medicine Progress Note Date & Time of Visit: Apr 16, 2017 at 17:38. Subjective tolerating PO sitting at bedside chair right now. denies pain very frustrated because he is so weak he cannot describe how his breathing is today denies coughing, fevers, or chills. Objective Last 8 Hrs Date Time Temp Pulse Resp B/P (MAP) Pulse Ox O2 Delivery O2 Flow Rate FiO2 04/16/17 16:35 36.7 100 18 150/77 (101) 99 Nasal Cannula 4.0 04/16/17 16:35 108 04/16/17 16:23 36.7 100 18 150/77 (101) 99 Room Air 04/16/17 12:00 Nasal Cannula 3.5 04/16/17 11:38 36.6 111 22 97/66 (76) 98 3.0 04/16/17 10:20 126 18 102/68 (79) 97 Room Air Physical Exam: GEN: thin,elderly, in no acute distress, alert and appropriate, appears generally weak, depressed affect today HEENT: NC/AT, normal sclerae, MMM CARDIO: reg rate, S1/2 heard without m/g/r LUNGS: CTA bilaterally, no crackles, rales or wheezes, good diaphragmatic excursion, poor airflow in posterior mendenhall, better heard in anterior mendenhall. ABD: soft, non-tender, non-distended, no rebound or guarding EXTREMITY: RP and DP palpable 2+ bilat, no LE swelling or edema, extremities are warm and well-perfused NEURO: CN 2-12 grossly intact MUSC: 5/5 strength throughout, no gross focal deficits but generally is weak with moving around the bed SKIN: warm and dry Assessment & Plan 86 yoM with severe COPD and chronic respiratory failure on 3.5L oxygen presents with acute exacerbation of COPD 2/2 PNA 1. Acute on chronic respiratory failure 2/2 acute COPD exacerbation 2/2 multilobar pneumonia-he is frustrated that he is so weak. He is not clearly expressing how he is breathing today but appears about the same or better as yesterday. Nurse who has had him the past couple of days reports that he appeared clinically worse when he was de-escalated to the prednisone PO, and better after being put back on the Solumedrol yesterday. Cont Combivent and Flovent inhalers. Cont Rocephin/Azithro. Cont pulmozyme and flutter valve with chest PT. Will require long taper and continue chronic steroids. Apprec additional pulm recs for future management strategies. 2. Tachycardia-likely multifactorial in setting of steroid use, Combivent ( declines neb treatments), mutlilobar pneumonia, anxiety and significant deconditioning. Has been around low 100s. Scheduled Ativan is working well for him. Increased Zoloft to 100mg PO daily and increased Toprol to 25mg PO daily. 3. systolic CHF-chronic, compensated. Cont with medical management to include ASA 81, digoxin, Toprol XL. Cont to hold Lasix/lisinopril and will add each back slowly. Daily weights. Low salt diet. 4. Elevated troponin-likely 2/2 demand ischemia in setting of significant infection, chronic conduction abnormalities and chronic systolic heart failure. This appears chronic since last admission. TTE performed at that time revealing LVEF 20%, reduced systolic function, mild to moderate mitral regurgitation. He has denied any chest pain this admission and no further cardiac workup was thought necessary to date with continued, albeit slow, clinical improvement. 5. Generalized weakness-secondary to all issues above including polypharmacy and medication side effects in setting of significant lung pathology and poor perfusion with chronic systolic right and left sided heart failure in setting of PVD. Cont PT/OT and pt not agreeable to rehab facility (see below) 6. Anxiety-pt is on sertraline. He is very frustrated and depressed about his weakness. He is still not OK with rehab at this point but we have continued to discuss about the safety aspects with rehab. Added scheduled Ativan as above. 7. BPH-cont proscar DVT ppx subq heparin DNR Dispo-pt is not agreeable to go to rehab at this time. He has a couple more days here prior to discharge, so will see if his weakness improves and cont to reassess. As he lives alone this may be problematic, but can see if we can work it out to where kids can stay with him for a few days. He is agreeable to [facility] for PT/OT and home nursing-will work with CM on that. DC no earlier than Mond but more likely to be closer to 3-4 days. Esther Schreiber DO [facility] Hospitalist Consultants: [facility] Current Inpatient Medications: Current Inpatient Medications Medications (Trade) Dose Ordered Sig/Shabbir Route Start Time Stop Time Status Last Admin Dose Admin Acetaminophen (Tylenol Tab) 650 mg Q4H PRN PO 04/11/17 21:30 05/11/17 21:29 04/16/17 14:28 650 MG Ondansetron HCl (Zofran Inj) 4 mg Q6H PRN IV 04/11/17 21:30 05/11/17 21:29 Nitroglycerin (Nitrostat Tab) 0.4 mg UD PRN SL 04/11/17 21:30 05/11/17 21:29 Aspirin (Ecotrin Tab) 81 mg DAILY PO 04/12/17 09:00 05/12/17 08:59 04/16/17 08:18 81 MG Digoxin (Lanoxin Tab) 0.125 mg DAILY@16 PO 04/12/17 16:00 05/12/17 15:59 04/16/17 16:35 0.125 MG Finasteride (Proscar Tab) 5 mg HS PO 04/12/17 21:00 05/12/17 20:59 04/15/17 21:13 5 MG Furosemide (Lasix Tab) 20 mg Q2D@0900 PO 04/12/17 09:00 05/12/17 08:59 Future Hold 04/12/17 08:13 20 MG Lisinopril (Zestril Tab) 1.25 mg QPM PO 04/12/17 21:00 05/12/17 20:59 Future Hold Metoprolol Succinate (Toprol Xl Tab) 12.5 mg QAM PO 04/12/17 09:00 05/12/17 08:59 Future hold 04/16/17 10:00 12.5 MG Roflumilast (Daliresp Tab) 500 mcg DAILY PO 04/12/17 09:00 05/12/17 08:59 04/16/17 08:18 500 MCG Sertraline HCl (Zoloft Tab) 50 mg DAILY PO 04/12/17 09:00 05/12/17 08:59 04/16/17 08:17 50 MG Miscellaneous Information (Order Awaiting Action) 1 ea QS N/A 04/12/17 00:00 05/12/17 00:00 Miscellaneous Information (Order Awaiting Action) 1 ea QS N/A 04/12/17 00:00 05/12/17 00:00 Pantoprazole Sodium (Protonix Tab) 40 mg DAILY PO 04/12/17 09:00 05/12/17 08:59 04/16/17 08:18 40 MG Azithromycin 500 mg/Dextrose 255 ml @ 125 mls/hr DAILY IV 04/12/17 09:00 04/19/17 08:59 04/16/17 08:16 125 MLS/HR Miscellaneous (Iv Fluids Completed) 1 ea PRN PRN N/A 04/12/17 00:15 04/12/18 00:14 Albuterol/ Ipratropium (Combivent Respimat Inh) 1 puffs QID INH 04/12/17 13:00 05/12/17 12:59 04/16/17 16:33 1 PUFFS Dornase Thiago (Pulmozyme Inhalation Soln 2.5ml Amp) 2.5 ml BIDR INH 04/12/17 20:00 05/12/17 19:59 04/16/17 07:10 2.5 ML Albuterol/ Ipratropium (Duoneb) 3 ml Q2H PRN INH 04/12/17 15:30 05/12/17 15:29 04/15/17 05:49 3 ML Heparin Sodium (Porcine) (Heparin Sq 5000 Unit/0.5ml) 5,000 unit Q12 SQ 04/12/17 21:00 05/12/17 20:59 04/16/17 08:22 5,000 UNIT Fluticasone Propionate (Flovent Hfa 220MCG Inhaler) 2 puffs BID INH 04/13/17 21:00 05/13/17 20:59 04/16/17 08:16 2 PUFFS Ceftriaxone Sodium 1 gm/ Dextrose 50 ml @ 100 mls/hr Q24H IV 04/13/17 12:00 04/20/17 11:59 04/16/17 13:04 100 MLS/HR Methylprednisolone Sodium Succinate 40 mg/Syringe 0.64 ml @ 1.5 mls/min Q8H IV 04/14/17 16:00 05/13/17 15:59 04/16/17 16:35 1.5 MLS/MIN Lorazepam (Ativan Tab) 0.5 mg TID PO 04/15/17 21:00 04/17/17 20:59 04/16/17 14:27 0.5 MG Lorazepam (Ativan Tab) 0.5 mg Q6H PRN PO 04/16/17 04:30 05/16/17 04:29 04/16/17 04:38 0.5 MG
[2017-04-17] VITALS (7 sets, daily range): BP systolic 90–101; BP diastolic 63–68; PULSE 57–117; TEMP 36.3–36.8; O2SAT 92–97
[2017-04-17] MEDS: METHYLPREDNISOLONE IV 40 MG in SYRINGE 0 ML IV SCH ×3 (00:34→17:13)
[2017-04-17 06:55] LABS: HEMATOCRIT 37.9 % (42-52); MEAN CELL VOLUME 96.7 fL (80-100); MEAN CORPUSCULAR HEMOGLOBIN 30.6 pg (25-34); MEAN CORPUSCULAR HGB CONC 31.7 g/dl (32-36); PLATELET COUNT 247 K/uL (130-400); RED BLOOD COUNT 3.92 M/uL (4.7-6.1); WHITE BLOOD COUNT 10.63 K/uL (4.8-10.8)
[2017-04-17 07:38] LABS: BUN/CREATININE RATIO 37.9 (10-20); CALCIUM 8.8 mg/dl (8.5-10.1); CREATININE 0.76 mg/dl (0.60-1.40); POTASSIUM 5.4 mmol/L (3.5-5.1)
[2017-04-17] MEDS: ASPIRIN 81 MG ECTAB PO SCH (07:41)
[2017-04-17] MEDS: IPRATROPIUM BROMIDE/ALBUTEROL respimat INH INH SCH ×4 (07:41→21:45)
[2017-04-17] MEDS: ROFLUMILAST 500 MCG TAB PO SCH (07:41)
[2017-04-17] MEDS: FLUTICASONE HFA 220 MCG INHALER INH SCH ×2 (07:41→21:45)
[2017-04-17] MEDS: PANTOprazole SOD 40 MG TAB PO SCH (07:42)
[2017-04-17] MEDS: HEPARIN SOD 5000 UNIT/0.5 ML CARP SQ SCH ×2 (07:43→21:51)
[2017-04-17] MEDS: DORNASE ALFA (2500U) 2.5MG/2.5ML INH SCH ×3 (07:43→19:40)
[2017-04-17] MEDS: CEFDINIR 300 MG CAP PO SCH (07:47)
[2017-04-17] MEDS: SERTRALINE HCL 100 MG TAB PO SCH (07:47)
[2017-04-17] MEDS: LORAZEPAM 0.5 MG TAB PO SCH ×2 (07:47→13:12)
[2017-04-17] MEDS: AZITHROMYCIN 250 MG TAB PO SCH (07:48)
[2017-04-17] MEDS ORDERED: METOPROLOL SUCC 25MG EXT REL TAB PO SCH (09:00)
[2017-04-17] MEDS ORDERED: METOPROLOL SUCC 25MG EXT REL TAB PO ONE (12:43)
--- NOTE | 2017-04-17 15:26 | CARDIOLOGY CONSULTATION ---
DATE OF CONSULTATION: 04/17/2017 REFERRING PHYSICIAN: Dr. Schreiber. INDICATIONS: Sinus tachycardia, acute respiratory distress. 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 The patient presents this admission with worsening shortness of breath, cough and marked weakness and fatigue with low blood pressures and declining respiratory status. The patient was admitted to [facility] on 04/11 with exacerbation of underlying lung disease, has been treated with antibiotic and corticosteroids with some improvement though has been persistently tachycardic. Medications were also discontinued including lisinopril and furosemide due to relative hypotension. The patient has been frustrated by his inability to gain strength. He is referred now for further evaluation. Notes no melena, hematochezia, dysuria or hematuria. Has not had a significantly productive cough. Notes no rash or arthritic complaint. Notes no specific chest pains or discomfort, is wearing oxygen faithfully. ALLERGIES: SULFA. MEDICATIONS PRIOR TO HOSPITALIZATION: Aspirin 81 mg per day, Mucinex DM 1 tablet q. 12 hours p.r.n., digoxin 0.125 mg p.o. q. day, doxycycline 100 mg b.i.d., Proscar 5 mg at bedtime, furosemide 20 mg every other day, oxygen 3-1/2 liters nasal cannula, Atrovent inhaler nebulizer, DuoNeb nebulizer, lisinopril 1.25 mg q.p.m., lorazepam p.r.n., metoprolol succinate 12.5 mg q.a.m., multivitamin per day, omeprazole 20 mg q. day, prednisone 10 mg p.o. q. day, sertraline 50 mg p.o. q. day. PAST SURGICAL HISTORY: Notable for an endovascular repair of an abdominal aortic aneurysm. FAMILY HISTORY: Notable for chronic obstructive lung disease. SOCIAL HISTORY: The patient is a prior smoker, had been living independently until recently. Uses no significant alcoholic beverages. PHYSICAL EXAMINATION: GENERAL: The patient is a chronically ill appearing male. VITAL SIGNS: Heart rate is 100, blood pressure is 101/65. NECK: Neck is thin. There is no jugular venous distention at 30 degrees. LUNGS: Reveal markedly diminished breath sounds in all lung mendenhlal with few scattered wheezes and forced cough. CARDIOVASCULAR: Regular but tachycardic. There is no S3 gallop audible. ABDOMEN: Soft, there is no hepatojugular reflux. EXTREMITIES: Without cyanosis or clubbing. There is no peripheral edema. There are intact distal pulses. LABORATORY DATA: White cell count 10.6, hemoglobin is 12.0, hematocrit 37.9. Sodium is 137, potassium is 5.4, chloride is 95, bicarb is 40, BUN is 29, creatinine 0.76. Chest x-ray reveals background emphysema and embolus changes. No overt pulmonary edema with trivial left and right pleural effusions. CTA done on admission revealed no evidence of pulmonary emboli. Echocardiogram last performed in December of 2016 was reviewed and demonstrates diffuse LV dysfunction, EF 20-25%. IMPRESSION: An 86-year-old male with complex history of severe O2 and steroid dependent obstructive lung disease, underlying history of cardiomyopathy, possible ischemic origin, admitted with worsening pulmonary status. He has been treated with some improvement but continues to have sinus tachycardia with diminished clinical response. PLAN: Will be to change Toprol-XL to 12.5 mg twice per day. Hopefully, control heart rate. We will consider discontinuing Proscar to allow slightly higher blood pressures. No signs or symptoms of overt pulmonary congestion or congestive heart failure. Overall, prognosis is limited.
[2017-04-17] MEDS: DIGOXIN 0.125 MG TAB PO SCH (17:14)
--- NOTE | 2017-04-17 17:36 | Progress Note ---
Medicine Progress Note Date & Time of Visit: Apr 17, 2017 at 0900. Subjective tolerating PO son at bedside and we discussed the plan pt expressed frustration at being so weak and his breathing being poor. he denies coughing, fevers, or chills at this time He denies pain He states that he can transfer from the bed to the chair on his own. Objective Last 8 Hrs Date Time Temp Pulse Resp B/P (MAP) Pulse Ox O2 Delivery O2 Flow Rate FiO2 04/17/17 12:00 Nasal Cannula 3.5 04/17/17 11:37 36.8 115 20 101/65 (77) 92 Nasal Cannula 3.0 04/17/17 09:55 91 18 96 Nasal Cannula 3.5 04/17/17 08:00 Nasal Cannula 3.5 04/17/17 07:23 36.7 57 17 99/68 (78) 94 Nasal Cannula 3.0 Physical Exam: GEN: thin,elderly, in no acute distress, alert and appropriate, appears generally weak, depressed affect HEENT: NC/AT, normal sclerae, MMM CARDIO: reg rate, S1/2 heard without m/g/r LUNGS: CTA bilaterally, no crackles, rales or wheezes, good diaphragmatic excursion, poor airflow in posterior mendenhall, better heard in anterior mendenhall. ABD: soft, non-tender, non-distended, no rebound or guarding EXTREMITY: RP and DP palpable 2+ bilat, no LE swelling or edema, extremities are warm and well-perfused NEURO: CN 2-12 grossly intact MUSC: 5/5 strength throughout, no gross focal deficits but generally is weak with moving around the bed SKIN: warm and dry Laboratory Results: 04/17/17 06:43 04/17/17 06:43 Test 04/11/17 19:45 04/11/17 22:45 04/12/17 06:20 04/12/17 11:30 Immature Granulocyte % (Auto) 0.3 % White Blood Count 7.60 K/uL (4.8-10.8) Red Blood Count 3.67 M/uL (4.7-6.1) Hemoglobin 11.5 g/dL (14.0-18.0) Hematocrit 35.8 % (42-52) Mean Corpuscular Volume 97.5 fL (80-100) Mean Corpuscular Hemoglobin 31.3 pg (25-34) Mean Corpuscular Hemoglobin Concent 32.1 g/dl (32-36) Platelet Count 229 K/uL (130-400) Mean Platelet Volume 8.9 fL (7.4-10.4) Neutrophils (%) (Auto) 75.0 % Lymphocytes (%) (Auto) 14.7 % Monocytes (%) (Auto) 8.6 % Eosinophils (%) (Auto) 1.3 % Basophils (%) (Auto) 0.1 % Neutrophils # (Auto) 5.70 K/uL (1.4-6.5) Lymphocytes # (Auto) 1.12 K/uL (1.2-3.4) Monocytes # (Auto) 0.65 K/uL (0.11-0.59) Eosinophils # (Auto) 0.10 K/uL (0-0.5) Basophils # (Auto) 0.01 K/uL (0-0.2) Immature Granulocyte # (Auto) 0.02 K/uL (0.00-0.02) Prothrombin Time 11.0 SECONDS (9.0-12.0) Prothromb Time International Ratio 1.0 (0.9-1.1) Lactic Acid Level 1.7 mmol/L (0.4-2.0) Pro-B-Type Natriuretic Peptide 7518 pg/ml (0-1800) Digoxin Level 0.6 ng/ml (0.8-2.0) Magnesium Level 2.1 mg/dl (1.8-2.4) Total Bilirubin 0.4 mg/dl (0.2-1) Aspartate Amino Transf (AST/SGOT) 20 U/L (15-37) Alanine Aminotransferase (ALT/SGPT) 22 U/L (12-78) Alkaline Phosphatase 68 U/L (45-117) Total Creatine Kinase 64 U/L (39-308) Creatine Kinase MB 4.5 ng/ml (0.5-3.6) Creatine Kinase MB Ratio 7.0 (0-3.0) Troponin I 0.366 ng/ml (0-0.045) Total Protein 6.6 gm/dl (6.4-8.2) Albumin 3.1 gm/dl (3.4-5.0) Globulin 3.5 gm/dl (2.5-4.0) Albumin/Globulin Ratio 0.9 (0.9-2) Bedside Glucose 131 mg/dl (70-99) Test 04/17/17 06:43 Red Blood Count 3.92 M/uL (4.7-6.1) Mean Corpuscular Volume 96.7 fL (80-100) Mean Corpuscular Hemoglobin 30.6 pg (25-34) Mean Corpuscular Hemoglobin Concent 31.7 g/dl (32-36) RDW Standard Deviation 54.5 fL (36.4-46.3) RDW Coefficient of Variation 15.5 % (11.5-14.5) Mean Platelet Volume 9.0 fL (7.4-10.4) Anion Gap 2.0 mmol/L (3-11) Est Creatinine Clear Calc Drug Dose 60.3 ml/min Estimated GFR () 96.4 Estimated GFR (Non- 83.2 BUN/Creatinine Ratio 37.9 (10-20) Calcium Level 8.8 mg/dl (8.5-10.1) Date/Time Source Procedure Growth Status 04/11/17 22:53 Blood Blood Culture - Final NO GROWTH Complete 04/12/17 15:30 Sputum Expectorated Sputum Gram Stain - Final Complete 04/12/17 15:30 Sputum Expectorated Sputum Sputum Culture - Final HEAVY NORMAL ARI Complete Last 24 Hours Test 04/17/17 06:43 White Blood Count 10.63 K/uL Red Blood Count 3.92 M/uL Hemoglobin 12.0 g/dL Hematocrit 37.9 % Mean Corpuscular Volume 96.7 fL Mean Corpuscular Hemoglobin 30.6 pg Mean Corpuscular Hemoglobin Concent 31.7 g/dl RDW Standard Deviation 54.5 fL RDW Coefficient of Variation 15.5 % Platelet Count 247 K/uL Mean Platelet Volume 9.0 fL Sodium Level 137 mmol/L Potassium Level 5.4 mmol/L Chloride Level 95 mmol/L Carbon Dioxide Level 40 mmol/L Anion Gap 2.0 mmol/L Blood Urea Nitrogen 29 mg/dl Creatinine 0.76 mg/dl Est Creatinine Clear Calc Drug Dose 60.3 ml/min Estimated GFR () 96.4 Estimated GFR (Non- 83.2 BUN/Creatinine Ratio 37.9 Random Glucose 126 mg/dl Calcium Level 8.8 mg/dl Assessment & Plan 86 yoM with severe COPD and chronic respiratory failure on 3.5L oxygen presents with acute exacerbation of COPD 2/2 PNA 1. Acute on chronic respiratory failure 2/2 acute COPD exacerbation 2/2 multilobar pneumonia-he is frustrated that he is so weak and states that his breathing is the same as yesterday. Cont Combivent and Flovent inhalers. Changed to PO abx (Azithro-Day 7; Cefdinir-Day 5) Cont pulmozyme and flutter valve with chest PT. Will require long taper and continue chronic steroids-IV steroids were changed to PO today as feel little benefit coming from the higher dose at this time. Pulm signed off case but would touch base with them prior to discharge being considered. 2. Tachycardia-likely multifactorial in setting of steroid use, Combivent ( declines neb treatments), mutlilobar pneumonia, anxiety and significant deconditioning. Has been around low 100s. Scheduled Ativan is working well for him. Increased Zoloft to 100mg PO daily and increased Toprol to 25mg PO daily. Consulted Cardiology out of concern for such a high HR in this weak heart with EF 20%. Dr. Armenta increased Toprol XL 25 to BID and stopped proscar to allow BP to rise. Appreciate recs. 3. Systolic CHF-chronic, compensated. Cont with medical management to include ASA 81, digoxin, Toprol XL as above. Cont to hold Lasix/lisinopril and will add each back slowly as BP and clinical appearance dictates. Daily weights. Low salt diet. 4. Elevated troponin-likely 2/2 demand ischemia in setting of significant infection, chronic conduction abnormalities and chronic systolic heart failure. This appears chronic since last admission. TTE performed at that time (December 2016) revealing LVEF 20%, reduced systolic function, mild to moderate mitral regurgitation. He has denied any chest pain this admission and no further cardiac workup was thought necessary to date with continued, albeit slow, clinical improvement. 5. Generalized weakness-secondary to all issues above including polypharmacy and medication side effects in setting of significant lung pathology and poor perfusion with chronic systolic right and left sided heart failure in setting of PVD. Cont PT/OT and pt not agreeable to rehab facility (see below) 6. Anxiety-pt is on sertraline. He is very frustrated and depressed about his weakness. He is still not OK with rehab at this point but we have continued to discuss about the safety aspects with rehab. Increased sertraline to 100mg this admission and cont with scheduled ativan TID 7. BPH-Proscar stopped to allow BP to rise. 8. Thrush-contacted by nurse regarding white patches in mouth. Nystatin started 04/17 DVT ppx subq heparin DNR Dispo-pt is not agreeable to go to rehab at this time. He has a couple more days here prior to discharge, so will see if his weakness improves and cont to reassess. As he lives alone this may be problematic, but can see if we can work it out to where kids can stay with him for a few days. He is agreeable to [facility] for PT/OT and home nursing-will work with CM on that. Esther Schreiber DO [facility] Hospitalist Consultants: [facility] Current Inpatient Medications: Current Inpatient Medications Medications (Trade) Dose Ordered Sig/Shabbir Route Start Time Stop Time Status Last Admin Dose Admin Acetaminophen (Tylenol Tab) 650 mg Q4H PRN PO 04/11/17 21:30 05/11/17 21:29 04/16/17 14:28 650 MG Ondansetron HCl (Zofran Inj) 4 mg Q6H PRN IV 04/11/17 21:30 05/11/17 21:29 Nitroglycerin (Nitrostat Tab) 0.4 mg UD PRN SL 04/11/17 21:30 05/11/17 21:29 Aspirin (Ecotrin Tab) 81 mg DAILY PO 04/12/17 09:00 05/12/17 08:59 04/17/17 07:41 81 MG Digoxin (Lanoxin Tab) 0.125 mg DAILY@16 PO 04/12/17 16:00 05/12/17 15:59 04/16/17 16:35 0.125 MG Finasteride (Proscar Tab) 5 mg HS PO 04/12/17 21:00 05/12/17 20:59 04/16/17 21:11 5 MG Furosemide (Lasix Tab) 20 mg Q2D@0900 PO 04/12/17 09:00 05/12/17 08:59 Future Hold 04/12/17 08:13 20 MG Lisinopril (Zestril Tab) 1.25 mg QPM PO 04/12/17 21:00 05/12/17 20:59 Future Hold Roflumilast (Daliresp Tab) 500 mcg DAILY PO 04/12/17 09:00 05/12/17 08:59 04/17/17 07:41 500 MCG Miscellaneous Information (Order Awaiting Action) 1 ea QS N/A 04/12/17 00:00 05/12/17 00:00 Miscellaneous Information (Order Awaiting Action) 1 ea QS N/A 04/12/17 00:00 05/12/17 00:00 Pantoprazole Sodium (Protonix Tab) 40 mg DAILY PO 04/12/17 09:00 05/12/17 08:59 04/17/17 07:42 40 MG Miscellaneous (Iv Fluids Completed) 1 ea PRN PRN N/A 04/12/17 00:15 04/12/18 00:14 Albuterol/ Ipratropium (Combivent Respimat Inh) 1 puffs QID INH 04/12/17 13:00 05/12/17 12:59 04/17/17 13:11 1 PUFFS Dornase Thiago (Pulmozyme Inhalation Soln 2.5ml Amp) 2.5 ml BIDR INH 04/12/17 20:00 05/12/17 19:59 04/17/17 09:53 2.5 ML Albuterol/ Ipratropium (Duoneb) 3 ml Q2H PRN INH 04/12/17 15:30 05/12/17 15:29 04/15/17 05:49 3 ML Heparin Sodium (Porcine) (Heparin Sq 5000 Unit/0.5ml) 5,000 unit Q12 SQ 04/12/17 21:00 05/12/17 20:59 04/17/17 07:43 5,000 UNIT Fluticasone Propionate (Flovent Hfa 220MCG Inhaler) 2 puffs BID INH 04/13/17 21:00 05/13/17 20:59 04/17/17 07:41 2 PUFFS Methylprednisolone Sodium Succinate 40 mg/Syringe 0.64 ml @ 1.5 mls/min Q8H IV 04/14/17 16:00 05/13/17 15:59 04/17/17 07:41 1.5 MLS/MIN Lorazepam (Ativan Tab) 0.5 mg TID PO 04/15/17 21:00 04/17/17 20:59 04/17/17 13:12 0.5 MG Azithromycin (Zithromax Tab) 500 mg QAM PO 04/17/17 09:00 04/18/17 09:01 04/17/17 07:48 500 MG Cefdinir (Omnicef Cap) 300 mg DAILY PO 04/17/17 09:00 04/20/17 21:30 04/17/17 07:47 300 MG Sertraline HCl (Zoloft Tab) 100 mg QAM PO 04/17/17 09:00 05/17/17 08:59 04/17/17 07:47 100 MG Metoprolol Succinate (Toprol Xl Tab) 25 mg BID PO 04/17/17 21:00 05/17/17 08:59
[2017-04-17] MEDS: NYSTATIN SUSP 500,000 U/5 ML UDC PO SCH ×2 (18:17→21:46)
[2017-04-17] MEDS: FINASTERIDE 5 MG TAB PO SCH (21:46)
[2017-04-17] MEDS: METOPROLOL SUCC 25MG EXT REL TAB PO SCH (21:50)
[2017-04-17] MEDS: ACETAMINOPHEN 325 MG TAB PO PRN (21:55)
[2017-04-18 00:03] VITALS: BP_SYST 105; BP_SYST 96; BP_DIAS 61; BP_DIAS 62; PULSE 93; TEMP 36.4; O2SAT 100
[2017-04-18 05:03] VITALS: BP 102/68; PULSE 91; TEMP 36.7; O2SAT 100
[2017-04-18 07:10] LABS: HEMATOCRIT 37.9 % (42-52); MEAN CELL VOLUME 98.7 fL (80-100); MEAN CORPUSCULAR HEMOGLOBIN 29.9 pg (25-34); MEAN CORPUSCULAR HGB CONC 30.3 g/dl (32-36); MEAN PLATELET VOLUME 9.7 fL (7.4-10.4); PLATELET COUNT 275 K/uL (130-400); RED BLOOD COUNT 3.84 M/uL (4.7-6.1); WHITE BLOOD COUNT 11.46 K/uL (4.8-10.8)
[2017-04-18 07:27] VITALS: BP 99/64; PULSE 98; TEMP 36.5; O2SAT 96
[2017-04-18 07:47] LABS: BUN/CREATININE RATIO 40.9 (10-20); CREATININE 0.86 mg/dl (0.60-1.40); POTASSIUM 4.7 mmol/L (3.5-5.1)
[2017-04-18] MEDS: DORNASE ALFA (2500U) 2.5MG/2.5ML INH SCH ×2 (08:00→19:41)
[2017-04-18] MEDS: AZITHROMYCIN 250 MG TAB PO SCH (08:02)
[2017-04-18] MEDS: ROFLUMILAST 500 MCG TAB PO SCH (08:02)
[2017-04-18] MEDS: IPRATROPIUM BROMIDE/ALBUTEROL respimat INH INH SCH ×4 (08:02→21:04)
[2017-04-18] MEDS: FLUTICASONE HFA 220 MCG INHALER INH SCH ×2 (08:02→21:04)
[2017-04-18] MEDS: NYSTATIN SUSP 500,000 U/5 ML UDC PO SCH ×4 (08:02→21:05)
[2017-04-18] MEDS: PANTOprazole SOD 40 MG TAB PO SCH (08:03)
[2017-04-18] MEDS: SERTRALINE HCL 100 MG TAB PO SCH (08:03)
[2017-04-18] MEDS: METOPROLOL SUCC 25MG EXT REL TAB PO SCH ×2 (08:03→21:00)
[2017-04-18] MEDS: ASPIRIN 81 MG ECTAB PO SCH (08:03)
[2017-04-18] MEDS: CEFDINIR 300 MG CAP PO SCH (08:03)
[2017-04-18] MEDS: HEPARIN SOD 5000 UNIT/0.5 ML CARP SQ SCH ×2 (08:05→21:10)
[2017-04-18] MEDS ORDERED: MAGNESIUM SULFATE 1GM / D5W 1 GM in PREMIXED IN D5W 100 ML IV STA (09:45)
--- NOTE | 2017-04-18 09:49 | Progress Note ---
Subjective Date of Service: Apr 18, 2017. Subjective Pt evaluation today including: conversation w/ patient, physical exam, lab review, review of studies, review of inpatient medication list Saw/examined the patient in room 276 Seated at bedside depressed/flat affect tells me he is not getting better and feels weak shortness of breath persists mild cough Problem List Medical Problems: (1) Chronic obstructive pulmonary disease Permanent Comment: on chronic O2 and steroids Status: Chronic (2) Congestive heart failure Status: Acute (3) Elevated troponin Status: Acute (4) Hypoxia Status: Acute (5) Lung mass Status: Acute (6) Pneumonia Status: Acute Review of Systems Constitutional: + weakness, No fever, No chills Respiratory: + cough, + sputum, + wheezing, + shortness of breath, + dyspnea on exertion, + dyspnea at rest, No hemoptysis Cardiac: No chest pain, No edema, No palpitations Medications Current Inpatient Medications Medications (Trade) Dose Ordered Sig/Shabbir Route Start Time Stop Time Status Last Admin Dose Admin Acetaminophen (Tylenol Tab) 650 mg Q4H PRN PO 04/11/17 21:30 05/11/17 21:29 04/17/17 21:55 650 MG Ondansetron HCl (Zofran Inj) 4 mg Q6H PRN IV 04/11/17 21:30 05/11/17 21:29 Nitroglycerin (Nitrostat Tab) 0.4 mg UD PRN SL 04/11/17 21:30 05/11/17 21:29 Aspirin (Ecotrin Tab) 81 mg DAILY PO 04/12/17 09:00 05/12/17 08:59 04/18/17 08:03 81 MG Digoxin (Lanoxin Tab) 0.125 mg DAILY@16 PO 04/12/17 16:00 05/12/17 15:59 04/17/17 17:14 0.125 MG Finasteride (Proscar Tab) 5 mg HS PO 04/12/17 21:00 05/12/17 20:59 04/17/17 21:46 5 MG Furosemide (Lasix Tab) 20 mg Q2D@0900 PO 04/12/17 09:00 05/12/17 08:59 Future Hold 04/12/17 08:13 20 MG Lisinopril (Zestril Tab) 1.25 mg QPM PO 04/12/17 21:00 05/12/17 20:59 Future Hold Roflumilast (Daliresp Tab) 500 mcg DAILY PO 04/12/17 09:00 05/12/17 08:59 04/18/17 08:02 500 MCG Miscellaneous Information (Order Awaiting Action) 1 ea QS N/A 04/12/17 00:00 05/12/17 00:00 Miscellaneous Information (Order Awaiting Action) 1 ea QS N/A 04/12/17 00:00 05/12/17 00:00 Pantoprazole Sodium (Protonix Tab) 40 mg DAILY PO 04/12/17 09:00 05/12/17 08:59 04/18/17 08:03 40 MG Miscellaneous (Iv Fluids Completed) 1 ea PRN PRN N/A 04/12/17 00:15 04/12/18 00:14 Albuterol/ Ipratropium (Combivent Respimat Inh) 1 puffs QID INH 04/12/17 13:00 05/12/17 12:59 04/18/17 08:02 1 PUFFS Dornase Thiago (Pulmozyme Inhalation Soln 2.5ml Amp) 2.5 ml BIDR INH 04/12/17 20:00 05/12/17 19:59 04/17/17 09:53 2.5 ML Albuterol/ Ipratropium (Duoneb) 3 ml Q2H PRN INH 04/12/17 15:30 05/12/17 15:29 04/15/17 05:49 3 ML Heparin Sodium (Porcine) (Heparin Sq 5000 Unit/0.5ml) 5,000 unit Q12 SQ 04/12/17 21:00 05/12/17 20:59 04/18/17 08:05 5,000 UNIT Fluticasone Propionate (Flovent Hfa 220MCG Inhaler) 2 puffs BID INH 04/13/17 21:00 05/13/17 20:59 04/18/17 08:02 2 PUFFS Cefdinir (Omnicef Cap) 300 mg DAILY PO 04/17/17 09:00 04/20/17 21:30 04/18/17 08:03 300 MG Sertraline HCl (Zoloft Tab) 100 mg QAM PO 04/17/17 09:00 05/17/17 08:59 04/18/17 08:03 100 MG Metoprolol Succinate (Toprol Xl Tab) 25 mg BID PO 04/17/17 21:00 05/17/17 08:59 04/18/17 08:03 25 MG Nystatin (Mycostatin Susp) 5 ml QID PO 04/17/17 18:00 04/27/17 17:59 04/18/17 08:02 5 ML Prednisone (PredniSONE TAB) 40 mg DAILY PO 04/18/17 09:00 05/18/17 08:59 04/18/17 08:02 40 MG Objective Vital Signs Date Time Temp Pulse Resp B/P (MAP) Pulse Ox O2 Delivery O2 Flow Rate FiO2 04/18/17 07:27 36.5 98 20 99/64 (76) 96 Nasal Cannula 3.0 04/18/17 05:03 36.7 91 20 102/68 (79) 100 Nasal Cannula 3.0 04/18/17 04:00 Nasal Cannula 3.5 04/18/17 00:03 36.4 93 20 96/62 (73) 100 Nasal Cannula 3.0 04/18/17 00:00 Nasal Cannula 3.5 04/17/17 21:50 109 100/66 (77) 04/17/17 20:10 36.5 114 18 95/64 (74) 95 Nasal Cannula 3.0 04/17/17 20:00 Nasal Cannula 3.5 04/17/17 17:14 118 04/17/17 16:00 Nasal Cannula 3.5 04/17/17 15:54 36.3 111 20 90/63 (72) 97 Nasal Cannula 3.5 04/17/17 12:00 Nasal Cannula 3.5 04/17/17 11:37 36.8 115 20 101/65 (77) 92 Nasal Cannula 3.0 04/17/17 09:55 91 18 96 Nasal Cannula 3.5 Physical Exam General Appearance: no apparent distress Respiratory/Chest: no respiratory distress, no accessory muscle use, + decreased breath sounds Cardiovascular: no edema, no murmur, + tachycardia Neurologic/Psychiatric: no motor/sensory deficits, alert Laboratory Results Last 24 Hours Test 04/18/17 06:29 White Blood Count 11.46 K/uL Red Blood Count 3.84 M/uL Hemoglobin 11.5 g/dL Hematocrit 37.9 % Mean Corpuscular Volume 98.7 fL Mean Corpuscular Hemoglobin 29.9 pg Mean Corpuscular Hemoglobin Concent 30.3 g/dl RDW Standard Deviation 56.6 fL RDW Coefficient of Variation 15.6 % Platelet Count 275 K/uL Mean Platelet Volume 9.7 fL Sodium Level 137 mmol/L Potassium Level 4.7 mmol/L Chloride Level 95 mmol/L Carbon Dioxide Level 37 mmol/L Anion Gap 5.0 mmol/L Blood Urea Nitrogen 35 mg/dl Creatinine 0.86 mg/dl Est Creatinine Clear Calc Drug Dose 52.9 ml/min Estimated GFR () 91.6 Estimated GFR (Non- 79.1 BUN/Creatinine Ratio 40.9 Random Glucose 122 mg/dl Calcium Level 9.0 mg/dl Assessment and Plan This is an 86 year old male with severe COPD and chronic respiratory failure on 3.5L, AAA s/p repair, PVD presents with worsening shortness of breath Acute on Chronic Respiratory Failure Acute COPD Exacerbation 04/18 for the past few days, patient has persistent shortness of breath abx. changed to PO steroids changed to PO will need PT/OT will give one dose of Magnesium for breathing will try a dose of Lasix 20mg continue Daliresp and Dornase poor/limited prognosis may consider hospice - will speak with patient regarding this 04/14 appreciate pulmonary input continue solu-medrol at lower dose slow taper will be needed Rocephin + Azithro refuses nebulizers would like Combivent QID 04/13 appreciate pulmonary input repeat CXR in AM added Rocephin to abx regimen, continue Azithro Combivent QID prednisone changed to Solu-medrol in the short term given Ativan x1 for now Flovent as per pulm 04/12 patient presents with worsening SOB appreciate pulm input I switched solu-medrol to prednisone 40mg daily continue doxycycline pulmozyme was added as well as chest PT as per pulm continue Combivent speech evaluation to rule out aspiration Multifocal Pneumonia continue Omnicef for now DVT ppx subq heparin DNR
[2017-04-18] MEDS ORDERED: FUROSEMIDE 20 MG TAB PO STA (09:56)
[2017-04-18] MEDS: ACETAMINOPHEN 325 MG TAB PO PRN (10:24)
--- NOTE | 2017-04-18 10:24 | Cardiology Follow-Up ---
Subjective General Date of Service: Apr 18, 2017. Chief Complaint: SOB Pt evaluation today including: conversation w/ patient, physical exam, chart review, lab review, review of studies, review of inpatient medication list History of Present Illness Patient reports he is feeling poorly. "Can't breathe". Believes symptoms are worse than yesterday. Cough without sputum. No chest pain. Notes ongoing B/L pedal edema. HR improved with addition of toprol, currently 90-100. Ordered furosemide this AM. Allergies Coded Allergies: Sulfa Antibiotics (Verified Allergy, Unknown, RASH,NAUSEA,VOMITING, ) Social History Smoking Status: Former Smoker Hx Tobacco Use In Past Year?: No (quit smoking in approx 1999) Hx Alcohol Use - Type And Amou: No Hx Substance Use - Type And Am: No Problem List Medical Problems: (1) Chronic obstructive pulmonary disease Permanent Comment: on chronic O2 and steroids Status: Chronic (2) Congestive heart failure Status: Acute (3) Elevated troponin Status: Acute (4) Hypoxia Status: Acute (5) Lung mass Status: Acute (6) Pneumonia Status: Acute Review of Systems Respiratory: + cough, + shortness of breath, + dyspnea at rest, No sputum, No wheezing, No hemoptysis Cardiac: + edema, No chest pain, No orthopnea, No PND, No palpitations Physical Exam Vital Signs Last Vital Signs Documentation Date Time Temp Pulse Resp B/P (MAP) Pulse Ox O2 Delivery O2 Flow Rate FiO2 04/18/17 07:27 36.5 98 20 99/64 (76) 96 Nasal Cannula 3.0 Physical Exam Constitutional: Level of Distress: mild distress, acutely ill, chronically ill Psychiatric: Mental Status: active & alert Head: normocephalic, atraumatic Eyes: Pupils: PERRLA Neck: supple Lungs: Auscultation: deminished air movement, expiratory wheezing Cardiovascular: Heart Auscultation: RRR, normal S1, normal S2, no murmurs Abdomen: Bowel Sounds: normal Inspection & Palpation: soft, non-distended Extremities: edema (1+ pedal and pretibial edema) Assessment and Plan Assessment and Plan IMPRESSION: 86-year-old male 1. Severe O2 and steroid dependent obstructive lung disease 2. History of ischemic cardiomyopathy 3. Sinus tachycardia PLAN: Patient reporting worsening respiratory status today, despite improvement in HR , will reduce toprol to 12.5 mg BID Furosemide 20 mg PO ordered for this AM by hospitalist. Continue steroids/antibiotics. Case discussed with Dr. Armenta. Patient personally seen, looks more comfortable at rest but feels more dyspneic. Plan as above. Fredi Armenta MD Laboratory Results Last 24 Hours Test 04/18/17 06:29 White Blood Count 11.46 K/uL Red Blood Count 3.84 M/uL Hemoglobin 11.5 g/dL Hematocrit 37.9 % Mean Corpuscular Volume 98.7 fL Mean Corpuscular Hemoglobin 29.9 pg Mean Corpuscular Hemoglobin Concent 30.3 g/dl RDW Standard Deviation 56.6 fL RDW Coefficient of Variation 15.6 % Platelet Count 275 K/uL Mean Platelet Volume 9.7 fL Sodium Level 137 mmol/L Potassium Level 4.7 mmol/L Chloride Level 95 mmol/L Carbon Dioxide Level 37 mmol/L Anion Gap 5.0 mmol/L Blood Urea Nitrogen 35 mg/dl Creatinine 0.86 mg/dl Est Creatinine Clear Calc Drug Dose 52.9 ml/min Estimated GFR () 91.6 Estimated GFR (Non- 79.1 BUN/Creatinine Ratio 40.9 Random Glucose 122 mg/dl Calcium Level 9.0 mg/dl
[2017-04-18 11:28] VITALS: BP 114/75; PULSE 101; TEMP 36.4; O2SAT 100
[2017-04-18 15:35] VITALS: BP 103/70; PULSE 91; TEMP 36.4; O2SAT 100
[2017-04-18] MEDS: DIGOXIN 0.125 MG TAB PO SCH (16:07)
[2017-04-18] MEDS: LORAZEPAM 0.5 MG TAB PO PRN (19:06)
[2017-04-18] MEDS ORDERED: NURSING DECISION MEDICATION ORDER SCH (20:15)
[2017-04-18] MEDS ORDERED: SODIUM CHLORIDE 0.65% NA SOLN 45 ML (OCEAN) PRN (20:15)
[2017-04-18 20:25] VITALS: BP 95/59; PULSE 88; TEMP 36.6; O2SAT 96
[2017-04-18] MEDS: FINASTERIDE 5 MG TAB PO SCH (21:05)
[2017-04-19] VITALS (8 sets, daily range): BP systolic 94–106; BP diastolic 59–70; PULSE 69–103; TEMP 36.3–36.7; O2SAT 93–98
[2017-04-19] MEDS: METOPROLOL SUCC 25MG EXT REL TAB PO SCH ×2 (08:10→21:02)
[2017-04-19] MEDS: ROFLUMILAST 500 MCG TAB PO SCH (08:12)
[2017-04-19] MEDS: FLUTICASONE HFA 220 MCG INHALER INH SCH ×2 (08:12→21:02)
[2017-04-19] MEDS: FUROSEMIDE 20 MG TAB PO SCH (08:12)
[2017-04-19] MEDS: IPRATROPIUM BROMIDE/ALBUTEROL respimat INH INH SCH ×4 (08:12→21:02)
[2017-04-19] MEDS: CEFDINIR 300 MG CAP PO SCH (08:12)
[2017-04-19] MEDS: ASPIRIN 81 MG ECTAB PO SCH (08:12)
[2017-04-19] MEDS: NYSTATIN SUSP 500,000 U/5 ML UDC PO SCH ×4 (08:12→21:01)
[2017-04-19] MEDS: SERTRALINE HCL 100 MG TAB PO SCH (08:12)
[2017-04-19] MEDS: PANTOprazole SOD 40 MG TAB PO SCH (08:12)
[2017-04-19] MEDS: HEPARIN SOD 5000 UNIT/0.5 ML CARP SQ SCH ×2 (08:15→21:03)
[2017-04-19] MEDS: DORNASE ALFA (2500U) 2.5MG/2.5ML INH SCH ×2 (09:17→20:43)
--- NOTE | 2017-04-19 10:40 | Cardiology Follow-Up ---
Subjective General Date of Service: Apr 19, 2017. Chief Complaint: SOB Pt evaluation today including: conversation w/ patient, physical exam, chart review, lab review, review of studies, review of inpatient medication list History of Present Illness Patient feeling "ok" this AM. Reports SOB is the same. Notes productive cough, improved from yesterday. No chest pain. No dizziness or palpitations. Resting comfortably. Edema slightly improved from yesterday Allergies Coded Allergies: Sulfa Antibiotics (Verified Allergy, Unknown, RASH,NAUSEA,VOMITING, ) Social History Smoking Status: Former Smoker Hx Tobacco Use In Past Year?: No (quit smoking in approx 1999) Hx Alcohol Use - Type And Amou: No Hx Substance Use - Type And Am: No Problem List Medical Problems: (1) Chronic obstructive pulmonary disease Permanent Comment: on chronic O2 and steroids Status: Chronic (2) Congestive heart failure Status: Acute (3) Elevated troponin Status: Acute (4) Hypoxia Status: Acute (5) Lung mass Status: Acute (6) Pneumonia Status: Acute Review of Systems Respiratory: + cough, + sputum, + wheezing, + shortness of breath, No hemoptysis Cardiac: + edema, No chest pain, No orthopnea, No PND, No palpitations Physical Exam Vital Signs Last Vital Signs Documentation Date Time Temp Pulse Resp B/P (MAP) Pulse Ox O2 Delivery O2 Flow Rate FiO2 04/19/17 09:19 97 18 93 Nasal Cannula 3.5 04/19/17 07:43 36.3 97/59 (72) Physical Exam Constitutional: Level of Distress: NAD, acutely ill, chronically ill Psychiatric: Mental Status: active & alert Head: normocephalic, atraumatic Eyes: Pupils: PERRLA Neck: supple Lungs: Auscultation: deminished air movement, expiratory wheezing Cardiovascular: Heart Auscultation: RRR, normal S1, normal S2, no murmurs Abdomen: Bowel Sounds: normal Inspection & Palpation: soft, non-distended Extremities: edema (1+ ankle edema) Assessment and Plan Assessment and Plan IMPRESSION: 86-year-old male 1. 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 History of ischemic cardiomyopathy 3. Sinus tachycardia PLAN: Continue current medications. End stage lung disease and overall poor prognosis. Continue steroids/antibiotics/furosemide per hospitalist. Case discussed with Dr. Armenta. Will sign off. No further cardiac testing is warranted at this time. Please call occupational therapist provider with additional questions or concerns. Patient seen and examined, little overt change. Plan as above, continue current dose of Vickie Armenta MD
--- NOTE | 2017-04-19 13:15 | Progress Note ---
Subjective Date of Service: Apr 19, 2017. Subjective Pt evaluation today including: conversation w/ patient, physical exam, lab review, review of studies, review of inpatient medication list Saw/examined the patient in room 276 continues to be short of breath; continues to c/o weakness states he is not better +cough; +sputum Problem List Medical Problems: (1) Chronic obstructive pulmonary disease Permanent Comment: on chronic O2 and steroids Status: Chronic (2) Congestive heart failure Status: Acute (3) Elevated troponin Status: Acute (4) Hypoxia Status: Acute (5) Lung mass Status: Acute (6) Pneumonia Status: Acute Review of Systems Constitutional: + weakness, No fever, No chills Respiratory: + cough, + sputum, + wheezing, + shortness of breath, + dyspnea on exertion, + dyspnea at rest, No hemoptysis Medications Current Inpatient Medications Medications (Trade) Dose Ordered Sig/Shabbir Route Start Time Stop Time Status Last Admin Dose Admin Acetaminophen (Tylenol Tab) 650 mg Q4H PRN PO 04/11/17 21:30 05/11/17 21:29 04/18/17 10:24 650 MG Ondansetron HCl (Zofran Inj) 4 mg Q6H PRN IV 04/11/17 21:30 05/11/17 21:29 Nitroglycerin (Nitrostat Tab) 0.4 mg UD PRN SL 04/11/17 21:30 05/11/17 21:29 Aspirin (Ecotrin Tab) 81 mg DAILY PO 04/12/17 09:00 05/12/17 08:59 04/19/17 08:12 81 MG Digoxin (Lanoxin Tab) 0.125 mg DAILY@16 PO 04/12/17 16:00 05/12/17 15:59 04/18/17 16:07 0.125 MG Finasteride (Proscar Tab) 5 mg HS PO 04/12/17 21:00 05/12/17 20:59 04/18/17 21:05 5 MG Lisinopril (Zestril Tab) 1.25 mg QPM PO 04/12/17 21:00 05/12/17 20:59 Future Hold Roflumilast (Daliresp Tab) 500 mcg DAILY PO 04/12/17 09:00 05/12/17 08:59 04/19/17 08:12 500 MCG Miscellaneous Information (Order Awaiting Action) 1 ea QS N/A 04/12/17 00:00 05/12/17 00:00 Miscellaneous Information (Order Awaiting Action) 1 ea QS N/A 04/12/17 00:00 05/12/17 00:00 Pantoprazole Sodium (Protonix Tab) 40 mg DAILY PO 04/12/17 09:00 05/12/17 08:59 04/19/17 08:12 40 MG Miscellaneous (Iv Fluids Completed) 1 ea PRN PRN N/A 04/12/17 00:15 04/12/18 00:14 Albuterol/ Ipratropium (Combivent Respimat Inh) 1 puffs QID INH 04/12/17 13:00 05/12/17 12:59 04/19/17 08:12 1 PUFFS Dornase Thiago (Pulmozyme Inhalation Soln 2.5ml Amp) 2.5 ml BIDR INH 04/12/17 20:00 05/12/17 19:59 04/19/17 09:17 2.5 ML Albuterol/ Ipratropium (Duoneb) 3 ml Q2H PRN INH 04/12/17 15:30 05/12/17 15:29 04/15/17 05:49 3 ML Heparin Sodium (Porcine) (Heparin Sq 5000 Unit/0.5ml) 5,000 unit Q12 SQ 04/12/17 21:00 05/12/17 20:59 04/19/17 08:15 5,000 UNIT Fluticasone Propionate (Flovent Hfa 220MCG Inhaler) 2 puffs BID INH 04/13/17 21:00 05/13/17 20:59 04/19/17 08:12 2 PUFFS Sertraline HCl (Zoloft Tab) 100 mg QAM PO 04/17/17 09:00 05/17/17 08:59 04/19/17 08:12 100 MG Nystatin (Mycostatin Susp) 5 ml QID PO 04/17/17 18:00 04/27/17 17:59 04/19/17 08:12 5 ML Prednisone (PredniSONE TAB) 40 mg DAILY PO 04/18/17 09:00 05/18/17 08:59 04/19/17 08:12 40 MG Furosemide (Lasix Tab) 20 mg QAM PO 04/19/17 09:00 05/19/17 08:59 04/19/17 08:12 20 MG Metoprolol Succinate (Toprol Xl Tab) 12.5 mg BID PO 04/18/17 21:00 05/17/17 08:59 Lorazepam (Ativan Tab) 0.5 mg BID PRN PO 04/18/17 18:45 05/18/17 18:44 04/18/17 19:06 0.5 MG Sodium Chloride ([place] Nasal [place]) 1 sprays PRN PRN NA 04/18/17 20:15 05/18/17 20:14 Objective Vital Signs Date Time Temp Pulse Resp B/P (MAP) Pulse Ox O2 Delivery O2 Flow Rate FiO2 04/19/17 12:03 36.7 93 16 106/68 (81) 94 Nasal Cannula 3.0 04/19/17 11:55 Nasal Cannula 3.5 04/19/17 09:19 97 18 93 Nasal Cannula 3.5 04/19/17 07:45 Nasal Cannula 3.5 04/19/17 07:43 36.3 103 16 97/59 (72) 95 Nasal Cannula 3.0 04/19/17 04:30 36.4 90 20 101/64 (76) 95 Nasal Cannula 3.0 04/19/17 04:00 Nasal Cannula 3.5 04/19/17 01:10 36.4 92 20 94/62 (73) 96 Nasal Cannula 3.0 04/19/17 00:00 Nasal Cannula 3.5 04/18/17 20:25 36.6 88 20 95/59 (71) 96 Nasal Cannula 3.0 04/18/17 20:00 Nasal Cannula 3.5 04/18/17 16:07 92 04/18/17 16:00 Nasal Cannula 3.5 04/18/17 15:35 36.4 91 18 103/70 (81) 100 3.0 Physical Exam General Appearance: + mild distress (secondary to shortness of breath; weakness ) Respiratory/Chest: + respiratory distress, + decreased breath sounds, + wheezing Cardiovascular: regular rate, rhythm, no edema, no murmur Assessment and Plan This is an 86 year old male with severe COPD and chronic respiratory failure on 3.5L, AAA s/p repair, PVD presents with worsening shortness of breath Acute on Chronic Respiratory Failure Acute COPD Exacerbation 04/19 will d/c abx. today continue prednisone 40mg for one more day can taper this in AM unfortunately, he is not clinically improved end-stage lung disease/COPD - chronically on 3.5L of O2 at home will consult palliative care to see if there is anything else to offer him PT/OT 04/18 for the past few days, patient has persistent shortness of breath abx. changed to PO steroids changed to PO will need PT/OT will give one dose of Magnesium for breathing will try a dose of Lasix 20mg continue Daliresp and Dornase poor/limited prognosis may consider hospice - will speak with patient regarding this 04/14 appreciate pulmonary input continue solu-medrol at lower dose slow taper will be needed Rocephin + Azithro refuses nebulizers would like Combivent QID 04/13 appreciate pulmonary input repeat CXR in AM added Rocephin to abx regimen, continue Azithro Combivent QID prednisone changed to Solu-medrol in the short term given Ativan x1 for now Flovent as per pulm 04/12 patient presents with worsening SOB appreciate pulm input I switched solu-medrol to prednisone 40mg daily continue doxycycline pulmozyme was added as well as chest PT as per pulm continue Combivent speech evaluation to rule out aspiration Multifocal Pneumonia continue Omnicef for now DVT ppx subq heparin DNR
[2017-04-19] MEDS: LORAZEPAM 0.5 MG TAB PO PRN ×2 (15:02→23:55)
[2017-04-19] MEDS: ACETAMINOPHEN 325 MG TAB PO PRN (15:05)
[2017-04-19] MEDS: DIGOXIN 0.125 MG TAB PO SCH (16:25)
[2017-04-19] MEDS: FINASTERIDE 5 MG TAB PO SCH (21:01)
[2017-04-20] VITALS (9 sets, daily range): BP systolic 95–105; BP diastolic 57–68; PULSE 94–118; TEMP 36.4–37; O2SAT 93–97
[2017-04-20] MEDS: DORNASE ALFA (2500U) 2.5MG/2.5ML INH SCH ×2 (06:52→19:27)
[2017-04-20] MEDS: FLUTICASONE HFA 220 MCG INHALER INH SCH ×2 (08:01→21:15)
[2017-04-20] MEDS: NYSTATIN SUSP 500,000 U/5 ML UDC PO SCH ×4 (08:01→21:15)
[2017-04-20] MEDS: IPRATROPIUM BROMIDE/ALBUTEROL respimat INH INH SCH ×4 (08:01→21:14)
[2017-04-20] MEDS: FUROSEMIDE 20 MG TAB PO SCH (08:01)
[2017-04-20] MEDS: ASPIRIN 81 MG ECTAB PO SCH (08:01)
[2017-04-20] MEDS: ROFLUMILAST 500 MCG TAB PO SCH (08:01)
[2017-04-20] MEDS: SERTRALINE HCL 100 MG TAB PO SCH (08:02)
[2017-04-20] MEDS: PANTOprazole SOD 40 MG TAB PO SCH (08:02)
[2017-04-20] MEDS: METOPROLOL SUCC 25MG EXT REL TAB PO SCH ×2 (08:02→21:24)
[2017-04-20] MEDS: HEPARIN SOD 5000 UNIT/0.5 ML CARP SQ SCH ×3 (08:07→21:29)
[2017-04-20] MEDS: LORAZEPAM 0.5 MG TAB PO PRN ×2 (09:25→18:43)
[2017-04-20] MEDS: ALBUT/IPRATROP 3MG/0.5MG NEB 3 ML VIAL INH PRN (09:57)
[2017-04-20] MEDS ORDERED: NURSING VERBAL MED ORDER ONE ×2 (10:00→10:15)
[2017-04-20] MEDS ORDERED: LORAZEPAM 0.5 MG TAB PO SCH (14:00)
[2017-04-20] MEDS: DIGOXIN 0.125 MG TAB PO SCH (16:34)
--- NOTE | 2017-04-20 20:33 | Progress Note ---
Subjective Date of Service: Apr 20, 2017. Subjective Pt evaluation today including: conversation w/ patient, conversation w/ family , physical exam, lab review, review of studies, review of inpatient medication list Saw/examined the patient in room 276 Family at bedside Patient states he's doing okay, continues to cough with sputum production Refusing therapy while here due to shortness of breath family and patient agreeable to plan to [facility] Problem List Medical Problems: (1) Chronic obstructive pulmonary disease Permanent Comment: on chronic O2 and steroids Status: Chronic (2) Congestive heart failure Status: Acute (3) Elevated troponin Status: Acute (4) Hypoxia Status: Acute (5) Lung mass Status: Acute (6) Pneumonia Status: Acute Review of Systems Constitutional: + weakness, No fever, No chills Respiratory: + cough, + sputum, + wheezing, + shortness of breath Cardiac: No chest pain, No edema, No palpitations Medications Current Inpatient Medications Medications (Trade) Dose Ordered Sig/Shabbir Route Start Time Stop Time Status Last Admin Dose Admin Acetaminophen (Tylenol Tab) 650 mg Q4H PRN PO 04/11/17 21:30 05/11/17 21:29 04/19/17 15:05 650 MG Ondansetron HCl (Zofran Inj) 4 mg Q6H PRN IV 04/11/17 21:30 05/11/17 21:29 Nitroglycerin (Nitrostat Tab) 0.4 mg UD PRN SL 04/11/17 21:30 05/11/17 21:29 Aspirin (Ecotrin Tab) 81 mg DAILY PO 04/12/17 09:00 05/12/17 08:59 04/20/17 08:01 81 MG Digoxin (Lanoxin Tab) 0.125 mg DAILY@16 PO 04/12/17 16:00 05/12/17 15:59 04/20/17 16:34 0.125 MG Finasteride (Proscar Tab) 5 mg HS PO 04/12/17 21:00 05/12/17 20:59 04/19/17 21:01 5 MG Lisinopril (Zestril Tab) 1.25 mg QPM PO 04/12/17 21:00 05/12/17 20:59 Future Hold Roflumilast (Daliresp Tab) 500 mcg DAILY PO 04/12/17 09:00 05/12/17 08:59 04/20/17 08:01 500 MCG Miscellaneous Information (Order Awaiting Action) 1 ea QS N/A 04/12/17 00:00 05/12/17 00:00 Miscellaneous Information (Order Awaiting Action) 1 ea QS N/A 04/12/17 00:00 05/12/17 00:00 Pantoprazole Sodium (Protonix Tab) 40 mg DAILY PO 04/12/17 09:00 05/12/17 08:59 04/20/17 08:02 40 MG Miscellaneous (Iv Fluids Completed) 1 ea PRN PRN N/A 04/12/17 00:15 04/12/18 00:14 Albuterol/ Ipratropium (Combivent Respimat Inh) 1 puffs QID INH 04/12/17 13:00 05/12/17 12:59 04/20/17 16:34 1 PUFFS Dornase Thiago (Pulmozyme Inhalation Soln 2.5ml Amp) 2.5 ml BIDR INH 04/12/17 20:00 05/12/17 19:59 04/19/17 09:17 2.5 ML Albuterol/ Ipratropium (Duoneb) 3 ml Q2H PRN INH 04/12/17 15:30 05/12/17 15:29 04/20/17 09:57 3 ML Heparin Sodium (Porcine) (Heparin Sq 5000 Unit/0.5ml) 5,000 unit Q12 SQ 04/12/17 21:00 05/12/17 20:59 04/20/17 08:07 5,000 UNIT Fluticasone Propionate (Flovent Hfa 220MCG Inhaler) 2 puffs BID INH 04/13/17 21:00 05/13/17 20:59 04/20/17 08:01 2 PUFFS Sertraline HCl (Zoloft Tab) 100 mg QAM PO 04/17/17 09:00 05/17/17 08:59 04/20/17 08:02 100 MG Nystatin (Mycostatin Susp) 5 ml QID PO 04/17/17 18:00 04/27/17 17:59 04/20/17 16:34 5 ML Prednisone (PredniSONE TAB) 40 mg DAILY PO 04/18/17 09:00 05/18/17 08:59 04/20/17 08:02 40 MG Furosemide (Lasix Tab) 20 mg QAM PO 04/19/17 09:00 05/19/17 08:59 04/20/17 08:01 20 MG Metoprolol Succinate (Toprol Xl Tab) 12.5 mg BID PO 04/18/17 21:00 05/17/17 08:59 04/20/17 08:02 12.5 MG Sodium Chloride ([place] Nasal [place]) 1 sprays PRN PRN NA 04/18/17 20:15 05/18/17 20:14 Lorazepam (Ativan Tab) 0.5 mg TID PRN PO 04/20/17 10:45 05/20/17 10:44 04/20/17 18:43 0.5 MG Objective Vital Signs Date Time Temp Pulse Resp B/P (MAP) Pulse Ox O2 Delivery O2 Flow Rate FiO2 04/20/17 19:31 36.7 105 20 96/59 (71) 97 Nasal Cannula 3.5 04/20/17 16:34 108 04/20/17 16:00 Nasal Cannula 3.5 04/20/17 15:56 36.6 98 18 95/57 (70) 97 Nasal Cannula 3.5 04/20/17 15:47 97 Nasal Cannula 3.5 04/20/17 11:55 Nasal Cannula 3.5 04/20/17 09:57 96 18 96 Nasal Cannula 3.5 04/20/17 07:45 Nasal Cannula 3.5 04/20/17 07:14 37.0 103 16 100/63 (75) 94 Nasal Cannula 3.0 04/20/17 04:03 36.6 94 18 104/63 (77) 94 Nasal Cannula 3.0 04/20/17 04:00 Nasal Cannula 3.5 04/20/17 00:00 93 Nasal Cannula 3.5 04/19/17 23:27 36.4 99 20 100/64 (76) 96 Physical Exam General Appearance: no apparent distress Respiratory/Chest: no respiratory distress, no accessory muscle use, + decreased breath sounds, + wheezing Cardiovascular: regular rate, rhythm, no edema, no murmur Extremities: normal inspection, no pedal edema Assessment and Plan This is an 86 year old male with severe COPD and chronic respiratory failure on 3.5L, AAA s/p repair, PVD presents with worsening shortness of breath Acute on Chronic Respiratory Failure Acute COPD Exacerbation 04/20 plan for the patient is to be discharged to [facility] today end stage lung disease plan to d/c with prednisone taper may need a few days of doxycycline 04/19 will d/c abx. today continue prednisone 40mg for one more day can taper this in AM unfortunately, he is not clinically improved end-stage lung disease/COPD - chronically on 3.5L of O2 at home will consult palliative care to see if there is anything else to offer him PT/OT 04/18 for the past few days, patient has persistent shortness of breath abx. changed to PO steroids changed to PO will need PT/OT will give one dose of Magnesium for breathing will try a dose of Lasix 20mg continue Daliresp and Dornase poor/limited prognosis may consider hospice - will speak with patient regarding this 04/14 appreciate pulmonary input continue solu-medrol at lower dose slow taper will be needed Rocephin + Azithro refuses nebulizers would like Combivent QID 04/13 appreciate pulmonary input repeat CXR in AM added Rocephin to abx regimen, continue Azithro Combivent QID prednisone changed to Solu-medrol in the short term given Ativan x1 for now Flovent as per pulm 04/12 patient presents with worsening SOB appreciate pulm input I switched solu-medrol to prednisone 40mg daily continue doxycycline pulmozyme was added as well as chest PT as per pulm continue Combivent speech evaluation to rule out aspiration Multifocal Pneumonia continue Omnicef for now DVT ppx subq heparin DNR
[2017-04-20] MEDS: FINASTERIDE 5 MG TAB PO SCH (21:20)
[2017-04-21] MEDS: LORAZEPAM 0.5 MG TAB PO PRN ×2 (03:47→13:12)
[2017-04-21 04:27] VITALS: BP 94/59; PULSE 101; TEMP 36.5; O2SAT 97
[2017-04-21] MEDS: DORNASE ALFA (2500U) 2.5MG/2.5ML INH SCH (06:59)
[2017-04-21 07:11] LABS: HEMATOCRIT 37.4 % (42-52); MEAN CELL VOLUME 98.4 fL (80-100); MEAN CORPUSCULAR HEMOGLOBIN 30.5 pg (25-34); MEAN PLATELET VOLUME 9.3 fL (7.4-10.4); PLATELET COUNT 203 K/uL (130-400); WHITE BLOOD COUNT 9.67 K/uL (4.8-10.8)
[2017-04-21 07:31] VITALS: BP 104/69; PULSE 97; TEMP 36.5; O2SAT 95
[2017-04-21] MEDS: HEPARIN SOD 5000 UNIT/0.5 ML CARP SQ SCH (08:11)
[2017-04-21] MEDS: IPRATROPIUM BROMIDE/ALBUTEROL respimat INH INH SCH ×2 (08:12→13:12)
[2017-04-21] MEDS: ASPIRIN 81 MG ECTAB PO SCH (08:12)
[2017-04-21] MEDS: FLUTICASONE HFA 220 MCG INHALER INH SCH (08:12)
[2017-04-21] MEDS: ROFLUMILAST 500 MCG TAB PO SCH (08:12)
[2017-04-21] MEDS: PANTOprazole SOD 40 MG TAB PO SCH (08:13)
[2017-04-21] MEDS: FUROSEMIDE 20 MG TAB PO SCH (08:13)
[2017-04-21] MEDS: NYSTATIN SUSP 500,000 U/5 ML UDC PO SCH ×2 (08:13→13:12)
[2017-04-21] MEDS: SERTRALINE HCL 100 MG TAB PO SCH (08:13)
[2017-04-21] MEDS: METOPROLOL SUCC 25MG EXT REL TAB PO SCH (08:13)
[2017-04-21] MEDS ORDERED: NURSING VERBAL MED ORDER ONE (08:30)
[2017-04-21] MEDS ORDERED: LORAZEPAM 0.5 MG TAB PO SCH (08:45)
--- NOTE | 2017-04-21 10:09 | Progress Note ---
Subjective Date of Service: Apr 21, 2017. Subjective Pt evaluation today including: conversation w/ patient, physical exam, lab review, review of studies, review of inpatient medication list Saw/examined the patient in room 276 Two of his sons are in the room with him He states he's doing better than when he came in, but he is very tired after eating breakfast becomes very short of breath with any activity Does better with Ativan and requested another dose of it this morning No chest pain Eager to go to [facility] Problem List Medical Problems: (1) Chronic obstructive pulmonary disease Permanent Comment: on chronic O2 and steroids Status: Chronic (2) Congestive heart failure Status: Acute (3) Elevated troponin Status: Acute (4) Hypoxia Status: Acute (5) Lung mass Status: Acute (6) Pneumonia Status: Acute Review of Systems Constitutional: + weakness, + fatigue, No fever, No chills Respiratory: + cough, + sputum, + shortness of breath, + dyspnea on exertion, + dyspnea at rest, No hemoptysis Cardiac: No chest pain, No edema, No palpitations Abdomen: No pain, No nausea, No vomiting, No diarrhea Male : No dysuria, No urinary frequency Heme: No abnormal bleeding/bruising Medications Current Inpatient Medications Medications (Trade) Dose Ordered Sig/Shabbir Route Start Time Stop Time Status Last Admin Dose Admin Acetaminophen (Tylenol Tab) 650 mg Q4H PRN PO 04/11/17 21:30 05/11/17 21:29 04/19/17 15:05 650 MG Ondansetron HCl (Zofran Inj) 4 mg Q6H PRN IV 04/11/17 21:30 05/11/17 21:29 Nitroglycerin (Nitrostat Tab) 0.4 mg UD PRN SL 04/11/17 21:30 05/11/17 21:29 Aspirin (Ecotrin Tab) 81 mg DAILY PO 04/12/17 09:00 05/12/17 08:59 04/21/17 08:12 81 MG Digoxin (Lanoxin Tab) 0.125 mg DAILY@16 PO 04/12/17 16:00 05/12/17 15:59 04/20/17 16:34 0.125 MG Finasteride (Proscar Tab) 5 mg HS PO 04/12/17 21:00 05/12/17 20:59 04/20/17 21:20 5 MG Lisinopril (Zestril Tab) 1.25 mg QPM PO 04/12/17 21:00 05/12/17 20:59 Future Hold Roflumilast (Daliresp Tab) 500 mcg DAILY PO 04/12/17 09:00 05/12/17 08:59 04/21/17 08:12 500 MCG Miscellaneous Information (Order Awaiting Action) 1 ea QS N/A 04/12/17 00:00 05/12/17 00:00 Miscellaneous Information (Order Awaiting Action) 1 ea QS N/A 04/12/17 00:00 05/12/17 00:00 Pantoprazole Sodium (Protonix Tab) 40 mg DAILY PO 04/12/17 09:00 05/12/17 08:59 04/21/17 08:13 40 MG Miscellaneous (Iv Fluids Completed) 1 ea PRN PRN N/A 04/12/17 00:15 04/12/18 00:14 Albuterol/ Ipratropium (Combivent Respimat Inh) 1 puffs QID INH 04/12/17 13:00 05/12/17 12:59 04/21/17 08:12 1 PUFFS Dornase Thiago (Pulmozyme Inhalation Soln 2.5ml Amp) 2.5 ml BIDR INH 04/12/17 20:00 05/12/17 19:59 04/19/17 09:17 2.5 ML Albuterol/ Ipratropium (Duoneb) 3 ml Q2H PRN INH 04/12/17 15:30 05/12/17 15:29 04/20/17 09:57 3 ML Heparin Sodium (Porcine) (Heparin Sq 5000 Unit/0.5ml) 5,000 unit Q12 SQ 04/12/17 21:00 05/12/17 20:59 04/20/17 08:07 5,000 UNIT Fluticasone Propionate (Flovent Hfa 220MCG Inhaler) 2 puffs BID INH 04/13/17 21:00 05/13/17 20:59 04/21/17 08:12 2 PUFFS Sertraline HCl (Zoloft Tab) 100 mg QAM PO 04/17/17 09:00 05/17/17 08:59 04/21/17 08:13 100 MG Nystatin (Mycostatin Susp) 5 ml QID PO 04/17/17 18:00 04/27/17 17:59 04/21/17 08:13 5 ML Prednisone (PredniSONE TAB) 40 mg DAILY PO 04/18/17 09:00 05/18/17 08:59 04/21/17 08:13 40 MG Furosemide (Lasix Tab) 20 mg QAM PO 04/19/17 09:00 05/19/17 08:59 04/21/17 08:13 20 MG Metoprolol Succinate (Toprol Xl Tab) 12.5 mg BID PO 04/18/17 21:00 05/17/17 08:59 04/21/17 08:13 12.5 MG Sodium Chloride (Mercer Nasal [place]) 1 sprays PRN PRN NA 04/18/17 20:15 05/18/17 20:14 Lorazepam (Ativan Tab) 0.5 mg TID PRN PO 04/20/17 10:45 05/20/17 10:44 04/21/17 03:47 0.5 MG Objective Vital Signs Date Time Temp Pulse Resp B/P (MAP) Pulse Ox O2 Delivery O2 Flow Rate FiO2 04/21/17 07:45 Nasal Cannula 3.5 04/21/17 07:31 36.5 97 20 104/69 (81) 95 04/21/17 04:27 36.5 101 18 94/59 (71) 97 Nasal Cannula 3.0 04/21/17 04:00 Nasal Cannula 3.5 04/21/17 00:00 Nasal Cannula 3.5 04/20/17 23:32 36.4 95 18 95/61 (72) 97 Nasal Cannula 3.0 04/20/17 21:23 118 105/68 (80) 04/20/17 20:00 Nasal Cannula 3.5 04/20/17 19:31 36.7 105 20 96/59 (71) 97 Nasal Cannula 3.5 04/20/17 16:34 108 04/20/17 16:00 Nasal Cannula 3.5 04/20/17 15:56 36.6 98 18 95/57 (70) 97 Nasal Cannula 3.5 04/20/17 15:47 97 Nasal Cannula 3.5 04/20/17 11:55 Nasal Cannula 3.5 Physical Exam General Appearance: + mild distress (mild to moderate distress secondary to respiratory issues/weakness), + cachetic, + thin Respiratory/Chest: lungs clear, normal breath sounds, + respiratory distress Cardiovascular: regular rate, rhythm, no edema, no murmur Abdomen: normal bowel sounds, non tender, soft Extremities: normal inspection, no pedal edema Laboratory Results Last 24 Hours Test 04/21/17 06:54 White Blood Count 9.67 K/uL Red Blood Count 3.80 M/uL Hemoglobin 11.6 g/dL Hematocrit 37.4 % Mean Corpuscular Volume 98.4 fL Mean Corpuscular Hemoglobin 30.5 pg Mean Corpuscular Hemoglobin Concent 31.0 g/dl RDW Standard Deviation 55.7 fL RDW Coefficient of Variation 15.4 % Platelet Count 203 K/uL Mean Platelet Volume 9.3 fL Assessment and Plan This is an 86 year old male with severe COPD and chronic respiratory failure on 3.5L, AAA s/p repair, PVD presents with worsening shortness of breath Acute on Chronic Respiratory Failure Acute COPD Exacerbation 04/21 plan is to d/c patient to [facility] today he has end stage COPD, on chronic O2 therapy will need prednisone taper, few days of Doxycycline Ativan PRN on discharge may need to transition to hospice at the facility 04/20 plan for the patient is to be discharged to [facility] today end stage lung disease plan to d/c with prednisone taper may need a few days of doxycycline 04/19 will d/c abx. today continue prednisone 40mg for one more day can taper this in AM unfortunately, he is not clinically improved end-stage lung disease/COPD - chronically on 3.5L of O2 at home will consult palliative care to see if there is anything else to offer him PT/OT 04/18 for the past few days, patient has persistent shortness of breath abx. changed to PO steroids changed to PO will need PT/OT will give one dose of Magnesium for breathing will try a dose of Lasix 20mg continue Daliresp and Dornase poor/limited prognosis may consider hospice - will speak with patient regarding this 04/14 appreciate pulmonary input continue solu-medrol at lower dose slow taper will be needed Rocephin + Azithro refuses nebulizers would like Combivent QID 04/13 appreciate pulmonary input repeat CXR in AM added Rocephin to abx regimen, continue Azithro Combivent QID prednisone changed to Solu-medrol in the short term given Ativan x1 for now Flovent as per pulm 04/12 patient presents with worsening SOB appreciate pulm input I switched solu-medrol to prednisone 40mg daily continue doxycycline pulmozyme was added as well as chest PT as per pulm continue Combivent speech evaluation to rule out aspiration Multifocal Pneumonia continue Omnicef for now DVT ppx subq heparin DNR
[2017-04-21] MEDS ORDERED: SERT-234 PO (10:13)
[2017-04-21] MEDS ORDERED: FLVHFA220 INH (10:13)
[2017-04-21] MEDS ORDERED: DXY100 PO (10:13)
[2017-04-21] MEDS ORDERED: TPRSR25 PO (10:13)
[2017-04-21] MEDS ORDERED: LSX20 PO (10:13)
[2017-04-21] MEDS ORDERED: ATV5X PO (10:13)
[2017-04-21] MEDS ORDERED: PLMIH INH (10:13)
[2017-04-21] MEDS ORDERED: PRED10TA PO (10:13)
--- NOTE | 2017-04-21 10:25 | Discharge Instructions ---
Discharge Instructions Date of Service Apr 21, 2017. Admission Reason for Admission: SOB Discharge Discharge Diagnosis / Problem: Acute COPD exacerbation, Multifocal Pneumonia Discharge Goals Goal(s): Decrease discomfort, Improve function, Diagnostic testing, Therapeutic intervention Activity Recommendations Activity Level: Up Ad Keely Therapies: Physical Therapy, Occupational Therapy . Additional Information Patient informed of condition: Yes Advance Directives: Yes DNR: Yes Level of Care: Skilled Communicable Disease: No Prognosis: Deteriorating Oxygen at (LPM): 3-3.5L at baseline Lopez Catheter: No Instructions / Follow-Up Instructions / Follow-Up Prednisone schedule: Take 40mg on 04/22, then take 35mg on 04/23, 04/24, 04/25, patient should decrease the dose by 5mg q3 days until he gets back to home dose of 10mg of prednisone Continue to be on 3-3.5L of O2 continuously Doxycycline x 3 days Lasix now daily Metoprolol dose increased Ativan 0.5mg three times a day for anxiety, may need more if anxiety is worsening his breathing patient does not like nebulizers; if he does not tolerate it, he can continue his Combivent Current Hospital Diet Patient's current hospital diet: Low Sodium Diet (2gm Na) Discharge Diet Recommended Diet: Regular Diet Pending Studies Studies pending at discharge: no Medical Emergencies . Who to Call and When: Medical Emergencies: If at any time you feel your situation is an emergency, please call 911 immediately. . Non-Emergent Contact Non-Emergency issues call your: Primary Care Provider . . "Provider Documentation" section prepared by Meli Antunez. . Core Measure Problem Core Measures: None
--- NOTE | 2017-04-21 10:28 | Discharge Summary ---
Discharge Summary Date of Service Apr 21, 2017. Discharge Summary Admission Date: Apr 12, 2017 at 18:05 Discharge Date: Apr 21, 2017 Discharge Disposition: assisted facility Principal Diagnosis: Acute COPD Exacerbation Chronic Respiratory Failure Consultations: [place] Medication Reconciliation New Medications: Doxycycline Hyclate (Doxycycline Hyclate) 100 Mg Cap 100 MG PO BID for 3 Days, #6 CAP Prednisone Tab (Prednisone) 10 Mg Tab 10 MG PO UD for 30 Days, #30 TAB Dornase Thiago (Pulmozyme) 2.5 Ml Inha 2.5 ML INH BIDR for 30 Days, #150 ML Fluticasone Propionate (Flovent Hfa) 120 Puffs/19330 Mcg Aero 2 PUFFS INH BID for 30 Days, #1 INHALER Changed Medications: Furosemide (Furosemide) 20 Mg Tab 20 MG PO DAILY for 30 Days, #15 TAB (Changed from: Q2D) Lorazepam (Lorazepam) 0.5 Mg Tab 0.5 MG PO TID PRN for Anxiety for 5 Days, #15 TABS (Changed from: BID) Metoprolol Succinate (Metoprolol Succinate ER) 25 Mg Tabcr 12.5 MG PO BID for 30 Days, #30 TABS (Changed from: QAM; 15) Sertraline (Zoloft) 100 Mg Tab 1 TAB PO DAILY for 90 Days, #90 TAB 1 Refill (Changed from: Sertraline (Zoloft) 50 Mg Tab 50 Mg PO DAILY) Continued Medications: Aspirin (Aspirin EC Low Dose) 81 Mg Ectab 81 MG PO DAILY Dextromethorphan-Guaifenesin (Mucinex Dm) 1 Tab Tab 1 TAB PO Q12 PRN for congestion, TAB TAKE THIS MEDICATION WITH PLENTY OF WATER Digoxin (Digoxin) 0.125 Mg Tab 0.125 MG PO DAILY@16 for 30 Days, #30 TAB Doxycycline Hyclate (Doxycycline Hyclate) 100 Mg Tab 100 MG PO BID PRN for COPD Rescue Kit for 7 Days, #14 TAB TAKE MD DIRECTS Finasteride (Proscar) 5 Mg Tab 5 MG PO HS Fluticasone Furoate-Vilanterol (Breo Ellipta) 1 Inh Inh 1 INHA INH DAILY Home O2 Therapy (Oxygen) Gas 3.5 LITER NA CONTINOUS Ipratropium [place] (Atrovent 0.02% Soln) 2.5 Ml Nebu 2.5 ML INH Q6-8HRS PRN for SOB/Wheezing MAY MIX WITH ALBUTEROL Ipratropium-Albuterol (Combivent Respimat) 1 Aer Aer 1 PUFF INH QID Ipratropium-Albuterol (Duoneb) 3 Ml Nebu 1 TREATMENT INH QID PRN for SOB/Wheezing, INHA Lisinopril (Lisinopril) 2.5 Mg Tab 1.25 MG PO QPM for 30 Days, #15 TAB Multivitamin (Multivitamin) Tab 1 TAB PO DAILY Omeprazole (Prilosec) 20 Mg Cap 20 MG PO DAILY TAKE THIS MEDICATION ONCE DAILY ONE HOUR BEFORE FIRST MEAL OF THE DAY Prednisone Tab (Prednisone) 10 Mg Tab 10 MG PO DAILY, TAB Prednisone Tab (Prednisone) 10 Mg Tab 10 MG PO UD PRN for COPD Rescue Kit COPD RESCUE KIT-TAPER DOWN DOSING FOLLOWS: TAKE 5 TABLETS (50 MG) DAILY FOR 2 DAYS THEN, TAKE 4 TABLETS (40 MG) DAILY FOR 2 DAYS THEN, TAKE 3 TABLETS (30 MG) DAILY FOR 2 DAYS THEN, TAKE 2 TABLETS (20 MG) DAILY FOR 2 DAYS THEN, TAKE 1 TABLET (10 MG) DAILY FOR 2 DAYS. Roflumilast (Daliresp) 500 Mcg Tab 500 MCG PO DAILY Admission Information HPI (per Admitting provider): This is an 86 year old M with multiple hospital admissions for respiratory distress from COPD exacerbations vs pneumonia vs CHF. Patient lives at home by himself and is on oxygen. Has been on prednisone and doxycycline for respiratory symptoms for COPD. Presents to the ED for shortness of breath. Denies wheezing or chest pain. Does not report of having a a febrile temperature at home. Patient's vital signs in the ED significant for tachycardia to 120 as he has been receiving nebulizer treatments. Blood pressure measurements have recorded low blood pressure below 90/60. Patient denies lightheadedness. Has been breathing on nasal cannula and speaking in full sentences. He had declined BIPAP when offered in the the emergency room. As per patient and family, his code status is DNR. DNR was also active on last hospital admission in December 2016 Physical Exam (per Admitting): General Appearance: no apparent distress Head: normocephalic, atraumatic Eyes: normal inspection, EOMI ENT: hearing grossly normal, pharynx normal Neck: no JVD Respiratory/Chest: normal breath sounds, no accessory muscle use Cardiovascular: no edema, no JVD, + tachycardia Abdomen/GI: non tender, soft Neurologic/Psych: alert, oriented x 3 Skin: normal color Hospital Course This is an 86 year old male with severe COPD and chronic respiratory failure on 3.5L, AAA s/p repair, PVD presents with worsening shortness of breath Acute on Chronic Respiratory Failure Acute COPD Exacerbation 04/21 plan is to d/c patient to [facility] today he has end stage COPD, on chronic O2 therapy will need prednisone taper, few days of Doxycycline Ativan PRN on discharge may need to transition to hospice at the facility 04/20 plan for the patient is to be discharged to [facility] today end stage lung disease plan to d/c with prednisone taper may need a few days of doxycycline 04/19 will d/c abx. today continue prednisone 40mg for one more day can taper this in AM unfortunately, he is not clinically improved end-stage lung disease/COPD - chronically on 3.5L of O2 at home will consult palliative care to see if there is anything else to offer him PT/OT 04/18 for the past few days, patient has persistent shortness of breath abx. changed to PO steroids changed to PO will need PT/OT will give one dose of Magnesium for breathing will try a dose of Lasix 20mg continue Daliresp and Belia poor/limited prognosis may consider hospice - will speak with patient regarding this 04/14 appreciate pulmonary input continue solu-medrol at lower dose slow taper will be needed Rocephin + Azithro refuses nebulizers would like Combivent QID 04/13 appreciate pulmonary input repeat CXR in AM added Rocephin to abx regimen, continue Azithro Combivent QID prednisone changed to Solu-medrol in the short term given Ativan x1 for now Flovent as per pulm 04/12 patient presents with worsening SOB appreciate pulm input I switched solu-medrol to prednisone 40mg daily continue doxycycline pulmozyme was added as well as chest PT as per pulm continue Combivent speech evaluation to rule out aspiration Multifocal Pneumonia continue Omnicef for now DVT ppx subq heparin DNR Total time spent on discharge = 50 minutes This includes examination of the patient, discharge planning, medication reconciliation, and communication with other providers. Discharge Instructions Prednisone schedule: Take 40mg on 04/22, then take 35mg on 04/23, 04/24, 04/25, patient should decrease the dose by 5mg q3 days until he gets back to home dose of 10mg of prednisone Continue to be on 3-3.5L of O2 continuously Doxycycline x 3 days Lasix now daily Metoprolol dose increased Ativan 0.5mg three times a day for anxiety, may need more if anxiety is worsening his breathing patient does not like nebulizers; if he does not tolerate it, he can continue his Combivent
[2017-04-21 10:36] VITALS: BP 104/69; PULSE 97; TEMP 36.5; O2SAT 95
[2017-04-21 11:17] VITALS: BP 100/68; PULSE 99; TEMP 36.4; O2SAT 100
== END 2017-04-21 14:22 | DRG 190 ==
LOC: C.EDB 18:41 → C.MED 21:21 → ENRESERV 21:27 → OBSVTOIN 04-12 18:05
PROVIDERS: ADMIT Hospitalist; ATTEND Family Medicine
DX: J44.1 Chronic obstructive pulmonary disease with (acute) exacerbation (principal); J96.20 Acute and chronic respiratory failure, unspecified whether with hypoxia or hypercapnia; J18.9 Pneumonia, unspecified organism; N40.0 Benign prostatic hyperplasia without lower urinary tract symptoms; I50.9 Heart failure, unspecified; E78.5 Hyperlipidemia, unspecified; K21.9 Gastro-esophageal reflux disease without esophagitis; I73.9 Peripheral vascular disease, unspecified; Z87.891 Personal history of nicotine dependence; Z87.01 Personal history of pneumonia (recurrent); Z79.82 Long term (current) use of aspirin; Z99.81 Dependence on supplemental oxygen

== ENCOUNTER 2017-05-06 16:30 | Inpatient (IN) | payer OTHER, MEDICARE ==
[~2017-05-06] VITALS: Ht 167.6 cm; Wt 55.6 kg
[~2017-05-06 16:30] MED LIST changes: -ACET-1311 PO; -FLVHFA110 INH; -FURO20TA PO; -LORA-741 PO; -METO25TA56 PO; -MOMLX PO; -MORP20SO PO; -NEOM-25 TOP
[2017-05-06] MEDS ORDERED: METHYLPREDNISOLONE 125 MG VIAL ONE (16:36)
[2017-05-06] MEDS ORDERED: ALBUT/IPRATROP 3MG/0.5MG NEB 3 ML VIAL INH ONE (16:45)
[2017-05-06 17:02] LABS: COMPLETE YES; EOS % 0.1 %; HEMATOCRIT 36.2 % (42-52); IG% 0.1 %; LYMPH % 6.3 %; LYMPH ABS # 0.48 K/uL (1.2-3.4); MEAN CELL VOLUME 98.6 fL (80-100); MEAN CORPUSCULAR HEMOGLOBIN 32.2 pg (25-34); MEAN CORPUSCULAR HGB CONC 32.6 g/dl (32-36); MEAN PLATELET VOLUME 9.7 fL (7.4-10.4); NEUT % 85.5 %; PLATELET COUNT 296 K/uL (130-400); RED BLOOD COUNT 3.67 M/uL (4.7-6.1); WHITE BLOOD COUNT 7.63 K/uL (4.8-10.8)
--- NOTE | 2017-05-06 17:05 | DIAGNOSTIC IMAGING REPORT ---
CHEST ONE VIEW PORTABLE CLINICAL HISTORY: Atypical chest pain COMPARISON STUDY: April 13, 2017 FINDINGS: The heart is mildly enlarged. There are small bilateral pleural effusions. There is pulmonary emphysema. There are left basilar airspace opacities, possibly representing a pneumonia.[ IMPRESSION: 1. Emphysema 2. Cardiomegaly and small bilateral pleural effusions 3. Progressive left basal airspace opacities, suspicious for pneumonia Electronically signed by: Albino Daily M.D. 05/06/2017 5:04 PM Dictated Date/Time: 05/06/2017 5:02 PM
[2017-05-06] MEDS ORDERED: PIPERACILLIN/TAZOBACTAM 4.5 GM/100ML D5W IV STA (17:08)
[2017-05-06 17:12] LABS: INR 1.2 (0.9-1.1); PARTIAL THROMBOPLASTIN RATIO 1.2; PROTHROMBIN TIME (PATIENT) 12.8 SECONDS (9.0-12.0)
[2017-05-06 17:21] VITALS: PULSE 115
[2017-05-06 17:23] LABS: CALCIUM 8.8 mg/dl (8.5-10.1); CREATININE 0.83 mg/dl (0.60-1.40); MAGNESIUM 1.8 mg/dl (1.8-2.4); POTASSIUM 4.1 mmol/L (3.5-5.1)
[2017-05-06 17:25] VITALS: PULSE 115; O2SAT 95
[2017-05-06] MEDS ORDERED: ACETAMINOPHEN 325 MG TAB PO PRN (17:45)
[2017-05-06] MEDS ORDERED: ONDANSETRON INJ 2 MG/ML 2 ML VIAL IV PRN (17:45)
[2017-05-06] MEDS ORDERED: NEOM-25 TOP (17:54)
[2017-05-06] MEDS ORDERED: MORP20SO PO (17:54)
[2017-05-06] MEDS ORDERED: MOMLX PO (17:54)
[2017-05-06] MEDS ORDERED: FLVHFA110 INH (17:54)
[2017-05-06] MEDS ORDERED: LNX125 PO (17:54)
[2017-05-06] MEDS ORDERED: SERT-234 PO (17:54)
[2017-05-06] MEDS ORDERED: FURO20TA PO (17:54)
[2017-05-06] MEDS ORDERED: LSN25 PO (17:54)
[2017-05-06] MEDS ORDERED: METO25TA56 PO (17:54)
[2017-05-06] MEDS ORDERED: ACET-1311 PO (17:54)
[2017-05-06] MEDS ORDERED: PLMIH INH (17:56)
[2017-05-06] MEDS ORDERED: LORA-741 PO (17:59)
[2017-05-06] MEDS ORDERED: LORAZEPAM 2 MG/ML 1 ML VIAL IV PRN (18:30)
[2017-05-06] MEDS ORDERED: MAGNESIUM HYDROXIDE SUSP 30 ML UDC PO PRN (18:45)
--- NOTE | 2017-05-06 19:21 | History and Physical ---
History & Physical Date & Time of Service: May 06, 2017 at 18:43 Chief Complaint: Respiratory Distress/ [place] Primary Care Physician: Juno Wiggins M.D. 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 Patient is currently not able to provide any history. Most of the history is obtained from patient's family, old records, ER physician and staff. Patient was found to be in atrial flutter/Afib and received adenosine en route to the hospital. While in ED patient is found to be in afib RVR with rate in 120s and hypoxic, 84% on RA and patient was placed on BiPAP. Currently patient is found to have respiratory distress and expressed to be DNI/DNR and also expressed the same during prior admission. Family at bedside including patient's daughter and 2 sons who are DPOA expressed that patient always wanted to be DNI/DNR. 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 Patient ideally needs to be placed on dopamine and heparin ggt and possible would be needed to be intubated for further management. After discussing with family, they preferred the patient to be on Comfort measures only but are ok with antibiotics and steroids. Patient denied any chest pain. No know history of cough, fevers. Past Medical/Surgical History Medical Problems: (1) AAA (abdominal aortic aneurysm) Permanent Comment: s/p endovascular repair; with persistent type II endoleak Status: Chronic (2) BPH (benign prostatic hypertrophy) Status: Chronic (3) CHF (congestive heart failure) Permanent Comment: systolic Status: Chronic (4) Chronic obstructive pulmonary disease Permanent Comment: on chronic O2 and steroids Status: Chronic (5) Dyslipidemia Status: Chronic (6) GERD (gastroesophageal reflux disease) Status: Chronic (7) Pneumonia Status: Resolved (8) PVD (peripheral vascular disease) Status: Chronic Surgical Problems: (1) Status post aortic aneurysm repair Status: Chronic Family History FH: COPD (chronic obstructive pulmonary disease) FATHER Not relevant Social History Smoking Status: Former Smoker Alcohol Use: none Housing status: lives alone Immunizations History of Influenza Vaccine: Yes Influenza Vaccine Date: Jul 19, 2016 History of Tetanus Vaccine?: Yes Tetanus Immunization Date: Mar 16, 2015 History of Pneumococcal: Yes Pneumococcal Date: Jul 19, 2016 Multi-Drug Resistant Organisms History of MDRO: No Allergies Coded Allergies: Sulfa Antibiotics (Verified Allergy, Unknown, RASH,NAUSEA,VOMITING, ) Home Medications Scheduled Aspirin (Aspirin EC Low Dose), 81 MG PO DAILY Digoxin (Digoxin), 0.125 MG PO QAM Dornase Thiago (Pulmozyme), 2.5 ML INH BID Finasteride (Proscar), 5 MG PO HS Fluticasone Propionate (Flovent Hfa), 2 PUFFS INH BID Furosemide (Lasix), 20 MG PO QAM Home O2 Therapy (Oxygen), 3.5 LITER NA CONTINOUS Ipratropium-Albuterol (Combivent Respimat), 1 PUFF INH QID Lisinopril (Lisinopril), 2.5 MG PO QAM Lorazepam (Ativan), 0.5 MG PO TID Metoprolol Tartrate (Lopressor) (Lopressor), 12.5 MG PO BID Multivitamin (Multivitamin), 1 TAB PO DAILY Jnvukovk-Vykpirorbc-Wcmfgzgmf (Triple Antibiotic), 1 APPLN TOP QPM Omeprazole (Prilosec), 20 MG PO DAILY Roflumilast (Daliresp), 500 MCG PO DAILY Sertraline (Zoloft), 100 MG PO QAM Scheduled PRN Acetaminophen (Tylenol), 650 MG PO Q6H PRN for Pain or Fever Ipratropium-Albuterol (Duoneb), 1 TREATMENT INH QID PRN for SOB/Wheezing Magnesium Hydroxide (Milk of Magnesia), 30 ML PO DAILY PRN for Constipation Morphine Sulfate (Morphine Sulfate), 10 MG PO Q1H PRN for PAIN/RESP DISTRESS Review of Systems Could not be obtained because of patient's condition Physical Exam Vital Signs Date Time Temp Pulse Resp B/P (MAP) Pulse Ox O2 Delivery O2 Flow Rate FiO2 05/06/17 18:22 100 26 88/62 96 BiPAP 05/06/17 18:06 103 24 87/48 96 BiPAP 05/06/17 17:51 103 28 90/46 93 BiPAP 05/06/17 17:26 104 26 84/51 96 BiPAP 05/06/17 17:25 115 34 95 BiPAP/CPAP 45 05/06/17 17:21 115 45 05/06/17 17:16 105 26 98/54 94 BiPAP 05/06/17 17:00 121 05/06/17 16:55 116 28 86/50 91 Nasal Cannula 9.0 05/06/17 16:54 84 Nasal Cannula 4.0 05/06/17 16:41 37.3 122 30 95/57 91 Nasal Cannula 4.0 05/06/17 16:41 91 Nasal Cannula 4.0 05/06/17 16:41 91 Nasal Cannula 4.0 General Appearance: + pertinent finding (chronically ill appearing) Head: normocephalic, atraumatic Eyes: normal inspection, PERRL, sclerae normal ENT: normal ENT inspection, hearing grossly normal Neck: supple, trachea midline Respiratory/Chest: + respiratory distress, + decreased breath sounds, + accessory muscle use (CTA), + pertinent finding Cardiovascular: no edema, no murmur, + irregularly irregular Abdomen/GI: normal bowel sounds, non tender, soft Back: normal inspection Extremities/Musculoskelatal: normal inspection, no pedal edema Neurologic/Psych: + pertinent finding (able to move extremitites. Complete neuro exam could not be performed) Skin: normal color, warm/dry Diagnostics Laboratory Results Results Past 24 Hours Test 05/06/17 16:20 05/06/17 16:53 Range/Units White Blood Count 7.63 4.8-10.8 K/uL Red Blood Count 3.67 4.7-6.1 M/uL Hemoglobin 11.8 14.0-18.0 g/dL Hematocrit 36.2 42-52 % Mean Corpuscular Volume 98.6 80-100 fL Mean Corpuscular Hemoglobin 32.2 25-34 pg Mean Corpuscular Hemoglobin Concent 32.6 32-36 g/dl Platelet Count 296 130-400 K/uL Mean Platelet Volume 9.7 7.4-10.4 fL Neutrophils (%) (Auto) 85.5 % Lymphocytes (%) (Auto) 6.3 % Monocytes (%) (Auto) 8.0 % Eosinophils (%) (Auto) 0.1 % Basophils (%) (Auto) 0.0 % Neutrophils # (Auto) 6.52 1.4-6.5 K/uL Lymphocytes # (Auto) 0.48 1.2-3.4 K/uL Monocytes # (Auto) 0.61 0.11-0.59 K/uL Eosinophils # (Auto) 0.01 0-0.5 K/uL Basophils # (Auto) 0.00 0-0.2 K/uL RDW Standard Deviation 56.1 36.4-46.3 fL RDW Coefficient of Variation 15.5 11.5-14.5 % Immature Granulocyte % (Auto) 0.1 % Immature Granulocyte # (Auto) 0.01 0.00-0.02 K/uL Prothrombin Time 12.8 9.0-12.0 SECONDS Prothromb Time International Ratio 1.2 0.9-1.1 Activated Partial Thromboplast Time 31.7 21.0-31.0 SECONDS Partial Thromboplastin Ratio 1.2 Sodium Level 137 136-145 mmol/L Potassium Level 4.1 3.5-5.1 mmol/L Chloride Level 93 98-107 mmol/L Carbon Dioxide Level 37 21-32 mmol/L Anion Gap 7.0 3-11 mmol/L Blood Urea Nitrogen 22 7-18 mg/dl Creatinine 0.83 0.60-1.40 mg/dl Est Creatinine Clear Calc Drug Dose 51.2 ml/min Estimated GFR () 93.0 Estimated GFR (Non- 80.2 BUN/Creatinine Ratio 27.0 10-20 Random Glucose 154 70-99 mg/dl Calcium Level 8.8 8.5-10.1 mg/dl Magnesium Level 1.8 1.8-2.4 mg/dl Pro-B-Type Natriuretic Peptide 00470 0-1800 pg/ml Digoxin Level 1.2 0.8-2.0 ng/ml Bedside Troponin I 6.690 0-0.045 ng/ml Microbiology Results 05/06/17 Blood Culture, Received Pending 05/06/17 Blood Culture, Received Pending Diagnostic Radiology CXR: 1. Emphysema 2. Cardiomegaly and small bilateral pleural effusions 3. Progressive left basal airspace opacities, suspicious for pneumonia EKG EKG: Afib RVR, ST wave depression in septal leads, LAFB, LVH Impression Assessment and Plan Acute on chronic respiratory failure:multifactorial HCAP/ End stage COPD exacerbation Acute on on chronic Systolic CHF Chronic Oxygen Dependency Possible ACS Last EF:20-25% in December 2016 continue BiPAP for oxygen support Patient is DNI/DNR poor prognosis Blood cultures ordered in ED continue IV Abx, bronchodilators, steroids, home diuretics when able (OK per family) No aggressive measures and Comfort measures only per family wishes palliative care consulted Afib with RVR: New Onset In setting of respiratory failure/Hypoxia Ideally needs to be on dopamine ggt, heparin ggt Patient/family prefers no aggressive measures and 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 Family aware of risk for stroke given the scenario PAD, AAA, HLP Continue home meds GERD: continue PPI DVT Px: Heparin SQ Code Status: DNI/DNR Very poor prognosis Comfort measures only Palliative care consulted social services counselor consulted VTE Prophylaxis VTE Risk Assessment Done? Y/N: Yes Risk Level: Moderate
--- NOTE | 2017-05-06 19:25 | EMERGENCY ROOM VISIT NOTE ---
History Report prepared by Anupama: Dilan Spears Under the Supervision of: Dr. Abelino Oh M.D. First contact with patient: 16:29 Chief Complaint: RESPIRATORY DISTRESS Stated Complaint: RESPIRATORY DISTRESS/ [place] History of Present Illness The patient is a 86 year old male who presents to the Emergency Room with complaints of worsened shortness of breath that started prior to arrival. The patient reports that he has been experiencing shortness of breath for a while. Per EMS, the patient was given 6 mg of Adenosine IV to slow down his heart rate briefly. They report that he was experiencing atrial flutter and now atrial fibrillation. The patient is accompanied by his family who state that he usually uses 3 L of oxygen and was recently increased to 4L of oxygen. They state that he was here two weeks ago. They were considering hospice care. He did not agree to it. They state that he was healthy at that time. The patient admits that he was able to drink this morning, but did not eat today. His daughter states that he has not been eating or drinking very much over the past several days. The patient's daughter states that the last time he was here, had had CHF. She reports that the patient does not like to put things on his face. The patient states that he currently would not like a ventilator or CPAP. His daughter states that the patient has been put on Lasix and Ativan three times a day. She states that since the medication, she has noticed he has been fatigued. He denies any chest pain, fever, and cough. Source of History: patient, family, EMS History Limited By: other (respiratory distress) Onset: prior to arrival Position: other (global) Symptom Intensity: severe Quality: other (Respiratory distress) Timing: worsening Associated Symptoms: No fevers, No cough, No chest pain Review of Systems Limited due to respiratory distress. Past Medical & Surgical Medical Problems: (1) AAA (abdominal aortic aneurysm) (2) Atrial fibrillation (3) BPH (benign prostatic hypertrophy) (4) CHF (congestive heart failure) (5) Chronic obstructive pulmonary disease (6) Dyslipidemia (7) GERD (gastroesophageal reflux disease) (8) Pneumonia (9) PVD (peripheral vascular disease) (10) SOB (shortness of breath) Surgical Problems: (1) Status post aortic aneurysm repair Family History FH: COPD (chronic obstructive pulmonary disease) FATHER Social History Housing Status: [facility] Occupation Status: retired Current/Historical Medications Scheduled Aspirin (Aspirin EC Low Dose), 81 MG PO DAILY Digoxin (Digoxin), 0.125 MG PO QAM Dornase Thiago (Pulmozyme), 2.5 ML INH BID Finasteride (Proscar), 5 MG PO HS Fluticasone Propionate (Flovent Hfa), 2 PUFFS INH BID Furosemide (Lasix), 20 MG PO QAM Home O2 Therapy (Oxygen), 3.5 LITER NA CONTINOUS Ipratropium-Albuterol (Combivent Respimat), 1 PUFF INH QID Lisinopril (Lisinopril), 2.5 MG PO QAM Lorazepam (Ativan), 0.5 MG PO TID Metoprolol Tartrate (Lopressor) (Lopressor), 12.5 MG PO BID Multivitamin (Multivitamin), 1 TAB PO DAILY Raewjjoj-Oxbvgoyotj-Ugqoiiyvt (Triple Antibiotic), 1 APPLN TOP QPM Omeprazole (Prilosec), 20 MG PO DAILY Roflumilast (Daliresp), 500 MCG PO DAILY Sertraline (Zoloft), 100 MG PO QAM Scheduled PRN Acetaminophen (Tylenol), 650 MG PO Q6H PRN for Pain or Fever Ipratropium-Albuterol (Duoneb), 1 TREATMENT INH QID PRN for SOB/Wheezing Magnesium Hydroxide (Milk of Magnesia), 30 ML PO DAILY PRN for Constipation Morphine Sulfate (Morphine Sulfate), 10 MG PO Q1H PRN for PAIN/RESP DISTRESS Allergies Coded Allergies: Sulfa Antibiotics (Verified Allergy, Mild, RASH,NAUSEA,VOMITING, 05/06/17) Physical Exam Vital Signs Date Time Temp Pulse Resp B/P (MAP) Pulse Ox O2 Delivery O2 Flow Rate FiO2 05/06/17 19:05 93 24 101/55 98 BiPAP 05/06/17 18:47 100 24 84/62 96 BiPAP 05/06/17 18:22 100 26 88/62 96 BiPAP 05/06/17 18:06 103 24 87/48 96 BiPAP 05/06/17 17:51 103 28 90/46 93 BiPAP 05/06/17 17:26 104 26 84/51 96 BiPAP 05/06/17 17:25 115 34 95 BiPAP/CPAP 45 05/06/17 17:21 115 45 05/06/17 17:16 105 26 98/54 94 BiPAP 05/06/17 17:00 121 05/06/17 16:55 116 28 86/50 91 Nasal Cannula 9.0 05/06/17 16:54 84 Nasal Cannula 4.0 05/06/17 16:41 37.3 122 30 95/57 91 Nasal Cannula 4.0 05/06/17 16:41 91 Nasal Cannula 4.0 05/06/17 16:41 91 Nasal Cannula 4.0 Physical Exam Constitutional: Vital signs reviewed. The patient is in respiratory distress. He is hypoxic, tachycardic and hypotensive. Eyes: Pupils are equal round reactive to light. Conjunctiva are noninjected. ENT: Pharynx is clear without erythema or exudate. Mucous membranes are moist. Neck supple without meningeal signs. Respiratory: Breath sounds are diminished bilaterally. Wheezing and retractions present. Cardiovascular: Tachycardic. Irregularly irregular rhythm. GI: Soft, nondistended and nontender. Bowel sounds are present. Musculoskeletal: No peripheral edema. No lower extremity tenderness. Integumentary: No cyanosis. Neurological: The patient is awake and alert. No focal deficits. Psychiatric: Anxious appearing. Medical Decision & Procedures ER Provider Diagnostic Interpretation: X-ray results as stated below per interpretation by me and the radiologist: CHEST ONE VIEW PORTABLE CLINICAL HISTORY: Atypical chest pain COMPARISON STUDY: April 13, 2017 FINDINGS: The heart is mildly enlarged. There are small bilateral pleural effusions. There is pulmonary emphysema. There are left basilar airspace opacities, possibly representing a pneumonia.[ IMPRESSION: 1. Emphysema 2. Cardiomegaly and small bilateral pleural effusions 3. Progressive left basal airspace opacities, suspicious for pneumonia Electronically signed by: Albino Daily M.D. 05/06/2017 5:04 PM Dictated Date/Time: 05/06/2017 5:02 PM Laboratory Results 05/06/17 16:20 Red Blood Count 3.67, Mean Corpuscular Volume 98.6, Mean Corpuscular Hemoglobin 32.2, Mean Corpuscular Hemoglobin Concent 32.6, Mean Platelet Volume 9.7, Neutrophils (%) (Auto) 85.5, Lymphocytes (%) (Auto) 6.3, Monocytes (%) (Auto) 8.0, Eosinophils (%) (Auto) 0.1, Basophils (%) (Auto) 0.0, Neutrophils # (Auto) 6.52, Lymphocytes # (Auto) 0.48, Monocytes # (Auto) 0.61, Eosinophils # (Auto) 0.01, Basophils # (Auto) 0.00 05/06/17 16:20 Test 05/06/17 16:20 05/06/17 16:53 White Blood Count 7.63 K/uL (4.8-10.8) Red Blood Count 3.67 M/uL (4.7-6.1) Hemoglobin 11.8 g/dL (14.0-18.0) Hematocrit 36.2 % (42-52) Mean Corpuscular Volume 98.6 fL (80-100) Mean Corpuscular Hemoglobin 32.2 pg (25-34) Mean Corpuscular Hemoglobin Concent 32.6 g/dl (32-36) Platelet Count 296 K/uL (130-400) Mean Platelet Volume 9.7 fL (7.4-10.4) Neutrophils (%) (Auto) 85.5 % Lymphocytes (%) (Auto) 6.3 % Monocytes (%) (Auto) 8.0 % Eosinophils (%) (Auto) 0.1 % Basophils (%) (Auto) 0.0 % Neutrophils # (Auto) 6.52 K/uL (1.4-6.5) Lymphocytes # (Auto) 0.48 K/uL (1.2-3.4) Monocytes # (Auto) 0.61 K/uL (0.11-0.59) Eosinophils # (Auto) 0.01 K/uL (0-0.5) Basophils # (Auto) 0.00 K/uL (0-0.2) RDW Standard Deviation 56.1 fL (36.4-46.3) RDW Coefficient of Variation 15.5 % (11.5-14.5) Immature Granulocyte % (Auto) 0.1 % Immature Granulocyte # (Auto) 0.01 K/uL (0.00-0.02) Prothrombin Time 12.8 SECONDS (9.0-12.0) Prothromb Time International Ratio 1.2 (0.9-1.1) Activated Partial Thromboplast Time 31.7 SECONDS (21.0-31.0) Partial Thromboplastin Ratio 1.2 Anion Gap 7.0 mmol/L (3-11) Est Creatinine Clear Calc Drug Dose 51.2 ml/min Estimated GFR () 93.0 Estimated GFR (Non- 80.2 BUN/Creatinine Ratio 27.0 (10-20) Calcium Level 8.8 mg/dl (8.5-10.1) Magnesium Level 1.8 mg/dl (1.8-2.4) Pro-B-Type Natriuretic Peptide 48820 pg/ml (0-1800) Digoxin Level 1.2 ng/ml (0.8-2.0) Bedside Troponin I 6.690 ng/ml (0-0.045) Laboratory results as reviewed by me. Medications Administered Medications (Trade) Dose Ordered Sig/Shabbir Route Start Time Stop Time Status Last Admin Dose Admin Methylprednisolone Sodium Succinate (Solu-Medrol IV) 125 mg STK-MED ONCE .ROUTE 05/06/17 16:36 05/06/17 16:37 DC 05/06/17 16:36 125 MG Albuterol/ Ipratropium (Duoneb) 12 ml ONE ONCE INH 05/06/17 16:45 05/06/17 16:46 DC 05/06/17 17:21 12 ML Piperacillin Sod/ Tazobactam Sod (Zosyn Iv) 4.5 gm NOW STAT IV 05/06/17 17:08 05/06/17 17:09 DC 05/06/17 17:33 4.5 GM ECG Indication: SOB/dyspnea Rate (beats per minute): 125 Rhythm: atrial fibrillation (RVR) Findings: LAFB, nonspecific-ST abn, other (LVH) ED Course 1627: The patient was evaluated in room B01. A complete history and physical exam was performed. 1636: Ordered Solu-Medrol 125 mg IV. 1640: I discussed the patient's case with Dr. Burch, [facility]. He suggests Diuretics and Digoxin. 1645: Ordered Duoneb 12 ml INH. 1649: I discussed care with family. They convinced him to get a BiPAP. 1708: Zosyn Iv 4.5 gram IV. 1712: I reevaluated the patient and he is doing better after CPAP. His heart rate is 106 and pulse ox is 92. His troponin level is 6. I discussed the x-ray findings with the family. The patient does not want an ABG at this time. 1721: I reevaluated the patient and he appears more comfortable with fewer retractions. His heart rate is 101, Oxygen saturation is 96, and his blood pressure is in the 80s systolically. I discussed the elevated troponin. 1731: [facility] the [facility] the patients condition and agrees to accept the patient. The patient will be further evaluated. Medical Decision This is an 86-year-old male who presents in respiratory distress. I did perform a limited focused review of portions of the patient's old chart on the electronic medical record. The patient was seen by cardiology on April 16. He has a history of COPD and cardiomyopathy. The patient presented with sinus tachycardia and was placed on beta blockers. He was diagnosed with acute COPD exacerbation and respiratory failure. I did provide prehospital medical command from patient. I did immediately evaluate the patient on arrival as noted above. The patient was placed on a continuous research and evaluation analyst. The patient is refusing BiPAP. He has diminished breath sounds bilaterally. He was also refusing the facemask. His heart rate is improved from when EMS had called me. His heart rate is in the 1 teens and 120s. His blood pressure is relatively stable with a systolic in the 90s. I did order Solu-Medrol 125 mg IV. I did order a continuous hour-long DuoNeb. I did discuss the case with the team leader on-call who recommended possible digoxin and diuretics. I did order and personally review the patient's 12-lead EKG and chest x-ray as described above. He does have atrial fibrillation. His chest x-ray does not demonstrate significant pulmonary edema. Because his blood pressure was relatively low I did not feel giving him Lasix would be beneficial at this time. He does appear to have a left lower lobe infiltrate. Blood cultures are ordered and he was started on Zosyn IV. The patient is already on digoxin and I did send a digoxin level. I did order and review the patient's blood work as noted in the electronic medical record. He is anemic. His creatinine is significantly elevated as well as his BNP. I did reassess the patient multiple times. I did speak to the family regarding his care. The patient finally acquiesced to BiPAP although he continued to refuse intubation. His heart rate did improve to about 100. His blood pressure still remained in the 80s and 90s systolic. The patient's family felt that the patient did not want any heroic measures at this time or any significantly invasive procedures. I did discuss the case with the hospitalist for further care and evaluation. Medication Reconcilliation Current Medication List: was personally reviewed by me Blood Pressure Screening Patient's blood pressure: Low blood pressure Consults Time Called: 1640 Consulting Physician: [facility] Returned Call: 1640 I discussed the patient's case with [facility]. He suggests Diuretics and Digoxin. Additional Consults: Time Called: 1702 Consulted Physician: Elda Mejia Hospitalist Returned Call: 1702 Additional Comments: I discussed the patients case with [facility] Mejia Hospitalist. He understands the patients condition and agrees to accept the patient. The patient will be further evaluated. Impression Primary Impression: Respiratory failure Additional Impressions: COPD with acute exacerbation Anemia Acute coronary syndrome Hypotension Atrial fibrillation with RVR Left lower lobe pneumonia Critical Care I have personally spent 40 minutes of critical care time in the direct management of this patient. This includes bedside care, interpretation of diagnostic studies, and testing, discussion with consultants, patient, and family members, and other required patient management activities. This 40 minutes is in excess of all separately billable procedures. Scribe Attestation The scribe's documentation has been prepared under my direct and personally reviewed by me in its entirety. I confirm that the note above accurately reflects all work, treatment, procedures, and medical decision making performed by me. Departure Information Dispostion Being Evaluated By Hospitalist Patient Instructions Asthma - [facility], COPD - [facility], Croup - [facility], [facility] Health Problem Qualifiers Primary Impression: Respiratory failure Chronicity: acute Respiratory failure complication: hypoxia Qualified Codes : J96.01 - Acute respiratory failure with hypoxia Additional Impressions: Anemia Anemia type: unspecified type Qualified Codes: D64.9 - Anemia, unspecified Hypotension Hypotension type: unspecified hypotension type Qualified Codes: I95.9 - Hypotension, unspecified Left lower lobe pneumonia Pneumonia type: due to unspecified organism Qualified Codes: J18.1 - Lobar pneumonia, unspecified organism
[2017-05-06] MEDS ORDERED: PIPERACILL/TAZOBAC CONSULT ACTIVE PRN (19:52)
[2017-05-06 20:11] VITALS: Ht 167.6 cm; Wt 55.6 kg
[2017-05-06 20:15] VITALS: PULSE 110; O2SAT 95
[2017-05-06] MEDS: LEVALBUTEROL 0.63MG/3 ML NEB INH SCH (20:15)
[2017-05-06 20:16] VITALS: BP 100/56; PULSE 104; PULSE 110; TEMP 36.7; O2SAT 95; O2SAT 96
[2017-05-06] MEDS: DORNASE ALFA (2500U) 2.5MG/2.5ML INH SCH (20:26)
[2017-05-06] MEDS: METOPROLOL TARTRATE 25 MG TAB PO SCH (21:00)
[2017-05-06] MEDS: FLUTICASONE HFA 110MCG INHALER INH SCH (21:00)
[2017-05-06] MEDS: FINASTERIDE 5 MG TAB PO SCH (21:00)
[2017-05-06] MEDS: HEPARIN SOD 5000 UNIT/0.5 ML CARP SQ SCH (21:49)
[2017-05-06] MEDS: PIPERACILL/TAZOBAC IV 3.375 GM in DEXTROSE 5% 100ML IV SCH (21:50)
[2017-05-06 22:16] VITALS: PULSE 104; O2SAT 98
[2017-05-07] VITALS (8 sets, daily range): BP systolic 88–101; BP diastolic 55–65; PULSE 83–128; TEMP 36.7; O2SAT 93–100
[2017-05-07] MEDS: MoRPHine SULFATE 2 MG/ML CARP IV PRN ×3 (00:30→23:28)
[2017-05-07] MEDS: LEVALBUTEROL 0.63MG/3 ML NEB INH SCH ×4 (02:06→18:54)
[2017-05-07] MEDS: PIPERACILL/TAZOBAC IV 3.375 GM in DEXTROSE 5% 100ML IV SCH ×2 (05:32→13:47)
[2017-05-07] MEDS: HEPARIN SOD 5000 UNIT/0.5 ML CARP SQ SCH ×3 (05:32→20:27)
[2017-05-07] MEDS: DORNASE ALFA (2500U) 2.5MG/2.5ML INH SCH ×2 (07:08→18:53)
[2017-05-07] MEDS: SERTRALINE HCL 100 MG TAB PO SCH (09:00)
[2017-05-07] MEDS: LISINOPRIL 2.5 MG TAB PO SCH (09:00)
[2017-05-07] MEDS ORDERED: FUROSEMIDE 20 MG TAB PO SCH (09:00)
[2017-05-07] MEDS: ROFLUMILAST 500 MCG TAB PO SCH (09:00)
[2017-05-07] MEDS ORDERED: METHYLPREDNISOLONE IV 40 MG in SYRINGE 0 ML IV SCH (09:00)
[2017-05-07] MEDS: METOPROLOL TARTRATE 25 MG TAB PO SCH ×2 (09:00→20:00)
[2017-05-07] MEDS: PANTOprazole SOD 40 MG TAB PO SCH (09:00)
[2017-05-07] MEDS: FLUTICASONE HFA 110MCG INHALER INH SCH ×2 (09:00→20:00)
[2017-05-07] MEDS: ASPIRIN 81 MG ECTAB PO SCH (09:00)
[2017-05-07] MEDS: LORAZEPAM INJ 0.5 MG in SYRINGE 0.75 ML IV PRN ×2 (09:53→23:28)
[2017-05-07] MEDS ORDERED: NURSING VERBAL MED ORDER ONE (11:00)
[2017-05-07] MEDS ORDERED: FUROSEMIDE INJ 20 MG in SYRINGE 0 ML IV SCH (12:30)
--- NOTE | 2017-05-07 15:01 | Progress Note ---
Internal Med Progress Note Date of Service: May 07, 2017. Provider Documentation: SUBJECTIVE: Seen and examined at bedside. Denies Pain, SOB. could not provide any other information Family at bedside. Ok with discontinuing Abx, steroids OBJECTIVE: Vital Signs-as noted below Physical Exam: General Appearance:chronically ill appearing Head: normocephalic, Atraumatic Eyes: normal inspection, EOMI, PERRL Neck: supple, Trachea midline Respiratory/Chest: Decreased breath sounds, CTA, + accessory muscle use Cardiovascular: Irregularly irregular, No murmur Abdomen/GI:Soft, Non tender, Bowel sounds present Extremities/Musculoskelatal:normal inspection, no edema Neurologic/Psych:grossly no focal neurological deficits Skin: normal color, warm Lab data as noted below. 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 Family aware of risk for stroke given the scenario PAD, AAA, HLP Continue home meds GERD: continue PPI DVT Px: Heparin SQ Code Status: DNI/DNR Very poor prognosis Comfort measures only Palliative care consulted access services representative consulted Vital Signs: Date Time Temp Pulse Resp B/P (MAP) Pulse Ox O2 Delivery O2 Flow Rate FiO2 05/07/17 12:12 111 98/64 (75) 100 Oxymask 05/07/17 08:00 BiPAP 05/07/17 07:22 116 22 93 Nasal Cannula 6.0 05/07/17 05:43 83 97 40 05/07/17 02:07 85 26 97 BiPAP/CPAP 40 05/07/17 02:07 85 97 40 05/07/17 01:30 BiPAP 05/07/17 00:00 36.7 85 18 88/55 (66) 97 BiPAP 05/06/17 22:20 BiPAP 05/06/17 22:16 104 98 50 05/06/17 20:16 110 95 50 05/06/17 20:16 36.7 104 24 100/56 (71) 96 BiPAP 9/16/17 20:15 110 30 95 BiPAP/CPAP 50 16/17 19:38 37.3 99 24 94/49 99 16/17 19:31 94/49 16/17 19:30 99 99 BiPAP /16/17 19:16 91/46 16/17 19:05 93 24 101/55 98 BiPAP 9/16/17 19:01 101/55 16/17 19:00 94 97 16/17 18:47 100 24 84/62 96 BiPAP 16/17 18:46 84/62 16/17 18:31 100/59 16/17 18:30 68 98 16/17 18:22 100 26 88/62 96 BiPAP 16/17 18:16 88/62 16/17 18:06 103 24 87/48 96 BiPAP /16/17 18:01 87/48 16/17 18:00 70 95 16/17 17:51 103 28 90/46 93 BiPAP 16/17 17:46 90/46 16/17 17:31 76/52 16/17 17:30 100 88 16/17 17:26 104 26 84/51 96 BiPAP 16/17 17:25 115 34 95 BiPAP/CPAP 45 16/17 17:21 115 45 16/17 17:16 84/51 16/17 17:16 105 26 98/54 94 BiPAP 16/17 17:01 98/54 16/17 17:00 115 93 16/17 17:00 121 16/17 16:56 86/50 16/17 16:55 116 28 86/50 91 Nasal Cannula 9.0 16/17 16:54 84 Nasal Cannula 4.0 16/17 16:41 37.3 122 30 95/57 91 Nasal Cannula 4.0 16/17 16:41 91 Nasal Cannula 4.0 16/17 16:41 91 Nasal Cannula 4.0 16/17 16:36 96/57 Lab Results: Results Past 24 Hours Test 17 16:20 16/17 16:53 Range/Units White Blood Count 7.63 4.8-10.8 K/uL Red Blood Count 3.67 4.7-6.1 M/uL Hemoglobin 11.8 14.0-18.0 g/dL Hematocrit 36.2 42-52 % Mean Corpuscular Volume 98.6 80-100 fL Mean Corpuscular Hemoglobin 32.2 25-34 pg Mean Corpuscular Hemoglobin Concent 32.6 32-36 g/dl Platelet Count 296 130-400 K/uL Mean Platelet Volume 9.7 7.4-10.4 fL Neutrophils (%) (Auto) 85.5 % Lymphocytes (%) (Auto) 6.3 % Monocytes (%) (Auto) 8.0 % Eosinophils (%) (Auto) 0.1 % Basophils (%) (Auto) 0.0 % Neutrophils # (Auto) 6.52 1.4-6.5 K/uL Lymphocytes # (Auto) 0.48 1.2-3.4 K/uL Monocytes # (Auto) 0.61 0.11-0.59 K/uL Eosinophils # (Auto) 0.01 0-0.5 K/uL Basophils # (Auto) 0.00 0-0.2 K/uL RDW Standard Deviation 56.1 36.4-46.3 fL RDW Coefficient of Variation 15.5 11.5-14.5 % Immature Granulocyte % (Auto) 0.1 % Immature Granulocyte # (Auto) 0.01 0.00-0.02 K/uL Prothrombin Time 12.8 9.0-12.0 SECONDS Prothromb Time International Ratio 1.2 0.9-1.1 Activated Partial Thromboplast Time 31.7 21.0-31.0 SECONDS Partial Thromboplastin Ratio 1.2 Sodium Level 137 136-145 mmol/L Potassium Level 4.1 3.5-5.1 mmol/L Chloride Level 93 98-107 mmol/L Carbon Dioxide Level 37 21-32 mmol/L Anion Gap 7.0 3-11 mmol/L Blood Urea Nitrogen 22 7-18 mg/dl Creatinine 0.83 0.60-1.40 mg/dl Est Creatinine Clear Calc Drug Dose 51.2 ml/min Estimated GFR () 93.0 Estimated GFR (Non- 80.2 BUN/Creatinine Ratio 27.0 10-20 Random Glucose 154 70-99 mg/dl Calcium Level 8.8 8.5-10.1 mg/dl Magnesium Level 1.8 1.8-2.4 mg/dl Pro-B-Type Natriuretic Peptide 66441 0-1800 pg/ml Digoxin Level 1.2 0.8-2.0 ng/ml Bedside Troponin I 6.690 0-0.045 ng/ml Microbiology Results 05/06/17 Blood Culture, Received Pending 05/06/17 Blood Culture, Received Pending
[2017-05-07] MEDS ORDERED: DIGOXIN 0.125 MG TAB PO SCH (16:00)
[2017-05-07] MEDS: DIGOXIN IV 125 MCG in SYRINGE 9.5 ML IV SCH (16:04)
[2017-05-07] MEDS: FINASTERIDE 5 MG TAB PO SCH (20:27)
[2017-05-08] VITALS: O2SAT 100
[2017-05-08] MEDS: LEVALBUTEROL 0.63MG/3 ML NEB INH SCH ×4 (03:00→18:59)
[2017-05-08] MEDS: LORAZEPAM INJ 0.5 MG in SYRINGE 0.75 ML IV PRN ×2 (05:31→09:24)
[2017-05-08] MEDS: MoRPHine SULFATE 2 MG/ML CARP IV PRN ×2 (05:32→09:23)
[2017-05-08] MEDS: HEPARIN SOD 5000 UNIT/0.5 ML CARP SQ SCH ×3 (05:51→20:57)
[2017-05-08] MEDS: DORNASE ALFA (2500U) 2.5MG/2.5ML INH SCH ×2 (07:04→18:58)
[2017-05-08] MEDS: FLUTICASONE HFA 110MCG INHALER INH SCH ×2 (07:58→19:59)
[2017-05-08] MEDS: PANTOprazole SOD 40 MG TAB PO SCH (07:58)
[2017-05-08] MEDS: METOPROLOL TARTRATE 25 MG TAB PO SCH ×2 (07:58→19:59)
[2017-05-08] MEDS: ROFLUMILAST 500 MCG TAB PO SCH (07:58)
[2017-05-08] MEDS: ASPIRIN 81 MG ECTAB PO SCH (07:58)
[2017-05-08] MEDS: LISINOPRIL 2.5 MG TAB PO SCH (07:59)
[2017-05-08] MEDS: SERTRALINE HCL 100 MG TAB PO SCH (07:59)
[2017-05-08 08:00] VITALS: O2SAT 100
[2017-05-08] MEDS ORDERED: MoRPHine SULFATE 2 MG/ML CARP ONE (12:57)
--- NOTE | 2017-05-08 13:25 | Progress Note ---
Internal Med Progress Note Date of Service: May 08, 2017. Provider Documentation: SUBJECTIVE: Seen and examined at bedside. States being SOB. Saturating 85% Denies pain Family at bedside. OBJECTIVE: Vital Signs-as noted below Physical Exam: General Appearance:chronically ill appearing Head: normocephalic, Atraumatic Eyes: normal inspection, EOMI, PERRL Neck: supple, Trachea midline Respiratory/Chest: Decreased breath sounds, coarse, + accessory muscle use Cardiovascular: Irregularly irregular, No murmur Abdomen/GI:Soft, Non tender, Bowel sounds present Extremities/Musculoskelatal:normal inspection, no edema Neurologic/Psych:grossly no focal neurological deficits Skin: normal color, warm Lab data as noted below. 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 Family aware of risk for stroke given the scenario PAD, AAA, HLP Continue home meds GERD: continue PPI DVT Px: Heparin SQ Code Status: DNI/DNR Very poor prognosis Comfort measures only Palliative care consulted office services manager consulted Vital Signs: Date Time Temp Pulse Resp B/P (MAP) Pulse Ox O2 Delivery O2 Flow Rate FiO2 05/08/17 08:00 100 Oxymask 10.0 05/08/17 00:00 100 Oxymask 10.0 40 05/07/17 20:23 128 101/65 (77) 100 Oxymask 10.0 05/07/17 16:15 118 100 Oxymask 10.0 05/07/17 16:04 120 05/07/17 16:00 100 Oxymask 10.0 05/07/17 16:00 120 93/63 (73) 100
[2017-05-08] MEDS ORDERED: MoRPHine SULFATE 2 MG/ML CARP IV PRN (13:30)
[2017-05-08] MEDS ORDERED: LORAZEPAM 2 MG/ML 1 ML VIAL IV PRN (14:00)
[2017-05-08] MEDS ORDERED: LORAZEPAM INJ 0.5 MG in SYRINGE 0.75 ML IV PRN (15:30)
[2017-05-08] MEDS: MoRPHine SULFATE 4 MG/ML 1 ML CARP\\VIAL IV PRN ×3 (15:40→22:13)
[2017-05-08] MEDS: DIGOXIN IV 125 MCG in SYRINGE 9.5 ML IV SCH (16:47)
[2017-05-08] MEDS: FINASTERIDE 5 MG TAB PO SCH (20:57)
--- NOTE | 2017-05-09 07:45 | Palliative Care Progress Note ---
Palliative Care Progress Note Date of Service May 09, 2017. Subjective Patient before consult completed.
--- NOTE | 2017-05-09 11:24 | Discharge Summary ---
Discharge Summary Date of Service May 09, 2017. Discharge Summary Admission Date: May 06, 2017 at 18:16 Principal Diagnosis: Acute on chronic respiratory failure:multifactorial Procedures: CXR: 1. Emphysema 2. Cardiomegaly and small bilateral pleural effusions 3. Progressive left basal airspace opacities, suspicious for pneumonia Admission Information HPI (per Admitting provider): Patient is an 86 Yr male with PMH of Severe COPD chronically steroid and oxygen dependent, Presumed ischemic cardiomyopathy with last known EF:20-25%, PAD, AAA , HLP, GERD, BPH, h/o tobacco use who had multiple admissions in the past for COPD, CHF exacerbations and Pneumonia, who was recently discharged from [facility] 2 weeks ago to rehab facility after being treated for acute COPD exacerbation and chronic respiratory failure presents with worsening SOB. Patient is currently not able to provide any history. Most of the history is obtained from patient's family, old records, ER physician and staff. Patient was found to be in atrial flutter/Afib and received adenosine en route to the hospital. While in ED patient is found to be in afib RVR with rate in 120s and hypoxic, 84% on RA and patient was placed on BiPAP. Currently patient is found to have respiratory distress and expressed to be DNI/DNR and also expressed the same during prior admission. Family at bedside including patient's daughter and 2 sons who are DPOA expressed that patient always wanted to be DNI/DNR. Patient's condition is explained in detail with the family and I also discussed with heading up machine operator executive talent acquisition consultant . Patient ideally needs to be placed on dopamine and heparin ggt and possible would be needed to be intubated for further management. After discussing with family, they preferred the patient to be on Comfort measures only but are ok with antibiotics and steroids. Patient denied any chest pain. No know history of cough, fevers. Physical Exam (per Admitting): General Appearance: + pertinent finding (chronically ill appearing) Head: normocephalic, atraumatic Eyes: normal inspection, PERRL, sclerae normal ENT: normal ENT inspection, hearing grossly normal Neck: supple, trachea midline Respiratory/Chest: + respiratory distress, + decreased breath sounds, + accessory muscle use (CTA), + pertinent finding Cardiovascular: no edema, no murmur, + irregularly irregular Abdomen/GI: normal bowel sounds, non tender, soft Back: normal inspection Extremities/Musculoskelatal: normal inspection, no pedal edema Neurologic/Psych: + pertinent finding (able to move extremitites. 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 Family aware of risk for stroke given the scenario PAD, AAA, HLP Continue home meds GERD: continue PPI DVT Px: Heparin SQ Code Status: DNI/DNR Very poor prognosis Comfort measures only Palliative care consulted convention services manager consulted Patient at 11:48 pm on 05/08/17. Total time spent on discharge = This includes examination of the patient, discharge planning, medication reconciliation, and communication with other providers. Discharge Instructions Patient
== END 2017-05-08 23:48 | disposition expired | DRG 291 ==
LOC: EDBD 16:30 → C.EDA 16:35 → C.MS2W 18:16 → ENRESERV 18:48 → C.4E 05-07 10:40 → UNDODISIN 05-09 01:56
PROVIDERS: ADMIT Internal Medicine; ATTEND Internal Medicine
DX: I50.23 Acute on chronic systolic (congestive) heart failure (principal); J96.21 Acute and chronic respiratory failure with hypoxia; J44.0 Chronic obstructive pulmonary disease with (acute) lower respiratory infection; J44.1 Chronic obstructive pulmonary disease with (acute) exacerbation; J18.9 Pneumonia, unspecified organism; I24.9 Acute ischemic heart disease, unspecified; Z99.81 Dependence on supplemental oxygen; I48.91 Unspecified atrial fibrillation; I25.5 Ischemic cardiomyopathy; I73.9 Peripheral vascular disease, unspecified; I71.4 Abdominal aortic aneurysm, without rupture; E78.5 Hyperlipidemia, unspecified; K21.9 Gastro-esophageal reflux disease without esophagitis; N40.0 Benign prostatic hyperplasia without lower urinary tract symptoms; Z66 Do not resuscitate; Z87.01 Personal history of pneumonia (recurrent); Z87.891 Personal history of nicotine dependence; Z79.51 Long term (current) use of inhaled steroids; Z79.82 Long term (current) use of aspirin; Z79.899 Other long term (current) drug therapy; Z88.2 Allergy status to sulfonamides

== ENCOUNTER → 2017-05-06 | Outpatient (CLI) | payer OTHER, MEDICARE ==
[~2017-05-06] MED LIST changes: +ACET-1311 PO; +DXY100 PO; +FLVHFA110 INH; +FLVHFA220 INH; +FURO20TA PO; -LCTX PO; +LORA-741 PO; +METO25TA56 PO; +MOMLX PO; +MORP20SO PO; +NEOM-25 TOP; +PLMIH INH; +SERT-234 PO; -SERT50TA PO
[2017-05-06 06:40] LABS: COMPLETE YES; HEMATOCRIT 36.1 % (42-52); IG% 0.1 %; LYMPH % 7.2 %; MEAN CELL VOLUME 100.3 fL (80-100); MEAN CORPUSCULAR HEMOGLOBIN 30.6 pg (25-34); MEAN CORPUSCULAR HGB CONC 30.5 g/dl (32-36); MEAN PLATELET VOLUME 9.8 fL (7.4-10.4); MONO % 7.9 %; NEUT % 84.8 %; PLATELET COUNT 236 K/uL (130-400); WHITE BLOOD COUNT 6.95 K/uL (4.8-10.8)
[2017-05-06 06:48] LABS: ALT/SGPT 18 U/L (12-78); BLOOD UREA NITROGEN 21 mg/dl (7-18); BUN/CREATININE RATIO 30.6 (10-20); CALCIUM 8.9 mg/dl (8.5-10.1); CARBON DIOXIDE 39 mmol/L (21-32); CHLORIDE 94 mmol/L (98-107); CREATININE 0.67 mg/dl (0.60-1.40); GLUCOSE 140 mg/dl (70-99); POTASSIUM 4.1 mmol/L (3.5-5.1); SODIUM 138 mmol/L (136-145)
[2017-05-06 06:51] LABS: ALB/GLOB RATIO 0.8 (0.9-2); ALKALINE PHOSPHATASE 60 U/L (45-117); AST/SGOT 65 U/L (15-37)
== END ==
LOC: C.LABUPNIT 08:19
PROVIDERS: ATTEND Nurse Practitioner Family
DX: J44.9 Chronic obstructive pulmonary disease, unspecified (principal); N40.0 Benign prostatic hyperplasia without lower urinary tract symptoms